=== PATIENT | female | born 1970 | race Caucasian/White ===

== ENCOUNTER 2020-05-22 12:21 | Emergency (ER) | payer BC, SELFPAY ==
--- NOTE | ~2020-05-22 | CT_ITS ---
EXAMINATION: CT ABDOMEN AND PELVIS WITH CONTRAST CLINICAL INFORMATION: Left lower quadrant pain. History of diverticulitis. COMPARISON: 05/27/2018 TECHNIQUE: Multidetector volumetric images were obtained from the superior aspect of the liver through the pubic symphysis following administration 85 mL of Omnipaque 350 intravenous contrast. Sagittal and coronal reformatted images were obtained on the technologist's workstation. Oral contrast: No This CT examination was performed using dose optimization techniques as appropriate, variously including the following: *Automated exposure control *Adjustment of mA and/or kV according to patient size (this includes techniques or standardized protocols for targeted exams where dose is matched to indication/reason for exam; i.e. extremities or head) *Use of iterative reconstruction technique DLP: 736 mGy-cm FINDINGS: LUNG BASES: The visualized lung bases are unremarkable. LIVER, GALLBLADDER, AND BILIARY TREE: The liver is normal in size, shape, and attenuation. Interval increase in size of a simple 2.1 cm subcapsular cyst within the lateral segment. Stable sub-5 mm cyst within lateral segment. No suspicious hepatic lesion or biliary ductal dilatation is present. Cholecystectomy. PANCREAS: Unremarkable. SPLEEN: Unremarkable. ADRENAL GLANDS: Unremarkable. KIDNEYS AND URETERS: The kidneys are normal in size, shape, and attenuation. No hydronephrosis, hydroureter, or calculi seen. No perinephric stranding. BLADDER: Unremarkable. GASTROINTESTINAL TRACT: Pancolonic diverticulosis, most extensive within the sigmoid colon. No associated focal colonic wall thickening or pericolic fat stranding to suggest diverticulitis. Stomach and small bowel unremarkable. ABDOMINAL WALL: No significant hernia is appreciated. LYMPH NODES: Normal. VASCULAR: Unremarkable. PELVIC VISCERA: Interval increase in size of a fibroid within the anterior uterus now measuring 5.7 cm, previously 4.2 cm. Ovaries unremarkable. OSSEOUS STRUCTURES: No acute or suspicious osseous abnormalities. CT/CT abdomen pelvis w con IMPRESSION: * No acute findings within the abdomen or pelvis to explain the patient's symptomatology. * Pancolonic diverticulosis, most extensive within the sigmoid colon. No evidence of acute diverticulitis. * Increase in size of an anterior uterine fibroid now measuring 5.7 cm, previously 4.2 cm.
[2020-05-22 12:26] VITALS: BP 138/83; PULSE 104; RESP 18; TEMP 36.7; O2SAT 99; BMI 35.5
[2020-05-22 13:14] VITALS: BP 138/68; PULSE 90; RESP 20; TEMP 36.9; O2SAT 98
--- NOTE | 2020-05-22 13:21 | ED.ABDPAIN ---
HPI - Abdominal Pain General Chief Complaint: Abdominal Pain Stated Complaint: abd pain lt side Time Seen by Provider: 05/22/20 12:34 Source: patient Mode of arrival: ambulatory Limitations: no limitations History of Present Illness HPI narrative: 49yoF c PMHx of diverticulitis and hypertension past surgical history of a cholecystectomy presenting to the ED with complaints of left lower quadrant abdominal pain for the past 3 days worse today. Patient reports she has some chills and was sweating yesterday although did not take her temperature. Denies any other symptoms related to this including dizziness, headaches, fevers, jaw pain, nausea/vomiting, palpitations, shortness of breath, chest pain, extremity edema, hemoptysis, dysuria, hematuria, diarrhea, constipation, melena or dark stools. Denies recent travel or sick contacts. MD elicited complaint: abdominal pain Pertinent past history: diverticulitis Onset (ago): day(s) (3 days worse today) Pain Consistency: constant Location: LLQ Severity: severe Quality: aching Radiation: none Migration to: no migration Relieving factors: nothing Associated symptoms: chills Related Data Previous Rx's Medication Instructions Recorded acetaminophen [Tylenol Extra 1,000 mg PO QID PRN #14 tab 05/22/20 Strength] levofloxacin 750 mg PO DAILY 7 Days #7 tab 05/22/20 metronidazole [Flagyl] 500 mg PO BID 7 Days #14 tab 05/22/20 naproxen 500 mg PO BID PRN #10 tab 05/22/20 oxycodone 5 mg PO BID PRN #10 tab 05/22/20 Allergies Allergy/AdvReac Type Severity Reaction Status Date / Time arias Allergy Unknown ITCHY Verified 05/22/20 16:05 THROAT peach [PEACH] Allergy Unknown ITCHY Verified 05/22/20 16:05 THROAT Penicillins [PENICILLINS] Allergy Unknown SWELLING Verified 05/22/20 16:05 Review of Systems Review of Systems Constitutional : + Chills/sweats, No Weight loss, No Fever, No Night Sweats, No Fatigue, No Malaise ENT/Mouth: No ear pain, No sore throat, No Difficulty swallowing Cardiovascular : No Chest Pain, No SOB, No Dyspnea on Exertion, No Orthopnea, NoEdema, No Palpitations Respiratory : No Cough, No Sputum, No Wheezing, No Dyspnea Gastrointestinal : + Abdominal pain, No Nausea, No Vomiting, No Diarrhea, No Hematochezia, No Melena Genitourinary : No irregular bleeding, No Dysuria, No Urinary Frequency, No Hematuria,No Urinary Incontinence, No Urgency, No Flank Pain Musculoskeletal : No joint pain, No Myalgias, No Joint Swelling Skin : No Skin Lesions, No rash Neuro : No Weakness, No Numbness, No Paresthesias, No Loss of Consciousness, NoDizziness, No Headache Psych : No Social Issues, Heme/Lymph: No Bruising, No Bleeding,No Lymphadenopathy Endocrine : No Polyuria, No Polydipsia, No Temperature Intolerance Yes all other systems are reviewed and are negative Physical Exam Vital Signs: Vital Signs: Last Vital Signs Temp 98.7 F 05/22/20 15:55 Pulse 98 05/22/20 15:55 Resp 18 05/22/20 15:55 BP 130/95 H 05/22/20 15:55 Pulse Ox 98 05/22/20 15:55 Body Mass Index 35.5 vital signs have been reviewed as normal and appeared to be correct. Blood pressure normal. Heart rate normal. Respiration rate normal. Temperature normal. Oxygen saturation normal. Appearance: Alert. Oriented X3. No acute distress. Head: Normal external exam. Normocephalic. Eyes: PERRLA. EOMI. Conjunctiva and sclera normal. Eyelids normal. ENT: Pharynx normal. Uvula midline. Moist mucous membranes. No trismus noted. No drooling noted. No muffled voice noted. Neck: Normal inspection. Neck supple. FROM. No adenopathy. No meningeal signs. CVS: Normal heart rate and rhythm. Heart sound normal. No murmurs noted. Pulses normal throughout. Respiratory: No respiratory distress. Painless inspiration. Breath sounds normal. No wheezes/rales/rhonchi noted. Chest nontender. No accessory muscle usage noted or decreased air movement noted. Abdomen: Soft and moderate tenderness to palpation to left lower quadrant. Nondistended. No guarding. No rigidity. Bowel sounds normal in all 4 quadrants. No distention noted. No organomegaly noted. No visible injury noted. No rebound tenderness. Negative Rovsing sign. Negative obturator's sign. Negative psoas sign. Negative Mohamud sign. Back: No CVA tenderness. Full range of motion noted. Skin: Skin warm and dry. Normal skin color. Normal skin turgor. No rashes/lesions/lacerations noted. Extremities: Extremities exhibit normal range of motion. Extremities nontender. Neuro: Oriented X 3. No motor deficit. No sensory deficit. Reflexes normal. Course Course Course Narrative: 13:20pm - 49yoF c PMHx of diverticulitis and hypertension past surgical history of a cholecystectomy presenting to the ED with complaints of left lower quadrant abdominal pain for the past 3 days worse today. Associated chills and sweating. - Concern for diverticulitis vs appendicitis vs viral syndrome vs COVID-19 - Plan: Labs, UA and CT scan of abdomen and pelvis with IV contrast. Provide a L of IV fluids and start the patient on Levaquin for possible diverticulitis or intra-abdominal infection, provided 4 mg of Zofran and 4 mg of morphine and re-evaluate. Reevaluation(s) Reevaluation #1: - all labs within normal limits. ETOH level negative. COVID/RSV/flu negative. - awaiting UA, UHCG and CT scan of abdomen and pelvis with IV contrast will re-evaluate. Time: 14:45 Reevaluation #2: - UA within normal limits no evidence of UTI. UHCG negative for . - CT scan of abdomen and pelvis revealed pancolonic diverticulosis not consistent with diverticulitis and a uterine fibroid otherwise no other acute processes due to patient having significant left lower quadrant abdominal pain and pancolonic diverticulosis will treat with antibiotics and instructions to return if any new or worsening symptoms to follow up with primary care provider. Patient is in agrees the plan. Time: 16:16 [facility] [place] - Abdominal Pain Medical Records Attestation: I reviewed the patient's medical records. Lab Data Attestation: I reviewed the patient's lab results. Result diagrams: 05/22/20 13:11 05/22/20 13:11 Labs: Lab Results 05/22/20 05/22/20 05/22/20 Range/Units 13:11 13:11 13:11 WBC 6.6 (4.8-10.8) X10*3/uL RBC 4.73 (4.20-5.50) X10*6/uL Hgb 13.8 (12.0-16.0) g/dl Hct 42.1 (37-47) % MCV 89.0 (80-98) fL MCH 29.2 (27.0-33.0) pg MCHC 32.8 (31.0-35.0) g/dl RDW 12.5 (11.0-16.0) % Plt Count 315 (160-400) X10*3/uL MPV 8.8 L (9.4-12.3) fL Immature Gran % (Auto) 0.2 (0.0-0.4) % Neut % (Auto) 62.2 (45-73) % Lymph % (Auto) 30.9 (20-40) % [place] % (Auto) 5.4 (2-11) % Eos % (Auto) 0.8 (0-4) % Baso % (Auto) 0.5 (0-2) % Lymph # (Auto) 2.1 (1.2-4.9) X10*3/uL [place] # (Auto) 0.4 (0.1-1.2) X10*3/uL Eos # (Auto) 0.1 (0.0-0.4) X10*3/uL Baso # (Auto) 0.0 (0.0-0.2) X10*3/uL Abs Immat Gran (auto) 0.01 (0.00-0.03) X10*3/uL Absolute Neuts (auto) 4.1 (2.0-8.3) X10*3/uL Absolute Nucleated RBC 0.000 (0.0-0.012) X10*3/uL Nucleated RBC % (auto) 0.0 (0.0-0.2) /100WBC Hold Purple Top SEE NOTE PT 12.8 (10.8-13.0) SEC INR 1.1 (0.9-1.1) Sodium (135-145) mmol/L Potassium (3.3-5.1) mmol/L Chloride (96-108) mmol/L Carbon Dioxide (22-29) mmol/L Anion Gap (12-20) BUN (9-16) mg/dL Creatinine (0.5-1.4) mg/dL Estim Creat Clear Calc Estimated GFR Random Glucose (60-115) mg/dL Calcium (8.4-10.2) mg/dL Magnesium (1.6-2.6) mg/dL Ferritin (10-250) ng/mL Total Bilirubin (0.0-1.0) mg/dL Direct Bilirubin (0.0-0.5) mg/dL AST (5-31) U/L ALT (0-31) U/L Alkaline Phosphatase (39-117) U/L Lactate Dehydrogenase (122-220) U/L C-Reactive Protein (< or = 0.50) mg/dL Total Protein (6.5-8.0) g/dL Albumin (3.5-5.0) g/dL Lipase (8-78) U/L Procalcitonin ng/mL Beta HCG, Quant mIU/mL Urine Color Urine Appearance Urine pH (5.0-8.0) Ur Specific [place] (1.005-1.025) Urine Protein (NEG-TRACE) MG/DL Urine Glucose (UA) (NEG) MG/DL Urine Ketones (NEG) MG/DL Urine Blood (NEG) Urine Nitrite (NEG) Ur Leukocyte Esterase (NEG) Urine RBC (0) /HPF Urine WBC (0-4) /HPF Ur Squamous Epith Cells /LPF Urine Bacteria /LPF Urine Test (NEGATIVE) Ethyl Alcohol mg/dL Coronavirus (PCR) (Negative) Influenza Type A (PCR) (Negative) Influenza Type B (PCR) (Negative) RSV RNA Qual (PCR) (Negative) 05/22/20 05/22/20 05/22/20 Range/Units 13:11 13:11 13:11 WBC (4.8-10.8) X10*3/uL RBC (4.20-5.50) X10*6/uL Hgb (12.0-16.0) g/dl Hct (37-47) % MCV (80-98) fL MCH (27.0-33.0) pg MCHC (31.0-35.0) g/dl RDW (11.0-16.0) % Plt Count (160-400) X10*3/uL MPV (9.4-12.3) fL Immature Gran % (Auto) (0.0-0.4) % Neut % (Auto) (45-73) % Lymph % (Auto) (20-40) % [place] % (Auto) (2-11) % Eos % (Auto) (0-4) % Baso % (Auto) (0-2) % Lymph # (Auto) (1.2-4.9) X10*3/uL [place] # (Auto) (0.1-1.2) X10*3/uL Eos # (Auto) (0.0-0.4) X10*3/uL Baso # (Auto) (0.0-0.2) X10*3/uL Abs Immat Gran (auto) (0.00-0.03) X10*3/uL Absolute Neuts (auto) (2.0-8.3) X10*3/uL Absolute Nucleated RBC (0.0-0.012) X10*3/uL Nucleated RBC % (auto) (0.0-0.2) /100WBC Hold Purple Top PT (10.8-13.0) SEC INR (0.9-1.1) Sodium 138 (135-145) mmol/L Potassium 4.2 (3.3-5.1) mmol/L Chloride 105 (96-108) mmol/L Carbon Dioxide 25 (22-29) mmol/L Anion Gap 12 (12-20) BUN 10 (9-16) mg/dL Creatinine 0.87 (0.5-1.4) mg/dL Estim Creat Clear Calc 88.7 Estimated GFR > 60 Random Glucose 143 H (60-115) mg/dL Calcium 8.6 (8.4-10.2) mg/dL Magnesium 2.0 (1.6-2.6) mg/dL Ferritin 57 (10-250) ng/mL Total Bilirubin 0.4 (0.0-1.0) mg/dL Direct Bilirubin 0.2 (0.0-0.5) mg/dL AST 15 (5-31) U/L ALT 23 (0-31) U/L Alkaline Phosphatase 80 (39-117) U/L Lactate Dehydrogenase 161 (122-220) U/L C-Reactive Protein 0.26 (< or = 0.50) mg/dL Total Protein 7.1 (6.5-8.0) g/dL Albumin 4.1 (3.5-5.0) g/dL Lipase 21 (8-78) U/L Procalcitonin < 0.02 ng/mL Beta HCG, Quant < 2 mIU/mL Urine Color Urine Appearance Urine pH (5.0-8.0) Ur Specific [place] (1.005-1.025) Urine Protein (NEG-TRACE) MG/DL Urine Glucose (UA) (NEG) MG/DL Urine Ketones (NEG) MG/DL Urine Blood (NEG) Urine Nitrite (NEG) Ur Leukocyte Esterase (NEG) Urine RBC (0) /HPF Urine WBC (0-4) /HPF Ur Squamous Epith Cells /LPF Urine Bacteria /LPF Urine Test (NEGATIVE) Ethyl Alcohol mg/dL Coronavirus (PCR) NEGATIVE (Negative) Influenza Type A (PCR) NEGATIVE (Negative) Influenza Type B (PCR) NEGATIVE (Negative) RSV RNA Qual (PCR) NEGATIVE (Negative) 05/22/20 05/22/20 Range/Units 13:11 15:32 WBC (4.8-10.8) X10*3/uL RBC (4.20-5.50) X10*6/uL Hgb (12.0-16.0) g/dl Hct (37-47) % MCV (80-98) fL MCH (27.0-33.0) pg MCHC (31.0-35.0) g/dl RDW (11.0-16.0) % Plt Count (160-400) X10*3/uL MPV (9.4-12.3) fL Immature Gran % (Auto) (0.0-0.4) % Neut % (Auto) (45-73) % Lymph % (Auto) (20-40) % [place] % (Auto) (2-11) % Eos % (Auto) (0-4) % Baso % (Auto) (0-2) % Lymph # (Auto) (1.2-4.9) X10*3/uL [place] # (Auto) (0.1-1.2) X10*3/uL Eos # (Auto) (0.0-0.4) X10*3/uL Baso # (Auto) (0.0-0.2) X10*3/uL Abs Immat Gran (auto) (0.00-0.03) X10*3/uL Absolute Neuts (auto) (2.0-8.3) X10*3/uL Absolute Nucleated RBC (0.0-0.012) X10*3/uL Nucleated RBC % (auto) (0.0-0.2) /100WBC Hold Purple Top PT (10.8-13.0) SEC INR (0.9-1.1) Sodium (135-145) mmol/L Potassium (3.3-5.1) mmol/L Chloride (96-108) mmol/L Carbon Dioxide (22-29) mmol/L Anion Gap (12-20) BUN (9-16) mg/dL Creatinine (0.5-1.4) mg/dL Estim Creat Clear Calc Estimated GFR Random Glucose (60-115) mg/dL Calcium (8.4-10.2) mg/dL Magnesium (1.6-2.6) mg/dL Ferritin (10-250) ng/mL Total Bilirubin (0.0-1.0) mg/dL Direct Bilirubin (0.0-0.5) mg/dL AST (5-31) U/L ALT (0-31) U/L Alkaline Phosphatase (39-117) U/L Lactate Dehydrogenase (122-220) U/L C-Reactive Protein (< or = 0.50) mg/dL Total Protein (6.5-8.0) g/dL Albumin (3.5-5.0) g/dL Lipase (8-78) U/L Procalcitonin ng/mL Beta HCG, Quant mIU/mL Urine Color YELLOW Urine Appearance CLEAR Urine pH 6.0 (5.0-8.0) Ur Specific [place] <= 1.005 (1.005-1.025) Urine Protein NEG (NEG-TRACE) MG/DL Urine Glucose (UA) NEG (NEG) MG/DL Urine Ketones NEG (NEG) MG/DL Urine Blood 1+ H (NEG) Urine Nitrite NEG (NEG) Ur Leukocyte Esterase NEG (NEG) Urine RBC 5-9 H (0) /HPF Urine WBC 0-2 (0-4) /HPF Ur Squamous Epith Cells 1+ /LPF Urine Bacteria NONE /LPF Urine Test NEGATIVE (NEGATIVE) Ethyl Alcohol < 10 mg/dL Coronavirus (PCR) (Negative) Influenza Type A (PCR) (Negative) Influenza Type B (PCR) (Negative) RSV RNA Qual (PCR) (Negative) Imaging Data CT scan of abdomen and pelvis with IV contrast: Attestation: I personally reviewed and interpreted this imaging study as follows: Radiologist's impression: FINDINGS: LUNG BASES: The visualized lung bases are unremarkable. LIVER, GALLBLADDER, AND BILIARY TREE: The liver is normal in size, shape, and attenuation. Interval increase in size of a simple 2.1 cm subcapsular cyst within the lateral segment. Stable sub-5 mm cyst within lateral segment. No suspicious hepatic lesion or biliary ductal dilatation is present. Cholecystectomy. PANCREAS: Unremarkable. SPLEEN: Unremarkable. ADRENAL GLANDS: Unremarkable. KIDNEYS AND URETERS: The kidneys are normal in size, shape, and attenuation. No hydronephrosis, hydroureter, or calculi seen. No perinephric stranding. BLADDER: Unremarkable. GASTROINTESTINAL TRACT: Pancolonic diverticulosis, most extensive within the sigmoid colon. No associated focal colonic wall thickening or pericolic fat stranding to suggest diverticulitis. Stomach and small bowel unremarkable. ABDOMINAL WALL: No significant hernia is appreciated. LYMPH NODES: Normal. VASCULAR: Unremarkable. PELVIC VISCERA: Interval increase in size of a fibroid within the anterior uterus now measuring 5.7 cm, previously 4.2 cm. Ovaries unremarkable. OSSEOUS STRUCTURES: No acute or suspicious osseous abnormalities. CT/CT abdomen pelvis w con IMPRESSION: * No acute findings within the abdomen or pelvis to explain the patient's symptomatology. * Pancolonic diverticulosis, most extensive within the sigmoid colon. No evidence of acute diverticulitis. * Increase in size of an anterior uterine fibroid now measuring 5.7 cm, previously 4.2 cm. Discharge Plan Discharge Clinical Impression: Diverticulosis, Fibroid, uterine Patient Disposition: Home, Self-Care Instructions: Diverticulosis (ED) Prescriptions: New levofloxacin 750 mg tablet 750 mg PO DAILY 7 Days Qty: 7 RF: 0 metronidazole [Flagyl] 500 mg tablet 500 mg PO BID 7 Days Qty: 14 RF: 0 acetaminophen [Tylenol Extra Strength] 500 mg tablet 1,000 mg PO QID PRN (Reason: fever or pain) Qty: 14 RF: 0 naproxen 500 mg tablet 500 mg PO BID PRN (Reason: pain) Qty: 10 RF: 0 oxycodone 5 mg tablet 5 mg PO BID PRN (Reason: pain) Qty: 10 RF: 0 Referrals: Lee José MD [Primary Care Provider] - 2 days Stand Alone Forms: Work/School Release Print Language: [place]ian [facility] Past Medical History Attestation statement: The following information was validated with the patient. Medical History HTN (hypertension) Surgical History Hx of cholecystectomy Social History Social History Alcohol intake: never Smoking Status: Never smoker Advance Directives: No Advance Directives Information Provided: No
[2020-05-22 13:25] LABS: Basophils Percent Auto 0.5 % (0-2); Eosinophils Absolute Auto 0.1 X10*3/uL (0.0-0.4); Eosinophils Percent Auto 0.8 % (0-4); Hematocrit 42.1 % (37-47); Hemoglobin 13.8 g/dl (12.0-16.0); Imm Gran Abs Auto 0.01 X10*3/uL (0.00-0.03); Imm Gran Pct Auto 0.2 % (0.0-0.4); Lymphocytes Absolute Auto 2.1 X10*3/uL (1.2-4.9); Lymphocytes Percent Auto 30.9 % (20-40); MANUAL DIFF FLAG NO; Mean Corpuscular HGB Conc 32.8 g/dl (31.0-35.0); Mean Corpuscular Hemoglobin 29.2 pg (27.0-33.0); Mean Platelet Volume 8.8 fL (9.4-12.3); Monocytes Absolute Auto 0.4 X10*3/uL (0.1-1.2); Monocytes Percent Auto 5.4 % (2-11); Neutrophils Absolute Auto 4.1 X10*3/uL (2.0-8.3); Neutrophils Percent Auto 62.2 % (45-73); Platelet Count 315 X10*3/uL (160-400); Red Blood Count 4.73 X10*6/uL (4.20-5.50); Red Cell Distribution Width 12.5 % (11.0-16.0); White Blood Count 6.6 X10*3/uL (4.8-10.8)
[2020-05-22 13:40] LABS: INTERNATIONAL NORM RATIO 1.1 (0.9-1.1); Prothrombin Time 12.8 SEC (10.8-13.0)
[2020-05-22 13:44] LABS: Ethanol < 10 mg/dL
[2020-05-22 13:48] LABS: Alanine Aminotransferase 23 U/L (0-31); Albumin Level 4.1 g/dL (3.5-5.0); Alkaline Phosphatase 80 U/L (39-117); Anion Gap 12 (12-20); Aspartate Amino Transferase 15 U/L (5-31); Bilirubin Direct 0.2 mg/dL (0.0-0.5); Bilirubin Total 0.4 mg/dL (0.0-1.0); Blood Urea Nitrogen 10 mg/dL (9-16); C Reactive Protein 0.26 mg/dL (< or = 0.50); Calcium 8.6 mg/dL (8.4-10.2); Carbon Dioxide 25 mmol/L (22-29); Chloride 105 mmol/L (96-108); Creatinine Clr Calc Pharmacy 88.7; Estimated Glomerular Filt Rate > 60; Glucose Random 143 mg/dL (60-115); Lactate Dehydrogenase 161 U/L (122-220); Lipase 21 U/L (8-78); Potassium 4.2 mmol/L (3.3-5.1); Sodium 138 mmol/L (135-145); Total Protein 7.1 g/dL (6.5-8.0)
[2020-05-22 14:08] LABS: Procalcitonin < 0.02 ng/mL
[2020-05-22 14:10] LABS: Ferritin 57 ng/mL (10-250)
[2020-05-22] MEDS: 0.9 % Sodium Chloride 1,000 ML 999 ML IVCONT (14:18)
[2020-05-22] MEDS: Morphine Sulfate 4 MG/ML CARTRIDGE IVPUSH (14:18)
[2020-05-22] MEDS: ondansetron HCL 4 MG/2 ML VIAL IVPUSH (14:18)
[2020-05-22 14:25] LABS: Influenza A PCR NEGATIVE (Negative); Influenza B PCR NEGATIVE (Negative); Resp Syncy Virus RNA Qual PCR NEGATIVE (Negative); SARS COV2 PCR INHOUSE NEGATIVE (Negative)
[2020-05-22] MEDS: levoFLOXacin/D5W 750 MG/150 ML PIGGYBACK 100 MG IV (14:25)
[2020-05-22 14:34] VITALS: BP 139/98; PULSE 84; RESP 20; TEMP 36.7; O2SAT 99
[2020-05-22 15:06] LABS: HCG Quantitative < 2 mIU/mL
[2020-05-22 15:55] VITALS: BP 130/95; PULSE 98; RESP 18; TEMP 37.1; O2SAT 98
[2020-05-22 16:02] LABS: Glucose Urine UA NEG (NEG); Leukocyte Esterase Urine NEG (NEG); Nitrite Urine NEG (NEG); Specific Gravity - Urine <= 1.005 (1.005-1.025); Urine Blood 1+ (NEG); Urine Ketones NEG (NEG); Urine Protein NEG (NEG-TRACE)
[2020-05-22 16:07] LABS: Appearance Urine CLEAR; Color Urine YELLOW
[2020-05-22 16:15] LABS: Squamous Epithelial Cell Urine 1+ /LPF; UPreg QC Valid YES; Urine Pregnancy NEGATIVE (NEGATIVE); WBC Urine 0-2 /HPF (0-4)
== END 2020-05-22 16:46 | disposition home or self-care (01) ==
PROVIDERS: Physician Assistant Medical; Emergency Provider Emergency Medicine; PCP Internal Medicine
DX: K57.30 Diverticulosis of large intestine without perforation or abscess without bleeding (principal); D25.9 Leiomyoma of uterus, unspecified; I10 Essential (primary) hypertension; Z20.822 Contact with and (suspected) exposure to COVID-19
CPT/HCPCS: 0241U; 36415; 74177; 80048; 80076; 80320; 81001; 81003; 81025; 82728; 83615; 83690; 83735; 84145; 84702; 85025; 85610; 86140; 96365; 96366; 96375; 99284; J1956; J2270; J2405

== ENCOUNTER 2021-12-26 08:41 | Outpatient (REF) | payer BC, SELFPAY ==
[2021-12-26 09:19] LABS: IDNOW Serial# 16C4AD1C
[2021-12-26 09:20] LABS: COVID-19 Test Negative (Negative)
== END 2021-12-26 08:42 | disposition home or self-care (01) ==
LOC: HO.LAB 08:41
PROVIDERS: Visit Provider Internal Medicine
DX: Z20.822 Contact with and (suspected) exposure to COVID-19 (principal)
CPT/HCPCS: 87635; C9803

== ENCOUNTER 2022-01-02 14:09 | Outpatient (REF) | payer BC, SELFPAY ==
[2022-01-02 15:15] LABS: COVID-19 Test Negative (Negative)
== END 2022-01-02 14:10 | disposition home or self-care (01) ==
LOC: HO.LAB 14:09
PROVIDERS: Visit Provider Internal Medicine
DX: Z20.822 Contact with and (suspected) exposure to COVID-19 (principal)
CPT/HCPCS: 87635; C9803

== ENCOUNTER 2023-02-19 09:54 | Outpatient (REF) | payer BC, SELFPAY ==
[2023-02-19 11:59] LABS: Anion Gap 10 (12-20); Blood Urea Nitrogen 10 mg/dL (9-16); Calcium 9.1 mg/dL (8.4-10.2); Carbon Dioxide 26 mmol/L (22-29); Chloride 108 mmol/L (96-108); Estimated Glomerular Filt Rate > 60; Glucose Random 82 mg/dL (60-115); Potassium 3.8 mmol/L (3.3-5.1); Sodium 140 mmol/L (135-145)
[2023-02-19 12:28] LABS: Thyroid Stimulating Hormone 1.23 uIU/mL (0.32-4.0)
[2023-02-19 12:39] LABS: Folate 13.1 ng/mL (> or = 4.0); Vitamin B12 651 pg/mL (200-900)
[2023-02-19 13:31] LABS: T4 Thyroxine 7.9 ug/dL (4.5-12.0)
[2023-02-21 17:13] LABS: Homocysteine 7.3 umol/L (<10.4)
[2023-02-23 08:04] LABS: Methylmalonic Acid 67 nmol/L (87-318)
== END 2023-02-19 09:55 | disposition home or self-care (01) ==
LOC: HO.LAB 09:54
PROVIDERS: Visit Provider Psychiatry & Neurology Neurology
DX: G25.0 Essential tremor (principal); G31.84 Mild cognitive impairment of uncertain or unknown etiology
CPT/HCPCS: 36415; 80048; 82607; 82746; 83090; 83921; 84436; 84443

== ENCOUNTER 2024-12-07 08:34 | Outpatient (AMB) | payer BC, SELFPAY ==
--- NOTE | 2024-12-07 08:35 | MHC.OFFVIS ---
Intake Visit Reasons: 6m follow up Allergies arias Allergy (Unknown, Verified 12/07/24 08:41) ITCHY THROAT peach (PEACH) Allergy (Unknown, Verified 12/07/24 08:41) ITCHY THROAT Penicillins (PENICILLINS) Allergy (Unknown, Verified 12/07/24 08:41) SWELLING Medication List - Last Reconciled 12/07/24 by Eulalia Cordero CNP acetaminophen (Tylenol Extra Strength) 1,000 mg (2 x 500 mg) PO QID PRN cabergoline 0.25 mg PO 2XW dicyclomine 10 mg PO TID gabapentin 300 mg PO DAILY levofloxacin 750 mg PO DAILY 7 days metronidazole (Flagyl) 500 mg PO BID 7 days naproxen 500 mg PO BID PRN oxycodone 5 mg PO BID PRN propranolol ER 60 mg PO DAILY semaglutide (Ozempic) 2 mg subcut QWEEK HPI Comments Details: She tried Vyvanse, but it did not help and disrupted sleep, stopped medication. 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 She had some trouble focusing on homework by herself, needing to take frequent breaks and felt her processing of information was slow. She was able to get homework done within 45 minutes when doing it with someone else. Getting about 4-6 hours of sleep/night. says that she snores and his sleep is very disrupted by this. She was referred to ENT, but does not have appointment until next year. Tremors are okay, L > R, some days better than others. No functional impairment. No difficulty eating, drinking, or swallowing. Had neuropsych testing at [facility], was told no memory issue but has untreated ADD. Tried Ritalin and Concerta in the past which did not help. Forgetful and has trouble focusing, easily distracted. Sets reminders on phone. Work is okay. Noticed memory problems and difficulty retrieving words around 2021. Tremors have been stable, somedays worse than others. Tremors worse if she lifts something heavy for a while. No impairment on functional ability. No difficulty eating or drinking. She believes she may have had tremors in left arm since age 27 after review previous orthopedic records.? Gets periods of twitching in the right upper lid. She is left-handed and when the arm is tired, it shakes more which affects her writing. She has tremors in the left hand that come and go, especially if she is holding something heavy since 2019. No tremors on right side. Sleep is okay. In the past, episodes of tremor were about 4x/week, at times worse than others. She also complains of cramping in the left foot at times, has to stand up and stretch it. Her mother has history of alcohol use disorder, used to have tremors. She had dementia in late 50s and now does not recognize family in 70s. Maternal uncle and 2 paternal uncles have Parkinson's disease. [facility] Medical History (Updated 12/07/24 @ 08:49 by Eulalia Cordero CNP) ADD (attention deficit disorder) MCI (mild cognitive impairment) Benign essential tremor HTN (hypertension) Surgical History Hx of cholecystectomy Family History (Updated 12/07/24 @ 08:40 by Eulalia Cordero CNP) Mother Dementia Alcohol use disorder Maternal Uncle Parkinsons disease Paternal Uncle Parkinsons disease Paternal Uncle Parkinsons disease Social History Alcohol intake: never Review of Systems Const Denies chills, Denies daytime sleepiness, Denies difficulty sleeping, Denies fatigue, Denies fever(s), Denies frequent falls, Denies headache(s), Denies increased appetite, Denies poor appetite, Reports snoring, Denies weakness, Denies weight gain and Denies weight loss Eyes Denies loss of vision ENT Denies vertigo, Denies dizziness, Denies headache(s) and Denies neck pain Card Denies chest pain at rest, Denies chest pain with activity, Denies syncope, Denies leg edema, Denies palpitations, Denies dyspnea and Denies dyspnea on exertion Resp Denies cough, Denies dyspnea, Denies dyspnea on exertion and Reports snoring GI Denies abdominal pain, Denies constipation, Denies heartburn, Denies diarrhea and Denies nausea Denies urinary frequency, Denies urinary incontinence and Denies urinary urgency Musc Denies abnormal gait, Denies back pain, Denies myalgias, Denies arthralgias, Denies neck pain, Denies numbness and Denies tingling Neuro Denies abnormal gait, Denies vertigo, Denies dizziness, Denies syncope, Denies frequent falls, Denies headache(s), Denies lack of coordination, Denies loss of vision, Denies memory loss, Denies numbness, Denies Other visual disturbances, Denies restless legs, Denies seizure-like activity, Denies tingling, Denies paresthesias, Reports tremor(s) and Denies weakness Psych Denies anxiety, Reports depression, Denies auditory hallucinations, Denies memory loss and Denies visual hallucinations Endo Denies fatigue and Denies palpitations Physical Exam Const Other: General Appearance:? normal, in no acute distress. Heart:? S1, S2 normal, no murmurs. Lungs:? clear anteriorly and posteriorly. Musculoskeletal:? normal. Extremities:? no edema. Psych:? alert, oriented, cognitive function intact, cooperative with exam. Neuro Other: Abnormal Neurological Findings:?No hand tremor when held in outstretched position or at rest that does not affect her ability to function in any way Mental Status: alert and oriented X 3. Normal attention, orientation, memory, and affect. Cranial Nerves: Pupils are equal, round, and reactive to light. External ocular muscles are intact. Visual treadwell are full, no ptosis. Face is symmetrical, no facial weakness or droop. Facial sensations are normal. Tongue protrudes in midline. Palate elevates symmetrically. Shoulder shrugging is normal Motor Examination: Normal muscle tone, bulk and strength. No atrophy or fasciculations. No drift of the extended upper extremities. DTR 2+. Plantars are flexor. Sensory Exam: Normal light touch, temperature, pinprick, vibration, and joint-position sensations. Rhomberg sign is absent. Coordination: No ataxia. No titubation. Lvcrtr-mt-ntmu, taxm-mfje-rgmu test, and rapid alternating movements were normal. Gait Exam: Within normal limits. Cerebellar Signs: Igsnsr-qq-uoww and lqjw-ml-ivpt is normal. No dysdiadochokinesia. Extrapyramidal System: Fine intermittent left hand tremor in an outstretched position as above. No rigidity with normal facial expressions. No bradykinesia. No bradyphrenia. Normal arm swing and posture. No propulsion or retropulsion. Speech: Normal. No dysphasia or dysarthria. Results Reviewed Results Reviewed: 03/01/23 EEG- WNL 03/07 MRI brain normal. 03/07 Labs normal. Assessment & Plan Assessment & Plan (1) Benign essential tremor: Code(s): G25.0 - Essential tremor Category: Medical Plan: Continue propranolol. (2) ADD (attention deficit disorder): Code(s): F98.8 - Other specified behavioral and emotional disorders with onset usually occurring in childhood and adolescence Category: Medical Qualifiers: Attention deficit type: unspecified type Qualified Code(s): F98.8 - Other specified behavioral and emotional disorders with onset usually occurring in childhood and adolescence (3) KIMBERLEY (obstructive sleep apnea): Code(s): G47.33 - Obstructive sleep apnea (adult) (pediatric) Category: Medical Plan: She had home sleep study at [address] [place] [address] in [place], [place] in the past, results not available at this time. She will fax report to office. She was interested in in-lab sleep study, order placed. She was advised insurance may not cover this testing, and may require home sleep study depending how long ago previous testing was and the results. Plan Meds tried: Ritalin, Concerta, Vyvanse Orders: Orders RT PS[facility] in-lab sleep study Today G47.33 - Obstructive sleep apnea (adult) (pediatric) Coding Level of Care Code Est Pt Level 4 (83960) Diagnoses Benign essential tremor G25.0 Attention deficit disorder, unspecified type F98.8 Attention deficit type: unspecified type KIMBERLEY (obstructive sleep apnea) G47.33
--- OUTSIDE RECORDS SUMMARY | 2024-12-07 09:00 | XMS_ITS | Patient Health Record ---
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 Prediabetes: 5.7 - 6.4 Diabetes: >6.4 Glycemic control for adults with diabetes: <7.0 Testosterone-[id number] Reviewed date:03/08/2024 09:30:05 PM Interpretation: Performing Lab:[facility], [employer] [email or web address] [place], Phone - [phone], Director - MDJodry Notes/Report: Testosterone 20 4-50 ng/dL Luteinizing Hormone(LH)-[id number] 83 Reviewed date:03/08/2024 09:30:05 PM Interpretation: Performing Lab:[facility], [employer] [facility], [place], Phone - [phone], Director - MDJodry Notes/Report: LH 35.2 Adult Female Range Follicular phase 2.4 - 12.6 Ovulation phase 14.0 - 95.6 Luteal phase 1.0 - 11.4 Postmenopausal 7.7 - 58.5 FSH-[id number] Reviewed date:03/08/2024 09:30:06 PM Interpretation: Performing Lab:[facility] [place], [address] [place] [address], Phone - [phone], Director - Cooper Notes/Report: FSH 63.4 Adult Female Range Follicular phase 3.5 - 12.5 Ovulation phase 4.7 - 21.5 Luteal phase 1.7 - 7.7 Postmenopausal 25.8 - 134.8 Prolactin-[id number] Reviewed date:03/08/2024 09:30:06 PM Interpretation: Performing Lab:[facility] [place], [address] [place] [address], Phone - [phone], Director - Cooper Notes/Report: Prolactin 12.9 3.6-25.2 ng/mL Estrogens, Total-[id number] Reviewed date:03/08/2024 09:30:06 PM Interpretation: Performing Lab:[facility] [place], [address] [place] [address], Phone - [phone], Director - Cooper Notes/Report: Estrogens, Total 60 Prepubertal < 40 Female Cycle: 1-10 Days 16 - 328 11-20 Days 34 - 501 21-30 Days 48 - 350 Post-Menopausal 40 - 244 CBC With Differential/Platel et-[id number] Reviewed date:03/08/2024 09:30:06 PM Interpretation: Performing Lab:[facility] [place], [address] [place] [address], Phone - [phone], Director - Cooper Notes/Report: WBC 4.7 3.4-10.8 x10E3/uL RBC 4.36 3.77-5.28 x10E6/uL Hemoglobin 12.8 11.1-15.9 g/dL Hematocrit 39.0 34.0-46.6 % MCV 89 79-97 fL MCH 29.4 26.6-33.0 pg MCHC 32.8 31.5-35.7 g/dL RDW 12.6 11.7-15.4 % Platelets 294 150-450 x10E3/uL Neutrophils 49 Not Estab. % Lymphs 43 Not Estab. % Monocytes 7 Not Estab. % Eos 1 Not Estab. % Basos 0 Not Estab. % Neutrophils (Absolute) 2.3 1.4-7.0 x10E3/uL Lymphs (Absolute) 2.0 0.7-3.1 x10E3/uL Monocytes(Absolute) 0.3 0.1-0.9 x10E3/uL Eos (Absolute) 0.0 0.0-0.4 x10E3/uL Baso (Absolute) 0.0 0.0-0.2 x10E3/uL Immature Granulocytes 0 Not Estab. % Immature Grans (Abs) 0.0 0.0-0.1 x10E3/uL Vitamin D, 86-Owgmodx-[id number] Reviewed date:03/08/2024 09:30:06 PM Interpretation: Performing [facility], [address] [place] [address], Phone - [phone], Director - Cooper Notes/Report: Vitamin D, 25-Hydroxy 29.6 30.0-100.0 ng/mL Vitamin D deficiency has been defined by the [place] [employer] and an Endocrine Society practice guideline as a level of serum 25-OH vitamin D less than 20 ng/mL (1,2). The Endocrine Society went on to further define vitamin D insufficiency as a level between 21 and 29 ng/mL (2). 1. IOM ([place] [employer]). 2010. Dietary reference intakes for calcium and D. [place]: The National Academies Press. 2. Odilon MF, Adolfo NC, Black-Merrill HOPKINS, et al. Evaluation, treatment, and prevention of vitamin D deficiency: an Endocrine Society clinical practice guideline. JCEM. 2010; 96(7):1911-30. Albumin/Creatinine Ratio,Uri ne-158614 Reviewed date:03/08/2024 09:30:07 PM Interpretation: Performing Lab:[facility] [place], [address] [place] [address], Phone - [phone], Director - Cooper Notes/Report: Creatinine, Urine 152.3 Not Estab. mg/dL Albumin, Urine 3.9 Not Estab. ug/mL Alb/Creat Ratio 3 0-29 mg/g creat Normal: 0 - 29 Moderately increased: 30 - 300 Severely increased: >300 HCV Antibody RFX to Quant PC R-[id number] Reviewed date:03/08/2024 09:30:07 PM Interpretation: Performing Lab:[facility], [address] [place] [address], Phone - [phone], Director - Cooper Notes/Report: HCV Ab Non Reactive Non Reactive Interpretation: Not infected with HCV unless early or acute infection is suspected (which may be delayed in an immunocompromised individual), or other evidence exists to indicate HCV infection. Comp. Metabolic Panel (14)-3 [id number] Reviewed date:03/08/2024 09:30:07 PM Interpretation: Performing Lab:[facility] [place], [address] [place] [address], Phone - [phone], Director - Cooper Notes/Report: Glucose 114 70-99 mg/dL BUN 12 6-24 mg/dL Creatinine 0.87 0.57-1.00 mg/dL eGFR 81 >59 mL/min/1.73 BUN/Creatinine Ratio 14 9-23 Sodium 138 134-144 mmol/L Potassium 4.3 3.5-5.2 mmol/L Chloride 103 96-106 mmol/L Carbon Dioxide, Total 22 20-29 mmol/L Calcium 9.0 8.7-10.2 mg/dL Protein, Total 6.8 6.0-8.5 g/dL Albumin 4.3 3.8-4.9 g/dL Globulin, Total 2.5 1.5-4.5 g/dL Bilirubin, Total <0.2 0.0-1.2 mg/dL Alkaline Phosphatase 87 44-121 IU/L AST (SGOT) 11 0-40 IU/L ALT (SGPT) 13 0-32 IU/L LP+Non-HDL Cholesterol-[id number] 5 Reviewed date:03/08/2024 09:30:07 PM Interpretation: Performing Lab:[facility] [place], [address] [place] [address], Phone - [phone], Director - Cooper Notes/Report: Cholesterol, Total 150 100-199 mg/dL Triglycerides 90 0-149 mg/dL HDL Cholesterol 48 >39 mg/dL VLDL Cholesterol Shayan 17 5-40 mg/dL LDL Chol Calc (NIH) 85 0-99 mg/dL Non-HDL Cholesterol 102 0-129 mg/dL UA/M w/rflx Culture, Routine -[id number] Reviewed date:03/08/2024 09:30:08 PM Interpretation: Performing Lab:[facility] [place], [address] [facility], Phone - [phone], Director - Cooper Notes/Report: Specific Umpire 1.022 1.005-1.030 pH 5.5 5.0-7.5 Urine-Color Yellow Yellow Appearance Clear Clear WBC Esterase Negative Negative Protein Negative Negative/Trace Glucose Negative Negative Ketones Negative Negative Occult Blood Negative Negative Bilirubin Negative Negative Urobilinogen,Semi-Qn 0.2 0.2-1.0 mg/dL Nitrite, Urine Negative Negative Microscopic Examination Micr oscopic follows if indicated. Microscopic Examination See below: Micr oscopic was indicated and was performed. Urinalysis Reflex This speci men will not reflex to a Urine Culture. WBC None seen 0 - 5 /hpf RBC 0-2 0 - 2 /hpf Epithelial Cells (non renal) 0-10 0 - 10 /hpf Casts None seen None seen /lpf Bacteria Few None seen/Few Respiratory Panel w/ SARS-Co [id number] Reviewed date:04/30/2024 05:30:22 PM Interpretation: Performing Lab:[facility], [address] [place] [address], [place], Phone - [phone], Director - MDJodry Notes/Report: Adenovirus Not Detected Not Detected Coronavirus HKU1 Not Detected Not Detected Coronavirus NL63 Not Detected Not Detected Coronavirus 229E Not Detected Not Detected Coronavirus OC43 Not Detected Not Detected SARS-CoV-2 Not Detected Not Detected Human Metapneumovirus Not Detected Not Detected Human Rhinovirus/Enterovirus Not Detected Not Detected Influenza A Not Detected Not Detected Influenza A/H1 TNP Test not perf ormed Influenza A/H1-2009 TNP Test not performed Influenza A/H3 TNP Test not perf ormed Influenza B Not Detected Not Detected Parainfluenza 1 Not Detected Not Detected Parainfluenza 2 Not Detected Not Detected Parainfluenza 3 Not Detected Not Detected Parainfluenza 4 Not Detected Not Detected Respiratory Syncytial Virus Not Detected Not Detected Bordetella parapertussis Not Detected Not Detected Bordetella pertussis Not Detected Not Detected Chlamydophila pneumoniae Not Detected Not Detected Mycoplasma pneumoniae Not Detected Not Detected Hemoglobin [id number] Reviewed date:05/28/2024 05:12:48 PM Interpretation: Performing Lab:[facility], [address] [facility], [place], Phone - [phone], Director - MDJodry Notes/Report: Hemoglobin A1c 6.5 4.8-5.6 % . Prediabetes: 5.7 - 6.4 Diabetes: >6.4 Glycemic control for adults with diabetes: <7.0 CBC With Differential/Platel et-[id number] Reviewed date:05/28/2024 05:12:48 PM Interpretation: Performing Lab:[facility] [place], [address] [place] [address], Phone - [phone], Director - MDKimberlydry Notes/Report: WBC 9.4 3.4-10.8 x10E3/uL RBC 4.37 3.77-5.28 x10E6/uL Hemoglobin 12.8 11.1-15.9 g/dL Hematocrit 39.9 34.0-46.6 % MCV 91 79-97 fL MCH 29.3 26.6-33.0 pg MCHC 32.1 31.5-35.7 g/dL RDW 12.4 11.7-15.4 % Platelets 349 150-450 x10E3/uL Neutrophils 67 Not Estab. % Lymphs 25 Not Estab. % Monocytes 8 Not Estab. % Eos 0 Not Estab. % Basos 0 Not Estab. % Neutrophils (Absolute) 6.3 1.4-7.0 x10E3/uL Lymphs (Absolute) 2.3 0.7-3.1 x10E3/uL Monocytes(Absolute) 0.8 0.1-0.9 x10E3/uL Eos (Absolute) 0.0 0.0-0.4 x10E3/uL Baso (Absolute) 0.0 0.0-0.2 x10E3/uL Immature Granulocytes 0 Not Estab. % Immature Grans (Abs) 0.0 0.0-0.1 x10E3/uL B-Type Natriuretic Peptide-1 12917 Reviewed date:05/28/2024 05:12:48 PM Interpretation: Performing Lab:[facility] [address] [place] [address], Phone - [phone], Director - MDKimberlydry Notes/Report: B-Type Natriuretic Peptide 5.8 0.0-100.0 pg/m L Siemens ADVIA Centaur XP methodology Comp. Metabolic Panel (14)-3 [id number] Reviewed date:05/28/2024 05:12:48 PM Interpretation: Performing Lab:[facility] [address] [place] [address], Phone - [phone], Director - MDKimberlydry Notes/Report: Glucose 113 70-99 mg/dL BUN 12 6-24 mg/dL Creatinine 0.82 0.57-1.00 mg/dL eGFR 87 >59 mL/min/1.73 BUN/Creatinine Ratio 15 9-23 Sodium 139 134-144 mmol/L Potassium 4.4 3.5-5.2 mmol/L Chloride 102 96-106 mmol/L Carbon Dioxide, Total 22 20-29 mmol/L Calcium 9.1 8.7-10.2 mg/dL Protein, Total 6.9 6.0-8.5 g/dL Albumin 4.1 3.8-4.9 g/dL Globulin, Total 2.8 1.5-4.5 g/dL Bilirubin, Total 0.3 0.0-1.2 mg/dL Alkaline Phosphatase 108 44-121 IU/L AST (SGOT) 16 0-40 IU/L ALT (SGPT) 24 0-32 IU/L Pneumococcal Ab (23 Serotype )-[id number] Reviewed date:05/28/2024 05:12:49 PM Interpretation: Performing Lab:[facility], [address] [place] [address] Avenue, [place], Phone - [phone], Director - Cooper Notes/Report: Pneumo Ab Type 1* 2.2 >1.3 ug/mL Pneumo Ab Type 3* 0.1 >1.3 ug/mL Pneumo Ab Type 4* 0.3 >1.3 ug/mL Pneumo Ab Type 8* 8.6 >1.3 ug/mL Pneumo Ab Type 9 (9N)* 4.5 >1.3 ug/mL Pneumo Ab Type 12 (12F)* 0.1 >1.3 ug/mL Pneumo Ab Type 14* >30.6 >1.3 ug/mL Pneumo Ab Type 17 (17F)* 2.5 >1.3 ug/mL Pneumo Ab Type 19 (19F)* 0.5 >1.3 ug/mL Pneumo Ab Type 2* 3.6 >1.3 ug/mL Pneumo Ab Type 20* 17.8 >1.3 ug/mL Pneumo Ab Type 22 (22F)* 0.3 >1.3 ug/mL Pneumo Ab Type 23 (23F)* 2.7 >1.3 ug/mL Pneumo Ab Type 26 (6B)* <0.1 >1.3 ug/mL Pneumo Ab Type 34 (10A)* 5.8 >1.3 ug/mL Pneumo Ab Type 43 (11A)* 4.1 >1.3 ug/mL Pneumo Ab Type 5* 2.2 >1.3 ug/mL Pneumo Ab Type 51 (7F)* 2.9 >1.3 ug/mL Pneumo Ab Type 54 (15B)* 11.9 >1.3 ug/mL Pneumo Ab Type 56 (18C)* 1.4 >1.3 ug/mL Pneumo Ab Type 57 (19A)* 9.5 >1.3 ug/mL Pneumo Ab Type 68 (9V)* 2.0 >1.3 ug/mL Pneumo Ab Type 70 (33F)* 5.2 >1.3 ug/mL *This test was developed and its performance characteristics determined by [facility]. It has not been cleared or approved by the U.S. Food and Drug Administration. FLAG Interpretation: A = Abnormal, H = High, L = Low CT Abdomen Pelvis WO Cont Reviewed date:05/25/2024 11:19:56 AM Interpretation: Performing Lab: Notes/Report: TSH-[id number] Reviewed date:06/28/2024 04:51:14 PM Interpretation: Performing Lab:[facility], [address] [facility], Phone - [phone], Director - Cooper Notes/Report: TSH 1.690 0.450-4.500 uIU/mL Vitamin D, 15-Frtdsmp-[id number] Reviewed date:06/28/2024 04:51:14 PM Interpretation: Performing Lab:[facility], [address] [facility], [place], Phone - [phone], Director - Grisely Notes/Report: Vitamin D, 25-Hydroxy 22.7 30.0-100.0 ng/mL Vitamin D deficiency has been defined by the [place] [employer] and an Endocrine Society practice guideline as a level of serum 25-OH vitamin D less than 20 ng/mL (1,2). The Endocrine Society went on to further define vitamin D insufficiency as a level between 21 and 29 ng/mL (2). 1. IOM ([place] of [employer]). 2010. Dietary reference intakes for calcium and D. [place]: The National Academies Press. 2. Odilon MF, Adolfo SCHULZ, Pardeep HOPKINS, et al. Evaluation, treatment, and prevention of vitamin D deficiency: an Endocrine Society clinical practice guideline. JCEM. 2010; 96(7):1911-30. Albumin/Creatinine Ratio,Uri ne-537161 Reviewed date:06/28/2024 04:51:14 PM Interpretation: Performing Lab:[facility] [place], [address] [place] [address], Phone - [phone], Director - Cooper Notes/Report: Creatinine, Urine 152.7 Not Estab. mg/dL Albumin, Urine 3.5 Not Estab. ug/mL Alb/Creat Ratio 2 0-29 mg/g creat Normal: 0 - 29 Moderately increased: 30 - 300 Severely increased: >300 Hemoglobin A1C Reviewed date:12/01/2024 02:51:12 PM Interpretation: Performing Lab: Notes/Report: HbA1c 6.2 Hemoglobin A1C Reviewed date:12/01/2024 02:51:41 PM Interpretation: Performing Lab: Notes/Report: HbA1c 6.1 Urinalysis, Complete-[id number] Reviewed date:11/18/2024 06:41:51 PM Interpretation: Performing Lab:[employer], [address] [place] [address], Phone - [phone], Director - PhDBCNeil Notes/Report: Specific Umpire >=1.030 1.005-1.030 pH 5.5 5.0-7.5 Urine-Color Yellow Yellow Appearance Cloudy Clear WBC Esterase Negative Negative Protein Trace Negative/Trace Glucose Trace Negative Ketones Trace Negative Occult Blood Negative Negative Bilirubin Negative Negative Urobilinogen,Semi-Qn 1.0 0.2-1.0 mg/dL Nitrite, Urine Negative Negative Microscopic Examination Micr oscopic follows if indicated. Microscopic Examination See below: Micr oscopic was indicated and was performed. WBC None seen 0 - 5 /hpf RBC None seen 0 - 2 /hpf Epithelial Cells (non renal) >10 0 - 10 /hpf Casts None seen None seen /lpf Crystals Present N/A Crystal Type Calcium Oxalate N/A Bacteria Many None seen/Few Prolactin-[id number] Reviewed date:11/18/2024 06:41:51 PM Interpretation: Performing Lab:[facility] [facility], [address] [address], [place], Phone - [phone], Director - PhDBCNeil Notes/Report: Prolactin 32.6 3.6-25.2 ng/mL Vitamin D, 24-Fcdvbpy-034013 Reviewed date:11/18/2024 06:41:51 PM Interpretation: Performing Lab:[employer], [address] [place] [address], Phone - [phone], Director - Banneril Notes/Report: Vitamin D, 25-Hydroxy 28.9 30.0-100.0 ng/mL Vitamin D deficiency has been defined by the [place] [employer] and an Endocrine Society practice guideline as a level of serum 25-OH vitamin D less than 20 ng/mL (1,2). The Endocrine Society went on to further define vitamin D insufficiency as a level between 21 and 29 ng/mL (2). 1. IOM ([place] [employer]). 2010. Dietary reference intakes for calcium and D. [place]: The National Academies Press. 2. Odilon MF, Adolfo [place], Pardeep HOPKINS, et al. Evaluation, treatment, and prevention of vitamin D deficiency: an Endocrine Society clinical practice guideline. JCEM. 2010; 96(7):1911-30. Albumin/Creatinine Ratio,Uri ne-203022 Reviewed date:11/18/2024 06:41:51 PM Interpretation: Performing Lab:[employer], [address] [place] [address], Phone - [phone], Director - [facility] Notes/Report: Creatinine, Urine 247.5 Not Estab. mg/dL Albumin, Urine 7.7 Not Estab. ug/mL Alb/Creat Ratio 3 0-29 mg/g creat Normal: 0 - 29 Moderately increased: 30 - 300 Severely increased: >300 Comp. Metabolic Panel (14)-3 Reviewed date:11/18/2024 06:41:51 PM Interpretation: Performing Lab:[employer], [address] [place] [address], [place], Phone - [phone], Director - [facility] Notes/Report: Glucose 97 70-99 mg/dL BUN 10 6-24 mg/dL Creatinine 0.79 0.57-1.00 mg/dL eGFR 90 >59 mL/min/1.73 BUN/Creatinine Ratio 13 9-23 Sodium 139 134-144 mmol/L Potassium 4.1 3.5-5.2 mmol/L Chloride 104 96-106 mmol/L Carbon Dioxide, Total 18 20-29 mmol/L Calcium 9.0 8.7-10.2 mg/dL Protein, Total 6.5 6.0-8.5 g/dL Albumin 3.9 3.8-4.9 g/dL Globulin, Total 2.6 1.5-4.5 g/dL Bilirubin, Total 0.2 0.0-1.2 mg/dL Alkaline Phosphatase 111 44-121 IU/L AST (SGOT) 17 0-40 IU/L ALT (SGPT) 17 0-32 IU/L Pneumococcal Ab (23 Serotype )-[id number] Reviewed date:11/18/2024 06:41:51 PM Interpretation: Performing Lab:[employer] [facility], [address] [place] [address], Phone - [phone], Director - PhDJessicatn Notes/Report: Pneumo Ab Type 1* 2.5 >1.3 ug/mL Pneumo Ab Type 3* 0.6 >1.3 ug/mL Pneumo Ab Type 4* 0.9 >1.3 ug/mL Pneumo Ab Type 8* 12.9 >1.3 ug/mL Pneumo Ab Type 9 (9N)* 5.3 >1.3 ug/mL Pneumo Ab Type 12 (12F)* 0.1 >1.3 ug/mL Pneumo Ab Type 14* 17.6 >1.3 ug/mL Pneumo Ab Type 17 (17F)* 2.8 >1.3 ug/mL Pneumo Ab Type 19 (19F)* 0.7 >1.3 ug/mL Pneumo Ab Type 2* 4.7 >1.3 ug/mL Pneumo Ab Type 20* 13.8 >1.3 ug/mL Pneumo Ab Type 22 (22F)* 1.0 >1.3 ug/mL Pneumo Ab Type 23 (23F)* 21.1 >1.3 ug/mL Pneumo Ab Type 26 (6B)* 3.8 >1.3 ug/mL Pneumo Ab Type 34 (10A)* 11.1 >1.3 ug/mL Pneumo Ab Type 43 (11A)* 4.3 >1.3 ug/mL Pneumo Ab Type 5* 15.4 >1.3 ug/mL Pneumo Ab Type 51 (7F)* 4.7 >1.3 ug/mL Pneumo Ab Type 54 (15B)* 19.6 >1.3 ug/mL Pneumo Ab Type 56 (18C)* 7.0 >1.3 ug/mL Pneumo Ab Type 57 (19A)* 5.6 >1.3 ug/mL Pneumo Ab Type 68 (9V)* 2.6 >1.3 ug/mL Pneumo Ab Type 70 (33F)* 5.2 >1.3 ug/mL *This test was developed and its performance characteristics determined by [facility]. It has not been cleared or approved by the U.S. Food and Drug Administration. FLAG Interpretation: A = Abnormal, H = High, L = Low Mammogram Reviewed date:05/28/2024 05:12:49 PM Interpretation: Performing Lab: Notes/Report: TISSUE EXAM Reviewed date:08/18/2024 06:47:56 PM Interpretation: Performing Lab: Notes/Report: Final Diagnosis A. Large Intestine, Left/Descending Colon, polyp: - Sessile serrated lesion (polyp). B. Large Intestine, Sigmoid Colon, polyp: - Hyperplastic polyp. Gross Description A. Large Intestine, Left/Descending Colon, polyp: Labeled descending colon polyp . Received in formalin is a 0.5 cm irregular vogel mucosal tissue fragment which is wrapped in paper and submitted in toto in one cassette, one piece, multiple levels on one slide. B. Large Intestine, Sigmoid Colon, polyp: Labeled Sig colon polyp . Received in formalin is a 0.6 cm irregular vogel mucosal tissue fragment which is wrapped in paper and submitted in toto in one cassette, one piece, multiple levels on one slide. MIAH Disclaimer Unless otherwise specified, all tissue is 10% NB formalin fixed and paraffin embedded. Echocardiogram Reviewed date:04/30/2024 04:32:20 PM Interpretation: Performing Lab: Notes/Report: MR Conor Gomez WO Reviewed date:05/28/2024 05:12:49 PM Interpretation: Performing Lab: Notes/Report: GIOVANNY Reviewed date:05/28/2024 05:12:48 PM Interpretation: Performing Lab: Notes/Report: See Note [facility], a member of [facility] INDICATION: Diverticulosis TECHNIQUE: CT scan of the abdomen and pelvis obtained without intravenous contrast. Oral contrast administered. Scanner: SnipSnappeDealCircle 64 slice VCT Dose reduction technique: ASIR (Adaptive statistical iterative reconstruction) and/or AEC (automated exposure control) Dose: total exam DLP 1036 mGY per cm COMPARISON: No prior studies are available for comparison. FINDINGS: Lung bases are clear. Bony structures are unremarkable for the patient's age. Liver within normal limits with 3 cm left lobe cysts. Spleen and pancreas unremarkable. Status post cholecystectomy. Adrenal glands are within normal limits. Right kidney unremarkable. Left kidney demonstrates mild pelvocaliectasis likely related to UPJ obstruction configuration. No ureteral dilatation. Stomach and small bowel are within normal limits. Terminal ileum and appendix normal in the right lower quadrant. Colon partially opacified along the ascending portion. Petrous portion unremarkable. Diverticulosis is along the splenic flexure continues along the descending portion into the proximal sigmoid colon. Colonic wall thickening with inflammatory changes noted along the distal descending portion most consistent with acute diverticulitis. No free air, free fluid or abscess formation. Urinary bladder normal. Status post hysterectomy. No adnexal masses. Abdominal aorta normal in course and caliber. No lymphadenopathy. IMPRESSION: Distal descending acute diverticulitis. A Expedited message has been communicated to the office of KATLYN CASTANEDA via the nfon System on 05/21/2024 4:10 PM, Message ID [id number]. -------- FINAL REPORT -------- Dictated By: Nicole Mccollum Dictated Date: 05/21/2024 16:06 ET Assigned Physician: Nicole Mccollum Reviewed and Electronically Signed By: Nicole Mccollum Signed Date: 05/21/2024 16:10 ET Workstation ID: [id number] Transcribed By: Self Edit Transcribed Date: 05/21/2024 16:06 ET Hemoglobin A1C Reviewed date:06/23/2024 05:00:40 PM Interpretation: Performing Lab: Notes/Report: BETHANY Cutlertage ([facility] [place]), Katlyn Castaneda MD Lot: [id number] Urinalysis, Complete-[id number] Reviewed date:06/28/2024 04:51:14 PM Interpretation: Performing Lab:[facility], Phone - [phone], Director - [facility] Notes/Report: Specific Umpire 1.023 1.005-1.030 pH 5.5 5.0-7.5 Urine-Color Yellow Yellow Appearance Clear Clear WBC Esterase Negative Negative Protein Negative Negative/Trace Glucose Negative Negative Ketones Negative Negative Occult Blood Negative Negative Bilirubin Negative Negative Urobilinogen,Semi-Qn 0.2 0.2-1.0 mg/dL Nitrite, Urine Negative Negative Microscopic Examination Micr oscopic follows if indicated. Microscopic Examination See below: Micr oscopic was indicated and was performed. WBC None seen 0 - 5 /hpf RBC 0-2 0 - 2 /hpf Epithelial Cells (non renal) 0-10 0 - 10 /hpf Casts None seen None seen /lpf Bacteria Few None seen/Few Prolactin-[id number] Reviewed date:06/28/2024 04:51:14 PM Interpretation: Performing Lab:[facility] [place], [address] [place] [address], Phone - [phone], Director - y Notes/Report: Prolactin 13.0 3.6-25.2 ng/mL Comp. Metabolic Panel (14)-3 [id number] Reviewed date:06/28/2024 04:51:14 PM Interpretation: Performing Lab:[facility] [place], [address] [place] [address], Phone - [phone], Director - MSLee Notes/Report: Glucose 82 70-99 mg/dL BUN 13 6-24 mg/dL Creatinine 0.75 0.57-1.00 mg/dL eGFR 96 >59 mL/min/1.73 BUN/Creatinine Ratio 17 9-23 Sodium 137 134-144 mmol/L Potassium 4.2 3.5-5.2 mmol/L Chloride 102 96-106 mmol/L Carbon Dioxide, Total 22 20-29 mmol/L Calcium 9.3 8.7-10.2 mg/dL Protein, Total 6.8 6.0-8.5 g/dL Albumin 4.1 3.8-4.9 g/dL Globulin, Total 2.7 1.5-4.5 g/dL Bilirubin, Total <0.2 0.0-1.2 mg/dL Alkaline Phosphatase 89 44-121 IU/L AST (SGOT) 20 0-40 IU/L ALT (SGPT) 26 0-32 IU/L Reason For Referral Reason Referral to [facility] Breast Specialist - Dr. Novak faxed Diagnosis 1 Nipple discharge (N6 4.52) Referral Organization [facility] DANIEL Referring Provider First Name Marie Referring Provider Last Name Jackie Referring Provider Speciality Nurse Benjie agee Referred Provider Rosy Novak Referred Provider Specialty Oncology General Notes [facility] 08/2023 03:10:53 PM >faxed Referral Priority Routine Reason hx of diverticulitis and due for repeat colonoscopy faxed Diagnosis 1 Encounter for screen ing for malignant neoplasm of colon (Z12.11) Referral Organization [facility] DANIEL Referring Provider First Name Marie Referring Provider Last Name Jackie Referring Provider Speciality Nurse Benjie agee Referred Provider Quita Chowdary Referred Provider Specialty Gastroentero logy General Notes Waiting for note to be completed and need [employer] ins referral, [facility] 05/13/2024 04:05:06 PM >faxed, [facility] 05/13/2024 04:08:43 PM >Ins Referral Reference#: [id number] Referral Priority Routine Referral Appointment Date 05/22/2024 Reason Left UJP obstruction noted on a recent CT scan - any provider will do faxed Diagnosis 1 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) Referral Organization Katlyn DANIEL Referring Provider First Name Marie Referring Provider Last Name Jackie Referring Provider Speciality Nurse Benjie agee Referred Provider Jose Sharma Referred Provider Specialty Urology General Notes [facility] 05/16 08:27:57 AM >faxed, Ins Referral will be needed, [facility] 06/24/2024 03:54:40 PM >Appt 07/03/24 at 11am, [facility] 06/29/2024 04:45:29 PM >Ins referral completed, Reference#: [id number] Referral Priority Routine Referral Appointment Date 08/10/2024 Reason faxed Diagnosis 1 Snoring (R06.83) Referral Organization Katlyn DANIEL Referring Provider First Name Katlyn Referring Provider Last Name Filemon Referring Provider Speciality Internal M edicine Referred Provider You Mckeon Referred Provider Specialty Ear, nose an d throat surgeon General Notes [facility]atalina 09/13 10:12:24 AM >Faxed to multiple providers, [facility] 12/01/2024 08:31:31 AM >Patient to go to sleep medicine for increased snoring. New referral in. Referral Priority Routine Reason faxed Diagnosis 1 Snoring (R06.83) Referral Organization Katlyn DANIEL Referring Provider First Name Katlyn Referring Provider Last Name Filemon Referring Provider Speciality Internal M edicine Referred Provider Samuel Maravilla Referred Provider Specialty Sleep Medici ne General Notes KPKatalina 10/15 05:07:26 PM >faxed, Katalina [facility] 11/16/2024 10:49:34 AM >Booked in February, need date for ins referral Referral Priority Routine Referral Appointment Date 03/08/2025 Medications Medication SIG (Take, Route, Frequency, Duration) Notes Start Date End Date Status Baclofen 5 MG 1 tablet as needed O rally Once a day; Duration: 90 days Active Hair Skin & Nails Ac tive Budesonide-Formoterol Fumarate 80-4.5 MCG/ACT 2 Puffs Inhalation Twice a Day As needed 06/23/2024 Active Senna 8.6 MG 2 tablets at bedtime as needed Orally Once a day; Duration: 30 day(s) Active Trospium Chloride 20 MG 1 tablet at bedt costa on an empty stomach Orally Once a day; Duration: 30 day(s) Active Icy Hot Lidocaine Plus Menthol 4-1 % 1 application as needed Externally Three times a day Active Albuterol Active Cabergoline 0.5 MG TAKE 0.5 TABLETS (0. 25 MG TOTAL) BY MOUTH 2 TIMES A WEEK. Oral; Duration: 28 Days Active Polyeth Glyc-Propylene Glyc Active Vitamin D3 50 MCG (2000 UT) 2 capsules Orally Once a day; Duration: 90 days 03/08/2024 03/03/2025 Active Ibuprofen 600 MG 1 tablet with food o r milk as needed Orally Three times a day Active Estradiol 0.1 MG/24HR 1 patch to skin Transdermal Two times a Week; Duration: 30 day(s) Active Mounjaro 5 MG/0.5ML 5 mg Subcutaneous On ce a Week; Duration: 28 days 11/05/2024 04/21/2025 Active Riboflavin 400 MG 1 capsule Orally Onc e a day; Duration: 30 day(s) Active Magnesium 400 MG as directed Orally Active Propranolol HCl ER 60 MG Oral; Duration: 90 Days Active Biotin 5000 MCG 1 capsule Orally Onc e a day; Duration: 30 day(s) Active Fluticasone Propionate 50 MCG/ACT 1 spray in each nostril Nasally Once a day; Duration: 30 day(s) Active Tretinoin 0.01 % 1 application in the evening to face Externally Once a day Active Gabapentin 300 MG 1 capsule Orally Onc e a day; Duration: 30 day(s) Active Bengay Active Immunizations Vaccine Route Administration Date Status Comme nts *Influenza-Fluzone Unknown 01/08/2024 Administered *PREVNAR 20 IM Intramuscular 06/23/2024 Administered *Shingrix Unknown 11/18/2022 Administered *Shingrix Unknown 03/03/2023 Administered *Tdap Unknown 08/27/2014 Administered COVID Spikevax Moderna Unknown 02/01/2023 Administered COVID Spikevax Moderna Unknown 01/08/2024 Administered COVID-19 Moderna BiValent Booster Unknown 01/17/2022 Administered [id number]-59-Zqomkcq Vaccine Unknown 05/27/2020 Administere d QUOGK-68-Ysespqa Vaccine Unknown 06/24/2020 Administere d MZJIJ-63-Ymcoxnv Vaccine Unknown 02/28/2021 Administere d Hep A, adult Unknown 02/25/2018 Administered Wpakoduaf-0431-38 Afluria-Single Unknown 02/05/2020 Administered Cedvdewio-9947-16 Afluria-Single Unknown 02/28/2021 Administered Cgwuicshp-9872-03 Afluria-Single Unknown 01/17/2022 Administered Fsrqkajuc-0918-26 Afluria-Single Unknown 12/28/2022 Administered Meningococcal MCV4O (CVX 114) Unknown 02/25/2018 Administered MMR Unknown 04/22/2019 Administered MMR Unknown 05/27/2019 Administered Pneumococcal polysaccharide PCV 13 Unknown 04/20/2011 Administered Pneumococcal polysaccharide PCV 13 Unknown 02/25/2018 Administered Social History Tobacco Use: Social History Observation Description Date Details (start date - stop date) Never Smoker NA - NA AUDIT-C (Standard) Question Answer Notes Did you have a drink containing alcohol in the p ast year? No Points 0 Interpretation Negative Tobacco Control (Standard) Question Answer Notes Tobacco use: Nonsmoker Problems Problem Type SNOMED Code ICD Code Onset Dates Problem Status W/U Status Risk Notes Problem Diabetic renal disease (082925762) Type 2 diabetes mellitus with diabetic chronic kidney disease (E11.22) Active confirmed Problem Hyperprolactinemia (297726172) Hyperprolactinemia (E22.1) Active confirmed Problem Disorder of pituitary gland (803317376) Other disorders of pituitary gland (E23.6) Active confirmed Problem Vitamin D deficiency (24358292) Vitamin D deficiency, unspecified (E55.9) Active confirmed Problem Obesity due to excess calories (831571438) Other obesity due to excess calories (E66.09) Active confirmed Problem Essential tremor (737310975) Essential tremor (G25.0) Active confirmed Problem Chronic intractable migraine without aura (060896467845467) Chronic migraine without aura, intractable, without status migrainosus (G43.719) Active confirmed Problem Essential hypertension (68798195) Essential (primary) hypertension (I10) Active confirmed Problem Chronic kidney disease due to hypertension (009370407877255) Hypertensive chronic kidney disease with stage 1 through stage 4 chronic kidney disease, or unspecified chronic kidney disease (I12.9) Active confirmed Problem Mild intermittent asthma (326073379) Mild intermittent asthma, uncomplicated (J45.20) Active confirmed Problem Diverticular disease of colon (211117229) Diverticulosis of large intestine without perforation or abscess without bleeding (K57.30) Active confirmed Problem Sciatica (63399889) Lumbago with sciatica, right side (M54.41) Active confirmed Problem Stricture of ureter (62310252) 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) Active confirmed Problem Chronic kidney disease stage 2 (032377632) Chronic kidney disease, stage 2 (mild) (N18.2) Active confirmed Problem Solitary pulmonary nodule (817174970) Solitary pulmonary nodule (R91.1) Active confirmed Problem Body mass index 30.00 to 34.99 (150767619992906) Body mass index [BMI] 32.0-32.9, adult (Z68.32) Active confirmed Problem Body mass index 30.00 to 34.99 (066001696863127) Body mass index [BMI] 33.0-33.9, adult (Z68.33) Active confirmed Problem Supraventricular tachycardia (disorder) (9249411) Other supraventricular tachycardia (I47.19) Active confirmed Problem Attention deficit hyperactivity disorder, predominantly inattentive type (disorder) (13144316) Attention and concentration deficit (R41.840) Inactive confirmed Vital Signs Heart Rate 117 /min 11/05/2024 Temperature 97.7 degrees Fahrenheit 11/05/2024 Oximetry 98 % 11/05/2024 Blood pressure diastolic 70 mm Hg 11/05/2024 Height 63 in 11/05/2024 Blood pressure systolic 116 mm Hg 11/05/2024 Weight 190 lbs 11/05/2024 BMI 33.65 kg/m2 11/05/2024 Procedures Procedure Date Ordered Date Performed Result Body Sit e HOLTER MONITOR, 7 DAYS, INTERPRETATION 06/23/2024 N/A HOLTER MONITOR, 7 DAYS, APPLICATION 03/19/2024 N/A COLONOSCOPY 05/27/2024 03/22/2021 N/A Encounters Encounter Location Date Provider Diagnosis Katlyn Castaneda MD [address] [id number] 02/05/2024 Marie Mejia Encounter for screen ing for lipoid disorders Z13.220 ; Vitamin D deficiency, unspecified E55.9 ; Encounter for screening for cardiovascular disorders Z13.6 ; Lumbago with sciatica, right side M54.41 ; Solitary pulmonary nodule R91.1 ; Attention and concentration deficit R41.840 ; Prediabetes R73.03 ; Essential (primary) hypertension I10 ; Essential tremor G25.0 ; Encounter for screening for other viral diseases Z11.59 ; Nipple discharge N64.52 ; Mild intermittent asthma, uncomplicated J45.20 and Chronic migraine without aura, intractable, without status migrainosus G43.719 Katlyn Castaneda MD [address] [id number] 03/19/2024 Marie Mejia Attention and concentration deficit R41.840 ; Prediabetes R73.03 ; Essential (primary) hypertension I10 ; Essential tremor G25.0 ; Nipple discharge N64.52 ; Chronic migraine without aura, intractable, without status migrainosus G43.719 ; Palpitations R00.2 and Other disorders of pituitary gland E23.6 Katlyn Castaneda MD [address] [id number] 04/29/2024 Katlyn Castaneda Acute upper respirat ory infection, unspecified J06.9 Katlyn Castaneda MD [address] [id number] 05/12/2024 Marie Mejia Encounter for genera l adult medical examination without abnormal findings Z00.00 ; Attention and concentration deficit R41.840 ; Acute recurrent streptococcal tonsillitis J03.01 ; Prediabetes R73.03 ; Nipple discharge N64.52 ; Essential (primary) hypertension I10 ; Diverticulosis of large intestine without perforation or abscess without bleeding K57.30 ; Chronic migraine without aura, intractable, without status migrainosus G43.719 ; Other disorders of pituitary gland E23.6 ; Localized swelling, mass and lump, lower limb, bilateral R22.43 ; Body mass index [BMI] 32.0-32.9, adult Z68.32 ; Mild intermittent asthma, uncomplicated J45.20 ; Solitary pulmonary nodule R91.1 ; Vitamin D deficiency, unspecified E55.9 ; Encounter for screening for malignant neoplasm of colon Z12.11 ; Encounter for screening mammogram for malignant neoplasm of breast Z12.31 ; Encounter for screening for cardiovascular disorders Z13.6 ; Encounter for immunization Z23 ; Encounter for antibody response examination Z01.84 ; Encounter for screening for other viral diseases Z11.59 ; Encounter for screening examination for other mental health and behavioral disorders Z13.39 and Encounter for screening for malignant 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 Katlyn Castaneda MD [address] [id number] 06/23/2024 Katlyn Castaneda Hypertensive chronic kidney disease with stage 1 through stage 4 chronic kidney disease, or unspecified chronic kidney disease I12.9 ; Type 2 diabetes mellitus with diabetic chronic kidney disease E11.22 ; Chronic kidney disease, stage 2 (mild) N18.2 ; Mild intermittent asthma, uncomplicated J45.20 ; Essential tremor G25.0 ; Hyperprolactinemia E22.1 ; Other supraventricular tachycardia I47.19 ; Attention and concentration deficit R41.840 ; Vitamin D deficiency, unspecified E55.9 and Encounter for immunization Z23 Katlyn Castaneda MD [address] [id number] 08/11/2024 Katlyn Castaneda Hypertensive chronic kidney disease with stage 1 through stage 4 chronic kidney disease, or unspecified chronic kidney disease I12.9 ; Type 2 diabetes mellitus with diabetic chronic kidney disease E11.22 ; Chronic kidney disease, stage 2 (mild) N18.2 ; Mild intermittent asthma, uncomplicated J45.20 ; Essential tremor G25.0 ; Hyperprolactinemia E22.1 ; Other supraventricular tachycardia I47.19 ; Attention and concentration deficit R41.840 ; Other obesity due to excess calories E66.09 ; Body mass index [BMI] 33.0-33.9, adult Z68.33 and Vitamin D deficiency, unspecified E55.9 Katlyn Castaneda MD [address] [id number] 11/05/2024 Katlyn Castaneda Type 2 diabetes chinyere itus with diabetic chronic kidney disease E11.22 ; Hypertensive chronic kidney disease with stage 1 through stage 4 chronic kidney disease, or unspecified chronic kidney disease I12.9 ; Chronic kidney disease, stage 2 (mild) N18.2 ; Mild intermittent asthma, uncomplicated J45.20 ; Essential tremor G25.0 ; Hyperprolactinemia E22.1 ; Other supraventricular tachycardia I47.19 ; Attention and concentration deficit R41.840 ; Other obesity due to excess calories E66.09 ; Body mass index [BMI] 33.0-33.9, adult Z68.33 ; Vitamin D deficiency, unspecified E55.9 ; Encounter for antibody response examination Z01.84 and Sprain of right rotator cuff capsule, initial encounter S43.421A Katlyn Castaneda MD [address] [id number] 02/17/2024 Marie Castaneda MD [address] [id number] 02/28/2024 Mariemarguerite Mejia Attention and concentration deficit R41.840 Katlyn DANIEL [address] [place] [address] [id number] 03/08/2024 Marie Mejia Vitamin D deficiency , unspecified E55.9 Katlyn Castaneda MD [address] [id number] 04/23/2024 Marie Mejia Attention and concentration deficit R41.840 Katlyn Castaneda MD [address] [id number] 04/28/2024 Marie Castaneda MD PC [address] [place], [place] [id number] 05/07/2024 Marie Castaneda MD PC [address] [place] [address] [id number] 05/12/2024 Marie Castaneda MD PC [address] [place], [place] [id number] 05/22/2024 Marie Castaneda MD PC [address] [place] [address] [id number] 05/28/2024 Katlyn Castaneda MD PC [address] [place] [address] [id number] 06/08/2024 Marie Castaneda MD PC [address] [place] [address] [id number] 07/23/2024 Katlyn Castaneda MD PC [address] [place] [address] [id number] 08/12/2024 Marie Castaneda MD PC [address] [place] [address] [id number] 09/29/2024 Katlyn Castaneda MD PC [address] [place] [address] [id number] 11/05/2024 Katlyn Castaneda MD PC [address] [place] [address] [id number] 11/11/2024 Katlyn Castaneda Snoring R06.83 Katlyn Castaneda MD PC [address] [place] [address] [id number] 11/18/2024 Katlyn Castaneda MD PC [address] [place] [address] [id number] 12/01/2024 Katlyn Castaneda MD PC [address] [place] [address] [id number] 04/30/2024 Marie Castaneda MD PC [address] [place] [address] [id number] 04/30/2024 Marie Castaneda MD PC [address] [place] [address] [id number] 04/30/2024 Marie Castaneda MD PC [address] [place] [address] [id number] 04/30/2024 Marie Castaneda MD PC [address] [place] [address] [id number] 05/11/2024 Marie Castaneda MD [address] [place] [address] [id number] 05/22/2024 Marie Mejia 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 Katlyn Castaneda MD [address] [place] [address] [id number] 05/25/2024 Marie Castaneda MD [address] [id number] 05/27/2024 Mariemarguerite Mejia Attention and concentration deficit R41.840 Katlyn Castaneda MD [address] [place] [address] [id number] 06/24/2024 Marie Castaneda MD [address] [id number] 08/12/2024 Marie Castaneda MD [address] [id number] 08/31/2024 Marie Castaneda MD [address] [id number] 09/04/2024 Katlyn Castaneda MD [address] [id number] 09/08/2024 Katlyn Castaneda MD [address] [id number] 09/21/2024 Katlyn Castaneda Type 2 diabetes chinyere itus with diabetic chronic kidney disease E11.22 Katlyn Castaneda MD [address] [id number] 09/22/2024 Katlyn Castaneda MD [address] [id number] 09/24/2024 Katlyn Castaneda MD [address] [id number] 09/24/2024 Katlyn Castaneda Snoring R06.83 Katlyn Castaneda MD [address] [id number] 09/25/2024 Katlyn Castaneda MD [address] [id number] 10/27/2024 aKtlyn Castaneda Assessments Encounter Date Diagnosis (ICD Code) Assessment Notes Treatment Notes Treatment Clinical Notes Section Notes 02/05/2024 Vitamin D deficiency , unspecified (ICD-10 - E55.9) Will obtain labs to assess for vitamin D deficiency 02/05/2024 Encounter for screening for lipoid disorders (ICD-10 - Z13.220) Will obtain labs to assess for hyperlipidemia 02/28/2024 Attention and concentration deficit (ICD-10 - R41.840) 03/08/2024 Vitamin D deficiency , unspecified (ICD-10 - E55.9) 03/19/2024 Attention and concentration deficit (ICD-10 - R41.840) Encouraged patient to continue taking Vyvanse 30 mg daily to see if this dose can better manage her focus and concentration issues. Patient has not experienced any increased palpitations since starting this ADHD treatment patient would follow-up should she have any negative side effects on the higher Vyvanse dose 03/19/2024 Prediabetes (ICD-10 - R73.03) Patient continues to take metformin for diagnosis of elevated A1c in the prediabetic range. Patient also continue working on weight loss and lowering her BMI to further assist in managing her A1c levels 04/23/2024 Attention and concentration deficit (ICD-10 - R41.840) 04/29/2024 Acute upper respiratory infection, unspecified (ICD-10 - J06.9) she developed a sore throat in the middle of the night that woke her up. It was significant enough for her to take ibuprofen. At the present time this may be a viral illness but given the nocturnal symptoms that may be also noninfectious such as reflux associated. Currently there are no lymph nodes identified. Therefore suspicion for infectious etiology is relatively low. At this point can continue supportive care with salt water gargles pending viral culture 05/12/2024 Attention and concentration deficit (ICD-10 - R41.840) Stable at present time and patient to remain on Vyvanse 30 mg daily to manage her focus and concentration issues. Patient has not experienced any increased palpitations since starting this ADHD treatment patient would follow-up should she have any negative side effects on the higher Vyvanse dose 05/12/2024 Encounter for genera l adult medical examination without abnormal findings (ICD-10 - Z00.00) General healthcare up-to-date. Patient had completed previous routine labs in January 2024.Plan we for annual in 1 year 05/22/2024 Crossing vessel and stricture of ureter without hydronephrosis (ICD-10 - N13.5) 05/27/2024 Attention and concentration deficit (ICD-10 - R41.840) 06/23/2024 Type 2 diabetes mellitus with diabetic chronic kidney disease (ICD-10 - E11.22) Continues on current medical therapy. She just darted Ozempic last week. Recommend that she continue 0.25 mg for additional 3 weeks and then increase to 0.5 mg. 06/23/2024 Hypertensive chronic kidney disease with stage 1 through stage 4 chronic kidney disease, or unspecified chronic kidney disease (ICD-10 - I12.9) Her blood pressure is slightly elevated. She has a history of hypertension in association with weight gain and at the present time recommend continuing and increasing GLP therapy not only for diabetes management but also for weight loss. Hopefully with this her blood pressure will normalize and if it does not then she would benefit from medical therapy 08/11/2024 Type 2 diabetes mellitus with diabetic chronic kidney disease (ICD-10 - E11.22) Improved with current GLP therapy. Recommend continue and increase GLP therapy as tolerated not only for diabetes management but also for BMI management 08/11/2024 Hypertensive chronic kidney disease with stage 1 through stage 4 chronic kidney disease, or unspecified chronic kidney disease (ICD-10 - I12.9) Her blood pressure is better. At the present time continue current medical therapy. Increase GLP therapy for adjunct therapy for weight loss. 09/21/2024 Type 2 diabetes mellitus with diabetic chronic kidney disease (ICD-10 - E11.22) 09/24/2024 Snoring (ICD-10 - R06.83) 11/05/2024 Type 2 diabetes mellitus with diabetic chronic kidney disease (ICD-10 - E11.22) Stable at present with current GLP therapy however changed to GIP therapy not only for diabetes management but also for BMI management 11/11/2024 Snoring (ICD-10 - R06.83) 11/05/2024 Hypertensive chronic kidney disease with stage 1 through stage 4 chronic kidney disease, or unspecified chronic kidney disease (ICD-10 - I12.9) Stable at present. Continue current medical therapy she is not losing any additional weight and can adjust medical therapy for additional weight loss. 11/05/2024 Chronic kidney disease, stage 2 (mild) (ICD-10 - N18.2) Her GFR is improved with her GLP therapy and control of her diabetes. Can continue same and try to augment medical therapy 08/11/2024 Chronic kidney disease, stage 2 (mild) (ICD-10 - N18.2) Stable estimated GFR in the 80s. Continue control of comorbidities of hypertension and diabetes 06/23/2024 Chronic kidney disease, stage 2 (mild) (ICD-10 - N18.2) Stable estimated GFR in the 80s. Continue control of comorbidities of hypertension and diabetes 05/12/2024 Acute recurrent streptococcal tonsillitis (ICD-10 - J03.01) Patient shares concerns that she has had multiple positive group A strep infections as an adult. Given this history would like to obtain pneumococcal antibodies for further evaluation. 02/05/2024 Encounter for screening for cardiovascular disorders (ICD-10 - Z13.6) Blood pressure stable during today's visit. Will obtain lab results for additional cardiac risk such as hyperlipidemia and hyperglycemia 03/19/2024 Essential (primary) hypertension (ICD-10 - I10) Will continue to monitor patient's blood pressure during previous elevated blood pressure readings at past PCP offices. No concerns of hypertension thus far and patient to follow-up in April as scheduled and we will reassess blood pressure at that time 03/19/2024 Essential tremor (ICD-10 - G25.0) Patient with a history of essential tremor, not seen on exam today. Patient to remain on propranolol and follow-up with any new or worsening symptoms of concern and we can adjust propranolol dose to see if this can better manage tremor symptoms 02/05/2024 Lumbago with sciatica, right side (ICD-10 - M54.41) Patient completed spinal Xrays on 12/20/23 and there were findings of L4-L5 foraminal encraochment. Pt is pending an apt with ASHLEY on March 19 to discuss these findings and her persistent back pain. Pt to continue using 600 mg motrin every 8 hours only as needed for uncontrolled back pain. Will also prescribe baclofen to be used for pain that is not well-controlled with Motrin 08/11/2024 Mild intermittent asthma, uncomplicated (ICD-10 - J45.20) Stable with current inhaler therapy. She is using it on a daily basis without any need for any breakthrough treatment. 06/23/2024 Mild intermittent asthma, uncomplicated (ICD-10 - J45.20) Stable at present. Recommend consolidating medical therapy to Symbicort based on the Jackie 2023 recommendations rather than continuing as needed albuterol. She can use the Symbicort as a rescue inhaler at the present time and then if she has continuing issues or worsening issues then can consider changing it to a maintenance therapy 05/12/2024 Prediabetes (ICD-10 - R73.03) Patient continues to take metformin for diagnosis of elevated A1c in the prediabetic range. Patient to also continue working on weight loss and lowering her BMI to further assist in managing her A1c levels 11/05/2024 Mild intermittent asthma, uncomplicated (ICD-10 - J45.20) Stable with current inhaler therapy 11/05/2024 Essential tremor (ICD-10 - G25.0) Stable with current medical therapy 06/23/2024 Essential tremor (ICD-10 - G25.0) Has been on propranolol for some time. She had persistent tachycardia and her propranolol was changed to a long-acting preparation 08/11/2024 Essential tremor (ICD-10 - G25.0) Stable at present. She continues an propranolol to help treat this. 02/05/2024 Solitary pulmonary nodule (ICD-10 - R91.1) Patient with a history of a single pulmonary nodule. On December 10, 2023, pt completed a chest XRay due to asthma exacerbation and there were findings of a small calcified granuloma in the left lower lobe (0.2cm) and area was unchanged per radiology report reviewed during today's visit. Will continue to monitor this, and we can re-image area in 1 year 03/19/2024 Nipple discharge (ICD-10 - N64.52) Patient with a history of non-bloody nipple discharge, worse from the left side. Patient has been followed by multiple breast specialist without any findings to explain this symptom. Most recent lab work was without significant findings or elevated prolactin levels. Would like patient evaluated by Dr. Novak at [facility] breast specialty clinic for further evaluation 05/12/2024 Nipple discharge (ICD-10 - N64.52) Patient with a history of non-bloody nipple discharge, worse from the left nipple. Patient is currently followed by [facility] breast specialists and is scheduled for a breast MRI for further evaluation as well as an endocrinology appointment given previous elevated prolactin levels (prior to establishing care in our office) 05/12/2024 Essential (primary) hypertension (ICD-10 - I10) Blood pressure stable during today's visit. Will continue to monitor patient's blood pressures during visits as patient has had elevated blood pressure readings in previous PCP offices. 02/05/2024 Attention and concentration deficit (ICD-10 - R41.840) Reviewed patient's ADHD history as well as her increased palpitations with Adderall. Patient is interested in treatment for underlying ADHD and discussed beginning Vyvanse which should not increase patient's heart rate. Patient agreeable to begin Vyvanse and discussed with patient that we will begin 20 mg at this time. Patient aware that she will need to request refills each month and continue to have close follow-up to ensure proper management of ADHD symptoms without any negative side effects 03/19/2024 Chronic migraine without aura, intractable, without status migrainosus (ICD-10 - G43.719) Stable at present time and patient to continue tracking her headache severity and frequency 11/05/2024 Hyperprolactinemia (ICD-10 - E22.1) Stable on recent labs as reviewed. Can recheck status 08/11/2024 Hyperprolactinemia (ICD-10 - E22.1) Her prolactin has normalized with medical therapy but she continues to have some discharge. This may not fully resolve with control of prolactin 06/23/2024 Hyperprolactinemia (ICD-10 - E22.1) She had breast discharge and was noted to have hyperprolactinemia . She is on medical therapy. Can recheck labs. 06/23/2024 Other supraventricular tachycardia (ICD-10 - I47.19) Her Holter monitor was reviewed and she had nocturnal episode of atrial tachycardia. She says she has palpitations that awaken her and this is probably atrial tachycardia. If this does not improve with the increased dose of propranolol then can consider changing to metoprolol for better cardiac control even though this might not offer better control of her essential tremor 08/11/2024 Other supraventricular tachycardia (ICD-10 - I47.19) Stable with current medical therapy with propranolol 03/19/2024 Palpitations (ICD-10 - R00.2) Patient continues to have intermittent episodes of palpitations, although not present today and has not increased since patient established care with our office. Patient agreeable to wear a 7-day Holter monitor for further evaluation as well as complete an echocardiogram given her mother's history of a cardiac mass. Patient agreeable to follow-up sooner should she have any new or worsening symptoms of concerns 02/05/2024 Prediabetes (ICD-10 - R73.03) Patient states she was previously diagnosed with prediabetes. Will obtain lab work including a hemoglobin A1c level to further evaluate 05/12/2024 Diverticulosis of large intestine without perforation or abscess without bleeding (ICD-10 - K57.30) Discussed with patient her persistent left lower abdominal pain for the past few weeks and she discussed today that she does have a history of diverticulitis as well as diverticulosis noted on previous colonoscopy. Patient has been following a liquid to bland diet and symptoms have subsided but have not resolved. Patient to avoid overuse of stool softeners given her episodes of loose stool. There was tenderness noted in left lower quadrant of abdomen and due to patient's underlying history and findings on exam we will proceed with a CT scan of the abdomen for further evaluation. Patient to follow-up with any new or concerning symptoms while we wait for imaging 11/05/2024 Other supraventricular tachycardia (ICD-10 - I47.19) Stable with current medical therapy with propranolol 11/05/2024 Attention and concentration deficit (ICD-10 - R41.840) She did not feel that the Vyvanse did her any good. She discontinued it. Therefore she may not have true attention deficit disorder. 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 There was mention of an empty sella noted on brain MRI. Due to this we will obtain an updated image to further assess pituitary gland given intermittent episodes of nipple discharge 02/05/2024 Essential (primary) hypertension (ICD-10 - I10) Patient was told that she has underlying high blood pressure. Blood pressure during today's visit is within normal range. Will continue to monitor blood pressure during each visit and will obtain baseline labs including microalbumin for further evaluation 08/11/2024 Attention and concentration deficit (ICD-10 - R41.840) She feels that she is not any better with the change in Vyvanse dose. She may not have true ADHD or her attention concentration defect. Can consider weaning medical therapy to off in the near future 06/23/2024 Attention and concentration deficit (ICD-10 - R41.840) Fair control at present. She thinks she is doing okay but not as well as she should be. Can try to increase dose and reevaluate situation 08/11/2024 Other obesity due to excess calories (ICD-10 - E66.09) Encourage diet and exercise 06/23/2024 Vitamin D deficiency , unspecified (ICD-10 - E55.9) Check level to verify that there is no deficiency. Goal would be level of 30+ and if possible 50+ 02/05/2024 Essential tremor (ICD-10 - G25.0) Patient with a history of essential tremor, not seen on exam today. 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 MRI of the pituitary gland was recently completed and there was no findings of an empty sella and no pituitary adenoma found. Patient to discuss this further with endocrinology given intermittent concerns of nipple discharge and normal pituitary function and prolactin levels 11/05/2024 Other obesity due to excess calories (ICD-10 - E66.09) Continue encourage diet and exercise and medical therapy for weight loss. Can change GLP to GIP therapy for additional weight loss 11/05/2024 Body mass index [BMI ] 33.0-33.9, adult (ICD-10 - Z68.33) BMI remains elevated. Can continue medical therapy and goal is BMI less than 30 05/12/2024 Localized swelling, mass and lump, lower limb, bilateral (ICD-10 - R22.43) Patient shared concerns that when she travels and is in hot weather she will have lower extremity swelling. There is no significant swelling noted on exam today. Patient did complete an echocardiogram with normal EF. Will obtain a proBNP level for further evaluation but do not suspect this is related to heart failure. Suspect that her swelling during travel may be related to flying, and heat/humidity as she states this occurs when she travels to warmer weather 02/05/2024 Encounter for screening for other viral diseases (ICD-10 - Z11.59) Per screening guidelines we will obtain hepatitis C status 06/23/2024 Encounter for immunization (ICD-10 - Z23) 08/11/2024 Body mass index [BMI ] 33.0-33.9, adult (ICD-10 - Z68.33) Encourage diet and exercise 11/05/2024 Vitamin D deficiency , unspecified (ICD-10 - E55.9) Fair control on prior labs as reviewed. She states she is taking vitamin D supplementation. Can continue same and recheck status for goal of 30+ and if possible 50+ 08/11/2024 Vitamin D deficiency , unspecified (ICD-10 - E55.9) Stable on prior labs as reviewed. Would continue vitamin D supplementation for goal level of 30+ 05/12/2024 Body mass index [BMI ] 32.0-32.9, adult (ICD-10 - Z68.32) Patient was previously taking Wegovy but discontinued use as she states she was having too many medical concerns and did not want to commit to follow-up visits and frequent visits to ensure she received this medication regularly. Discussed with patient that while she is having bowel changes and abd discomfort it would be best to remain off this medication until further evaluation is completed and she agrees with this plan. Patient to continue working on lifestyle dietary modifications to assist with lowering her BMI 02/05/2024 Nipple discharge (ICD-10 - N64.52) Patient with a history of non-bloody nipple discharge, worse from the left side. Patient has been followed by multiple breast specialist without any findings to explain this symptom. Will obtain lab work including hormone levels and prolactin level for further evaluation. If labs are without significant findings patient may benefit from a second opinion through [facility] medical specialists. Patient also provide past medical records from breast specialist and imaging for further review 02/05/2024 Mild intermittent asthma, uncomplicated (ICD-10 - J45.20) Stable at present time and patient to remain on intermittent asthma medications as prescribed 05/12/2024 Mild intermittent asthma, uncomplicated (ICD-10 - J45.20) Stable at present time and patient to remain on intermittent asthma medications as prescribed 11/05/2024 Encounter for antibody response examination (ICD-10 - Z01.84) Can recheck pneumococcal titers after her pneumococcal vaccine 11/05/2024 Sprain of right rotator cuff capsule, initial encounter (ICD-10 - S43.421A) She has right shoulder pain after her fall. This appears to be a supraspinatus tendinitis without signs of complete tear. Recommend physical therapy but she would rather do this on her own due to concerns of copayments. Therefore she can download videos online in regards to her shoulder therapy 05/12/2024 Solitary pulmonary nodule (ICD-10 - R91.1) Patient with a history of a single pulmonary nodule. On December 10, 2023, pt completed a chest XRay due to asthma exacerbation and there were findings of a small calcified granuloma in the left lower lobe (0.2cm) and area was unchanged per radiology report reviewed during pt's first visit. Will continue to monitor this, and we can re-image area in 1 year (although pt is scheduled for a breast MRI which may capture this finding as well) 02/05/2024 Chronic migraine without aura, intractable, without status migrainosus (ICD-10 - G43.719) Stable at present time and patient to continue tracking her headache severity and frequency 05/12/2024 Vitamin D deficiency , unspecified (ICD-10 - E55.9) Will check level to verify that there is no deficiency 05/12/2024 Encounter for screening for malignant neoplasm of colon (ICD-10 - Z12.11) Patient completed a colonoscopy in 2020. Would like patient to be evaluated by gastroenterology given her history of diverticulitis and change in bowel habits. Patient agreeable to have a referral placed to Dr. Chowdary 05/12/2024 Encounter for screening mammogram for malignant neoplasm of breast (ICD-10 - Z12.31) Up-to-date on breast cancer screening 05/12/2024 Encounter for screening for cardiovascular disorders (ICD-10 - Z13.6) Blood pressure stable. Will check for comorbidity of hyperlipidemia and hyperglycemia to further assess risk 05/12/2024 Encounter for immunization (ICD-10 - Z23) Vaccines up-to-date 05/12/2024 Encounter for antibody response examination (ICD-10 - Z01.84) Titers have been checked in the past and there is immunity to rubeola 05/12/2024 Encounter for screening for other viral diseases (ICD-10 - Z11.59) Will screen for hepatitis C as per general recommendation 05/12/2024 Encounter for screening examination for other mental health and behavioral disorders (ICD-10 - Z13.39) PHQ score reviewed no further interventions warranted at this time 05/12/2024 Encounter for screening for malignant neoplasm of cervix (ICD-10 - Z12.4) Patient completed her Pap smear in 2021 and then proceeded to have a total hysterectomy in 2021. Patient does not require additional cervical screenings due to this total hysterectomy 04/29/2024 Other This note was created with voice dictation recognition software and may contain errors of grammar and syntax. 05/12/2024 Other 06/23/2024 Other This note was created with voice dictation recognition software and may contain errors of grammar and syntax. Also labs were reviewed with patient. 08/11/2024 Other This note was created with voice dictation recognition software and may contain errors of grammar and syntax. Also labs were reviewed with patient. 11/05/2024 Other This note was created with voice dictation recognition software and may contain errors of grammar and syntax. Also labs were reviewed with patient. Plan Of Treatment Pending Test Test Name Order Date EKG 03/19/2024 HOLTER MONITOR, 7 DAYS, APPLICATION 08/2023 HOLTER MONITOR, 7 DAYS, INTERPRETATION 0 06/23/2024 Next Appt Details Provider Name:Nathnaielminna Filemon , 12/16/2024 08:30:00 AM, [address] [place] [address], [address], [phone], Provider Name:Nathanielminna Filemon , 05/24/2025 08:45:00 AM, [address] [place] [address], [address], [id number], Insurance Providers Payer Name Payer Address Payer Phone Subscriber Number Group Number Insured Name Patient Relationship to Insured Coverage Start Date Coverage End Date [facility] [address] [place] [address] [id number] HerringSharonda fabian Self - patient is the insured Medical (General) History Medical History History ICD Code scoliosis diabetes in remission high blood pressure asthma left hand tremors adhd migraines diverticulitis Surgical History Surgery Date(Month/Year) gallbladder 2015 breast lift 2015 tummy tuck 2013 lasix 2021 lasix adjustment 2022 shoulder surgery bilateral blepharoplasty 2014 hysterectomy 2021 Hospitalization History Reason Date(Month/Year) Urgent care, due to Cold / Virus 2024-04
--- OUTSIDE RECORDS SUMMARY | 2024-12-07 09:00 | XMS_ITS | Encounter Summary ---
Author Organization [facility] Address [address] [place] [address] Care Team Providers Care Gas Scrubber Operator Name Role Phone Katlyn Colbert Primary Care Provider [phone] Encounter Details Date Type Department Care Team (Late st Contact Info) Description 05/01/2024 Orders Only [address], [address]th [place] [address] Dyan Urban MD [address] [place] [id number] Social History Tobacco Use Types Packs/Day Years Used Date Smoking Tobacco: Never Smokeless Tobacco: Never Comments No Sex and Gender Information Value Date Recorded Sex Assigned at Female 03/20/2024 3:21 PM EST Legal Sex Female 2:46 PM EST Gender Identity Female 10/13/2024 8:45 AM EDT Sexual Orientation Straight 10/13/2024 8: 45 AM EDT documented as of this encounter Plan of Treatment Upcoming Encounters Date Type Department Care Team (Late st Contact Info) Description 02/17/2025 8:00 AM EST Follow-Up [facility] [address] [place] [id number] Relocation Coordinator: Ryan Cho MD [address] [place] [phone] 02/23/2025 1:00 PM EST Office Visit [facility] [address] [place] [address] Relocation Coordinator: Lakshmi Cid V, [employer] [address] [place] [id number] documented as of this encounter Visit Diagnoses Not on filedocumented in this encounter Care Teams Gas Scrubber Operator Relationship Specialty Start Date End Date Katlyn Colbert [address] [facility] [address] [facility] [place] [address] PCP - General Internal Medicine 03/20/24 documented as of this encounter
--- OUTSIDE RECORDS SUMMARY | 2024-12-07 09:01 | XMS_ITS | Encounter Summary ---
Author Organization [facility] Address [address] [place] [address] Phone Care Team Providers Care Research And Development Engineer Name Role Phone Lee José MD Primary Care Provider Lee José MD Unavailable [phone] Arsen Del Rio MD Unavailable [phone] Joyce Alejandra MD Unavailable [phone] Tanja Nava PA-C Unavailable [phone] Encounter Details Date Type Department Care Team (Late st Contact Info) Description 10/10/2023 Procedure Pass [facility] [address] [place] [id number] Social History Tobacco Use Types Packs/Day Years Used Date Smoking Tobacco: Never Smokeless Tobacco: Never Education Answer Date Recorded Are you interested in more education? Not on dionna e 05/06/2023 Are you concerned about learning? Not on file 05/06/2023 No 05/06/2023 No 05/06/2023 Digital Access Answer Date Recorded No 05/06/2023 No 05/06/2023 Reliable internet access at home? Not on file 05/06/2023 Device with a working camera? Not on file Comments Unknown Sex and Gender Information Value Date Recorded Sex Assigned at Female 05/23/2023 7:03 PM EST Legal Sex Female 4:59 PM EDT Gender Identity Female 05/23/2023 7:03 PM EST Sexual Orientation Not on file documented as of this encounter Plan of Treatment Upcoming Encounters Date Type Department Care Team (Late st Contact Info) Description 05/24/2023 Procedure Pass [facility] [address] [id number] 12/21/2024 10:15 AM EDT Appointment [facility] [address] [address] Tanja Nava PA-C [address] [facility], [place] [address] [place] [address] [email or web address] 12/21/2024 11:30 AM EDT Office Visit [facility] [place] [facility] [address] [facility] [id number] [place] [address] Tanja Nava PA-C [address] Breast Ctr, [place] [address] [place] [address] [email or web address] documented as of this encounter Visit Diagnoses Not on filedocumented in this encounter Care Teams Research And Development Engineer Relationship Specialty Start Date End Date Lee José MD [address] [place] [address] PCP - General Internal Medicine 10/20/13 Lee José MD [address] [place] [address] Historical LMR Provider 01/29/17 Arsen Del Rio MD [address] [place] [address], [address] [address] [email or web address] Historical LMR Provider 01/29/17 [place] [address] [email or web address] Historical LMR Provider 01/29/17 Tanja Nava PA-C [address] Breast Ctr, [place] [address] [place] [address] [email or web address] Physician [employer] 11/05/23 documented as of this encounter Additional Source Comments The information contained in this document represents components of the legal health record. It is not the complete legal health record.[facility]
--- OUTSIDE RECORDS SUMMARY | 2024-12-07 09:01 | XMS_ITS ---
Author Name [facility] Organization Unknown History of Medication Use Medication Directions Dispensed Refills Start Date End Date Stat FREESTYLE LITE strip Use to test 1-2 times daily. 06/17/2024 active cabergoline (DOSTINEX) 0.5 MG tablet Take 0.5 tablets (0.25 mg total) by mouth 2 (two) times a week. 06/15/2024 active Ozempic, 0.25 or 0.5 MG/DOSE, 2 MG/3ML prefilled pen injection Inject 0.25 mg under the skin once a week. 06/15/2024 active gabapentin (NEURONTIN) 300 MG capsule Take 1 capsule (300 mg total) by mouth nightly as needed. 02/02/2024 active propranolol (INDERAL) 20 MG tablet TAKE 1 TABLET 3 TIMES A DAY X7 DAYS, THEN 2 TABS 3 TIMES A DAY X7 DAYS, THEN 3 TABS 3 TIMES A DAY 12/23/2023 active albuterol (PROVENTIL) (0.083%) 2.5 mg/3 mL nebulizer solution Inhale 6 mL (5 mg total). 12/10/2023 active benzonatate (TESSALON) 200 MG capsule TAKE 1 CAPSULE BY MOUTH THREE TIMES A DAY FOR 7 DAYS NEEDED FOR COUGH 12/10/2023 active budesonide (PULMICORT) 0.25 mg/2 mL nebulizer solution Inhale 1 Units. 12/10/2023 active [facility] Tussin Cough 15 MG Cap TAKE 1 CAPSULE BY MOUTH EVERY 4 HOURS NEEDED FOR COUGH 12/10/2023 active Zepbound 5 MG/0.5ML pen-injector Inject 1 Pen (5 mg total) under the skin once a week. 11/18/2023 06/22/2024 aborted Zepbound 5 MG/0.5ML pen-injector Inject 1 Pen (5 mg total) under the skin once a week. 11/18/2023 active trospium (SANCTURA) 20 MG tablet Take 1 tablet (20 mg total) by mouth nightly. 08/04/2023 active albuterol (PROVENTIL HFA; VENTOLIN HFA) 108 (90 Base) MCG/ACT inhaler Inhale 2 puffs Once before discharge. active amphetamine-dextroamph etamine (ADDERALL) 5 MG tablet Take 1 tablet (5 mg total) by mouth 2 times a day. active baclofen (LIORESAL) 5 MG tablet Take 1 tablet (5 mg total) by mouth daily. active lisdexamfetamine (VYVANSE) 30 MG capsule Take 1 capsule (30 mg total) by mouth every morning. active Riboflavin 100 MG Cap Take 100 mg by mouth daily. 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, predominantly inattentive type [facility] 06/22/2024 Ambulatory Headache, unspecified Headache, unspecified [facility] 12/23/2023 Ambulatory [facility] 11/08/2023 Ambulatory Unspecified symptoms and signs involving cognitive functions and awareness Unspecified symptoms and signs involving cognitive functions and awareness [facility] 11/06/2023 Ambulatory Other symptoms and signs involving cognitive functions and awareness Other symptoms and signs involving cognitive functions and awareness [facility] 09/24/2023 Care Team Organization Name Specialty Phone Email Start Date End Da te [facility] IRINA CASTANEDA Primary Care 06/22/2024 [facility] Lee José Primary [facility] 09/24/2023 07/29/19 [facility] Lee José Primary Care 09/24/2023 [facility] KENDRA MAYNARD Primary Care
--- OUTSIDE RECORDS SUMMARY | 2024-12-07 09:01 | XMS_ITS | Clinical Summary ---
Author Organization [facility] [employer] [facility] Address [address] [place] [address] Phone Care Team Providers Care Hose Seamer Name Role Phone Katlyn Colbert MD Primary Care Provider [phone] Allergies Active Allergy Reactions Criticality Noted Date Comments [place] Other 08/18/2021 Penicillin G Swelling 12/30/2017 Other reaction(s): SWELLING EYES,LIPS Medications albuterol 2.5 mg /3 mL (0.083 %) nebulizer solution Take 3 mL (2.5 mg total) by nebulization if needed for wheezing or shortness of breath. 05/27/19 18 Active ascorbic acid, vitamin C, 500 mg capsule 1 tab Orally daily Active biotin 10 mg tablet 1 tablet Orally Once a day for 30 day(s) Active ibuprofen (ADVIL,MOTRIN) 600 mg tablet TAKE 1 TABLET BY MOUTH 3 TIMES A DAY for 60 Active omega-3 fatty acids 1,000 mg capsule 1 capsule. Active riboflavin (VITAMIN B2) 400 mg tablet Take 1 tablet (400 mg total) by mouth 1 (one) time each day. 09/23/19 24 Active SUMAtriptan (IMITREX) 100 mg tablet 1 tablet as needed Orally TAKE AT ONSET OF MIGRAINE PRN 11/30/19 16 Active propranoloL (INDERAL) 60 mg tablet Take 1 tablet (60 mg total) by mouth 3 (three) times a day. 90 each 5 04/16/19 25 Active magnesium oxide 400 mg magnesium capsule TAKE 1 CAPSULE BY MOUTH EVERY DAY 90 capsule 1 06/23/19 25 Active Ozempic 0.25 mg or 0.5 mg (2 mg/3 mL) injection pen INJECT 0.5 MG UNDER THE SKIN EVERY 7 DAYS. 0.25 MG WEEKLY FOR 4 WEEKS THEN INCREASE TO 0.5 MG 06/16/19 25 Active bisacodyL (DULCOLAX) 5 mg EC tablet Take 2 tablets by mouth right before beginning bowel prep. See instructions provided by the office 2 tablet 07/28/19 25 Active dicyclomine (BENTYL) 10 mg capsuleIndicati ons:Irritable bowel syndrome, unspecified type Take 1 capsule (10 mg total) by mouth 3 (three) times a day. 270 each 3 11/04/19 25 026 Active estradioL (ESTRACE) 0.01 % (0.1 mg/gram) vaginal cream Insert 2 g into the vagina 1 (one) time each day. 10/30/19 25 Active hyoscyamine (ANASPAZ,LEVSIN ) 0.125 mg tabletIndicatio ns:Diarrhea, unspecified type Take 1 tablet (0.125 mg total) by mouth every 6 (six) hours if needed for cramping or diarrhea (take before meals). 120 tablet 12/03/19 25 025 Active metFORMIN XR (GLUCOPHAGE-XR) 500 mg 24 hr tablet Do not crush, chew, or split. Take 1 tablet (500 mg total) by mouth every morning with breakfast. - Oral 025 Discontin ued(Thera py completed ) cephalexin (KEFLEX) 500 mg capsule 05/05/19 25 025 Discontin ued(Thera py completed ) lisdexamfetamin e (VYVANSE) 30 mg capsule Take 1 capsule (30 mg total) by mouth 1 (one) time each day in the morning. 025 Discontin ued(Thera py completed ) polyethylene glycol (Golytely) 236-22.74-6.74 -5.86 gram solution Take 4L by mouth once for one dose. May substitue any PEG. Starting at 6PM the night before your procedure drink 1 8oz glasses at your own pace until you complete half of the gallon. Finish 2nd half of the gallon 5 hours before your procedure. 4000 mL 07/28/19 25 025 Discontin ued(Thera py completed ) Encounters Date Type Department Care Team Description 12/01/2024 Telephone Gastroenterology - [address] [place] [address] Quita Chowdary MD ABD PAIN/CRAMPING/?OBSTRUCT ION 11/12/2024 4:00 PM EDT Office Visit [facility] [address] [place] [address] Nathalie Alva MD Migraine without aura and without status migrainosus, not intractable (Primary Dx); Tremors of nervous system; Cognitive changes 11/02/2024 Telephone Gastroenterology - [address] [place] [address] Quita Chowdary MD 10/27/2024 9:15 AM EDT Office Visit General Surgery - [place] [address] [place] [address] Matt Hernández MD Diverticulitis large intestine w/o perforation or abscess w/o bleeding (Primary Dx) from Last 3 Months Immunizations Name Administration Dates Next Due Moderna SARS-CoV-2 COVID-19, mRNA, LNP-S, preservative free 02/01/2023 Surgical History Surgery Date Site/Laterality Comments ENDOMETRIAL FULGURATION PROCEDURE:LAPAROSCOPIC ENDOMETRIOSIS FULGURATION INCONTINENCE SURGERY PROCEDURE:INCONTINENCE SURGERY BELPHAROPTOSIS REPAIR PROCEDURE:BELPHAROPTOSIS REPAIR OTHER SURGICAL HISTORY PROCEDURE:bells palsy botox OTHER SURGICAL HISTORY PROCEDURE:tummy tuck OTHER SURGICAL HISTORY PROCEDURE:breast lift SHOULDER SURGERY PROCEDURE:SHOULDER SURGERY OTHER SURGICAL HISTORY PROCEDURE: [place] ANESTHESIA EYELID RECONSTRUCTIVE PROCEDURE; COMMENT: 12/30/12 BELT ABDOMINOPLASTY PROCEDURE: HISTORICAL TUMMY TUCK; COMMENT: 05/28/13 COLONOSCOPY Medical History Medical History Date Comments Seizures (CMS/HCC V24, CMS/HCC V28) DX:Seizures (HCC) Asthma DX:Asthma Adhd DX:ADHD Lazy eye, left DX:Lazy eye, lef t Hollis palsy DX:Hollis palsy Anemia DX:Anemia Diabetes (CMS/HCC V24, CMS/HCC V28) DX:Diabetes (HCC) Occasional tremors DX:Occasional tremors Migraine DX:Migraine Tachycardia DX:Tachycardia Hypertension DX:Hypertension Scoliosis DX:Scoliosis Asthma DX:Asthma Diabetes mellitus type 2, co ntrolled, with complications (CMS/HCC V24, CMS/HCC V28) DX:Diabetes mellitus type 2, controlled, with complications (HCC) Essential hypertension DX:Essent ial hypertension Breast cyst DX:Breast cyst Colon polyp Diverticulosis Family History Medical History Relation Name Comments Hypertension Brother Other: kidney disease Brother Hypertension Father Other: Cardiomegaly Father with Lef t ventricular hypertrophy Hypertension Mother Stroke Mother Relation Name Status Comments Brother Alive Father Alive Mother Alive Social History Tobacco Use Types Packs/Day Years Used Date Smoking Tobacco: Never Smokeless Tobacco: Never Tobacco Cessation:Counseling Given: Not Answered Alcohol Use Standard Drinks/Week Comments No 0 (1 standard drink = 0.6 oz pur e alcohol) Interpersonal Safety Answer Date Record ed Physical Abuse 08/10/2024 Verbal Abuse 08/10/2024 Comments No Sex and Gender Information Value Date Recorded Sex Assigned at Not on file Legal Sex Female 7:55 AM EST Gender Identity Not on file Sexual Orientation Not on file Obstetrics History Last Filed Vital Signs Vital Sign Reading Time Taken Comments Blood Pressure 99/60 11/12/2024 4:19 PM EDT Pulse 68 11/12/2024 4:19 PM EDT Temperature 36.7 C (98 F) 10/27/2024 9:14 AM EDT Respiratory Rate 16 08/10/2024 8:15 AM EDT Oxygen Saturation 98% 11/12/2024 4:19 PM EDT Inhaled Oxygen Concentration - - Weight 86.6 kg (191 lb) 11/12/2024 4:19 PM EDT Height 160 cm (5' 3 ) 10/27/2024 9:14 AM EDT Body Mass Index 33.83 10/27/2024 9:14 AM EDT Plan of Treatment Upcoming Encounters Date Type Department Care Team (Late st Contact Info) Description 05/13/2025 4:00 PM EST Office Visit [facility] [address] [place] [id number] Toshia Lopez PA [address] [place] [address] Health Maintenance Due Date Last Done Comments Diabetes: Annual Foot Exam 1982 Diabetes: Annual Retina Eye Exam 1982 Cervical Cancer Screening: Pap Smear 1993 Hepatitis A Vaccines (2 of 2 - Risk 2-dose series) 08/25/2018 02/25/2018 Cholesterol Screening (Lipid Panel) 03/18/2022 HIV Screening 03/18/2022 Hepatitis C Screening 03/18/2022 Social Influencers of Health Screening 03/18/2022 Diabetes: Annual Urine Albumin-Creatinine Ratio (uACR) 04/01/2024 Diabetes: Blood Sugar Control Test (HGBA1C) 04/01/2024 Depression Screening 04/15/2024 COVID-19 Vaccine (7 - Moderna risk season) 2024 01/08/2024, 02/01/2023, 01/17/2022, Additional history exists DTaP,Tdap,and Td Vaccines (2 - Td or Tdap) 08/27/2024 08/27/2014 Influenza Vaccine (#1) 2024 , 12/28/2022, 01/17/2022, Additional history exists Diabetes: Annual GFR (Glomerular Filtration Rate) 04/10/2025 04/10/2024 Hypertension/CHF/CAD Annual BMP Blood Test 04/10/2025 04/10/2024 Breast Cancer Screening 10/09/2025 10/10/2023 Colorectal Cancer Screening: Colonoscopy 08/10/2034 08/10/2024, 03/22/2021 Meningococcal ACWY Vaccine Aged Out 02/25/2018 N o longer eligible based on patient's age to complete this topic MMR Vaccines Aged Out 05/27/2019, 04/22/2019 No lo nger eligible based on patient's age to complete this topic Varicella Vaccines Aged Out 06/24/2019, 05/27/2019 No longer eligible based on patient's age to complete this topic Hepatitis B Vaccines Completed 10/28/2019, 05/27/2019, 05/27/2019, Additional history exists Zoster Vaccines Completed 03/03/2023, 08/0 09/2022, 06/24/2019, Additional history exists Pneumococcal Vaccine: 50+ Years Completed 06/23/2024, 02/25/2018, 04/20/2011 HIB Vaccines Aged Out No longer eligi ble based on patient's age to complete this topic HPV Vaccines Aged Out No longer eligi ble based on patient's age to complete this topic IPV Vaccines Aged Out No longer eligi ble based on patient's age to complete this topic Meningococcal B Vaccine Aged Out No l onger eligible based on patient's age to complete this topic RSV Immunization Patients Under 20 months Aged Out No longer eligible based on patient's age to complete this topic Procedures Procedure Name Priority Date/Time Associated Diagnosis Comments COLONOSCOPY Routine 08/10/2024 7:56 AM EDT Diverticulitis from Last 3 Months or Most Recently Relevant to Health Maintenance Results * COLONOSCOPY Anesthesia - MAC; [facility] ENDOSCOPY (08/10/2024 7:56 AM EDT) Anatomical Region Laterality Modality Other 08/10/2024 7:35 AM EDT Impressions 08/10/2024 7:58 AM EDT - The examined portion of the ileum was normal. - Diverticulosis in the sigmoid colon, in the descending colon and in the ascending colon. - One 4 mm polyp in the descending colon, removed with a cold snare. Resected and retrieved. - One 5 mm polyp in the sigmoid colon, removed with a cold snare. Resected and retrieved. - The examination was otherwise normal on direct and retroflexion views. Recommendation: - Await pathology results. - Repeat colonoscopy for surveillance based on pathology results. Narrative 08/10/2024 7:58 AM EDT [facility] GI Patient Name: Girma Navarro Procedure Date: 08/10/2024 7:35 AM Date of : 1970 Age: 53 Gender: Female Note Status: Finalized Attending MD: Quita Chowdary MD, Procedure Date No Time: 08/10/2024 Procedure: Colonoscopy Indications: Follow-up of diverticulitis Providers: Quita Chowdary MD Referring MD: Katlyn Colbert MD Medicines: Propofol per Anesthesia Complications: No immediate complications. Estimated Blood Loss: Estimated blood loss: none. Procedure: Pre-Anesthesia Assessment: - ASA Grade Assessment: II - A patient with mild systemic disease. After I obtained informed consent, the scope was passed under direct vision. Throughout the procedure, the patient's blood pressure, pulse, and oxygen saturations were monitored continuously.The Olympus Pediatric Colonosocpe was introduced through the anus and advanced to the terminal ileum. The colonoscopy was performed without difficulty. The patient tolerated the procedure well. The quality of the bowel preparation was good. Findings: The perianal and digital rectal examinations were normal. The terminal ileum appeared normal. Multiple small-mouthed diverticula were found in the sigmoid colon, descending colon and ascending colon. A 4 mm polyp was found in the descending colon. The polyp was sessile. The polyp was removed with a cold snare. Resection and retrieval were complete. A 5 mm polyp was found in the sigmoid colon. The polyp was sessile. The polyp was removed with a cold snare. Resection and retrieval were complete. The exam was otherwise without abnormality on direct and retroflexion views. Procedure Code(s): --- Professional --- 73065, Colonoscopy, flexible; with removal of tumor(s), polyp(s), or other lesion(s) by snare technique Diagnosis Code(s): --- Professional --- D12.4, Benign neoplasm of descending colon D12.5, Benign neoplasm of sigmoid colon K57.32, Diverticulitis of large intestine without perforation or abscess without bleeding CPT copyright 2021 [employer]. All rights reserved. The codes documented in this report are preliminary and upon curator natural history museum review may be revised to meet current compliance requirements. Quita Chowdary MD 08/10/2024 7:58:11 AM This report has been signed electronically.Quita Chowdary MD Number of Addenda: 0 Note Initiated On: 08/10/2024 7:35 AM Scope In: Scope Out: Endoscopy Department at [facility] - [address] [place] [id number] Procedure Note Quita Chowdary MD - 08/10/2024 [facility] GI Patient Name: Girma Navarro Procedure Date: 08/10/2024 7:35 AM Date of : 1970 Age: 53 Gender: Female Note Status: Finalized Attending MD: Quita Chowdary MD, Procedure Date No Time: 08/10/2024 Procedure: Colonoscopy Indications: Follow-up of diverticulitis Providers: Quita Chowdary MD Referring MD: Katlyn Colbert MD Medicines: Propofol per Anesthesia Complications: No immediate complications. Estimated Blood Loss: Estimated blood loss: none. Procedure: Pre-Anesthesia Assessment: - ASA Grade Assessment: II - A patient with mild systemic disease. After I obtained informed consent, the scope was passed under direct vision. Throughout theprocedure, the patient's blood pressure, pulse, and oxygen saturations were monitored continuously.The Olympus Pediatric Colonosocpe was introduced through theanus and advanced to the terminal ileum. The colonoscopy was performed without difficulty. The patient tolerated the procedure well. The quality of thebowel preparation was good. Findings: The perianal and digital rectal examinations were normal. The terminal ileum appeared normal. Multiple small-mouthed diverticula were found inthe sigmoid colon, descending colon and ascendingcolon. A 4 mm polyp was found in the descending colon. The polyp was sessile. The polyp was removed with acold snare. Resection and retrieval were complete. A 5 mm polyp was found in the sigmoid colon. Thepolyp was sessile. The polyp was removed with a coldsnare. Resection and retrieval were complete. The exam was otherwise without abnormality ondirect and retroflexion views. Procedure Code(s): --- Professional --- 83845, Colonoscopy, flexible; with removal of tumor(s), polyp(s), or other lesion(s) by snare technique Diagnosis Code(s): --- Professional --- D12.4, Benign neoplasm of descending colon D12.5, Benign neoplasm of sigmoid colon K57.32, Diverticulitis of large intestine without perforation or abscess without bleeding CPT copyright 2020 [employer]. All rights reserved. The codes documented in this report are preliminary and upon curator natural history museum reviewmay be revised to meet current compliance requirements. Quita Chowdary MD 08/10/2024 7:58:11 AM This report has been signed electronically.Quita Chowdary MD Number of Addenda: 0 Note Initiated On: 08/10/2024 7:35 AM Scope In: Scope Out: Endoscopy Department at [facility] - [address] [place] [id number] IMPRESSION: - The examined portion of the ileum was normal. - Diverticulosis in the sigmoid colon, in the descending colon and in the ascending colon. - One 4 mm polyp in the descending colon, removedwith a cold snare. Resected and retrieved. - One 5 mm polyp in the sigmoid colon, removed witha cold snare. Resected and retrieved. - The examination was otherwise normal on directand retroflexion views. Recommendation: - Await pathology results. - Repeat colonoscopy for surveillance based on pathology results. Quita Chowdary MD GI~PROCEDURE ORDERABLES Final Result from Last 3 Months or Most Recently Relevant to Health Maintenance Insurance [facility] Care Teams Hose Seamer Relationship Specialty Start Date End Date Katlyn Colbert MD [address] [place] [id number] PCP - General Internal Medicine 08/10/24
--- OUTSIDE RECORDS SUMMARY | 2024-12-07 09:01 | XMS_ITS | Patient Health Record ---
Author Organization [facility] Address [address] [place] [address] Care Team Providers Care Pie Filling Mixer Name Role Phone SADIE RUIZ Unavailable [phone] BENJIMACRINA BETANCUR Unavailable [phone] Allergies Allergen (clinical drug ingredient) Drug/Non Drug Allergy documented on EMR Reaction Allergy Type Onset Date Status Penicillin Unknown Drug Allergy Active Reason For Referral Diagnosis 1 Overweight (BMI 25.0 -29.9) (E66.3) Referring Provider First Name Lee Referring Provider Last Name Arnav Referred Organization [facility] Referred Provider RORO SHERWOOD Referred Address [address] [place], [place],[address], Referred Provider Specialty Internal Med icine General Notes MERYL SUÁREZ 01/27 01:53:08 PM > pt gave me insurance referral information in person Referral Priority Routine Medications Medication SIG (Take, Route, Frequency, Duration) Notes Start Date End Date Status Wegovy 2.4 MG/0.75ML 2.4 mg Subcutaneous once weekly; Duration: 30 days Not-Ta abdoul Ondansetron 4 MG TAKE 1 TABLET BY BIBI ONCE NEEDED FOR NAUSEA AND VOMITING Oral; Duration: 20 Days Active Zepbound 7.5 MG/0.5ML 7.5mg Subcutaneous weekly; Duration: 30 days Not-Taking Zepbound 5 MG/0.5ML 5mg Subcutaneous Wee kly; Duration: 30 days Not-Taking Wegovy 1 MG/0.5ML 1mg Subcutaneous wee kly; Duration: 30 days 03/02/2024 Active Magnesium 200 MG 2 tablets with a samanta l Orally Once a day Active Riboflavin 25 MG as directed Orally Active Wegovy 0.5 MG/0.5ML Inject 0.5 mL Subcut aneous once weekly; Duration: 28 days 01/28/2024 Active OneTouch Ultra - In Vitro; Duration: 50 Days Not-Taking Social History Tobacco Use: Social History Observation Description Date Details (start date - stop date) Never Smoker NA - NA Tobacco Use/Smoking Question Answer Notes Are you a nonsmoker Problems Problem Type SNOMED Code ICD Code Onset Dates Problem Status W/U Status Risk Notes Problem Infectious disease (17703339) Unspecified infectious disease (B99.9) Active confirmed Problem Anemia (604021539) Anemia, unspecified (D64.9) 017 Active confirmed Problem Obesity due to excess calories (910521636) Other obesity due to excess calories (E66.09) Active confirmed Problem Attention deficit hyperactivity disorder (908347320) Attention-deficit hyperactivity disorder, unspecified type (F90.9) 017 Active confirmed Problem Supraventricular tachycardia (7996077) Supraventricular tachycardia (I47.1) 020 Active confirmed Problem Allergic rhinitis (41821164) Allergic rhinitis, unspecified (J30.9) 017 Active confirmed Problem Exacerbation of asthma (031200047) Unspecified asthma with (acute) exacerbation (J45.901) Active confirmed Problem Asthma (153863683) Other asthma (J45.998) 017 Active confirmed Problem Screening for malignant neoplasm of breast (509953134) Encounter for screening mammogram for malignant neoplasm of breast (Z12.31) 017 Active confirmed Problem Essential hypertension (05795788) Essential hypertension (I10) 017 Active confirmed Problem Diverticulitis (90185047) Diverticulitis (K57.92) 021 Active confirmed Problem Lump in left breast (29040589684978741) Left breast lump (N63.20) 018 Active confirmed Problem Cirrhosis - non-alcoholic (561702410) Cirrhosis of liver without ascites, unspecified hepatic cirrhosis type (K74.60) 017 Active confirmed Problem Bronchitis (23871731) Bronchitis (J40) 016 Active confirmed Problem At high risk for breast cancer (228075226150789) At high risk for breast cancer (Z91.89) Active confirmed Problem Pulmonary nodule (090388906) Pulmonary nodule (R91.1) Active confirmed Problem Arthralgia of the pelvic region and thigh (632455921) Right hip pain (M25.551) Active confirmed Problem Type II diabetes mellitus without complication (686457510) Type 2 diabetes mellitus without complication, without long-term current use of insulin (E11.9) Active confirmed Problem Obesity (241451970) Obesity (BMI 30-39.9) (E66.9) Active confirmed Problem Dysmenorrhea (634955217) Dysmenorrhea (N94.6) Active confirmed Problem Essential tremor (599379715) Benign essential tremor (G25.0) Active confirmed Problem Tachycardia (1596374) Tachycardia (R00.0) Active confirmed Problem Overweight (622571862) Overweight (BMI 25.0-29.9) (E66.3) Active confirmed Problem Body mass index 30+ - obesity (987174943) Body mass index [BMI] 30.0-30.9, adult (Z68.30) Active confirmed Problem General examination of patient (556900441) Routine medical exam (Z00.00) Active confirmed Problem Post-discharge follow-up (903083440) Hospital discharge follow-up (Z09) Active confirmed Problem Bronchial asthma (601800057) Bronchial asthma (J45.909) Active confirmed Problem Menorrhagia (968423910) Menorrhagia (N92.0) Active confirmed Problem History of gastrointestinal disease (752316122) Hx of diverticulitis of colon (Z87.19) Active confirmed Problem Idiopathic kyphoscoliosis (disorder) (310040334) Scoliosis (and kyphoscoliosis), idiopathic (M41.20) Active confirmed Problem Migraine variant with headache (disorder) (470414263) Migraine headache (G43.909) Active confirmed Problem Counseling (929959699) Encounter for medication review and counseling (Z71.89) Active confirmed Problem Diverticular disease of colon (935264319) Colon, diverticulosis (K57.30) Active confirmed Problem Tremor (46992080) Coarse tremors (G25.2) 021 Active confirmed Problem Sleep apnea (disorder) (56731698) Suspected sleep apnea (G47.30) Active confirmed Problem Cough (12842837) 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 Active confirmed Problem History of excision of intestinal structure (771292342) History of laparoscopic cholecystectomy (Z90.49) 017 Active confirmed Problem Increased prolactin level (280993431) Elevated prolactin level (E22.9) 018 Active confirmed Problem Candidiasis of the esophagus (53164187) Esophageal moniliasis (B37.81) Active confirmed Problem Backache (504708203) Mechanical back pain (M54.9) 023 Active confirmed Problem Weight loss advised (959681015) Weight loss advised (Z78.9) Active confirmed Vital Signs Heart Rate 81 /min 03/02/2024 Oximetry 98 % 03/02/2024 Blood pressure diastolic 82 mm Hg 03/02/2024 Height 63 in 03/02/2024 Blood pressure systolic 120 mm Hg 03/02/2024 Weight 176 lbs 03/02/2024 BMI 31.17 kg/m2 03/02/2024 Encounters Encounter Location Date Provider Diagnosis [facility] [address] [address] 01/28/2024 MACRINA BENJIPIPE Other obesity due to excess calories E66.09 ; Body mass index [BMI] 30.0-30.9, adult Z68.30 ; Dietary counseling and surveillance Z71.3 and Prediabetes R73.03 [facility] [address] [address] 03/02/2024 SADIE RUIZ Other obesity due to excess calories E66.09 ; Body mass index [BMI] 30.0-30.9, adult Z68.30 ; Dietary counseling and surveillance Z71.3 and Prediabetes R73.[address] [facility] [address] [facility] [facility] [address] [place] [address] 01/03/2024 SADIE VEGAHOT [facility] [address] [facility] [address] [place] [address] 01/13/2024 MACRINA CHAVES [facility] [address] [facility] [facility] [address] [place] [address] 01/10/2024 SADIE RUIZ Other obesity due to excess calories E66.09 [facility] [address] [facility] [facility] [address] [place] [address] 01/15/2024 SADIE SILVIAHOT [facility] [address] [facility] [facility] [address] [place] [address] 02/28/2024 SADIE VEGAHOT [facility] [address] [facility] [facility] [address] [place] [address] 05/22/2024 SADIE KULDEEPT [facility] [address] [facility] [address] [place] [address] 05/22/2024 SADIE RUIZ Assessments Encounter Date Diagnosis (ICD Code) Assessment Notes Treatment Notes Treatment Clinical Notes Section Notes 01/10/2024 Other obesity due to excess calories (ICD-10 - E66.09) 01/28/2024 Other obesity due to excess calories (ICD-10 - E66.09) #Weight Management 01/28/2024: Weight 177 pounds, BMI 31.35. Patient has been on 10 mg for the last few weeks after increasing dose from 7.5 mg of Zepbound. She states that she is not experiencing adequate appetite suppression. Was previously on Wegovy 2.4 mg at maintenance dosing however every other week dosing exacerbated her migraines. Nonetheless patient states that she felt the best when she was on Wegovy. Since transitioning as noted that she has gained approximately 20 pounds. Her goal weight is 150 pounds. Dilip scan completed interval with the patient. No significant changes in fat loss or muscle composition. Her visceral adipose tissue index decreased from 1.9-1.7 which she was congratulated for. Will send Wegovy 0.5 mg to the pharmacy to be taken once weekly subcutaneously. Educated on proper use of medication and side effect profile. She will follow-up in office in 2 to 4 weeks for management. Patient has been found to be obese [...] track activity level. Consider using apps like [employer]ayers, [employer], lose it, stick as needed for self-monitoring and weight management. Consider group exercises. Consider hiring a personal financial counselor. Regular exercise is thomas to sustainable health [...] counseling and psychiatry and Dr Lopez at [facility]. We would like to cover regular topics [...] software and direct typing Please excuse inadvertent real estate management specialist or typing errors, or uncorrected word substitutions Although every attempt has been made by the provider to proofread this document, occasional misspellings and typographical errors may still be present Due to the previous pandemic, and the use of personal protective equipment (PPE) This may decrease voice recognition accuracy Inadvertent real estate management specialist errors may occur 03/02/2024 Other obesity due to excess calories (ICD-10 - E66.09) #Weight Management 03/03/2024 Updated labs reviewed Increase Wegovy to 1 mg Patient has been found to be obese [...] mentioned above and not solely appetite suppression. Of note, some information is being carried forward from prior records for informational purposes only and is being cited so that efficiency, safety and quality of the patient's care is not compromised This note was prepared using voice recognition software and direct typing Please excuse inadvertent real estate management specialist or typing errors, or uncorrected word substitutions Although every attempt has been made by the provider to proofread this document, occasional misspellings and typographical errors may still be present Due to the previous pandemic, and the use of personal protective equipment (PPE) This may decrease voice recognition accuracy Inadvertent real estate management specialist errors may occur 03/02/2024 Body mass index [BMI] 30.0-30.9, adult (ICD-10 - Z68.30) #Weight Management 03/03/2024 Updated labs reviewed Increase Wegovy to 1 mg Patient has been found to be obese [...] mentioned above and not solely appetite suppression. Of note, some information is being carried forward from prior records for informational purposes only and is being cited so that efficiency, safety and quality of the patient's care is not compromised This note was prepared using voice recognition software and direct typing Please excuse inadvertent real estate management specialist or typing errors, or uncorrected word substitutions Although every attempt has been made by the provider to proofread this document, occasional misspellings and typographical errors may still be present Due to the previous pandemic, and the use of personal protective equipment (PPE) This may decrease voice recognition accuracy Inadvertent real estate management specialist errors may occur 01/28/2024 Body mass index [BMI] 30.0-30.9, adult (ICD-10 - Z68.30) #Weight Management 01/28/2024: Weight 177 pounds, BMI 31.35. Patient has been on 10 mg for the last few weeks after increasing dose from 7.5 mg of Zepbound. She states that she is not experiencing adequate appetite suppression. Was previously on Wegovy 2.4 mg at maintenance dosing however every other week dosing exacerbated her migraines. Nonetheless patient states that she felt the best when she was on Wegovy. Since transitioning as noted that she has gained approximately 20 pounds. Her goal weight is 150 pounds. Dilip scan completed interval with the patient. No significant changes in fat loss or muscle composition. Her visceral adipose tissue index decreased from 1.9-1.7 which she was congratulated for. Will send Wegovy 0.5 mg to the pharmacy to be taken once weekly subcutaneously. Educated on proper use of medication and side effect profile. She will follow-up in office in 2 to 4 weeks for management. Patient has been found to be obese [...] track activity level. Consider using apps like FireLayers, myfitnesspal, lose it, stick as needed for self-monitoring and weight management. Consider group exercises. Consider hiring a personal financial counselor. Regular exercise is thomas to sustainable health [...] counseling and psychiatry and Dr Lopez at [facility]. We would like to cover regular topics [...] software and direct typing Please excuse inadvertent real estate management specialist or typing errors, or uncorrected word substitutions Although every attempt has been made by the provider to proofread this document, occasional misspellings and typographical errors may still be present Due to the previous pandemic, and the use of personal protective equipment (PPE) This may decrease voice recognition accuracy Inadvertent real estate management specialist errors may occur 01/28/2024 Dietary counseling and surveillance (ICD-10 - Z71.3) #Weight Management 01/28/2024: Weight 177 pounds, BMI 31.35. Patient has been on 10 mg for the last few weeks after increasing dose from 7.5 mg of Zepbound. She states that she is not experiencing adequate appetite suppression. Was previously on Wegovy 2.4 mg at maintenance dosing however every other week dosing exacerbated her migraines. Nonetheless patient states that she felt the best when she was on Wegovy. Since transitioning as noted that she has gained approximately 20 pounds. Her goal weight is 150 pounds. Dilip scan completed interval with the patient. No significant changes in fat loss or muscle composition. Her visceral adipose tissue index decreased from 1.9-1.7 which she was congratulated for. Will send Wegovy 0.5 mg to the pharmacy to be taken once weekly subcutaneously. Educated on proper use of medication and side effect profile. She will follow-up in office in 2 to 4 weeks for management. Patient has been found to be obese [...] track activity level. Consider using apps like [employer]ayers, [employer], lose it, stick as needed for self-monitoring and weight management. Consider group exercises. Consider hiring a personal financial counselor. Regular exercise is thomas to sustainable health [...] counseling and psychiatry and Dr Lopez at [facility]. We would like to cover regular topics [...] software and direct typing Please excuse inadvertent real estate management specialist or typing errors, or uncorrected word substitutions Although every attempt has been made by the provider to proofread this document, occasional misspellings and typographical errors may still be present Due to the previous pandemic, and the use of personal protective equipment (PPE) This may decrease voice recognition accuracy Inadvertent real estate management specialist errors may occur 03/02/2024 Dietary counseling and surveillance (ICD-10 - Z71.3) #Weight Management 03/03/2024 Updated labs reviewed Increase Wegovy to 1 mg Patient has been found to be obese [...] mentioned above and not solely appetite suppression. Of note, some information is being carried forward from prior records for informational purposes only and is being cited so that efficiency, safety and quality of the patient's care is not compromised This note was prepared using voice recognition software and direct typing Please excuse inadvertent real estate management specialist or typing errors, or uncorrected word substitutions Although every attempt has been made by the provider to proofread this document, occasional misspellings and typographical errors may still be present Due to the previous pandemic, and the use of personal protective equipment (PPE) This may decrease voice recognition accuracy Inadvertent real estate management specialist errors may occur 03/02/2024 Prediabetes (ICD-10 - R73.03) #Weight Management 03/03/2024 Updated labs reviewed Increase Wegovy to 1 mg Patient has been found to be obese [...] mentioned above and not solely appetite suppression. Of note, some information is being carried forward from prior records for informational purposes only and is being cited so that efficiency, safety and quality of the patient's care is not compromised This note was prepared using voice recognition software and direct typing Please excuse inadvertent real estate management specialist or typing errors, or uncorrected word substitutions Although every attempt has been made by the provider to proofread this document, occasional misspellings and typographical errors may still be present Due to the previous pandemic, and the use of personal protective equipment (PPE) This may decrease voice recognition accuracy Inadvertent real estate management specialist errors may occur 01/28/2024 Prediabetes (ICD-10 - R73.03) #Weight Management 01/28/2024: Weight 177 pounds, BMI 31.35. Patient has been on 10 mg for the last few weeks after increasing dose from 7.5 mg of Zepbound. She states that she is not experiencing adequate appetite suppression. Was previously on Wegovy 2.4 mg at maintenance dosing however every other week dosing exacerbated her migraines. Nonetheless patient states that she felt the best when she was on Wegovy. Since transitioning as noted that she has gained approximately 20 pounds. Her goal weight is 150 pounds. Dilip scan completed interval with the patient. No significant changes in fat loss or muscle composition. Her visceral adipose tissue index decreased from 1.9-1.7 which she was congratulated for. Will send Wegovy 0.5 mg to the pharmacy to be taken once weekly subcutaneously. Educated on proper use of medication and side effect profile. She will follow-up in office in 2 to 4 weeks for management. Patient has been found to be obese [...] track activity level. Consider using apps like [employer]ise, myfitnesspal, lose it, stick as needed for self-monitoring and weight management. Consider group exercises. Consider hiring a personal financial counselor. Regular exercise is thomas to sustainable health [...] counseling and psychiatry and Dr Lopez at [facility]. We would like to cover regular topics [...] software and direct typing Please excuse inadvertent real estate management specialist or typing errors, or uncorrected word substitutions Although every attempt has been made by the provider to proofread this document, occasional misspellings and typographical errors may still be present Due to the previous pandemic, and the use of personal protective equipment (PPE) This may decrease voice recognition accuracy Inadvertent real estate management specialist errors may occur 01/13/2024 #Weight Management 01/13/2024 Updated labs reviewed Increased [...] track activity level. Consider using apps like FireLayers, [employer], lose it, stick as needed for self-monitoring and weight management. Consider group exercises. Consider hiring a personal financial counselor. Regular exercise is thomas to sustainable health [...] counseling and psychiatry and Dr Lopez at [facility]. We would like to cover regular topics [...] software and direct typing Please excuse inadvertent real estate management specialist or typing errors, or uncorrected word substitutions Although every attempt has been made by the provider to proofread this document, occasional misspellings and typographical errors may still be present Due to the previous pandemic, and the use of personal protective equipment (PPE) This may decrease voice recognition accuracy Inadvertent real estate management specialist errors may occur Plan Of Treatment Pending Test Test Name Order Date Urine Culture and Sensitivity 04/29/2023 COMPLETE URINALYSIS 04/29/2023 Insurance Providers Payer Name Payer Address Payer Phone Subscriber Number Group Number Insured Name Patient Relationship to Insured Coverage Start Date Coverage End Date [facility] [address] [place] [address] [id number] GIRMA NAVARRO Self - patient is the insured Medical (General) History Medical History History ICD Code diabetes mellitus hypertension endometriosis fibroids diverticulosis choledocholithiasis cholelithiasis Surgical History Surgery Date(Month/Year) cholecystectomy breast augmentation/lift bladder surgery laser therapy hysterectomy
--- OUTSIDE RECORDS SUMMARY | 2024-12-07 09:01 | XMS_ITS | Encounter Summary ---
Author Organization [facility] Address [address] [place] [address] Care Team Providers Care Health Outreach Worker Name Role Phone Lee José MD Primary Care Provider [phone] Katlyn Colbert MD Primary Care Provider [phone] Reason for Visit * Reason Comments Other Encounter Details Date Type Department Care Team (Late Contact Info) Description 09/24/2023 Telephone [facility] [address] [phone] Zuleyka Rodney MD [address] [phone] Other Social History Tobacco Use Types Packs/Day Years Used Date Smoking Tobacco: Never Smokeless Tobacco: Never Alcohol Use Standard Drinks/Week Comments Not Currently 0 (1 standard drink = 0.6 oz pur e alcohol) Comments Unknown Sex and Gender Information Value Date Recorded Sex Assigned at Not on file Legal Sex Female 8:42 AM EST Gender Identity Not on file Sexual Orientation Not on file documented as of this encounter Miscellaneous Notes * Telephone Encounter - Deena Lakhani MA - 09/24/2023 1:57 PM EDT Outgoing call made to Sharonda, requesting she obtain medical records from [facility]. Specifically lab reports, radiology reports, and radiology films. Patient will request medical records via email. documented in this encounter Plan of Treatment Upcoming Encounters Date Type Department Care Team (Late Contact Info) Description 03/10/2025 9:00 AM EST Office Visit [facility] [address] [facility] [address] [place] [address] Zuleyka Rodney MD [address] [facility] [address] [place], [place] [id number] documented as of this encounter Visit Diagnoses Not on filedocumented in this encounter Care Teams Health Outreach Worker Relationship Specialty Start Date End Date Lee José MD [address] [place] [phone] PCP - General 09/24/23 06/21/24 Katlyn Colbert MD [address] [place] [id number] PCP - General 06/22/24 documented as of this encounter
--- OUTSIDE RECORDS SUMMARY | 2024-12-07 09:01 | XMS_ITS | Clinical Summary ---
Author Organization [facility] Address [address] [place] [address] Care Team Providers Care Airplane Tube Builder Name Role Phone Lee José MD Primary Care Provider [phone] Allergies Active Allergy Reactions Criticality Noted Date Comments Pecan Nut (Diagnostic) 08/18/2021 Other reaction(s): OTHER Penicillin G Swelling 12/30/2017 Other reaction(s): SWELLING EYES,LIPS Medications Medication Sig Dispensed Refills Start Date End Date Status albuterol (PROVENTIL) (2.5 MG/3ML) 0.083% nebulizer solution 3 ml as needed Inhalation every 6 hrs for 15 days 0 05/27/2017 Active Ascorbic Acid (Vitamin C) 500 MG CAPS 1 tab Orally daily 0 Active Biotin 10 MG TABS 1 tablet Orally Once a day for 30 day(s) 0 Active ibuprofen 600 MG tablet TAKE 1 TABLET BY MOUTH 3 TIMES A DAY for 60 0 Active [place]-3 Fatty Acids (Fish Oil) 1000 MG CAPS 1 capsule. 0 Active SUMAtriptan (IMITREX) 100 MG tablet 1 tablet as needed Orally TAKE AT ONSET OF MIGRAINE PRN 0 11/30/2015 Active Riboflavin 400 MG TABS TAKE 1 TABLET BY MOUTH EVERY DAY 30 tablet 3 09/23/2023 Active Magnesium Extra Strength 400 MG CAPS TAKE 1 CAPSULE BY MOUTH EVERY DAY 90 capsule 1 12/29/2023 Active propranolol (INDERAL) 20 MG tablet TAKE 1 TABLET 3 TIMES A DAY X7 DAYS, THEN 2 TABS 3 TIMES A DAY X7 DAYS, THEN 3 TABS 3 TIMES A DAY 333 tablet 0 01/05/2024 Active amphetamine-dextroa mphetamine (ADDERALL) 5 MG tablet Take 1 tablet (5 mg total) by mouth 2 (two) times a day. 0 11/18/2023 Active metFORMIN (GLUCOPHAGE-XR) ER 24 hr tablet 500 mg Take 1 tablet (500 mg total) by mouth every morning with breakfast. 0 05/19/2023 Active tirzepatide-Weight Management (Zepbound) 5 MG/0.5ML injection Inject 0.5 mL (5 mg total) under the skin every 7 days. 0 11/18/2023 Active Social History Tobacco Use Types Packs/Day Years Used Date Smoking Tobacco: Never Smokeless Tobacco: Never Tobacco Cessation:Counseling Given: Not Answered Alcohol Use Standard Drinks/Week Comments Never 0 (1 standard drink = 0.6 oz pur e alcohol) Sex and Gender Information Value Date Recorded Sex Assigned at Female 03/28/2023 10:29 AM EST Gender Identity Not on file Sexual Orientation Not on file Job Start Date Occupation Industry Not on file Not on file Not on file Last Filed Vital Signs Vital Sign Reading Time Taken Comments Blood Pressure 119/86 01/07/2024 11:48 AM EDT Pulse 93 01/07/2024 11:48 AM EDT Temperature 36.1 C (97 F) 01/07/2024 11:48 AM EDT Respiratory Rate - - Oxygen Saturation 96% 09/30/2023 8:39 AM EDT Inhaled Oxygen Concentration - - Weight 81 kg (178 lb 9.6 oz) 01/07/2024 11:48 AM EDT Height 160 cm (5' 3 ) 01/07/2024 11:48 AM EDT Body Mass Index 31.64 01/07/2024 11:48 AM EDT Plan of Treatment Health Maintenance Due Date Last Done Comments Hepatitis C Screening 1972 Depression Screening 1984 BMI Counseling 1990 Preventative Health Evaluation 1990 DTap / Tdap / Td (1 - Tdap) 11/02/1991 Cervical Cancer Screening (Pap Smear) 1993 Colon Cancer Screening (Colonoscopy) 2017 Breast Cancer Screening (Mammogram) 2022 COVID-19 Vaccine (2 - season) 2023 02/01/2023 Influenza Vaccine (#1) 2024 , 01/17/2022, 02/28/2021, Additional history exists Pneumococcal Vaccine Aged Out 02/25/2018, 04/20/19 12 No longer eligible based on patient's age to complete this topic Hepatitis B Vaccines Completed 10/28/2019, 05/27/2019, 05/27/2019, Additional history exists Shingrix-Zoster Vaccine Completed 03/03/2023, 11/18 RSV Ped < 20 months Aged Out No longe r eligible based on patient's age to complete this topic Care Teams Airplane Tube Builder Relationship Specialty Start Date End Date Lee José MD PCP - General Internal Medicine 03/28/23
== END 2024-12-07 08:56 | disposition home or self-care (01) ==
LOC: HO.HSM 08:34
PROVIDERS: PCP Nurse Practitioner Family; Referring Provider Nurse Practitioner Family; Visit Provider Registered Nurse
DX: G25.0 Essential tremor (principal); F98.8 Other specified behavioral and emotional disorders with onset usually occurring in childhood and adolescence; G47.33 Obstructive sleep apnea (adult) (pediatric)
CPT/HCPCS: 99214

== ENCOUNTER → 2024-12-30 20:30 | Outpatient (REF) | payer BC, SELFPAY ==
--- OUTSIDE RECORDS SUMMARY | 2024-01-13 04:00 | XMS_ITS ---
Author Organization [facility] Address [address] [place] [address] Care Team Providers Care Assistant Winemaker Name Role Phone SADIE RUIZ Unavailable [phone] Medications Medication SIG (Take, Route, Fr equency, Duration) Notes Start Date End Date Status Zepbound 7.5 MG/0.5ML 7.5mg Subcutaneous weekly; Duration: 30 days Active Encounters Encounter Location Date Provider Diagnosis [facility] [address] [facility] [address] [place] [address] 01/13/2024 SADIE JOSEPH Other obesity due to excess calories E66.09 [...] track activity level. Consider using apps like [employer], [employer] Farmspal, lose it, stick as needed for self-monitoring and weight management. Consider group exercises. Consider hiring a personal finance instructor. Regular exercise is thomas to sustainable health [...] counseling and psychiatry and Dr Lopez at [facility]. We would like to cover regular topics [...] software and direct typing Please excuse inadvertent claims analyst or typing errors, or uncorrected word substitutions Although every attempt has been made by the provider to proofread this document, occasional misspellings and typographical errors may still be present Due to the previous pandemic, and the use of personal protective equipment (PPE) This may decrease voice recognition accuracy Inadvertent claims analyst errors may occur 01/13/2024 Body mass index [...] track activity level. Consider using apps like [employer], [employer], lose it, stick as needed for self-monitoring and weight management. Consider group exercises. Consider hiring a personal finance instructor. Regular exercise is thomas to sustainable health [...] counseling and psychiatry and Dr Lopez at [facility]. We would like to cover regular topics [...] software and direct typing Please excuse inadvertent claims analyst or typing errors, or uncorrected word substitutions Although every attempt has been made by the provider to proofread this document, occasional misspellings and typographical errors may still be present Due to the previous pandemic, and the use of personal protective equipment (PPE) This may decrease voice recognition accuracy Inadvertent claims analyst errors may occur 01/13/2024 Dietary counseling and [...] track activity level. Consider using apps like [employer], [employer], lose it, stick as needed for self-monitoring and weight management. Consider group exercises. Consider hiring a personal finance instructor. Regular exercise is thomas to sustainable health [...] counseling and psychiatry and Dr Lopez at [facility]. We would like to cover regular topics [...] software and direct typing Please excuse inadvertent claims analyst or typing errors, or uncorrected word substitutions Although every attempt has been made by the provider to proofread this document, occasional misspellings and typographical errors may still be present Due to the previous pandemic, and the use of personal protective equipment (PPE) This may decrease voice recognition accuracy Inadvertent claims analyst errors may occur 01/13/2024 Prediabetes (ICD-10 - [...] track activity level. Consider using apps like [employer], [employer], lose it, stick as needed for self-monitoring and weight management. Consider group exercises. Consider hiring a personal finance instructor. Regular exercise is thomas to sustainable health [...] counseling and psychiatry and Dr Lopez at [facility]. We would like to cover regular topics [...] software and direct typing Please excuse inadvertent claims analyst or typing errors, or uncorrected word substitutions Although every attempt has been made by the provider to proofread this document, occasional misspellings and typographical errors may still be present Due to the previous pandemic, and the use of personal protective equipment (PPE) This may decrease voice recognition accuracy Inadvertent claims analyst errors may occur Plan Of Treatment Medication Medication Name Sig Start Date Stop Date Notes Zepbound 7.5 MG/0.5ML 7.5mg Subcutaneous weekly; Duration: 30 days Progress Notes * GIRMA NAVARRO MDOB:1970 (54 yo F)Acc No.[id number]:01/13/2024 Patient: GIRMA ASH Provider: Celio RUIZ NP :1970 A ge:53 Y S ex:Female Date:01/13/2024 Address:[address] [place], [place] [id number] Subjective: * Chief Complaints: * * HPI: C onstitutional: Patient is here [...] Feels much at ease recent layoffs at [facility] over 150 people however her job was spared This was causing a lot of stress Pt is currently on 5mg Zepound. Injection day Tuesdays, last dose 10/19/23. Not experiencing appetite suppression, increase hunger in the evenings. Having sugar cravings. No s/e. No migraines with switch. Feels like she had more effect on the Wegovy. Recently lab work done 11/18/23 with [facility]. A1c up to 6.0. Patient had [...] pt Rosemarie, who works with her at [facility]. Was originally on Saxenda but she had GI upset. In office hgb aic 02/2023 @ 5.5, A1C April, = 5.[address] Freeman for wt management. Dr. José was primary care but is moving. 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 [facility] 01/13/2024, Weight , BMI 11/21/2023, Weight [...] foods, drinks teas, 1 coffee/day. Exercise: Currently 5000-54001 steps daily. Non-smoker. ETOH use: none. of. * ROS: A ll Other Systems: Review of Systems (ROS) A ll others negative except those mentioned in HPI. * Medical History: Objective: * Vitals: * Examination: G eneral Examination: GENERAL APPEARANCE: i n no acute distress, well developed, well nourished. H EAD: n ormocephalic, atraumatic. E YES: p upils equal, round, reactive to light and accommodation. E ARS: n ormal. O RAL CAVITY: m ucosa moist. T HROAT: c lear. N GRACIE/THYROID: n gracie supple, full range of motion, no cervical lymphadenopathy. S KIN: n o suspicious lesions, warm and dry. H EART: n o murmurs, regular rate and rhythm, S1, S2 normal. L UNGS: c lear to auscultation bilaterally. A BDOMEN: n ormal, bowel sounds present, soft, nontender, nondistended. E XTREMITIES: n o clubbing, cyanosis, or edema. N EUROLOGIC: n onfocal, motor strength normal upper and [...] track activity level. Consider using apps like [employer], myfitnesspal, lose it, stick as needed for self-monitoring and weight management. Consider group exercises. Consider hiring a personal finance instructor. Regular exercise is thomas to sustainable health [...] counseling and psychiatry and Dr Lopez at [facility]. We would like to cover regular topics [...] software and direct typing Please excuse inadvertent claims analyst or typing errors, or uncorrected word substitutions Although every attempt has been made by the provider to proofread this document, occasional misspellings and typographical errors may still be present Due to the previous pandemic, and the use of personal protective equipment (PPE) This may decrease voice recognition accuracy Inadvertent claims analyst errors may occur. Plan: * Treatment: * Images: Nuraing Information: * Visit Code: * Procedure Codes: * Electronic signature of LUIS M RUIZ on 12/30/2024 at 10:26 PM EDT Sign off status: Pending * Provider: Celio RUIZ NP Date: 0 01/13/2024 Generated for Andrey whiting/Joshua/Myraitting on: 0 12/30/2024 10:26 PM EDT History and Physical Notes * HPI (History [...] Feels much at ease recent layoffs at [facility] over 150 people however her job was spared This was causing a lot of stress Pt is currently on 5mg Zepound. Injection day Tuesdays, last dose 10/19/23. Not experiencing appetite suppression, increase hunger in the evenings. Having sugar cravings. No s/e. No migraines with switch. Feels like she had more effect on the Wegovy. Recently lab work done 11/18/23 with [facility]. A1c up to 6.0. Patient had [...] pt Rosemarie, who works with her at [facility]. Was originally on Saxenda but she had GI upset. In office hgb aic 02/2023 @ 5.5, A1C April, = 5.[address] Freeman for wt management. Dr. José was primary care but is moving. 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 Patient had recent labs x1 month ago through [facility]: 01/13/2024, Weight , BMI 11/21/2023, Weight [...] foods, drinks teas, 1 coffee/day. Exercise: Currently 5000-18763 steps daily. Non-smoker. ETOH use: none. of Examination Category Sub-Category Detail Notes Category Not es General Examination GENERAL APPEARANCE: in no ac alexis distress, well developed, well nourished HEAD: normocephalic, [...]
--- OUTSIDE RECORDS SUMMARY | 2024-04-28 06:45 | XMS_ITS ---
Author Organization [facility] [address] Address [address] [place] [address] Care Team Providers Care Liability Analyst Name Role Phone SADIE RUIZ Unavailable [phone] Encounters Encounter Location Date Provider Diagnosis [facility] [address] [address] 04/28/2024 SADIE RUIZ Plan Of Treatment No Information Progress Notes * NAVARRO GIRMA MDOB:1970 (54 yo F)Acc No.[id number]:04/28/2024 Patient: GIRMA ASH Provider: Celio RUIZ NP :1970 A ge:53 Y S ex:Female Date:04/28/2024 Address:[address] [id number] Subjective: * Chief Complaints: * * Medical History: Objective: * Vitals: Assessment: Plan: * Treatment: * Images: Billing Information: * Visit Code: * Procedure Codes: * Electronic signature of LUIS M RUIZ on 12/30/2024 at 10:27 PM EDT Sign off status: Pending * Provider: Celio RUIZ NP Date: 04/28/2024 Generated for Andrey whiting/Joshua/eTransmitting on: 0 12/30/2024 10:27 PM EDT
--- OUTSIDE RECORDS SUMMARY | 2024-11-11 04:00 | XMS_ITS ---
Author Organization [facility] Address [address] [place] [phone] Care Team Providers Care Weight Shifter Name Role Phone Katlyn Castaneda Primary Care Provider KATLYN CASTANEDA MD Unavailable Unavailable REASON FOR VISIT 2m f/u DM Encounters Encounter Location Date Provider Diagnosis Katlyn Castaneda MD [address] [place] [address] [place] [phone] 11/11/2024 Katlyn Castaneda Plan Of Treatment Next Appt Details Provider Name:Katlyn Castaneda , 02/17/2025 08:15:00 AM, [address] [place] [address], [phone], Provider Name:Katlyn Castandea , 05/24/2025 08:45:00 AM, [address] [place] [address], [phone], Progress Notes * Sharonda NAVARRO MDOB:1970 (54 yo F)Acc No.[id number]:11/11/2024 Progress Notes Patient: Sharonda ASH Provider: Claire Castaneda MD :1970 A ge:54 Y S ex:Female Date:11/11/2024 Address:[address], [place] Subjective: * Chief Complaints: * 1 . [...] Electronic signature of Consuelo Castaneda MD on 12/30/2024 at 10:28 PM EDT Sign off status: Pending * Provider: Claire Castaneda MD Date: 11/11/2024 Generated for Andrey whtiing/Joshua/Heidi on: 12/30/2024 10:28 PM EDT
--- OUTSIDE RECORDS SUMMARY | 2024-12-30 22:26 | XMS_ITS | Encounter Summary ---
Author Organization [facility] Address [address] [place] [phone] Phone Care Team Providers Care Principal Technical Specialist Name Role Phone Lee José MD Primary Care Provider [phone] Lee José MD Unavailable [phone] Arsne Del Rio MD Unavailable [phone] Joyce Alejandra MD Unavailable [phone] Tanja Nava PA-C Unavailable [phone] Katlyn Colbert MD Primary Care Provider [phone] Encounter Details Date Type Department Care Team (Late st Contact Info) Description 10/10/2023 Procedure Pass [facility] [address] [place] [id number] Social History Tobacco Use Types Packs/Day Years [...] st Contact Info) Description 05/24/2023 Procedure Pass [facility] [address] [address] 02/01/2025 10:00 AM EDT Appointment [facility] [address] [address] Tanja Nava PA-C [address] [facility]tr, [address] [place] [address] [email or web address] 02/01/2025 11:00 AM EDT Office Visit [facility] Surgery 75 [facility] [id number] [place] [address] Tanja Nava PA-C [address] [facility] [address] [place] [address] [email or web address] as of this encounter Visit Diagnoses Not on filedocumented in this encounter Care Teams Principal Technical Specialist Relationship Specialty Start Date End Date Lee José MD [address] [place] [address] PCP - General Internal Medicine 10/20/13 12/16/24 Katlyn Colbert MD [address] [address] [email or web address] PCP - General Internal Medicine 12/17/24 Lee José MD [address] [place] [address] Historical LMR Provider 01/29/17 Arsen Del Rio MD [address] [place] [address], [address] [place] [address] [email or web address] Historical LMR Provider 01/29/17 [place] [address] [email or web address] Historical LMR Provider 01/29/17 Tanja Nava PA-C [address] [place] [address], [facility] Ctr, [address] [place] [address] [email or web address] Physician Livestock Showman 11/05/23 documented as of this encounter Additional Source Comments The information contained in this document represents components of the legal health record. It is not the complete legal health record.[facility]
--- OUTSIDE RECORDS SUMMARY | 2024-12-30 22:26 | XMS_ITS | Patient Health Record ---
Author Organization [facility] Address [address] [place] [phone] Care Team Providers Care Desk Maker Name Role Phone Katlyn Castaneda Primary Care Provider [phone] KATLYN CASTANEDA MD Unavailable Unavailable Marie Mejia Unavailable [phone] Allergies Allergen (clinical drug ingredient) Drug/Non Drug Allergy documented on EMR Reaction Allergy Type Onset Date Status Penicillin G Benzathine Unknown Drug Allergy Active Results Component Value Reference Range Notes Hemoglobin [id number] Reviewed date:05/28/2024 05:12:48 PM Interpretation: Performing Lab:[facility], [facility], Phone - [phone], Director - Cooper Notes/Report: Hemoglobin A1c 6.5 4.8-5.6 % . Prediabetes: 5.7 - 6.4 Diabetes: >6.4 Glycemic control for adults with diabetes: <7.0 CBC With Differential/Platel et-[id number] Reviewed date:05/28/2024 05:12:48 PM Interpretation: Performing Lab:[facility], [address] [facility], Phone - [phone], Director - MDLeey Notes/Report: WBC 9.4 3.4-10.8 x10E3/uL RBC 4.37 [...] (Abs) 0.0 0.0-0.1 x10E3/uL B-Type Natriuretic Peptide-1 60192 Reviewed date:05/28/2024 05:12:48 PM Interpretation: Performing Lab:[facility], [address] [facility], Phone - [phone], Director - MDJodry Notes/Report: B-Type Natriuretic Peptide 5.8 0.0-100.0 pg/m L Siemens ADVIA Centaur XP methodology Comp. Metabolic Panel (14)-3 61012 Reviewed date:05/28/2024 05:12:48 PM Interpretation: Performing Lab:[facility], [address] [facility], Phone - [phone], Director - MDJodry Notes/Report: Glucose 113 70-99 mg/dL BUN 12 [...] 0-40 IU/L ALT (SGPT) 24 0-32 IU/L Mammogram Reviewed date:05/28/2024 05:12:49 PM Interpretation: Performing Lab: Notes/Report: CT Abdomen Pelvis WO Cont Reviewed date:05/25/2024 11:19:56 AM Interpretation: Performing Lab: Notes/Report: Pneumococcal Ab (23 Serotype )-[id number] Reviewed date:05/28/2024 05:12:49 PM Interpretation: Performing Lab:[facility] [place], [address] [place] [address], [place], Phone - [phone], Director - Cooper Notes/Report: Pneumo Ab Type [...] developed and its performance characteristics determined by [employer]. It has not been cleared or approved by the U.S. Food and Drug Administration. FLAG Interpretation: A = Abnormal, H = High, L = Low Respiratory Panel w/ SARS-Co [id number] Reviewed date:04/30/2024 05:30:22 PM Interpretation: Performing Lab:[facility] [place], [address] [place] [address], [place], Phone - [phone], Director - Cooper Notes/Report: Adenovirus Not Detected Not Detected Coronavirus [...] Mycoplasma pneumoniae Not Detected Not Detected Hemoglobin A1C Reviewed date:12/01/2024 02:51:12 PM Interpretation: Performing Lab: Notes/Report: HbA1c 6.2 Hemoglobin A1C Reviewed date:12/01/2024 02:51:41 PM Interpretation: Performing Lab: Notes/Report: HbA1c 6.1 Urinalysis, Complete-[id number] Reviewed date:11/18/2024 06:41:51 PM Interpretation: Performing Lab:[facility], [address], [address], Phone - [phone], Director - Kinjal Notes/Report: Specific Brawley >=1.030 1.005-1.030 pH 5.5 5.0-7.5 Urine-Color Yellow [...] Calcium Oxalate N/A Bacteria Many None seen/Few Prolactin-175224 Reviewed date:11/18/2024 06:41:51 PM Interpretation: Performing Lab:[facility], [address], [place] [address], [place], Phone - [phone], Director - PhDBCNeil Notes/Report: Prolactin 32.6 3.6-25.2 ng/mL Vitamin D, 32-Iwckfyg-180682 Reviewed date:11/18/2024 06:41:51 PM Interpretation: Performing Lab:[facility], [address] [place] [address], [place], Phone - [phone], Director - PhDBCNeil Notes/Report: Vitamin D, 25-Hydroxy 28.9 30.0-100.0 ng/mL Vitamin D deficiency has been defined by the [place] of Medicine and an Endocrine Society practice guideline as a level of serum 25-OH vitamin D less than 20 ng/mL (1,2). The Endocrine Society went on to further define vitamin D insufficiency as a level between 21 and 29 ng/mL (2). 1. IOM ([place] of Medicine). 2010. Dietary reference intakes for calcium and D. [place]: The National Academies Press. 2. Odilon MF, Adolfo NC, Pardeep HOPKINS, et al. Evaluation, treatment, and prevention of vitamin D deficiency: an Endocrine Society clinical practice guideline. JCEM. 2010; 96(7):1911-30. Albumin/Creatinine Ratio,Uri ne-701987 Reviewed date:11/18/2024 06:41:51 PM Interpretation: Performing Lab:[facility], [address] [place] [address], [place], Phone - [phone], Director - PhDBCNeil Notes/Report: Creatinine, Urine 247.5 Not Estab. mg/dL Albumin, Urine 7.7 Not Estab. ug/mL Alb/Creat Ratio 3 0-29 mg/g creat Normal: 0 - 29 Moderately increased: 30 - 300 Severely increased: >300 Comp. Metabolic Panel (14)-3 02177 Reviewed date:11/18/2024 06:41:51 PM Interpretation: Performing Lab:[facility], [address] [place] [address], [place], Phone - [phone], Director - PhDBCNeil Notes/Report: Glucose 97 70-99 mg/dL BUN 10 [...] 17 0-32 IU/L Pneumococcal Ab (23 Serotype )-[id number] Reviewed date:11/18/2024 06:41:51 PM Interpretation: Performing Lab:[facility], [address], [place] [address], [place], Phone - [phone], Director - PhDBCNeil Notes/Report: Pneumo Ab Type 1* 2.5 >1.3 [...] developed and its performance characteristics determined by [employer]. It has not been cleared or approved by the U.S. Food and Drug Administration. FLAG Interpretation: A = Abnormal, H = High, L = Low TISSUE EXAM Reviewed date:08/18/2024 06:47:56 PM Interpretation: [...] 10% NB formalin fixed and paraffin embedded. IMGEAP Reviewed date:05/28/2024 05:12:48 PM Interpretation: Performing Lab: Notes/Report: See Note [facility], a member of [facility] INDICATION: Diverticulosis TECHNIQUE: CT scan of the abdomen and pelvis obtained without intravenous contrast. Oral contrast administered. Scanner: [employer] 64 slice VCT Dose reduction technique: ASIR [...] the office of KATLYN CASTANEDA via the [employer] on 05/21/2024 4:10 PM, Message ID [id number]. -------- FINAL REPORT -------- Dictated By: Nicole Mccollum Dictated Date: 05/21/2024 16:06 ET Assigned Physician: Nicole Mccollum Reviewed and Electronically Signed By: Nicole Mccollum Signed Date: 05/21/2024 16:10 ET Workstation ID: [id number] Transcribed By: Self Edit Transcribed Date: 05/21/2024 16:06 ET Comp. Metabolic Panel (14)-3 22778 Reviewed date:06/28/2024 04:51:14 PM Interpretation: Performing Lab:[facility], [address] [place] [address], Phone - [phone], Director - MDJodry Notes/Report: Glucose 82 70-99 mg/dL BUN 13 [...] 0-40 IU/L ALT (SGPT) 26 0-32 IU/L Albumin/Creatinine Ratio,Uri ne-891529 Reviewed date:06/28/2024 04:51:14 PM Interpretation: Performing Lab:[facility] Flores, [address] [facility], Phone - [phone], Director - MDJodry Notes/Report: Creatinine, Urine 152.7 Not Estab. mg/dL Albumin, Urine 3.5 Not Estab. ug/mL Alb/Creat Ratio 2 0-29 mg/g creat Normal: 0 - 29 Moderately increased: 30 - 300 Severely increased: >300 Vitamin D, 41-Nqvejrx-778954 Reviewed date:06/28/2024 04:51:14 PM Interpretation: Performing Lab:[facility] Flores, [address] [place] [address], Phone - [phone], Director - MDJodry Notes/Report: Vitamin D, 25-Hydroxy 22.7 30.0-100.0 ng/mL Vitamin D deficiency has been defined by the [place] of Medicine and an Endocrine Society practice guideline as a level of serum 25-OH vitamin D less than 20 ng/mL (1,2). The Endocrine Society went on to further define vitamin D insufficiency as a level between 21 and 29 ng/mL (2). 1. IOM ([place] of Medicine). 2010. Dietary reference intakes for calcium and D. [place]: The National Academies Press. 2. Odilon MF, Adolfo SCHULZ, Pardeep HOPKINS, et al. Evaluation, treatment, and prevention of vitamin D deficiency: an Endocrine Society clinical practice guideline. JCEM. 2010; 96(7):1911-30. Prolactin-373542 Reviewed date:06/28/2024 04:51:14 PM Interpretation: Performing Lab:[facility] [place], [address] [place] [address], Phone - [phone], Director - Cooper Notes/Report: Prolactin 13.0 3.6-25.2 ng/mL TSH-[id number] Reviewed date:06/28/2024 04:51:14 PM Interpretation: Performing Lab:[facility] [place], [address] [place] [address], Phone - [phone], Director - Sanadry Notes/Report: TSH 1.690 0.450-4.500 uIU/mL Urinalysis, Complete-127918 Reviewed date:06/28/2024 04:51:14 PM Interpretation: Performing Lab:[facility] [place], [address] [place] [address], Phone - [phone], Director - MDJodry Notes/Report: Specific Brawley 1.023 1.005-1.030 pH 5.5 5.0-7.5 Urine-Color Yellow [...] None seen /lpf Bacteria Few None seen/Few Hemoglobin A1C Reviewed date:06/23/2024 05:00:40 PM Interpretation: Performing Lab: Notes/Report: DCA Webster (DCA Webster), Katlyn [facility]eda MD Lot: [id number] Hemoglobin L8x-[id number] Reviewed date:03/08/2024 09:30:04 PM Interpretation: Performing Lab:[facility], [address] [place] [address], [place], Phone - [phone], Director - Cooper Notes/Report: Hemoglobin A1c 6.2 4.8-5.6 % . Prediabetes: 5.7 - 6.4 Diabetes: >6.4 Glycemic control for adults with diabetes: <7.0 Testosterone-351009 Reviewed date:03/08/2024 09:30:05 PM Interpretation: Performing Lab:[facility], [address] [place] [address], [place], Phone - [phone], Director - Cooper Notes/Report: Testosterone 20 4-50 ng/dL Luteinizing Hormone(LH)-0042 83 Reviewed date:03/08/2024 09:30:05 PM Interpretation: Performing Lab:[facility], [address] [place] [address], [place], Phone - [phone], - Cooper Notes/Report: LH 35.2 Adult Female Range Follicular phase 2.4 - 12.6 Ovulation phase 14.0 - 95.6 Luteal phase 1.0 - 11.4 Postmenopausal 7.7 - 58.5 FSH-[id number] Reviewed date:03/08/2024 09:30:06 PM Interpretation: Performing Lab:[facility], [address] [place] [address], [place], Phone - [phone], Director - Cooper Notes/Report: FSH 63.4 Adult Female Range Follicular phase 3.5 - 12.5 Ovulation phase 4.7 - 21.5 Luteal phase 1.7 - 7.7 Postmenopausal 25.8 - 134.8 Prolactin-851928 Reviewed date:03/08/2024 09:30:06 PM Interpretation: Performing Lab:[facility], [address] [place] [address], [place], Phone - [phone], Director Ilana Gamboa Notes/Report: Prolactin 12.9 3.6-25.2 ng/mL Estrogens, Total-005435 Reviewed date:03/08/2024 09:30:06 PM Interpretation: Performing Lab:[facility], [address] [place] [address], Phone - [phone], Director - Cooper Notes/Report: Estrogens, Total 60 Prepubertal < 40 Female Cycle: 1-10 Days 16 - 328 11-20 Days 34 - 501 21-30 Days 48 - 350 Post-Menopausal 40 - 244 CBC With Differential/Platel et-437344 Reviewed date:03/08/2024 09:30:06 PM Interpretation: Performing Lab:[facility] [place], [address] [place] [address], Phone - [phone], Director - Cooper Notes/Report: WBC 4.7 3.4-10.8 [...] Grans (Abs) 0.0 0.0-0.1 x10E3/uL Vitamin D, 30-Ppxpqdi-298820 Reviewed date:03/08/2024 09:30:06 PM Interpretation: Performing Lab:[facility] [place], [address] [facility], [place], Phone - [phone], Director - Cooper Notes/Report: Vitamin D, 25-Hydroxy 29.6 30.0-100.0 ng/mL Vitamin D deficiency has been defined by the [place] of Medicine and an Endocrine Society practice guideline as a level of serum 25-OH vitamin D less than 20 ng/mL (1,2). The Endocrine Society went on to further define vitamin D insufficiency as a level between 21 and 29 ng/mL (2). 1. IOM ([place] of Medicine). 2010. Dietary reference intakes for calcium and D. [place]: The National Academies Press. 2. Odilon MF, Adolfo SCHULZ, Pardeep HOPKINS, et al. Evaluation, treatment, and prevention of vitamin D deficiency: an Endocrine Society clinical practice guideline. JCEM. 2010; 96(7):1911-30. Albumin/Creatinine Ratio,Uri ne-311261 Reviewed date:03/08/2024 09:30:07 PM Interpretation: Performing Lab:[facility], [address] [place] [address], Phone - [phone], Director - Cooper Notes/Report: Creatinine, Urine 152.3 Not Estab. mg/dL Albumin, Urine 3.9 Not Estab. ug/mL Alb/Creat Ratio 3 0-29 mg/g creat Normal: 0 - 29 Moderately increased: 30 - 300 Severely increased: >300 HCV Antibody RFX to Quant PC R-[id number] Reviewed date:03/08/2024 09:30:07 PM Interpretation: Performing Lab:[facility], [address] [place] [address], Phone - [phone], Director - Cooper Notes/Report: HCV Ab Non Reactive Non Reactive Interpretation: Not infected with HCV unless early or acute infection is suspected (which may be delayed in an immunocompromised individual), or other evidence exists to indicate HCV infection. Comp. Metabolic Panel (14)-3 Reviewed date:03/08/2024 09:30:07 PM Interpretation: Performing Lab:[facility], [address] [place] [address], Phone - [phone], Director - Cooper Notes/Report: Glucose 114 70-99 [...] IU/L ALT (SGPT) 13 0-32 IU/L LP+Non-HDL Cholesterol-38849 5 Reviewed date:03/08/2024 09:30:07 PM Interpretation: Performing Lab:[facility]elin Flores, [address] [facility], [place], Phone - [phone], Director - [facility] Notes/Report: Cholesterol, Total 150 100-199 mg/dL Triglycerides 90 0-149 mg/dL HDL Cholesterol 48 >39 mg/dL VLDL Cholesterol Shayan 17 5-40 mg/dL LDL Chol Calc (NIH) 85 0-99 mg/dL Non-HDL Cholesterol 102 0-129 mg/dL UA/M w/rflx Culture, Routine -[id number] Reviewed date:03/08/2024 09:30:08 PM Interpretation: Performing Lab:[facility] Flores, [address] [facility], [place], Phone - [phone], Director - MDy Notes/Report: Specific Brawley 1.022 1.005-1.030 pH 5.5 5.0-7.5 Urine-Color Yellow [...] None seen /lpf Bacteria Few None seen/Few Echocardiogram Reviewed date:04/30/2024 04:32:20 PM Interpretation: Performing Lab: Notes/Report: MR Conor W WO Reviewed date:05/28/2024 05:12:49 PM Interpretation: Performing Lab: Notes/Report: Hemoglobin A1C Reviewed date:12/16/2024 09:03:33 AM Interpretation:6.2 Performing Lab: Notes/Report: 6.2 Eye Exam (Not yet reviewed b y provider) Interpretation: Performing Lab: Notes/Report: Eye Exam (Not yet reviewed b y provider) Interpretation: Performing Lab: Notes/Report: Reason For Referral Reason Referral to [facility] Breast Specialist - Dr. Novak faxed Diagnosis 1 Nipple discharge (N6 4.52) Referral Organization [facility] Referring Provider First Name Marie Referring Provider Last Name Jackie Referring Provider Speciality Nurse Prac gilioner Referred Provider Rosy Novak Referred Provider Specialty Oncology General Notes Katalina GOODRICH 08/2023 03:10:53 PM >faxed Referral Priority Routine Reason hx of diverticulitis and due for repeat colonoscopy faxed Diagnosis 1 Encounter for screen ing for malignant neoplasm of colon (Z12.11) Referral Organization [facility] Referring Provider First Name Marie Referring Provider Last Name Jackie Referring Provider Speciality Nurse Prac cyndie Referred Provider Quita Chowdary Referred Provider Specialty Gastroentero logy General Notes Waiting for note to be completed and need BCBS ins referral, 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 06/24/2024 03:54:40 PM >Appt 07/03/24 at 11am, [facility] 06/29/2024 04:45:29 PM >Ins referral completed, Reference#: [id number] Referral Priority Routine Referral Appointment Date 08/10/2024 Reason faxed Diagnosis 1 Snoring (R06.83) Referral Organization [facility]EL Referring Provider First Name Katlyn Referring Provider Last Name Filemon Referring Provider Speciality Internal M edicine Referred Provider You Mckeon Referred Provider Specialty Ear, nose an d throat surgeon General Notes Katalina GOODRICH 09/13 10:12:24 AM >[facility] multiple providers, [facility] 12/01/2024 08:31:31 AM >Patient to go to sleep medicine for increased snoring. New referral in. Referral Priority Routine Reason faxed Diagnosis 1 Snoring (R06.83) Referral Organization [facility] DANIEL Referring Provider First Name Katlyn Referring Provider Last Name Filemon Referring Provider Speciality Internal M edicine Referred Provider Samuel Maravilla Referred Provider Specialty Sleep Medici ne General Notes Katalina GOODRICH 10/15 05:07:26 PM >faxed, Katalina GOODRICH 11/16/2024 10:49:34 AM >Booked in March 08, 2025 Referral Priority Routine Referral Appointment Date 03/08/2025 Medications Medication SIG (Take, Route, Frequency, Duration) Notes Start Date End Date Status Ibuprofen 600 MG 1 tablet with food o r milk as needed Orally Three times a day Active Biotin 5000 MCG 1 capsule Orally Onc e a day; Duration: 30 day(s) Active Estradiol 0.1 MG/24HR 1 patch to skin Transdermal Two times a Week; Duration: 30 day(s) Active Gabapentin 300 MG 1 capsule Orally Onc e a day; Duration: 30 day(s) Active Riboflavin 400 MG 1 capsule Orally Onc e a day; Duration: 30 day(s) Active Hyoscyamine Sulfate 0.125 MG TAKE 1 TABLET BY MOUTH EVERY 6 HOURS IF NEEDED FOR CRAMPING OR DIARRHEA TAKE BEFORE MEALS Oral; Duration: 30 Days Active Hair Skin & Nails Ac tive Fluticasone Propionate 50 MCG/ACT 1 spray in each nostril Nasally Once a day; Duration: 30 day(s) Active Baclofen 5 MG 1 tablet as needed O rally Once a day; Duration: 90 days Active Bengay Active Albuterol Active Polyeth Glyc-Propylene Glyc Active Icy Hot Lidocaine Plus Menthol 4-1 % 1 application as needed Externally Three times a day Active Tretinoin 0.01 % 1 application in the evening to face Externally Once a day Active Trospium Chloride 20 MG 1 tablet at bedt costa on an empty stomach Orally Once a day; Duration: 30 day(s) Active Cabergoline 0.5 MG TAKE 0.5 TABLETS (0. 25 MG TOTAL) BY MOUTH 2 TIMES A WEEK. Oral; Duration: 28 Days Active Vitamin D3 50 MCG (2000 UT) 2 capsules Orally Once a day; Duration: 90 days 03/08/2024 03/03/2025 Active Senna 8.6 MG 2 tablets at bedtime as needed Orally Once a day; Duration: 30 day(s) Active Magnesium 400 MG as directed Orally Active Budesonide-Formoterol Fumarate 80-4.5 MCG/ACT 2 Puffs Inhalation twice a day; Duration: 28 days 06/23/2024 06/01/2025 Active Mounjaro 7.5 MG/0.5ML 7.5 mg Subcutaneou s Once a Week; Duration: 28 days 11/05/2024 06/01/2025 Active Propranolol HCl ER 60 MG Oral; Duration: 90 Days Active Immunizations Vaccine Route Administration Date Status Comme nts Pneumococcal polysaccharide PCV 13 Unknown 04/20/2011 Administered Pneumococcal polysaccharide PCV 13 Unknown 02/25/2018 Administered MMR Unknown 04/22/2019 Administered MMR Unknown 05/27/2019 Administered Meningococcal MCV4O (CVX 114) Unknown 02/25/2018 Administered Vlloknxnz-6005-64 Afluria-Single Unknown 02/05/2020 Administered Nfqniomwf-0287-88 Afluria-Single Unknown 02/28/2021 Administered Bqtyuwzou-0453-27 Afluria-Single Unknown 01/17/2022 Administered Ajgwlmoki-6712-62 Afluria-Single Unknown 12/28/2022 Administered Hep A, adult Unknown 02/25/2018 Administered HDYXU-49-Joldcsy Vaccine Unknown 05/27/2020 Administere d WLZBS-21-Homsaht Vaccine Unknown 06/24/2020 Administere d OBLZA-45-Kwkjgov Vaccine Unknown 02/28/2021 Administere d COVID-19 Moderna BiValent Booster Unknown 01/17/2022 Administered COVID Spikevax Moderna Unknown 02/01/2023 Administered COVID Spikevax Moderna Unknown 01/08/2024 Administered *Tdap Unknown 08/27/2014 Administered *Shingrix Unknown 11/18/2022 Administered *Shingrix Unknown 03/03/2023 Administered *PREVNAR 20 IM Intramuscular 06/23/2024 Administered *Influenza-Fluzone Unknown 01/08/2024 Administered Social History Tobacco Use: Social History Observation Description Date Details (start date - stop date) Never Smoker NA - NA AUDIT-C (Standard) Question Answer Notes Did you have a drink containing alcohol in the p ast year? No Points 0 Interpretation Negative Tobacco Control (Standard) Question Answer Notes Tobacco use: Nonsmoker Section Notes: Tobacco use: Does Not Smoke Problems Problem Type SNOMED Code ICD Code Onset Dates Problem Status W/U Status Risk Notes Problem Diabetic renal disease (654414541) Type 2 diabetes mellitus with diabetic chronic kidney disease (E11.22) Active confirmed Problem Hyperprolactinemia (903717286) Hyperprolactinemia (E22.1) Active confirmed Problem Disorder of pituitary gland (315480442) Other disorders of pituitary gland (E23.6) Active confirmed Problem Vitamin D deficiency (56992309) Vitamin D deficiency, unspecified (E55.9) Active confirmed Problem Obesity due to excess calories (281495768) Other obesity due to excess calories (E66.09) Active confirmed Problem Essential tremor (633295311) Essential tremor (G25.0) Active confirmed Problem Chronic intractable migraine without aura (848901960573796) Chronic migraine without aura, intractable, without status migrainosus (G43.719) Active confirmed Problem Essential hypertension (08593451) Essential (primary) hypertension (I10) Active confirmed Problem Chronic kidney disease due to hypertension (605038511703307) Hypertensive chronic kidney disease with stage 1 through stage 4 chronic kidney disease, or unspecified chronic kidney disease (I12.9) Active confirmed Problem Mild intermittent asthma (941092843) Mild intermittent asthma, uncomplicated (J45.20) Active confirmed Problem Diverticular disease of colon (567934119) Diverticulosis of large intestine without perforation or abscess without bleeding (K57.30) Active confirmed Problem Sciatica (09142459) Lumbago with sciatica, right side (M54.41) Active confirmed Problem Stricture of ureter (79714949) 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) Active confirmed Problem Chronic kidney disease stage 1 (878450262) Chronic kidney disease, stage 1 (N18.1) Active confirmed Problem Chronic kidney disease stage 2 (742386585) Chronic kidney disease, stage 2 (mild) (N18.2) Active confirmed Problem Solitary pulmonary nodule (757774770) Solitary pulmonary nodule (R91.1) Active confirmed Problem Body mass index 30.00 to 34.99 (548485475841380) Body mass index [BMI] 32.0-32.9, adult (Z68.32) Active confirmed Problem Body mass index 30.00 to 34.99 (742767500689907) Body mass index [BMI] 33.0-33.9, adult (Z68.33) Active confirmed Problem Supraventricular tachycardia (disorder) (7105618) Other supraventricular tachycardia (I47.19) Active confirmed Problem Attention deficit hyperactivity disorder, 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) Attention and concentration deficit (R41.840) Inactive confirmed Vital Signs Heart Rate 102 /min 12/16/2024 Temperature 95.6 degrees Fahrenheit 12/16/2024 Blood pressure diastolic 70 mm Hg 12/16/2024 Oximetry 96 % 12/16/2024 Height 63 in 12/16/2024 Blood pressure systolic 114 mm Hg 12/16/2024 Weight 185 lbs 12/16/2024 BMI 32.77 kg/m2 12/16/2024 Procedures Procedure Date Ordered Date Performed Result Body Sit e COLONOSCOPY 05/27/2024 03/22/2021 N/A HOLTER MONITOR, 7 DAYS, APPLICATION 03/19/2024 N/A HOLTER MONITOR, 7 DAYS, INTERPRETATION 06/23/2024 N/A Encounters Encounter Location Date Provider Diagnosis Katlyn Castaneda MD [address] [id number] 02/05/2024 Marie Mejia Encounter for screen ing [...] without status migrainosus G43.719 Katlyn Castaneda MD [address] [id number] 03/19/2024 Marie Mejia Attention and concentration deficit R41.840 ; Prediabetes R73.03 ; Essential (primary) hypertension I10 ; Essential tremor G25.0 ; Nipple discharge N64.52 ; Chronic migraine without aura, intractable, without status migrainosus G43.719 ; Palpitations R00.2 and Other disorders of pituitary gland E23.6 Katlyn Castaneda MD [address] [id number] 04/29/2024 Katlyn Castaneda Acute upper respirat ory infection, unspecified J06.9 Katlyn Castaneda MD [address] [id number] 05/12/2024 Marie Mejia Encounter for genera l [...] 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 Katlyn Castaneda MD [address] [id number] 06/23/2024 Katlyn Castaneda Hypertensive chronic kidney disease [...] Encounter for immunization Z23 Katlyn Castaneda MD [address] [id number] 08/11/2024 Katlyn Castaneda Hypertensive chronic kidney disease [...] D deficiency, unspecified E55.9 Katlyn Castaneda MD [address] [id number] 11/05/2024 Katlyn Castaneda Type 2 diabetes chinyere [...] capsule, initial encounter S43.421A Katlyn Castaneda MD [address] [id number] 12/16/2024 Katlyn Castaneda Type 2 diabetes chinyere itus with diabetic chronic kidney disease E11.22 ; Hypertensive chronic kidney disease with stage 1 through stage 4 chronic kidney disease, or unspecified chronic kidney disease I12.9 ; Chronic kidney disease, stage 1 N18.1 ; Mild intermittent asthma, uncomplicated J45.20 ; Other supraventricular tachycardia I47.19 ; Other obesity due to excess calories E66.09 ; Body mass index [BMI] 33.0-33.9, adult Z68.33 ; Hyperprolactinemia E22.1 ; Essential tremor G25.0 ; Vitamin D deficiency, unspecified E55.9 and Encounter for immunization Z23 Katlyn Castaneda MD [address] [id number] 02/17/2024 Marie Castaneda MD [address] [id number] 02/28/2024 Marie Jackie Attention and concentration deficit R41.840 Katlyn Castaneda MD [address] [id number] 03/08/2024 Mariemarguerite Mejia Vitamin D deficiency , unspecified E55.9 Katlyn Castaneda MD [address] [id number] 04/23/2024 Marie Jackie Attention and concentration deficit R41.840 Katlyn Castaneda MD [address] [id number] 04/28/2024 Marie Castaneda MD [address] [id number] 05/07/2024 Marie Castaneda MD [address] [id number] 05/12/2024 Marie Castaneda MD [address] [id number] 05/22/2024 Marie Castaneda MD [address] [id number] 05/28/2024 Katlyn Castaneda MD [address] [id number] 06/08/2024 Marie Castaneda MD [address] [id number] 07/23/2024 Katlyn Castaneda MD [address] [place], [place] [id number] 08/12/2024 Marie Castaneda MD PC [address] [place] [address] [id number] 09/29/2024 Katlyn Castaneda MD PC [address] [place] [address] [id number] 11/05/2024 Katlyn Castaneda MD PC [address] [place] [address] [id number] 11/11/2024 Katlyn Castaneda Snoring R06.83 Katlyn Castaneda MD PC [address] [place] [address] [id number] 11/18/2024 Katlyn Castaneda MD PC [address] [place] [address] [id number] 12/01/2024 Katlyn Castaneda MD PC [address] [facility] [address] [place] [address] [id number] 04/30/2024 Marie Castaneda MD PC [address] [facility] [address] [place] [address] [id number] 04/30/2024 Mariemarguerite Castaneda MD PC [address] [facility] [address] [place] [address] [id number] 04/30/2024 Marie Jackie Castaneda MD PC [address] [facility] [address] [place] [address] [id number] 04/30/2024 Marie Castaneda MD PC [address] [facility] [address] [place] [address] [id number] 05/11/2024 Marie Castaneda MD PC [address] [facility] [address] [place] [address] [id number] 05/22/2024 Marie Mejia 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 Katlyn Castaneda MD PC [address] [facility] [address] [place] [address] [id number] 05/25/2024 Marie Mejia Katlyn Castaneda MD PC [address] [facility] [address] [place] [address] [id number] 05/27/2024 Marie Mejia Attention and concentration deficit R41.840 Katlyn Castaneda MD PC [address] [facility] [address] [place] [address] [id number] 06/24/2024 Marie Castaneda MD PC [address] [facility] [address] [place] [address] [id number] 08/12/2024 Marie Castaneda MD PC [address] [facility] [address] [place] [address] [id number] 08/31/2024 Marie Castaneda MD [address] [id number] 09/04/2024 Katlyn Castaneda MD [address] [id number] 09/08/2024 Katlyn Castaneda MD [address] [id number] 09/21/2024 Katlyn Castaneda Type 2 diabetes chinyere itus with diabetic chronic kidney disease E11.22 Katlyn Castaneda MD [address] [id number] 09/22/2024 Katlyn Castaneda MD [address] [id number] 09/24/2024 Katlyn Castaneda MD [address] [id number] 09/24/2024 Katlyn Castaenda Snoring R06.83 Katlyn Castaneda MD [address] [id number] 09/25/2024 Katlyn Castaneda MD [address] [id number] 10/27/2024 Katlyn Castaneda MD [address] [id number] 12/11/2024 Katlyn Castaneda Assessments Encounter Date Diagnosis (ICD Code) [...] the higher Vyvanse dose 05/12/2024 Encounter for [facility] adult medical examination without abnormal findings (ICD-10 [...] BMI management 11/11/2024 Snoring (ICD-10 - R06.83) 12/16/2024 Type 2 diabetes mellitus with diabetic chronic kidney disease (ICD-10 - E11.22) A1C improved to 6.1 with current regimen. Patient previously on metformin, now on Manjaro injections. Weight loss and improved blood pressure have contributed to better diabetes control. - Increase Mounjaro from 5 mg to 7.5 mg after finishing current supply. 12/16/2024 Hypertensive chronic kidney disease with stage 1 through stage 4 chronic kidney disease, or unspecified chronic kidney disease (ICD-10 - I12.9) Stable at present. Continue current medical therapy. Hopefully with additional weight loss she will have increasing benefit of blood pressure control 11/05/2024 Hypertensive chronic kidney disease with stage [...] same and try to augment medical therapy 12/16/2024 Chronic kidney disease, stage 1 (ICD-10 - N18.1) Kidney function improved from stage 2 to stage 1. Creatinine and GFR reviewed and stable. Better diabetes and blood pressure control contributed to improvement. 08/11/2024 Chronic kidney disease, stage 2 (mild) [...] encraochment. Pt is pending an apt with [facility] on March 19 to discuss these findings [...] therapy to Symbicort based on the Jackie 2022 recommendations rather than continuing as needed albuterol. [...] - J45.20) Stable with current inhaler therapy 12/16/2024 Mild intermittent asthma, uncomplicated (ICD-10 - J45.20) Asthma symptoms triggered by dust, pets, and environmental factors. Patient uses Symbicort inhaler once daily. Asthma not fully controlled due to persistent triggers. - Continue Symbicort inhaler, 2 puffs twice a day, regardless of symptoms. 11/05/2024 Essential tremor (ICD-10 - G25.0) Stable with current medical therapy 12/16/2024 Other supraventricular tachycardia (ICD-10 - I47.19) Stable with current medical therapy with propranolol 06/23/2024 Essential tremor (ICD-10 - G25.0) Has [...] like patient evaluated by Dr. Novak at [facility] breast specialty clinic for further evaluation 05/12/2024 Nipple discharge (ICD-10 - N64.52) Patient with a history of non-bloody nipple discharge, worse from the left nipple. Patient is currently followed by [facility] breast specialists and is scheduled for a [...] is on medical therapy. Can recheck labs. 12/16/2024 Other obesity due to excess calories (ICD-10 - E66.09) BMI decreased from 33 to 32 with Manjaro. Goal is to achieve BMI under 30. Weight loss is expected to improve comorbid conditions. - Increase Mounjaro to further support weight loss. 11/05/2024 Other supraventricular tachycardia (ICD-10 - I47.19) Stable with current medical therapy with propranolol 12/16/2024 Body mass index [BMI ] 33.0-33.9, adult (ICD-10 - Z68.33) Her BMI is elevated and recommend exercise for adjunct therapy for weight loss for goal of BMI less than 30 06/23/2024 Other supraventricular tachycardia (ICD-10 - I47.19) [...] concerning symptoms while we wait for imaging 05/12/2024 Chronic migraine without aura, intractable, without [...] try to increase dose and reevaluate situation 12/16/2024 Hyperprolactinemia (ICD-10 - E22.1) Ongoing breast discomfort reported. Prolactin level increased slightly. Patient currently taking half a tablet for prolactin. - Consider dose adjustment for prolactin medication per endo if symptoms persist. 11/05/2024 Attention and concentration deficit (ICD-10 - R41.840) She did not feel that the Vyvanse did her any good. She discontinued it. Therefore she may not have true attention deficit disorder. 11/05/2024 Other obesity due to excess calories (ICD-10 - E66.09) Continue encourage diet and exercise and medical therapy for weight loss. Can change GLP to GIP therapy for additional weight loss 12/16/2024 Essential tremor (ICD-10 - G25.0) Stable with current medical therapy 08/11/2024 Other obesity due to excess calories [...] and normal pituitary function and prolactin levels 05/12/2024 Localized swelling, mass and lump, lower [...] (ICD-10 - Z68.33) Encourage diet and exercise 12/16/2024 Vitamin D deficiency , unspecified (ICD-10 - E55.9) Vitamin D level measured at 28, below target of 30. Patient advised to take at least 1000 units more daily. - Increase vitamin D supplementation by 1000 units daily. 11/05/2024 Body mass index [BMI ] 33.0-33.9, adult (ICD-10 - Z68.33) BMI remains elevated. Can continue medical therapy and goal is BMI less than 30 12/16/2024 Encounter for immunization (ICD-10 - Z23) Patient not immune to some pneumococcal strains. Received Prevnar 20 in June. Will receive Prevnar 21 when available. - Administer Prevnar 21 pneumococcal vaccine when available. 11/05/2024 Vitamin D deficiency , unspecified (ICD-10 [...] may benefit from a second opinion through [facility] medical specialists. Patient also provide past medical [...] syntax. Also labs were reviewed with patient. 12/16/2024 Other This note was created with a combination of voice dictation recognition software in combination with voice recognition software with AI as allowed by patient consent. It may contain errors of grammar and syntax. Also labs were reviewed with patient. Plan Of Treatment Pending Test Test Name Order Date Eye Exam 12/21/2024 Eye Exam 12/22/2024 EKG 03/19/2024 HOLTER MONITOR, 7 DAYS, APPLICATION 08/2023 HOLTER MONITOR, 7 DAYS, INTERPRETATION 0 06/23/2024 Urinalysis, Complete-[id number] 12/16/2024 Prolactin-[id number] 12/16/2024 Vitamin D, 85-[id number] 12/16/2024 Albumin/Creatinine Ratio,Urine-[id number] Comp. Metabolic Panel [id number] 2024 Next Appt Details Provider Name:Katlyn Castaneda , 02/17/2025 08:15:00 AM, [address] [place] [address], [phone], Provider Name:Katlyn Castaneda , 05/24/2025 08:45:00 AM, [address] [place] [address], [phone], Insurance Providers Payer Name Payer Address Payer Phone Subscriber Number Group Number Insured Name Patient Relationship to Insured Coverage Start Date Coverage End Date [facility] [address] [place] [address] [id number] Herring Sharonda Self - patient is the insured Medical (General) History Medical History History ICD Code scoliosis diabetes in remission high blood pressure asthma left hand tremors adhd migraines diverticulitis Surgical History Surgery Date(Month/Year) gallbladder 2015 breast lift 2014 tummy tuck 2013 lasix 2021 lasix adjustment 2022 shoulder surgery bilateral blepharoplasty 2013 hysterectomy 2021 Hospitalization History Reason Date(Month/Year) Urgent care, due to Cold / Virus 2024-04
--- OUTSIDE RECORDS SUMMARY | 2024-12-30 22:26 | XMS_ITS | Encounter Summary ---
Author Organization [facility] Address [address] [place] [address] Care Team Providers Care Pcas Name Role Phone Katlyn Colbert Primary Care Provider [phone] Encounter Details Date Type Department Care Team (Late st Contact Info) Description 05/01/2024 Orders Only [address], [address] [place] [address] Dyan Urban MD [address] [place] [phone] Social History Tobacco Use Types Packs/Day Years [...] Info) Description 02/17/2025 8:00 AM EST Follow-Up [facility] [address] [place] [phone] Construction Management Assistant: Ryan Cho MD [address] [place] [phone] 02/23/2025 1:00 PM EST Office Visit [facility] [address] [place] [phone] Construction Management Assistant: Lakshmi Cid V, CRUSHER LOADER OPERATOR [address] [place] [phone] documented as of this encounter Visit Diagnoses Not on filedocumented in this encounter Care Teams Pcas Relationship Specialty Start Date End Date Katlyn Colbert [address] [facility] [address] [facility] [place] [address] PCP - General Internal Medicine 03/20/24 documented as of this encounter
--- OUTSIDE RECORDS SUMMARY | 2024-12-30 22:26 | XMS_ITS | Patient Health Record ---
Author Organization [facility] Address [address] [place] [address] Care Team Providers Care Lathe Set Up Person Name Role Phone SADIE RUIZ Unavailable [phone] BENJIMACRINA BETANCUR Unavailable [phone] Allergies Allergen (clinical drug ingredient) Drug/Non Drug Allergy documented on EMR Reaction Allergy Type Onset Date Status Penicillin Unknown Drug Allergy Active Reason For Referral Diagnosis 1 Overweight (BMI 25.0 -29.9) (E66.3) Referring Provider First Name Lee Referring Provider Last Name Arnav Referred Organization [facility] Referred Provider RORO SHERWOOD Referred Address [address] [place], [place],[address], Referred Provider Specialty Internal Med icine General [...] W/U Status Risk Notes Problem Infectious disease (10808580) Unspecified infectious disease (B99.9) Active confirmed Problem Anemia (635525155) Anemia, unspecified (D64.9) 017 Active confirmed Problem Obesity due to excess calories (562231731) Other obesity due to excess calories (E66.09) Active confirmed Problem Attention deficit hyperactivity disorder (708299996) Attention-deficit hyperactivity disorder, unspecified type (F90.9) 017 Active confirmed Problem Supraventricular tachycardia (4618962) Supraventricular tachycardia (I47.1) 020 Active confirmed Problem Allergic rhinitis (70660398) Allergic rhinitis, unspecified (J30.9) 017 Active confirmed Problem Exacerbation of asthma (655271785) Unspecified asthma with (acute) exacerbation (J45.901) Active confirmed Problem Asthma (690686845) Other asthma (J45.998) 017 Active confirmed Problem Screening for malignant neoplasm of breast (377869784) Encounter for screening mammogram for malignant neoplasm of breast (Z12.31) 017 Active confirmed Problem Essential hypertension (04893733) Essential hypertension (I10) 017 Active confirmed Problem Diverticulitis (52622476) Diverticulitis (K57.92) 021 Active confirmed Problem Lump in left breast (58652649935650984) Left breast lump (N63.20) 018 Active confirmed Problem Cirrhosis - non-alcoholic (252600003) Cirrhosis of liver without ascites, unspecified hepatic cirrhosis type (K74.60) 017 Active confirmed Problem Bronchitis (95327143) Bronchitis (J40) 016 Active confirmed Problem At high risk for breast cancer (221547843501642) At high risk for breast cancer (Z91.89) Active confirmed Problem Pulmonary nodule (483465350) Pulmonary nodule (R91.1) Active confirmed Problem Arthralgia of the pelvic region and thigh (351321013) Right hip pain (M25.551) Active confirmed Problem Type II diabetes mellitus without complication (882141473) Type 2 diabetes mellitus without complication, without long-term current use of insulin (E11.9) Active confirmed Problem Obesity (433806979) Obesity (BMI 30-39.9) (E66.9) Active confirmed Problem Dysmenorrhea (532953460) Dysmenorrhea (N94.6) Active confirmed Problem Essential tremor (948021712) Benign essential tremor (G25.0) Active confirmed Problem Tachycardia (9533951) Tachycardia (R00.0) Active confirmed Problem Overweight (971917380) Overweight (BMI 25.0-29.9) (E66.3) Active confirmed Problem Body mass index 30+ - obesity (565613370) Body mass index [BMI] 30.0-30.9, adult (Z68.30) Active confirmed Problem General examination of patient (574816048) Routine medical exam (Z00.00) Active confirmed Problem Post-discharge follow-up (735897851) Hospital discharge follow-up (Z09) Active confirmed Problem Bronchial asthma (864480786) Bronchial asthma (J45.909) Active confirmed Problem Menorrhagia (058164845) Menorrhagia (N92.0) Active confirmed Problem History of gastrointestinal disease (849665167) Hx of diverticulitis of colon (Z87.19) Active confirmed Problem Idiopathic kyphoscoliosis (disorder) (532965732) Scoliosis (and kyphoscoliosis), idiopathic (M41.20) Active confirmed Problem Migraine variant with headache (disorder) (837821856) Migraine headache (G43.909) Active confirmed Problem Counseling (888336406) Encounter for medication review and counseling (Z71.89) Active confirmed Problem Diverticular disease of colon (842438188) Colon, diverticulosis (K57.30) Active confirmed Problem Tremor (23561774) Coarse tremors (G25.2) 021 Active confirmed Problem Sleep apnea (disorder) (10767767) Suspected sleep apnea (G47.30) Active confirmed Problem Cough (85264696) 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 Active confirmed Problem History of excision of intestinal structure (503275752) History of laparoscopic cholecystectomy (Z90.49) 017 Active confirmed Problem Increased prolactin level (409366095) Elevated prolactin level (E22.9) 018 Active confirmed Problem Candidiasis of the esophagus (08429316) Esophageal moniliasis (B37.81) Active confirmed Problem Backache (753138713) Mechanical back pain (M54.9) 023 Active confirmed Problem Weight loss advised (514293151) Weight loss advised (Z78.9) Active confirmed Vital Signs Heart Rate 81 /min 03/02/2024 Oximetry 98 % 03/02/2024 Blood pressure diastolic 82 mm Hg 03/02/2024 Height 63 in 03/02/2024 Blood pressure systolic 120 mm Hg 03/02/2024 Weight 176 lbs 03/02/2024 BMI 31.17 kg/m2 03/02/2024 Encounters Encounter Location Date Provider Diagnosis [facility] [address] [address] 01/28/2024 MACRINA BENJIPIPE Other obesity due to excess calories E66.09 ; Body mass index [BMI] 30.0-30.9, adult Z68.30 ; Dietary counseling and surveillance Z71.3 and Prediabetes R73.03 [facility] [address] [address] 03/02/2024 SADIE RUIZ Other obesity due to excess calories E66.09 ; Body mass index [BMI] 30.0-30.9, adult Z68.30 ; Dietary counseling and surveillance Z71.3 and Prediabetes R73.[address] [facility] [address] [facility] [address] [place] [address] 01/03/2024 SADIE VEGAHOT [facility] [address] [facility] [address] [place] [address] 01/13/2024 MACRINA CHAVES [facility] [address] [facility] [address] [place] [address] 01/10/2024 SADIE RUIZ Other obesity due to excess calories E66.09 [facility] [address] [facility] [address] [place] [address] 01/15/2024 SADIE SILVIAHOT [facility] [address] [facility] [address] [place] [address] 02/28/2024 SADIE VEGAHOT [facility] [address] [facility] [address] [place] [address] 05/22/2024 SADIE KULDEEPT [facility] [address] [facility] [address] [place] [address] 05/22/2024 SADIE RUIZ Assessments Encounter Date Diagnosis [...] track activity level. Consider using apps like [employer], Droplet[employer], lose it, stick as needed for self-monitoring and weight management. Consider group exercises. Consider hiring a personal investment adviser. Regular exercise is thomas to sustainable health [...] counseling and psychiatry and Dr Lopez at [facility]. We would like to cover regular topics [...] software and direct typing Please excuse inadvertent spark plug assembler or typing errors, or uncorrected word substitutions Although every attempt has been made by the provider to proofread this document, occasional misspellings and typographical errors may still be present Due to the previous pandemic, and the use of personal protective equipment (PPE) This may decrease voice recognition accuracy Inadvertent spark plug assembler errors may occur 03/02/2024 Other obesity due [...] software and direct typing Please excuse inadvertent spark plug assembler or typing errors, or uncorrected word substitutions Although every attempt has been made by the provider to proofread this document, occasional misspellings and typographical errors may still be present Due to the previous pandemic, and the use of personal protective equipment (PPE) This may decrease voice recognition accuracy Inadvertent spark plug assembler errors may occur 03/02/2024 Body mass index [...] software and direct typing Please excuse inadvertent spark plug assembler or typing errors, or uncorrected word substitutions Although every attempt has been made by the provider to proofread this document, occasional misspellings and typographical errors may still be present Due to the previous pandemic, and the use of personal protective equipment (PPE) This may decrease voice recognition accuracy Inadvertent spark plug assembler errors may occur 01/28/2024 Body mass index [...] track activity level. Consider using apps like [employer], [employer]itnesspal, lose it, stick as needed for self-monitoring and weight management. Consider group exercises. Consider hiring a personal investment adviser. Regular exercise is thomas to sustainable health [...] counseling and psychiatry and Dr Lopez at [facility]. We would like to cover regular topics [...] software and direct typing Please excuse inadvertent spark plug assembler or typing errors, or uncorrected word substitutions Although every attempt has been made by the provider to proofread this document, occasional misspellings and typographical errors may still be present Due to the previous pandemic, and the use of personal protective equipment (PPE) This may decrease voice recognition accuracy Inadvertent spark plug assembler errors may occur 01/28/2024 Dietary counseling and [...] track activity level. Consider using apps like [employer], [employer], lose it, stick as needed for self-monitoring and weight management. Consider group exercises. Consider hiring a personal investment adviser. Regular exercise is thomas to sustainable health [...] counseling and psychiatry and Dr Lopez at [facility]. We would like to cover regular topics [...] software and direct typing Please excuse inadvertent spark plug assembler or typing errors, or uncorrected word substitutions Although every attempt has been made by the provider to proofread this document, occasional misspellings and typographical errors may still be present Due to the previous pandemic, and the use of personal protective equipment (PPE) This may decrease voice recognition accuracy Inadvertent spark plug assembler errors may occur 03/02/2024 Dietary counseling and [...] software and direct typing Please excuse inadvertent spark plug assembler or typing errors, or uncorrected word substitutions Although every attempt has been made by the provider to proofread this document, occasional misspellings and typographical errors may still be present Due to the previous pandemic, and the use of personal protective equipment (PPE) This may decrease voice recognition accuracy Inadvertent spark plug assembler errors may occur 03/02/2024 Prediabetes (ICD-10 - [...] software and direct typing Please excuse inadvertent spark plug assembler or typing errors, or uncorrected word substitutions Although every attempt has been made by the provider to proofread this document, occasional misspellings and typographical errors may still be present Due to the previous pandemic, and the use of personal protective equipment (PPE) This may decrease voice recognition accuracy Inadvertent spark plug assembler errors may occur 01/28/2024 Prediabetes (ICD-10 - [...] track activity level. Consider using apps like [employer], [employer]fitnesspal, lose it, stick as needed for self-monitoring and weight management. Consider group exercises. Consider hiring a personal investment adviser. Regular exercise is thomas to sustainable health [...] counseling and psychiatry and Dr Lopez at [facility]. We would like to cover regular topics [...] software and direct typing Please excuse inadvertent spark plug assembler or typing errors, or uncorrected word substitutions Although every attempt has been made by the provider to proofread this document, occasional misspellings and typographical errors may still be present Due to the previous pandemic, and the use of personal protective equipment (PPE) This may decrease voice recognition accuracy Inadvertent spark plug assembler errors may occur 01/13/2024 #Weight Management 01/13/2024 [...] track activity level. Consider using apps like [employer], [employer], lose it, stick as needed for self-monitoring and weight management. Consider group exercises. Consider hiring a personal investment adviser. Regular exercise is thomas to sustainable health [...] counseling and psychiatry and Dr Lopez at [facility]. We would like to cover regular topics [...] software and direct typing Please excuse inadvertent spark plug assembler or typing errors, or uncorrected word substitutions Although every attempt has been made by the provider to proofread this document, occasional misspellings and typographical errors may still be present Due to the previous pandemic, and the use of personal protective equipment (PPE) This may decrease voice recognition accuracy Inadvertent spark plug assembler errors may occur Plan Of Treatment Pending Test Test Name Order Date Urine Culture and Sensitivity 04/29/2023 COMPLETE URINALYSIS 04/29/2023 Insurance Providers Payer Name Payer Address Payer Phone Subscriber Number Group Number Insured Name Patient Relationship to Insured Coverage Start Date Coverage End Date [facility] [address] [place] [address] [id number] GIRMA NAVARRO Self - patient is the insured Medical (General) History Medical History History ICD Code diabetes mellitus hypertension endometriosis fibroids diverticulosis choledocholithiasis cholelithiasis Surgical History Surgery Date(Month/Year) cholecystectomy breast augmentation/lift bladder surgery laser therapy hysterectomy
--- OUTSIDE RECORDS SUMMARY | 2024-12-30 22:27 | XMS_ITS | Encounter Summary ---
Author Organization [facility] Address [address] [place] [address] Care Team Providers Care Doughmaker Name Role Phone Lee José MD Primary Care Provider [phone] Katlyn Colbert MD Primary Care Provider [phone] Encounter Details Date Type Department Care Team (Late Contact Info) Description 10/31/2023 Scanned Document [facility] [address] [place] [address] Provider, Generic External Data Social History Tobacco Use Types Packs/Day Years [...] Description 03/10/2025 9:00 AM EST Office Visit [facility] [address] [address] Zuleyka Rodney MD [address] [address] documented as of this encounter Visit Diagnoses Not on filedocumented in this encounter Care Teams Doughmaker Relationship Specialty Start Date End Date Lee José MD [address] [place] [address] [address] [place] [address] PCP - General 09/24/23 06/21/24 Katlyn Colbert MD [address] [place] [address] PCP - General 06/22/24 documented as of this encounter
--- OUTSIDE RECORDS SUMMARY | 2024-12-30 22:27 | XMS_ITS | Encounter Summary ---
Author Organization [facility] Address [address] [place] [address] Care Team Providers Care Quality Improvement Consultant Name Role Phone Lee José MD Primary Care Provider [phone] Katlyn Colbert MD Primary Care Provider [phone] Reason for Visit * Reason Comments Other Encounter Details Date Type Department Care Team (Late Contact Info) Description 09/24/2023 Telephone [facility] [address] [phone] Zuleyka Rodney MD [address] [address] Other Social History Tobacco Use Types Packs/Day [...] Sharonda, requesting she obtain medical records from [facility]. Specifically lab reports, radiology reports, and radiology films. Patient will request medical records via email. documented in this encounter Plan of Treatment Upcoming Encounters Date Type Department Care Team (Late Contact Info) Description 03/10/2025 9:00 AM EST Office Visit [facility] 1260 [facility] [address] [place] [address] Zuleyka Rodney MD 1260 [facility] [address] [place], [place] [id number] documented as of this encounter Visit Diagnoses Not on filedocumented in this encounter Care Teams Quality Improvement Consultant Relationship Specialty Start Date End Date Lee José MD [address] [place] [address] PCP - General 09/24/23 06/21/24 Katlyn Colbert MD [address] [place] [address] PCP - General 06/22/24 documented as of this encounter
--- OUTSIDE RECORDS SUMMARY | 2024-12-30 22:27 | XMS_ITS | Encounter Summary ---
Author Organization [facility] Address [address] [place] [address] Care Team Providers Care Scuba Diving Instructor Name Role Phone Lee José MD Primary Care Provider [phone] Katlyn Colbert MD Primary Care Provider [phone] Encounter Details Date Type Department Care Team (Late Contact Info) Description 10/31/2023 Scanned Document [facility] [address] [place] [address] Provider, Generic External Data Social History [...] Description 03/10/2025 9:00 AM EST Office Visit [facility] [address] [address] Zuleyka Rodney MD [address] [address] documented as of this encounter Visit Diagnoses Not on filedocumented in this encounter Care Teams Scuba Diving Instructor Relationship Specialty Start Date End Date Lee José MD [address] [place] [address] [address] [place] [address] PCP - General 09/24/23 06/21/24 Katlyn Colbert MD [address] [place] [address] PCP - General 06/22/24 documented as of this encounter
--- OUTSIDE RECORDS SUMMARY | 2024-12-30 22:27 | XMS_ITS | Clinical Summary ---
Author Organization [facility] Address [address] [place] [address] Care Team Providers Care Ram Car Operator Name Role Phone Katlyn Colbert Primary Care Provider [phone] Allergies Active Allergy Reactions Criticality Noted Date Comments Cat Dander Choking High 04/10/2024 Hazelnut Itching 05/24/2023 Naproxen Nausea And Vomiting,Other (see comments),Vomiting Low 05/24/2023 unknown not allergic Penicillin G Swelling High 12/30/2017 Other reaction(s): SWELLING EYES,LIPS Medications albuterol (PROAIR HFA,VENTOLIN HFA) 90 mcg inhaler Inhale 2 puffs by mouth. 4 Active albuterol 2.5 mg/3 mL (0.083%) nebulizer solution Inhale 5 mg by mouth. 4 Active ascorbic acid, vitamin C, 500 mg capsule Take 1 tablet by mouth once a day. 4 Active baclofen (LIORESAL) 5 mg tablet SMARTSI Tablet(s) By Mouth Daily PRN 4 Active benzonatate (TESSALON) 200 mg capsule TAKE 1 CAPSULE BY MOUTH THREE TIMES A DAY FOR 7 DAYS NEEDED FOR COUGH 4 Active biotin 10 mg tablet Take 1 tablet by mouth once a day. 4 Active budesonide (PULMICORT) 0.25 mg/2 mL nebulizer suspension Inhale 1 Units by mouth. 4 Active cholecalciferol (VITAMIN D3) 2,000 unit capsule SMARTSI Capsule(s) By Mouth Daily 4 Active codeine-guaiFEN esin (CHERATUSSIN AC) 20-200 mg/10 mL liquid Acti ve gabapentin (NEURONTIN) 300 mg capsule 4 Active lisdexamfetamin e (VYVANSE) 30 mg capsule SMARTSI Capsule(s) By Mouth Every Morning 4 Active magnesium oxide 400 mg magnesium capsule SMARTSI Capsule(s) By Mouth Daily Active metFORMIN ER (GLUCOPHAGE XR) 500 mg tablet Take 500 mg by mouth. 4 Active methylPREDNISol one (MEDROL DOSEPACK) 4 mg tablet PLEASE SEE ATTACHED FOR DETAILED DIRECTIONS 4 Active omega-3 fatty acids 1,000 mg capsule 1 capsule. Active riboflavin, vitamin B2, 400 mg tablet Take 400 mg by mouth daily. 4 Active trospium (SANCTURA) 20 mg tablet SMARTSI Tablet(s) By Mouth Daily 4 Active blood glucose diagnostic (freestyle) lancet 28 gauge Check Blood sugar before meals and at bedtime 4 times daily 100 each 5 5 Active FreeStyle Lite Meter meterIndication s:Type 2 diabetes mellitus without complication, with long-term current use of insulin ([facility]) Check blood sugar 1 each 5 Active Freestyle Lite test stripsIndicatio ns:Type 2 diabetes mellitus without complication, with long-term current use of insulin ([facility]) Use to test 1-2 times daily. 100 strip 5 5 Active propranolol LA (INDERAL LA) 60 mg capsule TAKE 1 CAPSULE (60 MG TOTAL) BY MOUTH EVERY DAY 90 capsule 1 5 Active Ozempic 0.25 mg or 0.5 mg (2 mg/3 mL)Indications: Type 2 diabetes mellitus without complication, with long-term current use of insulin ([facility]) INJECT 0.5 MG UNDER THE SKIN EVERY 7 DAYS. 0.25 MG WEEKLY FOR 4 WEEKS THEN INCREASE TO 0.5 MG 3 mL 1 5 Active cabergoline (DOSTINEX) 0.5 mg tablet TAKE 0.5 TABLETS (0.25 MG TOTAL) BY MOUTH 2 TIMES A WEEK. 4 tablet 1 5 10/13/19 26 Active Active Problems Problem Noted Date Diagnosed Date Breast cancer screening, high risk patient 10/13 Hyperprolactinemia 10/13/2024 Family history of breast cancer 10/13/2024 Obesity 10/13/2024 Encounters Date Type Department Care Team Description 10/13/2024 1:00 PM EDT Office Visit [facility] 5th Floor [address] [place] [address] Jessica Booker MD BRCA negative (Primary Dx); Breast cancer screening, high risk patient; Hyperprolactinemia (HCC); Family history of breast cancer; Class 1 obesity without serious comorbidity in adult, unspecified BMI, unspecified obesity type 10/08/2024 Refill [facility] [address] [place] [address] Network Technician: Ryan Cho MD from Last 3 Months Social History Tobacco Use Types Packs/Day Years Used Date Smoking Tobacco: Never Smokeless Tobacco: Never Tobacco Cessation:Counseling Given: Not Answered Comments No Sex and Gender Information Value Date Recorded Sex Assigned at Female 03/20/2024 3:21 PM EST Legal Sex Female 2:46 PM EST Gender Identity Female 10/13/2024 8:45 AM EDT Sexual Orientation Straight 10/13/2024 8: 45 AM EDT Last Filed Vital Signs Vital Sign Reading Time Taken Comments Blood Pressure 127/87 10/13/2024 1:00 PM EDT Pulse 95 10/13/2024 1:00 PM EDT Temperature 36.7 C (98.1 F) 10/13/2024 1:00 PM EDT Respiratory Rate - - Oxygen Saturation 97% 10/13/2024 1:00 PM EDT Inhaled Oxygen Concentration - - Weight 87.6 kg (193 lb 3.2 oz) 10/13/2024 1:00 P M EDT Height 161 cm (5' 3.39 ) 10/13/2024 1:00 PM EDT Body Mass Index 33.81 10/13/2024 1:00 PM EDT Plan of Treatment Upcoming Encounters Date Type Department Care Team (Late st Contact Info) Description 02/17/2025 8:00 AM EST Follow-Up [facility] [address] [place] [address] Network Technician: Ryan Cho MD [address] [place] [address] 02/23/2025 1:00 PM EST Office Visit [facility] [address] [place] [address] Network Technician: Lakshmi Cid V, RAGHU [address] [place] [address] Health Maintenance Due Date Last Done Comments Cologuard 1972 FOBT / Fit Test 1972 HIV Screening 1972 Hemoglobin A1C 1972 Hepatitis C Screening 1972 Sigmoidoscopy 1972 Ophthalmology Exam 1982 Urine Microalbumin 1982 Hepatitis B Vaccines (3 of 3 - 19+ 3-dose series) 12/23/2019 10/28/2019, 05/27/2019, 05/27/2019, Additional history exists Alcohol/Substance Use Screening 04/15/2024 Depression Screening and Follow-Up 04/15/2024 Social Drivers of Health Jenna ual Screening 04/15/2024 DTaP,Tdap,and Td Vaccines (2 - Td or Tdap) 08/27/2024 08/27/2014 Influenza Vaccine (#1) 2024 , 12/28/2022, 01/17/2022, Additional history exists Basic Metabolic Panel 04/10/2025 04/10/2024 Mammogram 02/04/2026 02/05/2024, 06/2 10/2023, 10/10/2023, Additional history exists Colon Cancer Screening 08/10/2034 Colonoscopy 08/10/2034 08/10/2024 RSV Vaccine (60+ years old a nd patients) (1 - 1-dose 75+ series) 11/02/2047 Zoster Vaccines Completed 03/03/2023, 08/0 09/2022, 06/24/2019, Additional history exists COVID-19 Vaccine Completed 01/08/2024, , 02/01/2023, Additional history exists Pneumococcal Vaccine: 50+ Years Completed 06/23/2024, 02/25/2018, 04/20/2011 Procedures * Due to [place] [employer] law, this organization might not be sharing negative HIV tests. Procedure Name Priority Date/Time Associated Diagnosis Comments COMPREHENSIVE METABOLIC PANEL STAT 04/10/2024 2:54 PM EST Family history of breast cancer Nipple discharge HM MAMMOGRAPHY, BILATERAL 02/05/2024 from Last 3 Months or Most Recently Relevant to Health Maintenance Results * Due to [place] [employer] law, this organization might not be sharing negative HIV tests. * (ABNORMAL) Comprehensive metabolic panel (04/10/2024 2:54 PM EST) NA 139 135 - 145 mmol/L 04/10/2024 3:47 PM EST [facility] K 3.9 3.5 - 5.3 mmol/L 04/10/2024 3:47 PM EST [facility] Cl 103 98 - 107 mmol/L 04/10/2024 3:47 PM EST [facility] CO2 25 22 - 32 mmol/L 04/10/2024 3:47 PM EST [facility] Anion Gap 11 5 - 15 04/10/2024 3:47 PM EST [facility] Glucose 102(H) 65 - 99 mg/dL 04/10/2024 3:47 PM EST [facility] Creatinine 1.01 0.50 - 1.20 mg/dL 04/10/2024 3:47 PM EST [facility] Calcium 9.9 8.6 - 10.5 mg/dL 04/10/2024 3:47 PM EST [facility] Total Protein 7.6 6.0 - 8.0 g/dL 04/10/2024 3:47 PM EST [facility] Albumin 4.3 3.5 - 5.2 g/dL 04/10/2024 3:47 PM EST [facility] Bilirubin, Total 0.2 0.2 - 1.2 mg/dL 04/10/2024 3:47 PM EST [facility] Alkaline Phosphatase 104 35 - 129 U/L 04/10/2024 3:47 PM EST [facility] AST 19 10 - 40 U/L 04/10/2024 3:47 PM EST [facility] ALT 14 10 - 40 U/L 04/10/2024 3:47 PM EST [facility] BUN 10 7 - 23 mg/dL 04/10/2024 3:47 PM EST [facility] eGFR 68 >=60 mL/min/1. 73m2 04/10/2024 3:47 PM EST [facility] Comment:The estimated glomer ular filtration rate (eGFR) is calculated using a new formula developed by the NKF-ASN task force to eliminate race-based correction factors. The new formula uses serum/plasma creatinine, age, and gender to determine eGFR. A value below 60mls/min might indicate kidney disease and will be flagged. For additional information, see Marie et al, Am J Kidney Dis. 2021;79(2):268- 288, A Unifying Approach for GFR estimation: Recommendations of the NKF-ASN Task Force on Reassessing the Inclusion of Race in Diagnosing Kidney Disease . Globulin, Total 3.3 2.1 - 4.2 g/dL 04/10/2024 3:47 PM EST [facility] A/G Ratio 1.3(L) 1.5 - 3.0 04/10/2024 3:47 PM EST [facility] Blood Structure of peripheral vein / Unknown Venipuncture / Unknown 04/10/2024 2:54 PM EST 04/10/2024 3:11 PM EST Sade Meraz NP LAB BLOOD ORDERABLES Final Result [facility] [address] [place] [address], [place] * HM Mammography, Bilateral (02/05/2024) Anatomical Region Laterality Modality Other 02/05/2024 us Onbase Scan [facility] Final Resu lt from Last 3 Months or Most Recently Relevant to Health Maintenance Insurance [facility] HMO/POS Care Teams Ram Car Operator Relationship Specialty Start Date End Date Katlyn Colbert [address] [facility] [address] [facility]Y [place] [address] PCP - General Internal Medicine 03/20/24
--- OUTSIDE RECORDS SUMMARY | 2024-12-30 22:27 | XMS_ITS | Encounter Summary ---
Author Organization [facility] Address [address] [place] [address] Care Team Providers Care Male Infertility Specialist Name Role Phone Katlyn Colbert MD Primary Care Provider [phone] Encounter Details Date Type Department Care Team ([facility] Contact Info) Description 11/27/[address] [facility] [address] [place] [phone] Zuleyka Rodney MD [address] [address] Social History Tobacco Use Types Packs/Day Years [...] Description 03/10/2025 9:00 AM EST Office Visit [facility] [address] [place] [phone] Zuleyka Rodney MD [address] [address] documented as of this encounter Visit Diagnoses Not on filedocumented in this encounter Care Teams Male Infertility Specialist Relationship Specialty Start Date End Date Katlyn Colbert MD [address] [address] PCP - General 06/22/24 documented as of this encounter
--- OUTSIDE RECORDS SUMMARY | 2024-12-30 22:27 | XMS_ITS | Clinical Summary ---
Author Organization [facility] Address [address] [address] Phone Care Team Providers Care Geographic Area Intelligence Officer Name Role Phone Katlyn Colbert MD Primary Care Provider [phone] Allergies Active Allergy Reactions Criticality Noted Date [...] 07/28/19 25 Active dicyclomine (BENTYL) 10 mg capsuleIndicat ions:Irritable bowel syndrome, unspecified type Take 1 capsule (10 mg total) by mouth 3 (three) times a day. 270 each 3 11/04/19 25 026 Active estradioL (ESTRACE) 0.01 % (0.1 mg/gram) vaginal cream Insert 2 g into the vagina 1 (one) time each day. 10/30/19 25 Active hyoscyamine (ANASPAZ,LEVSI N) 0.125 mg tabletIndicati ons:Diarrhea, unspecified type TAKE 1 TABLET BY MOUTH EVERY 6 HOURS IF NEEDED FOR CRAMPING OR DIARRHEA TAKE BEFORE MEALS 360 tablet 1 12/29/19 25 Active hyoscyamine (ANASPAZ,LEVSI N) 0.125 mg tabletIndicati ons:Diarrhea, unspecified type Take 1 tablet (0.125 mg total) by mouth every 6 (six) hours if needed for cramping or diarrhea (take before meals). 120 tablet 12/03/19 25 025 Discontinued Encounters Date Type Department Care Team Description 12/01/2024 Telephone Gastroenterology - [address] [place] [address] Quita Chowdary MD 11/12/2024 4:00 PM EDT Office Visit [facility] [address] [facility] [address] [place] [phone] Nathalie Alva MD Migraine without aura and without status migrainosus, not intractable (Primary Dx); Tremors of nervous system; Cognitive changes 11/02/2024 Telephone Gastroenterology - [address] [place] [phone] Quita Chowdary MD 10/27/2024 9:15 AM EDT Office Visit General Surgery - [address] [place] [address] Matt Hernández MD Diverticulitis large [...] SURGERY PROCEDURE:SHOULDER SURGERY OTHER SURGICAL HISTORY PROCEDURE: NM ANESTHESIA EYELID RECONSTRUCTIVE PROCEDURE; COMMENT: 12/30/12 BELT [...] Description 05/13/2025 4:00 PM EST Office Visit [facility] [address] [facility] [address] [place] [phone] Toshia Lopez PA [address] [facility] [address] [place] [address] [place] [address] Health Maintenance Due Date Last Done Comments [...] Control Test (HGBA1C) 04/01/2024 Depression Screening 04/15/2024 DTaP,Tdap,and Td Vaccines (2 - Td or Tdap) 08/27/2024 08/27/2014 COVID-19 Vaccine (7 - Moderna risk season) 2024 01/08/2024, 02/01/2023, 01/17/2022, Additional history exists Influenza Vaccine (#1) 2024 , 12/28/2022, 01/17/2022, [...] Maintenance Results * COLONOSCOPY Anesthesia - MAC; [facility] ENDOSCOPY (08/10/2024 7:56 AM EDT) Anatomical Region [...] pathology results. Narrative 08/10/2024 7:58 AM EDT [facility] GI Patient Name: Girma Navarro Procedure Date: [...] retroflexion views. Procedure Code(s): --- Professional --- 79118, Colonoscopy, flexible; with removal of tumor(s), polyp(s), or other lesion(s) by snare technique Diagnosis Code(s): --- Professional --- D12.4, Benign neoplasm of descending colon D12.5, Benign neoplasm of sigmoid colon K57.32, Diverticulitis of large intestine without perforation or abscess without bleeding CPT copyright 2020 [employer]. All rights reserved. The codes documented in this report are preliminary and upon etl analyst developer review may be revised to meet current compliance requirements. Quita Chowdary MD 08/10/2024 7:58:11 AM This report has been signed electronically.Quita Chowdary MD Number of Addenda: 0 Note Initiated On: 08/10/2024 7:35 AM Scope In: Scope Out: Endoscopy Department at [facility] - [address] [place] [phone] Procedure Note Quita Chowdary MD - 08/10/2024 [facility] GI Patient Name: Girma Navarro Procedure Date: [...] retroflexion views. Procedure Code(s): --- Professional --- 12335, Colonoscopy, flexible; with removal of tumor(s), polyp(s), or other lesion(s) by snare technique Diagnosis Code(s): --- Professional --- D12.4, Benign neoplasm of descending colon D12.5, Benign neoplasm of sigmoid colon K57.32, Diverticulitis of large intestine without perforation or abscess without bleeding CPT copyright 2020 [employer]. All rights reserved. The codes documented in this report are preliminary and upon etl analyst developer reviewmay be revised to meet current compliance requirements. Quita Chowdary MD 08/10/2024 7:58:11 AM This report has been signed electronically.Quita Chowdary MD Number of Addenda: 0 Note Initiated On: 08/10/2024 7:35 AM Scope In: Scope Out: Endoscopy Department at [facility] - [address] [place] [phone] IMPRESSION: - The examined portion of the [...] Most Recently Relevant to Health Maintenance Insurance [facility] Care Teams Geographic Area Intelligence Officer Relationship Specialty Start Date End Date Katlyn Colbert MD [address] [place] [id number] PCP - General Internal Medicine 08/10/24
--- OUTSIDE RECORDS SUMMARY | 2024-12-30 22:27 | XMS_ITS | Clinical Summary ---
Author Organization [facility] Address [address] [place] [address] Care Team Providers Care Planetarium Sky Show Technician Name Role Phone Lee José MD Primary Care Provider [phone] Allergies Active Allergy Reactions Criticality Noted Date [...] TIMES A DAY for 60 0 Active Round Top-3 Fatty Acids (Fish Oil) 1000 MG CAPS [...] (Mammogram) 2022 COVID-19 Vaccine (2 - season) 2024 02/01/2023 Influenza Vaccine (#1) 2024 3, 01/17/2022, 02/28/2021, Additional history exists Pneumococcal Vaccine Aged Out 02/25/2018, 04/20/19 12 No longer eligible based on patient's age to complete this topic Hepatitis B Vaccines Completed 10/28/2019, 05/27/2019, 05/27/2019, Additional history exists Shingrix-Zoster Vaccine Completed 03/03/2023, 11/18 RSV Ped < 20 months Aged Out No longe r eligible based on patient's age to complete this topic Care Teams Planetarium Sky Show Technician Relationship Specialty Start Date End Date Lee José MD PCP - General Internal Medicine 03/28/23
--- OUTSIDE RECORDS SUMMARY | 2024-12-30 22:28 | XMS_ITS | Encounter Summary ---
Author Organization [facility] Address [address] [place] [phone] Phone Care Team Providers Care Honeycomb Decapper Name Role Phone Lee José MD Primary Care Provider [phone] Lee José MD Unavailable [phone] Arsen Del Rio MD Unavailable [phone] Joyce Alejandra MD Unavailable [phone] Tanja Nava PA-C Unavailable [phone] Katlyn Colbert MD Primary Care Provider [phone] Encounter Details Date Type Department Care Team (Late st Contact Info) Description 10/23/2024 Transcribe Orders [facility] Radiology [address] [place] [address] Lee oJsé MD [address] [place], [place] [phone] Social History Tobacco Use Types Packs/Day Years Used Date Smoking Tobacco: Never Smokeless Tobacco: Never Alcohol Use Standard Drinks/Week Comments Never 0 (1 standard drink = 0.6 oz pure alcohol) never been a drinker not even socially Child or Family Care Answer Date Record ed Do you have problems with on e of the following making it difficult for you to work, study, or receive health care? No 11/10/2023 Education Answer Date Recorded Are you interested in help w ith more adult education (for example, completing high school, GED, job training, learning the [place]ian language, technical skills, or developing parenting skills)? No 11/10/2023 Are you concerned about learning? Not on file 11/10/2023 No 11/10/2023 Yes 11/10/2023 Food Answer Date Recorded Within the past 6 months we worried whether our food would run out before we got money to buy more. Never True 11/10/2023 Within the past 6 months the food we bought just didn't last and we didn't have enough money to get more. Never True Residential Stability Answer Date Recor ded What is your housing situation today? I have taina sing 11/10/2023 How many times have you move d in the past 12 months? Zero (I did not move) 11/10/2023 Paying for Meds Answer Date Recorded Do you have trouble paying for medicines? No 11/10/2023 Paying Utility Bills Answer Date Record ed Do you have trouble paying your heating or elect ricity bill? No 11/10/2023 Transportation Answer Date Recorded Has the lack of transportati on kept you from medical appointments or from getting medications? No 11/10/2023 Digital Access Answer Date Recorded No 05/06/2023 No 05/06/2023 Reliable internet access at home? Not on file 05/06/2023 Device with a working camera? Not on file Intimate Partner Violence Answer Date R ecorded Are you denied basic needs s uch as food, clothing, or medical care? No 12/12/2023 In the past 12 months have y ou been in a relationship with a person who hurts, threatens, or tries to control you? No 12/12/2023 Are you denied basic needs s [facility] as food, clothing, or medical care? No 12/12/2023 In the past 12 months have y ou been in a relationship with a person who hurts, threatens, or tries to control you? No 12/12/2023 Comments Unknown Sex and Gender Information Value Date Recorded Sex Assigned at Female 05/23/2023 7:03 PM EST Legal Sex Female 4:59 PM EDT Gender Identity Female 05/23/2023 7:03 PM EST Sexual Orientation Not on file documented as of this encounter Plan of Treatment Upcoming Encounters Date Type Department Care Team (Late st Contact Info) Description 05/24/2023 Procedure Pass [facility] [address] [facility] 2nd [place] [address] 02/01/2025 10:00 AM EDT Appointment [facility] [address] [facility] 2nd [place] [address] Tanja Nava PA-C [address] [facility]tr, [place] [address] [place] [address] [email or web address] 02/01/2025 11:00 AM EDT Office Visit [facility] Breast Center Surgery [address] [facility] [address] [place] [address] Tanja Nava PA-C [address] [facility], [place] [address] [place] [address] [email or web address] documented as of this encounter Visit Diagnoses Not on filedocumented in this encounter Care Teams Honeycomb Decapper Relationship Specialty Start Date End Date Lee José MD [address] [place] [address] PCP - General Internal Medicine 10/20/13 12/16/24 Katlyn Colbert MD [address] [place] [address] [email or web address] PCP - General Internal Medicine 12/17/24 Lee José MD [address] [place] [address] Historical LMR Provider 01/29/17 Arsen Del Rio MD [address] [place] [address], [address] [place] [address] [email or web address] Historical LMR Provider 01/29/17 [place] [phone] [email or web address] Historical LMR Provider 01/29/17 Tanja Nava PA-C [address] [place] [address], [facility], [place] [address] [place] [address] [email or web address] Physician Concrete Floor Installer 11/05/23 documented as of this encounter Additional Source Comments The information contained in this document represents components of the legal health record. It is not the complete legal health record.[facility]
--- OUTSIDE RECORDS SUMMARY | 2024-12-30 22:28 | XMS_ITS | Patient Health Record ---
Author Organization [facility] Address [address] [place] [phone] Support Name Relationship Address Phone GIRMA NAVARRO Guarantor Unknown [phone] Reason For Referral No Information Plan Of Treatment No Information
--- OUTSIDE RECORDS SUMMARY | 2024-12-30 22:28 | XMS_ITS | Clinical Summary ---
Author Organization [facility] Address [address] [place] [address] Care Team Providers Care Picture Copyist Name Role Phone Katlyn Colbert MD Primary Care Provider [phone] Allergies Active Allergy Reactions Criticality Noted Date Comments Naproxen Other (See Comments),Nausea And Vomiting,GI Intolerance/Nausea/Vomit ing Low 05/24/2023 unknown Penicillin G Swelling Medium 12/30/2017 Other reaction(s): SWELLING EYES,LIPS Medications Riboflavin 100 MG Cap Take 100 mg by mouth daily. Active albuterol (PROVENTIL HFA; VENTOLIN HFA) 108 (90 Base) MCG/ACT inhaler Inhale 2 puffs Once before discharge. Active albuterol (PROVENTIL) (0.083%) 2.5 mg/3 mL nebulizer solution Inhale 6 mL (5 mg total). 12/10/2023 Active Magnesium 400 MG Cap Take 1 capsule by mouth daily. 11/18/2023 Active [facility] Tussin Cough 15 MG Cap TAKE 1 CAPSULE BY MOUTH EVERY 4 HOURS NEEDED FOR COUGH 12/10/2023 Active budesonide (PULMICORT) 0.25 mg/2 mL nebulizer solution Inhale 1 Units. 12/10/2023 Active benzonatate (TESSALON) 200 MG capsule TAKE 1 CAPSULE BY MOUTH THREE TIMES A DAY FOR 7 DAYS NEEDED FOR COUGH 12/10/2023 Active Ascorbic Acid (Vitamin C) 500 MG Cap Take 1 tablet by mouth daily. Active amphetamine-dex troamphetamine (ADDERALL) 5 MG tablet Take 1 tablet (5 mg total) by mouth 2 times a day. Active propranolol (INDERAL) 20 MG tablet TAKE 1 TABLET 3 TIMES A DAY X7 DAYS, THEN 2 TABS 3 TIMES A DAY X7 DAYS, THEN 3 TABS 3 TIMES A DAY 12/23/2023 Active omega-3 fatty acids (FISH OIL) 1000 MG Cap capsule Take 1 capsule (1,000 mg total) by mouth daily. Active metFORMIN (GLUCOPHAGE-XR) 500 MG 24 hr tablet Take 1 tablet (500 mg total) by mouth every morning with breakfast. 05/19/2023 Active Biotin 10 MG Tab Take 1 tablet by mouth daily. Active ibuprofen (MOTRIN) 600 MG tablet TAKE 1 TABLET BY MOUTH 3 TIMES A DAY for 60 Active Cholecalciferol (D3 PO) Take 1 tablet by mouth daily. Active Cyanocobalamin (B-12 PO) Take 1 tablet by mouth daily. Active baclofen (LIORESAL) 5 MG tablet Take 1 tablet (5 mg total) by mouth daily. Active Blood Glucose Monitoring Suppl (FreeStyle Lite) w/Device Kit CHECK BLOOD SUGAR 06/17/2024 Active cabergoline (DOSTINEX) 0.5 MG tablet Take 0.5 tablets (0.25 mg total) by mouth 2 (two) times a week. 06/15/2024 Active gabapentin (NEURONTIN) 300 MG capsule Take 1 capsule (300 mg total) by mouth nightly as needed. 02/02/2024 Active FREESTYLE LITE strip Use to test 1-2 times daily. 06/17/2024 Active lisdexamfetamin e (VYVANSE) 30 MG capsule Take 1 capsule (30 mg total) by mouth every morning. Active Ozempic, 0.25 or 0.5 MG/DOSE, 2 MG/3ML prefilled pen injection Inject 0.25 mg under the skin once a week. 06/15/2024 Active trospium (SANCTURA) 20 MG tablet Take 1 tablet (20 mg total) by mouth nightly. 08/04/2023 Active Encounters Date Type Department Care Team Description 11/27/2024 Scanned Document [facility] [address] [place] [address] Zuleyka Rodney MD 10/02/2024 Transcribe Orders [facility] PRIMARY CARE SCAN Katlyn Colbert MD Snoring (Primary Dx) from Last 3 Months Family History Medical History Relation Name Comments Heart failure Brother 1 FAISAL Dementia Brother 2 NAMRATA Diabetes Brother 2 NAMRATA Pancreatic cancer Brother 2 NAMRATA Autism Daughter 1 CHAZ Hypothyroidism Daughter 2 JEANNIE Dementia Father Diabetes Father Erectile dysfunction Father Hyperlipidemia Father Hypertension Father Alzheimer's disease Mother Cerebral Vascular Disease Mother Relation Name Status Comments Brother 1 FAISAL Brother 2 NAMRATA Daughter 1 CHAZ Daughter 2 JEANNIE Alive Father Mother Social History Tobacco Use Types Packs/Day Years Used Date Smoking Tobacco: Never Smokeless Tobacco: Never Tobacco Cessation:Counseling Given: Not Answered Alcohol Use Standard Drinks/Week Comments Not Currently 0 (1 standard drink = 0.6 oz pur e alcohol) Comments Unknown Sex and Gender Information Value Date Recorded Sex Assigned at Not on file Legal Sex Female 8:42 AM EST Gender Identity Not on file Sexual Orientation Not on file Last Filed Vital Signs Vital Sign Reading Time Taken Comments Blood Pressure 125/88 06/22/2024 9:21 AM EDT Pulse 98 06/22/2024 9:21 AM EDT Temperature 37.1 C (98.7 F) 06/22/2024 9:21 AM EDT Respiratory Rate - - Oxygen Saturation - - Inhaled Oxygen Concentration - - Weight 85.6 kg (188 lb 12.8 oz) 06/22/2024 9:21 AM EDT Height - - Body Mass Index - - Plan of Treatment Upcoming Encounters Date Type Department Care Team (Late st Contact Info) Description 03/10/2025 9:00 AM EST Office Visit [facility] [place] [address] [phone] Zuleyka Rodney MD [address] [phone] Health Maintenance Due Date Last Done Comments Hepatitis C Virus Screening 1972 HIV Screening 1985 DTaP/Tdap/Td Vaccines (1 - Tdap) 11/02/1991 Hepatitis B Vaccines (1 of 3 - 19+ 3-dose series) 11/02/1991 Pap Smear (Ages 21-65) 1993 Mammogram 2012 Colonoscopy 2017 Pneumococcal Vaccines 50+ (1 of 1 - PCV) 2022 Zoster (Shingles) Vaccine (1 of 2) 2022 Influenza Vaccine 11/13/2024 01/08/2024, , 01/17/2022, Additional history exists COVID-19 Vaccine Completed 01/08/2024, , 02/28/2021, Additional history exists Insurance [facility] Care Teams Picture Copyist Relationship Specialty Start Date End Date Katlyn Colbert MD [address] [address] PCP - General 06/22/24
--- OUTSIDE RECORDS SUMMARY | 2024-12-30 22:29 | XMS_ITS | Clinical Summary ---
Author Organization [facility] Address [address] [place] [id number] Phone Care Team Providers Care Assistant Loan Processor Name Role Phone Lee José MD Unavailable [phone] Arsen Del Rio MD Unavailable [phone] Jyoce Alejandra MD Unavailable [phone] Tanja Nava PA-C Unavailable [phone] Aria Colbert MD Primary Care Provider [phone] Allergies Active Allergy Reactions Criticality Noted Date Comments Hazelnut Itching 05/24/2023 Naproxen Nausea and/or Vomiting 05/24/2023 Penicillin G Swelling 12/30/2017 Other reaction(s): SWELLING EYES,LIPS Pitted Fruit Itching 05/24/2023 Medications magnesium oxide 400 mg magnesium Cap Take 1 capsule by mouth every morning. 4 Active metFORMIN (GLUCOPHAGE-XR) 500 MG 24 hr tablet 4 Active riboflavin, vitamin B2, 400 mg Tab 4 Active tirzepatide, weight loss, (ZEPBOUND) 5 mg/0.5 mL subcutaneous injection Inject 5 mg under the skin every 7 days. Active albuterol (PROAIR HFA) 90 mcg/actuation inhaler Inhale 2 puffs into the lungs as needed for wheezing. Active Encounters Date Type Department Care Team Description 12/18/2024 Telephone [facility] Surgery [address] [place], [place] [address] [place] [address] Lakshmi Larry 12/17/2024 Telephone [facility] [address] [facility] [place] [address] Tanja Nava PA-C 10/23/2024 Transcribe Orders [facility] [address] [place] [address] Lee José MD 10/22/2024 Telephone [facility] [address] [facility] [place] [address] Lakshmi Lrary from Last 3 Months Family History Medical History Relation Comments Breast cancer Paternal Aunt Breast cancer Paternal Grandmother Relation Status Comments Paternal Aunt Alive Paternal Grandmother Social History Tobacco Use Types Packs/Day Years [...] high school, GED, job training, learning the [place] language, technical skills, or developing parenting skills)? [...] 12/12/2023 Are you denied basic needs s uch [...] PM EST Sexual Orientation Not on file Last Filed Vital Signs Vital Sign Reading Time Taken Comments Blood Pressure 129/90 12/12/2023 12:10 PM EDT Pulse 90 12/12/2023 12:10 PM EDT Temperature - - Respiratory Rate - - Oxygen Saturation - - Inhaled Oxygen Concentration - - Weight 80 kg (176 lb 4.8 oz) 12/12/2023 12:10 PM EDT Height 162.6 cm (5' 4 ) 12/12/2023 12:10 PM EDT Body Mass Index 30.26 12/12/2023 12:10 PM EDT Plan of Treatment Upcoming Encounters Date Type Department Care Team (Late st Contact Info) Description 05/24/2023 Procedure Pass [facility] [address] [facility] [address] [place] [address] 02/01/2025 10:00 AM EDT Appointment [facility] [address] [facility] 2nd [place] [address] Tanja Nava PA-C [address] [facility] [place] [address] [email or web address] 02/01/2025 11:00 AM EDT Office Visit [facility] Breast [facility] Surgery [address] [facility] [address] [place] [address] Tanja Nava PA-C [address] [place] [address] [email or web address] Health Maintenance Due Date Last Done Comments CREATININE LEVEL 1972 LIPID PANEL 1972 DEPRESSION SCREENING 1984 HEPATITIS C SCREENING 1990 HIV ONE-TIME SCREENING (18-65 YEARS) 1990 PAP SMEAR 1993 SCREENING FOR DIABETES 11/02/2007 COLOGUARD 2017 COLONOSCOPY 2017 COLORECTAL CANCER SCREENING 2017 FIT TEST 2017 FOBT 2017 SIGMOIDOSCOPY 2017 VIRTUAL COLONOSCOPY 2017 PNEUMOCOCCAL VACCINES (50+ years) (2 of 2 - PPSV23) 2022 02/25/2018, 04/20/2011 Adult Td,Tdap Booster 08/27/2024 08/27/2014 INFLUENZA VACCINE (#1) 2024 , 01/17/2022, 02/28/2021, Additional history exists COVID-19 VACCINE ( season) 2024 02/01/2023, 01/17/2022, 02/28/2021, Additional history exists MAMMOGRAM 10/09/2025 10/10/2023, 02/0 11/2023, 10/11/2022, Additional history exists HEPATITIS A VACCINES Aged Out 02/25/2018 No long er eligible based on patient's age to complete this topic MENINGOCOCCAL VACCINES (ACWY) Aged Out 02/25/2018 No longer eligible based on patient's age to complete this topic ZOSTER VACCINES Completed 03/03/2023, 11/18/2022 SMOKING STATUS SCREENING (Once After 26 Yrs) Completed 10/10/2023 HIB VACCINES Aged Out No longer eligi ble based on patient's age to complete this topic MENINGOCOCCAL VACCINES (B) Aged Out N o longer eligible based on patient's age to complete this topic Medical Devices Not on file Procedures Procedure Name Priority Date/Time Associated Diagnosis Comments BI MAMMOGRAM SCREENING WITH TOMOSYNTHESIS WITH CAD (BILATERAL) Routine 10/10/2023 9:45 AM EDT Breast cancer screening by mammogram from Last 3 Months or Most Recently Relevant to Health Maintenance Results * BI MAMMOGRAM SCREENING WITH TOMOSYNTHESIS WITH CAD (BILATERAL) (10/10/2023 9:45 AM EDT) Anatomical Region Laterality Modality Breast Left, Breast Right, Breast Bilateral Bila teral Mammography 10/10/2023 9:45 PM EDT Impressions 10/10/2023 9:47 PM EDT No mammographic evidence of malignancy in either breast. Annual screening mammography is recommended. BI-RADS 1 NEGATIVE The patient will be notified of the results and recommendations. Narrative 10/10/2023 9:47 PM EDT BI MAMMOGRAM SCREENING WITH TOMOSYNTHESIS WITH CAD (BILATERAL) Additional patient information: Screening. COMPARISON: Comparison is made with relevant prior imaging. Breast composition: The breast tissue is heterogeneously dense which may obscure small masses. FINDINGS: No abnormal masses, suspicious calcifications, or other significant findings are identified mammographically in either breast. Procedure Note Julian Landis MD - 10/10/2023 BI MAMMOGRAM SCREENING WITH TOMOSYNTHESIS WITH CAD (BILATERAL) Additional patient information: Screening. COMPARISON: Comparison is made with relevant prior imaging. Breast composition: The breast tissue is heterogeneously dense which mayobscure small masses. FINDINGS: No abnormal masses, suspicious calcifications, or other significantfindings are identified mammographically in either breast. IMPRESSION: No mammographic evidence of malignancy in either breast. Annual screening mammography is recommended. BI-RADS 1 NEGATIVE The patient will be notified of the results and recommendations. Tanja Nava PA-C IMG MG EXAMS Final Result from Last 3 Months or Most Recently Relevant to Health Maintenance Insurance [facility] Care Teams Assistant Loan Processor Relationship Specialty Start Date End Date Aria Colbert MD [address] [address] [email or web address] PCP - General Internal Medicine 12/17/24 Lee José MD [address] [place] [address] Historical LMR Provider 01/29/17 Arsen Del Rio MD [address] [address] [email or web address] Historical LMR Provider 01/29/17 [place] [address] [email or web address] Historical LMR Provider 01/29/17 Tanja Nava PA-C [address] [place] [address] [email or web address] Physician Civil Engineering Professor 11/05/23 Additional Source Comments The information contained in this document represents components of the legal health record. It is not the complete legal health record.[facility]
== END ==
LOC: HO.SL 20:30
PROVIDERS: PCP Nurse Practitioner Family; Visit Provider Registered Nurse
DX: G47.33 Obstructive sleep apnea (adult) (pediatric) (principal); R06.83 Snoring
CPT/HCPCS: 95810

== ENCOUNTER → 2024-12-30 21:54 | Outpatient (BNV) | payer BC, SELFPAY | PROVIDERS: PCP Nurse Practitioner Family; Visit Provider Internal Medicine | DX: R06.83 Snoring (principal) | CPT/HCPCS: 95810 ==

== ENCOUNTER 2025-03-08 08:31 | Outpatient (AMB) | payer BC, SELFPAY ==
--- OUTSIDE RECORDS SUMMARY | 2024-01-13 03:00 | XMS_ITS ---
Author Organization [facility] [address] Address [address] [place] [address] Care Team Providers Care Curriculum Assistant Name Role Phone SADIE RUIZ Unavailable [phone] Medications Medication SIG (Take, Route, Frequency, Duration) Notes Start Date End Date Status Zepbound 7.5 MG/0.5ML Solution Auto-injector 7.5mg Subcutaneous weekly; Duration: 30 days Active Encounters Encounter Location Date Provider Diagnosis [facility] [address] [address] 01/13/2024 SADIE RUIZ Other obesity due to excess calories E66.09 ; Body mass index [BMI] 30.0-30.9, adult Z68.30 ; Dietary counseling and surveillance Z71.3 and Prediabetes R73.03 Assessments Encounter Date Diagnosis (ICD Code) Assessment Notes Treatment Notes Treatment Clinical Notes Section Notes 01/13/2024 Other obesity due to excess calories (ICD-10 - E66.09) #Weight Management 01/13/2024 Updated labs reviewed Increased to 7.5 mg Explained that this is a superior molecule and better drug for weight loss and A1c reduction as well as helping lower triglycerides Patient has been found to be obese with a BMI of (30). Total time spent today was 30 minutes of which greater than 50% was spent on coordinating and counseling We are a board certified obesity and weight management practice Patient has trialed behavioral modification, dietary restrictions and exercise for a minimum of 6 months Patient counseled regarding effects of GLP/GIP-1 agonists, and other FDA approved wgt loss meds with regards to a multifactorial approach of weight loss as mentioned above and not solely appetite suppression. We have discussed the mechanism of GLP-1's/GIP I think this would be fantastic option for her given her metabolic workup and body composition We have discussed the risks and benefits and side effects including/and not limited to Sarcopenia, intestinal obstruction, constipation, nausea, lethargy, headache Discussed importance of protein consumption for muscle maintenance as well as strength and resistance training ,probiotics, B12 complex biotin , iron and other nutrients, To help avoid telogen effluvium There is no history of medullary thyroid cancer or multiple endocrine neoplasia There is also no history of cardiovascular disease, hypertension, palpitations, or arrhythmias In the setting of potential stimulant/amphetam ine use such as phentermine We have also discussed risks and benefits, and the use of compounded medications to help offset the national shortages as well as financial implications vs trade name drugs GLP must be discontinued upon initiation We have discussed the lifelong requirement of nutritional supplementation And adherence to an exercise regimen as well as importance of follow-up The patient understands and agrees Patient was reassured and welcomed to the practice. We discussed that we stress a hollistic medical approach with emphasis on lifestyle modification. Patient was informed that a healthy lifestyle with exercise and good eating habits can help reduce his risk of medical complications. He is explained that obesity increases his risk of diabetes, cardiovascular disease, or organ damage. We spent a lot of time discussing the relationship between food, exercise, sleep, mental health and obesity. Patient was counseled on the importance EATING local, organic food when possible. Patient was educated on clean 15 and dirty dozen. I provided information about reading books called The Food Rules by Imtiaz Harper and Eat Fat Get Lean by Dr Zuhair Funez. Self education is important in the journey for weight management. Patient was offered diagnostic testing. We want to measure visceral adiposity, advanced body composition, adverse lipids, fatty acid balance, risk for heart disease and atherosclerosis, markers of inflammation and genetic susceptibility. Patient was counseled on weight management and was advised to lose weight using A. Meal Replacement Products We discussed the lifelong requirement of nutritional supplementation and adherence to an exercise regimen as well as importance of dietary f/u Patient was educated on the replacement products called optifast. This is a good way of taking fixed amount of calories. It has been shown in studies to be ineffective weight management tool. We also recommend maintaining adequate protein intake and muscle composition, 1.5mg/kg This however has to be coupled with lifestyle intervention as well as laboratory data and EKG monitoring. It is impossible to know how a person will tolerate complete meal replacement. The side effects of meal replacement and weight loss could include syncopal attacks, dizziness, gallstones, potential cholecystectomy, possible heart attack and even . The benefits of meal replacement would be potential weight loss but no guarantees can be made. Meal replacement products are not covered by insurance. Once the patient has bought these products we cannot return them B. Lifestyle management which includes several strategies as below 1. Eat a low carbohydrate good fat good protein diet. Eliminate refined carbohydrates from the diet. Continue blood sugar and sugared beverages. Eat local organic when possible. Cook your own meals. Read food labels. None about healthy snacks. Portion control and food with low glycemic index 2. Exercise regularly. Try to get at least 6000 steps a day. Use a predominant to track activity level. Consider using apps like [employer], [employer], lose it, stick as needed for self-monitoring and weight management. Consider group exercises. Consider hiring a personal banking advisor. Regular exercise is thomas to sustainable health and prevents as a buffer against weight regain 3. Sleep is most important for healing. Tried to sleep at least 8 hours a night. A good quality sleep needs a sleep ritual with ideal room temperature of around 68. It might help to take a shower and have no electronics in the room and sleep in a very dark room without artificial light. Start her sleep routine and get up early in the morning and go to bed on time 4. Make a social connection. Surround yourself with positive people with positive energy. Connect with friends and family. 5. Get into the habit of meditating and mindfulness while doing everything. 6. Go outside and connect with nature. C. Prescription medications Patient was educated on the use of prescription medications for medical weight loss. This is a growing list and includes phentermine, Topamax,Qsymia, contrave, belviq and saxenda, wegovy All prescription medications could have side effects including but not limited to kidney stones, seizure disorder cardiac arrhythmias heart attack pancreatitis etc. etc.. Patient was encouraged to read the prescription insert and have coaching with their pharmacist and make an informed decision about taking medication and know that these medications are being prescribed with good intentions and we do not know how a patient would react to her medication. Sudden medications are FDA approved for weight loss and there is also off label use depending on patient's inability to afford medications in an attempt to lose weight D. Behavioral counseling was done to establish a relationship between food and an mood. Patient was provided information about local counseling and psychiatry and Dr Lopez at [facility]. We would like to cover regular topics and build on low glycemic eating exercise mindful eating, using yoga and meditation along with deep breathing and connecting with friends and family. E. MASS PAT reviewed, Patient's current medications were reviewed and opinion was given on medication that can cause weight gain and can be substituted F. Patient was assessed for risk with obesity including and not limiting to atherosclerosis heart disease stroke kidney disease, restrictive lung disease, irritable bowel syndrome and overall mortality. Risk of developing prediabetes diabetes and metabolic syndrome was discussed G. Therapeutic plan: We have decided to make therapeutic plan which would include choosing wisely on calories restricting portion getting active, tracking weight, getting good quality sleep and working on time management H. Patient will follow up in (4) weeks for weight management Of note, some information is being carried forward from prior records for informational purposes only and is being cited so that efficiency, safety and quality of the patient's care is not compromised This note was prepared using voice recognition software and direct typing Please excuse inadvertent oxyacetylene cutter or typing errors, or uncorrected word substitutions Although every attempt has been made by the provider to proofread this document, occasional misspellings and typographical errors may still be present Due to the previous pandemic, and the use of personal protective equipment (PPE) This may decrease voice recognition accuracy Inadvertent oxyacetylene cutter errors may occur 01/13/2024 Body mass index [BMI] 30.0-30.9, adult (ICD-10 - Z68.30) #Weight Management 01/13/2024 Updated labs reviewed Increased to 7.5 mg Explained that this is a superior molecule and better drug for weight loss and A1c reduction as well as helping lower triglycerides Patient has been found to be obese with a BMI of (30). Total time spent today was 30 minutes of which greater than 50% was spent on coordinating and counseling We are a board certified obesity and weight management practice Patient has trialed behavioral modification, dietary restrictions and exercise for a minimum of 6 months Patient counseled regarding effects of GLP/GIP-1 agonists, and other FDA approved wgt loss meds with regards to a multifactorial approach of weight loss as mentioned above and not solely appetite suppression. We have discussed the mechanism of GLP-1's/GIP I think this would be fantastic option for her given her metabolic workup and body composition We have discussed the risks and benefits and side effects including/and not limited to Sarcopenia, intestinal obstruction, constipation, nausea, lethargy, headache Discussed importance of protein consumption for muscle maintenance as well as strength and resistance training ,probiotics, B12 complex biotin , iron and other nutrients, To help avoid telogen effluvium There is no history of medullary thyroid cancer or multiple endocrine neoplasia There is also no history of cardiovascular disease, hypertension, palpitations, or arrhythmias In the setting of potential stimulant/amphetam ine use such as phentermine We have also discussed risks and benefits, and the use of compounded medications to help offset the national shortages as well as financial implications vs trade name drugs GLP must be discontinued upon initiation We have discussed the lifelong requirement of nutritional supplementation And adherence to an exercise regimen as well as importance of follow-up The patient understands and agrees Patient was reassured and welcomed to the practice. We discussed that we stress a hollistic medical approach with emphasis on lifestyle modification. Patient was informed that a healthy lifestyle with exercise and good eating habits can help reduce his risk of medical complications. He is explained that obesity increases his risk of diabetes, cardiovascular disease, or organ damage. We spent a lot of time discussing the relationship between food, exercise, sleep, mental health and obesity. Patient was counseled on the importance EATING local, organic food when possible. Patient was educated on clean 15 and dirty dozen. I provided information about reading books called The Food Rules by Imtiaz Harper and Eat Fat Get Lean by Dr Zuhair Funez. Self education is important in the journey for weight management. Patient was offered diagnostic testing. We want to measure visceral adiposity, advanced body composition, adverse lipids, fatty acid balance, risk for heart disease and atherosclerosis, markers of inflammation and genetic susceptibility. Patient was counseled on weight management and was advised to lose weight using A. Meal Replacement Products We discussed the lifelong requirement of nutritional supplementation and adherence to an exercise regimen as well as importance of dietary f/u Patient was educated on the replacement products called optifast. This is a good way of taking fixed amount of calories. It has been shown in studies to be ineffective weight management tool. We also recommend maintaining adequate protein intake and muscle composition, 1.5mg/kg This however has to be coupled with lifestyle intervention as well as laboratory data and EKG monitoring. It is impossible to know how a person will tolerate complete meal replacement. The side effects of meal replacement and weight loss could include syncopal attacks, dizziness, gallstones, potential cholecystectomy, possible heart attack and even . The benefits of meal replacement would be potential weight loss but no guarantees can be made. Meal replacement products are not covered by insurance. Once the patient has bought these products we cannot return them B. Lifestyle management which includes several strategies as below 1. Eat a low carbohydrate good fat good protein diet. Eliminate refined carbohydrates from the diet. Continue blood sugar and sugared beverages. Eat local organic when possible. Cook your own meals. Read food labels. None about healthy snacks. Portion control and food with low glycemic index 2. Exercise regularly. Try to get at least 6000 steps a day. Use a predominant to track activity level. Consider using apps like [employer], [employer], lose it, stick as needed for self-monitoring and weight management. Consider group exercises. Consider hiring a personal banking advisor. Regular exercise is thomas to sustainable health and prevents as a buffer against weight regain 3. Sleep is most important for healing. Tried to sleep at least 8 hours a night. A good quality sleep needs a sleep ritual with ideal room temperature of around 68. It might help to take a shower and have no electronics in the room and sleep in a very dark room without artificial light. Start her sleep routine and get up early in the morning and go to bed on time 4. Make a social connection. Surround yourself with positive people with positive energy. Connect with friends and family. 5. Get into the habit of meditating and mindfulness while doing everything. 6. Go outside and connect with nature. C. Prescription medications Patient was educated on the use of prescription medications for medical weight loss. This is a growing list and includes phentermine, Topamax,Qsymia, contrave, belviq and saxenda, wegovy All prescription medications could have side effects including but not limited to kidney stones, seizure disorder cardiac arrhythmias heart attack pancreatitis etc. etc.. Patient was encouraged to read the prescription insert and have coaching with their pharmacist and make an informed decision about taking medication and know that these medications are being prescribed with good intentions and we do not know how a patient would react to her medication. Sudden medications are FDA approved for weight loss and there is also off label use depending on patient's inability to afford medications in an attempt to lose weight D. Behavioral counseling was done to establish a relationship between food and an mood. Patient was provided information about local counseling and psychiatry and Dr Lopez at [facility]. We would like to cover regular topics and build on low glycemic eating exercise mindful eating, using yoga and meditation along with deep breathing and connecting with friends and family. E. MASS PAT reviewed, Patient's current medications were reviewed and opinion was given on medication that can cause weight gain and can be substituted F. Patient was assessed for risk with obesity including and not limiting to atherosclerosis heart disease stroke kidney disease, restrictive lung disease, irritable bowel syndrome and overall mortality. Risk of developing prediabetes diabetes and metabolic syndrome was discussed G. Therapeutic plan: We have decided to make therapeutic plan which would include choosing wisely on calories restricting portion getting active, tracking weight, getting good quality sleep and working on time management H. Patient will follow up in (4) weeks for weight management Of note, some information is being carried forward from prior records for informational purposes only and is being cited so that efficiency, safety and quality of the patient's care is not compromised This note was prepared using voice recognition software and direct typing Please excuse inadvertent oxyacetylene cutter or typing errors, or uncorrected word substitutions Although every attempt has been made by the provider to proofread this document, occasional misspellings and typographical errors may still be present Due to the previous pandemic, and the use of personal protective equipment (PPE) This may decrease voice recognition accuracy Inadvertent oxyacetylene cutter errors may occur 01/13/2024 Dietary counseling and surveillance (ICD-10 - Z71.3) #Weight Management 01/13/2024 Updated labs reviewed Increased to 7.5 mg Explained that this is a superior molecule and better drug for weight loss and A1c reduction as well as helping lower triglycerides Patient has been found to be obese with a BMI of (30). Total time spent today was 30 minutes of which greater than 50% was spent on coordinating and counseling We are a board certified obesity and weight management practice Patient has trialed behavioral modification, dietary restrictions and exercise for a minimum of 6 months Patient counseled regarding effects of GLP/GIP-1 agonists, and other FDA approved wgt loss meds with regards to a multifactorial approach of weight loss as mentioned above and not solely appetite suppression. We have discussed the mechanism of GLP-1's/GIP I think this would be fantastic option for her given her metabolic workup and body composition We have discussed the risks and benefits and side effects including/and not limited to Sarcopenia, intestinal obstruction, constipation, nausea, lethargy, headache Discussed importance of protein consumption for muscle maintenance as well as strength and resistance training ,probiotics, B12 complex biotin , iron and other nutrients, To help avoid telogen effluvium There is no history of medullary thyroid cancer or multiple endocrine neoplasia There is also no history of cardiovascular disease, hypertension, palpitations, or arrhythmias In the setting of potential stimulant/amphetam ine use such as phentermine We have also discussed risks and benefits, and the use of compounded medications to help offset the national shortages as well as financial implications vs trade name drugs GLP must be discontinued upon initiation We have discussed the lifelong requirement of nutritional supplementation And adherence to an exercise regimen as well as importance of follow-up The patient understands and agrees Patient was reassured and welcomed to the practice. We discussed that we stress a hollistic medical approach with emphasis on lifestyle modification. Patient was informed that a healthy lifestyle with exercise and good eating habits can help reduce his risk of medical complications. He is explained that obesity increases his risk of diabetes, cardiovascular disease, or organ damage. We spent a lot of time discussing the relationship between food, exercise, sleep, mental health and obesity. Patient was counseled on the importance EATING local, organic food when possible. Patient was educated on clean 15 and dirty dozen. I provided information about reading books called The Food Rules by Imtiaz Harper and Eat Fat Get Lean by Dr Zuhair Funez. Self education is important in the journey for weight management. Patient was offered diagnostic testing. We want to measure visceral adiposity, advanced body composition, adverse lipids, fatty acid balance, risk for heart disease and atherosclerosis, markers of inflammation and genetic susceptibility. Patient was counseled on weight management and was advised to lose weight using A. Meal Replacement Products We discussed the lifelong requirement of nutritional supplementation and adherence to an exercise regimen as well as importance of dietary f/u Patient was educated on the replacement products called optifast. This is a good way of taking fixed amount of calories. It has been shown in studies to be ineffective weight management tool. We also recommend maintaining adequate protein intake and muscle composition, 1.5mg/kg This however has to be coupled with lifestyle intervention as well as laboratory data and EKG monitoring. It is impossible to know how a person will tolerate complete meal replacement. The side effects of meal replacement and weight loss could include syncopal attacks, dizziness, gallstones, potential cholecystectomy, possible heart attack and even . The benefits of meal replacement would be potential weight loss but no guarantees can be made. Meal replacement products are not covered by insurance. Once the patient has bought these products we cannot return them B. Lifestyle management which includes several strategies as below 1. Eat a low carbohydrate good fat good protein diet. Eliminate refined carbohydrates from the diet. Continue blood sugar and sugared beverages. Eat local organic when possible. Cook your own meals. Read food labels. None about healthy snacks. Portion control and food with low glycemic index 2. Exercise regularly. Try to get at least 6000 steps a day. Use a predominant to track activity level. Consider using apps like [employer], [employer], lose it, stick as needed for self-monitoring and weight management. Consider group exercises. Consider hiring a personal banking advisor. Regular exercise is thomas to sustainable health and prevents as a buffer against weight regain 3. Sleep is most important for healing. Tried to sleep at least 8 hours a night. A good quality sleep needs a sleep ritual with ideal room temperature of around 68. It might help to take a shower and have no electronics in the room and sleep in a very dark room without artificial light. Start her sleep routine and get up early in the morning and go to bed on time 4. Make a social connection. Surround yourself with positive people with positive energy. Connect with friends and family. 5. Get into the habit of meditating and mindfulness while doing everything. 6. Go outside and connect with nature. C. Prescription medications Patient was educated on the use of prescription medications for medical weight loss. This is a growing list and includes phentermine, Topamax,Qsymia, contrave, belviq and saxenda, wegovy All prescription medications could have side effects including but not limited to kidney stones, seizure disorder cardiac arrhythmias heart attack pancreatitis etc. etc.. Patient was encouraged to read the prescription insert and have coaching with their pharmacist and make an informed decision about taking medication and know that these medications are being prescribed with good intentions and we do not know how a patient would react to her medication. Sudden medications are FDA approved for weight loss and there is also off label use depending on patient's inability to afford medications in an attempt to lose weight D. Behavioral counseling was done to establish a relationship between food and an mood. Patient was provided information about local counseling and psychiatry and Dr Lopez at [facility]. We would like to cover regular topics and build on low glycemic eating exercise mindful eating, using yoga and meditation along with deep breathing and connecting with friends and family. E. MASS PAT reviewed, Patient's current medications were reviewed and opinion was given on medication that can cause weight gain and can be substituted F. Patient was assessed for risk with obesity including and not limiting to atherosclerosis heart disease stroke kidney disease, restrictive lung disease, irritable bowel syndrome and overall mortality. Risk of developing prediabetes diabetes and metabolic syndrome was discussed G. Therapeutic plan: We have decided to make therapeutic plan which would include choosing wisely on calories restricting portion getting active, tracking weight, getting good quality sleep and working on time management H. Patient will follow up in (4) weeks for weight management Of note, some information is being carried forward from prior records for informational purposes only and is being cited so that efficiency, safety and quality of the patient's care is not compromised This note was prepared using voice recognition software and direct typing Please excuse inadvertent oxyacetylene cutter or typing errors, or uncorrected word substitutions Although every attempt has been made by the provider to proofread this document, occasional misspellings and typographical errors may still be present Due to the previous pandemic, and the use of personal protective equipment (PPE) This may decrease voice recognition accuracy Inadvertent oxyacetylene cutter errors may occur 01/13/2024 Prediabetes (ICD-10 - R73.03) #Weight Management 01/13/2024 Updated labs reviewed Increased to 7.5 mg Explained that this is a superior molecule and better drug for weight loss and A1c reduction as well as helping lower triglycerides Patient has been found to be obese with a BMI of (30). Total time spent today was 30 minutes of which greater than 50% was spent on coordinating and counseling We are a board certified obesity and weight management practice Patient has trialed behavioral modification, dietary restrictions and exercise for a minimum of 6 months Patient counseled regarding effects of GLP/GIP-1 agonists, and other FDA approved wgt loss meds with regards to a multifactorial approach of weight loss as mentioned above and not solely appetite suppression. We have discussed the mechanism of GLP-1's/GIP I think this would be fantastic option for her given her metabolic workup and body composition We have discussed the risks and benefits and side effects including/and not limited to Sarcopenia, intestinal obstruction, constipation, nausea, lethargy, headache Discussed importance of protein consumption for muscle maintenance as well as strength and resistance training ,probiotics, B12 complex biotin , iron and other nutrients, To help avoid telogen effluvium There is no history of medullary thyroid cancer or multiple endocrine neoplasia There is also no history of cardiovascular disease, hypertension, palpitations, or arrhythmias In the setting of potential stimulant/amphetam ine use such as phentermine We have also discussed risks and benefits, and the use of compounded medications to help offset the national shortages as well as financial implications vs trade name drugs GLP must be discontinued upon initiation We have discussed the lifelong requirement of nutritional supplementation And adherence to an exercise regimen as well as importance of follow-up The patient understands and agrees Patient was reassured and welcomed to the practice. We discussed that we stress a hollistic medical approach with emphasis on lifestyle modification. Patient was informed that a healthy lifestyle with exercise and good eating habits can help reduce his risk of medical complications. He is explained that obesity increases his risk of diabetes, cardiovascular disease, or organ damage. We spent a lot of time discussing the relationship between food, exercise, sleep, mental health and obesity. Patient was counseled on the importance EATING local, organic food when possible. Patient was educated on clean 15 and dirty dozen. I provided information about reading books called The Food Rules by Imtiaz Harper and Eat Fat Get Lean by Dr Zuhair Funez. Self education is important in the journey for weight management. Patient was offered diagnostic testing. We want to measure visceral adiposity, advanced body composition, adverse lipids, fatty acid balance, risk for heart disease and atherosclerosis, markers of inflammation and genetic susceptibility. Patient was counseled on weight management and was advised to lose weight using A. Meal Replacement Products We discussed the lifelong requirement of nutritional supplementation and adherence to an exercise regimen as well as importance of dietary f/u Patient was educated on the replacement products called optifast. This is a good way of taking fixed amount of calories. It has been shown in studies to be ineffective weight management tool. We also recommend maintaining adequate protein intake and muscle composition, 1.5mg/kg This however has to be coupled with lifestyle intervention as well as laboratory data and EKG monitoring. It is impossible to know how a person will tolerate complete meal replacement. The side effects of meal replacement and weight loss could include syncopal attacks, dizziness, gallstones, potential cholecystectomy, possible heart attack and even . The benefits of meal replacement would be potential weight loss but no guarantees can be made. Meal replacement products are not covered by insurance. Once the patient has bought these products we cannot return them B. Lifestyle management which includes several strategies as below 1. Eat a low carbohydrate good fat good protein diet. Eliminate refined carbohydrates from the diet. Continue blood sugar and sugared beverages. Eat local organic when possible. Cook your own meals. Read food labels. None about healthy snacks. Portion control and food with low glycemic index 2. Exercise regularly. Try to get at least 6000 steps a day. Use a predominant to track activity level. Consider using apps like [employer], [employer], lose it, stick as needed for self-monitoring and weight management. Consider group exercises. Consider hiring a personal banking advisor. Regular exercise is thomas to sustainable health and prevents as a buffer against weight regain 3. Sleep is most important for healing. Tried to sleep at least 8 hours a night. A good quality sleep needs a sleep ritual with ideal room temperature of around 68. It might help to take a shower and have no electronics in the room and sleep in a very dark room without artificial light. Start her sleep routine and get up early in the morning and go to bed on time 4. Make a social connection. Surround yourself with positive people with positive energy. Connect with friends and family. 5. Get into the habit of meditating and mindfulness while doing everything. 6. Go outside and connect with nature. C. Prescription medications Patient was educated on the use of prescription medications for medical weight loss. This is a growing list and includes phentermine, Topamax,Qsymia, contrave, belviq and saxenda, wegovy All prescription medications could have side effects including but not limited to kidney stones, seizure disorder cardiac arrhythmias heart attack pancreatitis etc. etc.. Patient was encouraged to read the prescription insert and have coaching with their pharmacist and make an informed decision about taking medication and know that these medications are being prescribed with good intentions and we do not know how a patient would react to her medication. Sudden medications are FDA approved for weight loss and there is also off label use depending on patient's inability to afford medications in an attempt to lose weight D. Behavioral counseling was done to establish a relationship between food and an mood. Patient was provided information about local counseling and psychiatry and Dr Lopez at [facility]. We would like to cover regular topics and build on low glycemic eating exercise mindful eating, using yoga and meditation along with deep breathing and connecting with friends and family. E. MASS PAT reviewed, Patient's current medications were reviewed and opinion was given on medication that can cause weight gain and can be substituted F. Patient was assessed for risk with obesity including and not limiting to atherosclerosis heart disease stroke kidney disease, restrictive lung disease, irritable bowel syndrome and overall mortality. Risk of developing prediabetes diabetes and metabolic syndrome was discussed G. Therapeutic plan: We have decided to make therapeutic plan which would include choosing wisely on calories restricting portion getting active, tracking weight, getting good quality sleep and working on time management H. Patient will follow up in (4) weeks for weight management Of note, some information is being carried forward from prior records for informational purposes only and is being cited so that efficiency, safety and quality of the patient's care is not compromised This note was prepared using voice recognition software and direct typing Please excuse inadvertent oxyacetylene cutter or typing errors, or uncorrected word substitutions Although every attempt has been made by the provider to proofread this document, occasional misspellings and typographical errors may still be present Due to the previous pandemic, and the use of personal protective equipment (PPE) This may decrease voice recognition accuracy Inadvertent oxyacetylene cutter errors may occur Plan Of Treatment Medication Medication Name Sig Start Date Stop Date Notes Zepbound 7.5 MG/0.5ML Solution Auto-injector 7.5mg Subcutaneous weekly; Duration: 30 days History and Physical Notes * HPI (History of Present Illness) Category Sub-Category Detail Notes Category Not es Constitutional Patient is here today for a weight management f/u visit Patient seen and examined. Full past medical history, social history, family history, allergies and current medications were reviewed and updated. Body composition analysis reviewed today, as expected increased BMI, visceral adiposity, fat mass index, waist cirumference Good skeletal mass composition, Good water composition Caloric energy expenditure discussed. we discussed the importance of protein calorie nutrition, maintaning muscle mass, vit b12, biotin, iron while on GLP-1 medications #Weight Management 01/13/2024 Updated labs reviewed PCP Arnav AGUILAR Feels much at ease recent layoffs at [employer] [facility] [employer] over 150 people however her job was spared This was causing a lot of stress Pt is currently on 5mg Zepound. Injection day Tuesdays, last dose 10/19/23. Not experiencing appetite suppression, increase hunger in the evenings. Having sugar cravings. No s/e. No migraines with switch. Feels like she had more effect on the Wegovy. Recently lab work done 11/18/23 with [facility]. A1c up to 6.0. Patient had been on maximum dosing of Wegovy 2.4 once a week She stopped this as of last Saturday, Exacerbated her migraine headaches Our plan was to transition her to Zepbound Had trialed every other week dosing model She states she switched to once a week due to noticing weight gain Denies any side effects with the medication and is doing well She has trialed Contrave in the past which gave her headaches phentermine not ideal given her SVT and tachycardia history Patient has not been adding protein in her diet. Does not exercise currently Takes Magnesium, Riboflavin, Biotin, and Collagen Patient referred to us from another pt Rosemarie, who works with her at [employer] [facility]. Was originally on Saxenda but she had GI upset. In office hgb aic 02/2023 @ 5.5, A1C April, = 5.[address] Freeman for wt management. Dr. José was primary care but is moving. 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 Patient had recent labs x1 month ago through [facility] Neurology: 01/13/2024, Weight , BMI 11/21/2023, Weight 177lbs, BMI 30.4 (+7lbs) 09/17/2023, Weight 170 , BMI 30 07/29/2023, Weight 166lbs , BMI 29.6 (+1lbs) 04/29/2023, Weight 165lbs , BMI 29, (+11lbs) 02/18/2023: Weight 154 lbs, BMI: 27 Highest weight: 212 lbs Lowest weight: 127 lbs Goal weight: 150's lbs KIMBERLEY screening: Has been screened with sleep study. Negative for KIMBERLEY. Metabolic workup: Comprehensive labs November 2023 CBC is stable Electrolytes renal function LFTs are stable Hemoglobin A1C is 6.0 Total cholesterol 153, triglycerides 192, HDL 47, LDL 74 Vitamin D 23 Has not had an echocardiogram recently - for arrhythmia. was on metoprolol metoprolol d/c after wt loss and BP balanced out. checks BP at home and runs low (sometimes as low as 90/60). Diet: tries to stay away from complex carbs, dry foods, drinks teas, 1 coffee/day. Exercise: Currently 5000-30562 steps daily. Non-smoker. ETOH use: none. of Examination Category Sub-Category Detail Notes Category Not es General Examination GENERAL APPEARANCE: in no ac [place] distress, well developed, well nourished HEAD: normocephalic, atrau matic EYES: pupils equal, round, reactive to light and accommodation EARS: normal THROAT: clear NECK/THYROID: neck supple, full ra nge of motion, no cervical lymphadenopathy HEART: no murmurs, regular rate and rhythm, S1, S2 normal LUNGS: clear to auscultatio n bilaterally ABDOMEN: normal, bowel sounds present, soft, nontender, nondistended NEUROLOGIC: nonfocal, motor stre ngth normal upper and lower extremities, sensory exam intact SKIN: no suspicious lesion s, warm and dry EXTREMITIES: no clubbing, cyanosi s, or edema ORAL CAVITY: mucosa moist Progress Notes * GIRMA NAVARRO MDOB:1970 (54 yo F)Acc No.[id number]:01/13/2024 Patient: GIRMA ASH Provider: Celio RUIZ NP :[id number] A ge:53 Y S ex:Female Date:01/13/2024 Address:[address] [place] [address] Subjective: * Chief Complaints: * HPI: C onstitutional: Patient is here today for a weight management f/u visit Patient seen and examined. Full past medical history, social history, family history, allergies and current medications were reviewed and updated. Body composition analysis reviewed today, as expected increased BMI, visceral adiposity, fat mass index, waist cirumference Good skeletal mass composition, Good water composition Caloric energy expenditure discussed. we discussed the importance of protein calorie nutrition, maintaning muscle mass, vit b12, biotin, iron while on GLP-1 medications #Weight Management 01/13/2024 Updated labs reviewed PCP Arnav AGUILAR Feels much at ease recent layoffs at [employer] [facility] over 150 people however her job was spared This was causing a lot of stress Pt is currently on 5mg Zepound. Injection day Tuesdays, last dose 10/19/23. Not experiencing appetite suppression, increase hunger in the evenings. Having sugar cravings. No s/e. No migraines with switch. Feels like she had more effect on the Wegovy. Recently lab work done 11/18/23 with [facility]. A1c up to 6.0. Patient had been on maximum dosing of Wegovy 2.4 once a week She stopped this as of last Saturday, Exacerbated her migraine headaches Our plan was to transition her to Zepbound Had trialed every other week dosing model She states she switched to once a week due to noticing weight gain Denies any side effects with the medication and is doing well She has trialed Contrave in the past which gave her headaches phentermine not ideal given her SVT and tachycardia history Patient has not been adding protein in her diet. Does not exercise currently Takes Magnesium, Riboflavin, Biotin, and Collagen Patient referred to us from another pt Rosemarie, who works with her at [facility] [facility]. Was originally on Saxenda but she had GI upset. In office hgb aic 02/2023 @ 5.5, A1C April, = 5.[address] Freeman for wt management. Dr. José was primary care but is moving. 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 Patient had recent labs x1 month ago through [facility] Neurology: 01/13/2024, Weight , BMI 11/21/2023, Weight 177lbs, BMI 30.4 (+7lbs) 09/17/2023, Weight 170 , BMI 30 07/29/2023, Weight 166lbs , BMI 29.6 (+1lbs) 04/29/2023, Weight 165lbs , BMI 29, (+11lbs) 02/18/2023: Weight 154 lbs, BMI: 27 Highest weight: 212 lbs Lowest weight: 127 lbs Goal weight: 150's lbs KIMBERLEY screening: Has been screened with sleep study. Negative for KIMBERLEY. Metabolic workup: Comprehensive labs November 2023 CBC is stable Electrolytes renal function LFTs are stable Hemoglobin A1C is 6.0 Total cholesterol 153, triglycerides 192, HDL 47, LDL 74 Vitamin D 23 Has not had an echocardiogram recently - for arrhythmia. was on metoprolol metoprolol d/c after wt loss and BP balanced out. checks BP at home and runs low (sometimes as low as 90/60). Diet: tries to stay away from complex carbs, dry foods, drinks teas, 1 coffee/day. Exercise: Currently 5000-66631 steps daily. Non-smoker. ETOH use: none. of. * ROS: A ll Other Systems: Review of Systems (ROS) A ll others negative except those mentioned in HPI. Objective: * Examination: G eneral Examination: GENERAL APPEARANCE: i n no acute distress, well developed, well nourished. HEAD: n ormocephalic, atraumatic. EYES: p upils equal, round, reactive to light and accommodation. EARS: n ormal. ORAL CAVITY: m [place] moist. THROAT: c lear. NECK/THYROID: n eloy supple, full range of motion, no cervical lymphadenopathy. SKIN: n o suspicious lesions, warm and dry. HEART: n o murmurs, regular rate and rhythm, S1, S2 normal.? LUNGS: c lear to auscultation bilaterally. ABDOMEN: n ormal, bowel sounds present, soft, nontender, nondistended. EXTREMITIES: n o clubbing, cyanosis, or edema. NEUROLOGIC: n onfocal, motor strength normal upper and lower extremities, sensory exam intact. Assessment: * Assessment: 1. O ther obesity due to excess calories - E66.09 (Primary) 2 . B essence mass index [BMI] 30.0-30.9, adult - Z68.30 3 . D ietary counseling and surveillance - Z71.3 4 . P rediabetes - R73.03 #Weight Management 01/13/2024 Updated labs reviewed Increased to 7.5 mg Explained that this is a superior molecule and better drug for weight loss and A1c reduction as well as helping lower triglycerides Patient has been found to be obese with a BMI of (30). Total time spent today was 30 minutes of which greater than 50% was spent on coordinating and counseling We are a board certified obesity and weight management practice Patient has trialed behavioral modification, dietary restrictions and exercise for a minimum of 6 months Patient counseled regarding effects of GLP/GIP-1 agonists, and other FDA approved wgt loss meds with regards to a multifactorial approach of weight loss as mentioned above and not solely appetite suppression. We have discussed the mechanism of GLP-1's/GIP I think this would be fantastic option for her given her metabolic workup and body composition We have discussed the risks and benefits and side effects including/and not limited to Sarcopenia, intestinal obstruction, constipation, nausea, lethargy, headache Discussed importance of protein consumption for muscle maintenance as well as strength and resistance training ,probiotics, B12 complex biotin , iron and other nutrients, To help avoid telogen effluvium There is no history of medullary thyroid cancer or multiple endocrine neoplasia There is also no history of cardiovascular disease, hypertension, palpitations, or arrhythmias In the setting of potential stimulant/amphetamine use such as phentermine We have also discussed risks and benefits, and the use of compounded medications to help offset the national shortages as well as financial implications vs trade name drugs GLP must be discontinued upon initiation We have discussed the lifelong requirement of nutritional supplementation And adherence to an exercise regimen as well as importance of follow-up The patient understands and agrees Patient was reassured and welcomed to the practice. We discussed that we stress a hollistic medical approach with emphasis on lifestyle modification. Patient was informed that a healthy lifestyle with exercise and good eating habits can help reduce his risk of medical complications. He is explained that obesity increases his risk of diabetes, cardiovascular disease, or organ damage. We spent a lot of time discussing the relationship between food, exercise, sleep, mental health and obesity. Patient was counseled on the importance EATING local, organic food when possible. Patient was educated on clean 15 and dirty dozen. I provided information about reading books called The Food Rules by Imtiaz Harper and Eat Fat Get Lean by Dr Zuhair Funez. Self education is important in the journey for weight management. Patient was offered diagnostic testing. We want to measure visceral adiposity, advanced body composition, adverse lipids, fatty acid balance, risk for heart disease and atherosclerosis, markers of inflammation and genetic susceptibility. Patient was counseled on weight management and was advised to lose weight using A. Meal Replacement Products We discussed the lifelong requirement of nutritional supplementation and adherence to an exercise regimen as well as importance of dietary f/u Patient was educated on the replacement products called optifast. This is a good way of taking fixed amount of calories. It has been shown in studies to be ineffective weight management tool. We also recommend maintaining adequate protein intake and muscle composition, 1.5mg/kg This however has to be coupled with lifestyle intervention as well as laboratory data and EKG monitoring. It is impossible to know how a person will tolerate complete meal replacement. The side effects of meal replacement and weight loss could include syncopal attacks, dizziness, gallstones, potential cholecystectomy, possible heart attack and even . The benefits of meal replacement would be potential weight loss but no guarantees can be made. Meal replacement products are not covered by insurance. Once the patient has bought these products we cannot return them B. Lifestyle management which includes several strategies as below 1. Eat a low carbohydrate good fat good protein diet. Eliminate refined carbohydrates from the diet. Continue blood sugar and sugared beverages. Eat local organic when possible. Cook your own meals. Read food labels. None about healthy snacks. Portion control and food with low glycemic index 2. Exercise regularly. Try to get at least 6000 steps a day. Use a predominant to track activity level. Consider using apps like [employer], [employer], lose it, stick as needed for self-monitoring and weight management. Consider group exercises. Consider hiring a personal banking advisor. Regular exercise is thomas to sustainable health and prevents as a buffer against weight regain 3. Sleep is most important for healing. Tried to sleep at least 8 hours a night. A good quality sleep needs a sleep ritual with ideal room temperature of around 68. It might help to take a shower and have no electronics in the room and sleep in a very dark room without artificial light. Start her sleep routine and get up early in the morning and go to bed on time 4. Make a social connection. Surround yourself with positive people with positive energy. Connect with friends and family. 5. Get into the habit of meditating and mindfulness while doing everything. 6. Go outside and connect with nature. C. Prescription medications Patient was educated on the use of prescription medications for medical weight loss. This is a growing list and includes phentermine, Topamax,Qsymia, contrave, belviq and saxenda, wegovy All prescription medications could have side effects including but not limited to kidney stones, seizure disorder cardiac arrhythmias heart attack pancreatitis etc. etc.. Patient was encouraged to read the prescription insert and have coaching with their pharmacist and make an informed decision about taking medication and know that these medications are being prescribed with good intentions and we do not know how a patient would react to her medication. Sudden medications are FDA approved for weight loss and there is also off label use depending on patient's inability to afford medications in an attempt to lose weight D. Behavioral counseling was done to establish a relationship between food and an mood. Patient was provided information about local counseling and psychiatry and Dr Lopez at [facility]. We would like to cover regular topics and build on low glycemic eating exercise mindful eating, using yoga and meditation along with deep breathing and connecting with friends and family. E. MASS PAT reviewed, Patient's current medications were reviewed and opinion was given on medication that can cause weight gain and can be substituted F. Patient was assessed for risk with obesity including and not limiting to atherosclerosis heart disease stroke kidney disease, restrictive lung disease, irritable bowel syndrome and overall mortality. Risk of developing prediabetes diabetes and metabolic syndrome was discussed G. Therapeutic plan: We have decided to make therapeutic plan which would include choosing wisely on calories restricting portion getting active, tracking weight, getting good quality sleep and working on time management H. Patient will follow up in (4) weeks for weight management Of note, some information is being carried forward from prior records for informational purposes only and is being cited so that efficiency, safety and quality of the patient's care is not compromised This note was prepared using voice recognition software and direct typing Please excuse inadvertent oxyacetylene cutter or typing errors, or uncorrected word substitutions Although every attempt has been made by the provider to proofread this document, occasional misspellings and typographical errors may still be present Due to the previous pandemic, and the use of personal protective equipment (PPE) This may decrease voice recognition accuracy Inadvertent oxyacetylene cutter errors may occur. Plan: * Treatment: * Electronic signature of LUIS M RUIZ on 03/08/2025 at 08:44 AM EST Sign off status: Pending * Provider: Celio RUIZ NP Date: 0 01/13/2024 Generated for Andrey whiting/Joshua/Heidi on: 05/08/2024 08:44 AM EST
--- OUTSIDE RECORDS SUMMARY | 2024-11-11 03:00 | XMS_ITS ---
Author Organization [facility] Address [address] [facility] [address] [place] [phone] Care Team Providers Care Director Of Ne[facility] Service [facility] Name Role Phone Kat[facility] Primary Care Provider KATLYN CASTANEDA MD Unavailable Unavailable REASON FOR VISIT 2m f/u DM Encounters Encounter Location Date Provider Diagnosis [facility] [address] [facility] [address] [address] [place] [phone] 11/11/2024 Kat[facility] Plan Of Treatment Next Appt Details Provider Name:Katlyn Castaneda , 05/24/2025 08:45:00 AM, [address] [facility] [facility], SUITE [facility], [place], [place], [phone], Progress Notes * Sharonda NAVARRO MDOB:1970 (54 yo F)Acc No.[id number]:11/11/2024 Progress Notes Patient: Sharonda ASH Provider: Claire Castaneda MD :1970 A ge:54 Y S ex:Female Date:11/11/2024 Address:[address] [id number] Subjective: * Chief Complaints: * 1 . 2m f/u DM. * Medical History: Objective: * Vitals: Past Vitals:* 11/05/2024 Temp:97.7F, HR:117/min, BP:S itting Right Arm:116/70mm Hg, Wt:190lbs, BMI:33.65Index, Ht:63in, Oxygen sat %:98% * 08/11/2024 Temp:97.4F, HR:105/min, BP:S itting Right Arm: 120/74mm Hg, Wt:190lbs, BMI:33.65Index, Ht:63in, Oxygen sat %:97% * 06/23/2024 BP:Sitting Right Arm: 126/80 mm Hg, Wt:186lbs, BMI:32.94Index, Ht:63in Assessment: Plan: * Treatment: * Images: Billing Information: * Visit Code: * Procedure Codes: * Electronic signature of Consuelo Castaneda MD on 03/08/2025 at 08:45 AM EST Sign off status: Pending * Provider: Claire Castaneda MD Date: 0 11/11/2024 Generated for Andrey whiting/Joshua/Heidi on: 05/08/2024 08:45 AM EST
--- OUTSIDE RECORDS SUMMARY | 2025-02-17 03:15 | XMS_ITS ---
Author Organization [facility] Address [address] [facility] [address] [place] [phone] Care Team Providers Care Semiconductor Packages Sealer Name Role Phone Katlyn Castaneda Primary Care Provider [phone] KATLYN CASTANEDA MD Unavailable Unavailable REASON FOR VISIT 2m f/u Diabetes Encounters Encounter Location Date Provider Diagnosis Katlyn Castaneda MD [address] [facility] [place] [address] [place] [phone] 02/17/2025 [facility] Plan Of Treatment Next Appt Details Provider Name:Katlyn Castaneda , 05/24/2025 08:45:00 AM, [address] [facility], SUITE [facility], [place], [place], [phone], Progress Notes * Sharonda NAVARRO MDOB:1970 (54 yo F)Acc No.[id number]:02/17/2025 Progress Notes Patient: Sharonda ASH Provider: Claire Castaneda MD :1970 A ge:54 Y S ex:Female Date:02/17/2025 Address:[address] [id number] Subjective: * Chief Complaints: * 1 . 2m f/u Diabetes. * Medical History: Objective: * Vitals: Past Vitals:* 02/16/2025 Temp:96.7F, HR:121/min, BP:1 14/70mm Hg, Wt:185.2lbs, BMI:32.8Index, Ht:63in, Oxygen sat %:95% * 12/16/2024 Temp:95.6F, HR:102/min, BP:1 14/70mm Hg, Wt:185lbs, BMI:32.77Index, Ht:63in, Oxygen sat %:96% * 11/05/2024 Temp:97.7F, HR:117/min, BP:S itting Right Arm:116/70mm Hg, Wt:190lbs, BMI:33.65Index, Ht:63in, Oxygen sat %:98% Assessment: Plan: * Treatment: * Images: Billing Information: * Visit Code: * Procedure Codes: * Electronic signature of Consuelo Castaneda MD on 03/08/2025 at 08:44 AM EST Sign off status: Pending * Provider: Claire Castaneda MD Date: 04/19/2024 Generated for Andrey whiting/Joshua/Heidi on: 05/08/2024 08:44 AM EST
--- NOTE | 2025-03-08 08:32 | MHC.OFFVIS ---
Intake Visit Reasons: 3m KIMBERLEY, Tremors, ADD Allergies arias Allergy (Unknown, Verified 03/08/25 08:39) ITCHY THROAT peach (PEACH) Allergy (Unknown, Verified 03/08/25 08:39) ITCHY THROAT Penicillins (PENICILLINS) Allergy (Unknown, Verified 03/08/25 08:39) SWELLING Medication List - Last Reconciled 03/08/25 by Eulalia Cordero, TYLER acetaminophen (Tylenol Extra Strength) 1,000 mg (2 x 500 mg) PO QID PRN cabergoline 0.25 mg PO 2XW dicyclomine 10 mg PO TID gabapentin 300 mg PO DAILY levofloxacin 750 mg PO DAILY 7 days metformin ER 1,000 mg PO QAM metronidazole (Flagyl) 500 mg PO BID 7 days naproxen 500 mg PO BID PRN oxycodone 5 mg PO BID PRN propranolol ER 80 mg PO DAILY tirzepatide (Mounjaro) 10 mg subcut QWEEK HPI Comments Details: She was doing okay. 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 She had in-lab sleep study in 12/2024. She took NyQuil before in-lab sleep study as she was worried about not sleeping during test. She saw sleep specialist in [place] and informed them of this, and home sleep study ordered which was scheduled for next month. She also saw ENT and was told she had deviated nasal septum, post nasal drip, and recommended to use steward/stewardess night. Ozempic switched to Mounjaro and may have lost some weight. Tremors have been stable, L > R. Tremors are most noticeable when trying to do nails or put on makeup. No difficulty eating, drinking, or swallowing. Has some trouble focusing on homework by herself, needing to take frequent breaks and felt her processing of information was slow. She was able to get homework done within 45 minutes when doing it with someone else. She tried Vyvanse, but it did not help and disrupted sleep, stopped medication. says that she snores and his sleep is very disrupted by this. Had neuropsych testing at [facility], was told no memory issue but has untreated ADD. Tried Ritalin and Concerta in the past which did not help. Forgetful and has trouble focusing, easily distracted. Sets reminders on phone. Work is okay. Noticed memory problems and difficulty retrieving words around 2021. Tremors have been stable, somedays worse than others. Tremors worse if she lifts something heavy for a while. No impairment on functional ability. No difficulty eating or drinking. She believes she may have had tremors in left arm since age 27 after review previous orthopedic records.? Gets periods of twitching in the right upper lid. She is left-handed and when the arm is tired, it shakes more which affects her writing. She has tremors in the left hand that come and go, especially if she is holding something heavy since 2019. No tremors on right side. Sleep is okay. In the past, episodes of tremor were about 4x/week, at times worse than others. She also complains of cramping in the left foot at times, has to stand up and stretch it. Her mother has history of alcohol use disorder, used to have tremors. She had dementia in late 50s and now does not recognize family in 70s. Maternal uncle and 2 paternal uncles have Parkinson's disease. [facility] Medical History (Updated 03/08/25 @ 08:38 by Eulalia Coredro CNP) ADD (attention deficit disorder) MCI (mild cognitive impairment) Benign essential tremor HTN (hypertension) Surgical History Hx of cholecystectomy Family History (Updated 12/07/24 @ 08:40 by Eulalia Cordero CNP) Mother Dementia Alcohol use disorder Maternal Uncle Parkinsons disease Paternal Uncle Parkinsons disease Paternal Uncle Parkinsons disease Social History Alcohol intake: never Review of Systems Const Denies chills, Denies daytime sleepiness, Denies difficulty sleeping, Denies fatigue, Denies fever(s), Denies frequent falls, Denies headache(s), Denies increased appetite, Denies poor appetite, Reports snoring, Denies weakness, Denies weight gain and Denies weight loss Eyes Denies loss of vision ENT Denies vertigo, Denies dizziness, Denies headache(s) and Denies neck pain Card Denies chest pain at rest, Denies chest pain with activity, Denies syncope, Denies leg edema, Denies palpitations, Denies dyspnea and Denies dyspnea on exertion Resp Denies cough, Denies dyspnea, Denies dyspnea on exertion and Reports snoring GI Denies abdominal pain, Denies constipation, Denies heartburn, Denies diarrhea and Denies nausea Denies urinary frequency, Denies urinary incontinence and Denies urinary urgency Musc Denies abnormal gait, Denies back pain, Denies myalgias, Denies arthralgias, Denies neck pain, Denies numbness and Denies tingling Neuro Denies abnormal gait, Denies vertigo, Denies dizziness, Denies syncope, Denies frequent falls, Denies headache(s), Denies lack of coordination, Denies loss of vision, Denies memory loss, Denies numbness, Denies Other visual disturbances, Denies restless legs, Denies seizure-like activity, Denies tingling, Denies paresthesias, Reports tremor(s) and Denies weakness Psych Denies anxiety, Reports depression, Denies auditory hallucinations, Denies memory loss and Denies visual hallucinations Endo Denies fatigue and Denies palpitations Physical Exam Const Other: General Appearance:? normal, in no acute distress. Heart:? S1, S2 normal, no murmurs. Lungs:? clear anteriorly and posteriorly. Musculoskeletal:? normal. Extremities:? no edema. Psych:? alert, oriented, cognitive function intact, cooperative with exam. Neuro Other: Abnormal Neurological Findings:?No hand tremor when held in outstretched position or at rest that does not affect her ability to function in any way Mental Status: alert and oriented X 3. Normal attention, orientation, memory, and affect. Cranial Nerves: Pupils are equal, round, and reactive to light. External ocular muscles are intact. Visual treadwell are full, no ptosis. Face is symmetrical, no facial weakness or droop. Facial sensations are normal. Tongue protrudes in midline. Palate elevates symmetrically. Shoulder shrugging is normal Motor Examination: Normal muscle tone, bulk and strength. No atrophy or fasciculations. No drift of the extended upper extremities. DTR 2+. Plantars are flexor. Sensory Exam: Normal light touch, temperature, pinprick, vibration, and joint-position sensations. Rhomberg sign is absent. Coordination: No ataxia. No titubation. Gait Exam: Within normal limits. Cerebellar Signs: [id number] is okay. Extrapyramidal System: Fine intermittent left hand tremor in an outstretched position as above. No rigidity with normal facial expressions. No bradykinesia. No bradyphrenia. Normal arm swing and posture. No propulsion or retropulsion. Speech: Normal. Results Reviewed Results Reviewed: EEG 03/01/23- WNL MRI brain 03/07: normal. Labs 03/07: normal. In lab sleep study 12/2024: Sleep efficienct 90% and sleep architecture relatively normal. No evidence of sleep apnea as total sleep time AHI was only 1.4. This is excessive amount of snoring for 50% of sleep time. O2 sat average 94%, minimun 88%, and there was no O2 sat below 88% Assessment & Plan Assessment & Plan (1) Benign essential tremor: Code(s): G25.0 - Essential tremor Category: Medical Plan: Continue propranolol ER 80mg 1 capsule daily. (2) ADD (attention deficit disorder): Code(s): F98.8 - Other specified behavioral and emotional disorders with onset usually occurring in childhood and adolescence Category: Medical Qualifiers: Attention deficit type: unspecified type Qualified Code(s): F98.8 - Other specified behavioral and emotional disorders with onset usually occurring in childhood and adolescence (3) Snoring: Code(s): R06.83 - Snoring Category: Medical Plan: Sleep study results reviewed, no evidence of sleep apnea. Strategies to minimize snoring reviewed. She reported taking NyQuil before in-lab sleep study as she was worried about not sleeping, which may have impacted accuracy of results. She was following with sleep specialist in [place] who ordered home sleep study which was scheduled for next month. She was asked to send copy of results to office. Plan Meds tried: Ritalin, Concerta, Vyvanse Coding Level of Care Code Est Pt Level 3 (95345) Diagnoses Benign essential tremor G25.0 Attention deficit disorder, unspecified type F98.8 Attention deficit type: unspecified type Snoring R06.83
--- OUTSIDE RECORDS SUMMARY | 2025-03-08 08:44 | XMS_ITS | Encounter Summary ---
Author Organization [facility] Address [address] [place] [address] Phone Care Team Providers Care Program Production Specialist Name Role Phone Lee José MD Primary Care Provider [phone] Lee José MD Unavailable [phone] Arsen Del Rio MD Unavailable [phone] Joyce Alejandra MD Unavailable [phone] Tanja Nava PA-C Unavailable [phone] Katlyn Colbert MD Primary Care Provider [phone] Encounter Details Date Type Department Care Team (Late st Contact Info) Description 10/10/2023 Procedure Pass [facility] [address] [place] [id number] Social History Tobacco Use Types Packs/Day Years [...] Care Team (Late st Contact Info) Description 02/01/2025 Procedure Pass [facility] Radiology [address] [address] 02/01/2025 Procedure Pass [facility] for Breast Imaging [address] [address] 02/12/2025 Procedure Pass [facility] for Breast Imaging [address] [address] 02/12/2025 Procedure Pass [facility] for [facility] Imaging [address] [place] [address] 07/26/2025 9:15 AM EDT Appointment [facility] for Breast Imaging [address] [place] [address] Tanja Nava PA-C [address], Breast Ctr, [place] 2 [place] [address] [email or web address] 07/26/2025 9:30 AM EDT Appointment [facility] for Breast Imaging [address] [place] [address] Tanja Nava PA-C [address] Breast Ctr, [place] 2 [place] [address] [email or web address] 08/03/2025 11:15 AM EDT Appointment [facility] Radiology [address] [place] [address] Tanja Nava PA-C [address], Breast Ctr, [place] 2 [place] [address] [email or web address] 02/02/2026 11:15 AM EDT Appointment [facility] for [facility] Imaging [address] [place] 2nd [place] [address] Tanja Nava PA-C [address] [facility], Breast Ctr, [place] 2 [place] [address] [email or web address] documented as of this encounter Visit Diagnoses Not on filedocumented in this encounter Care Teams Program Production Specialist Relationship Specialty Start Date End Date Lee José MD [address] [place] [address] PCP - General Internal Medicine 10/20/13 12/16/24 Katlyn Colbert MD [address] [place] [address] [email or web address] PCP - General Internal Medicine 12/17/24 Lee José MD [address] [place] [address] Historical LMR Provider 01/29/17 Arsen Del Rio MD [address] [place] [address], [address] [place] [address] [email or web address] Historical LMR Provider 01/29/17 [place] [address] [email or web address] Historical LMR Provider 01/29/17 Tanja Nava PA-C [address], Breast Ctr, [place] 2 [place] [address] [email or web address] Physician Validation Specialist 11/05/23 documented as of this encounter Additional Source Comments The information contained in this document represents components of the legal health record. It is not the complete legal health record.[facility]
--- OUTSIDE RECORDS SUMMARY | 2025-03-08 08:44 | XMS_ITS | Encounter Summary ---
Author Organization [facility] Address [address] [place] [address] Care Team Providers Care Counter Hand Name Role Phone Katlyn Colbert Primary Care Provider [phone] Encounter Details Date Type Department Care Team (Late st Contact Info) Description 05/01/2024 Orders Only [address], 5th [place] [address] Dyan Urban MD [address] [place] [phone] Social History Tobacco Use Types Packs/Day Years [...] Care Team (Late st Contact Info) Description 05/26/2025 8:00 AM EST Follow-Up [facility] [address] [place] [address] Facility Coordinator: Pastora Smith NP [address] [place] [address] 11/24/2025 8:20 AM EDT Follow-Up [facility] [address] [place] [address] Facility Coordinator: Ryan Cho MD [address] [place] [address] documented as of this encounter Visit Diagnoses Not on filedocumented in this encounter Care Teams Counter Hand Relationship Specialty Start Date End Date Katlyn Colbert [address] [facility] [address] [facility]Y [place] [address] PCP - General Internal Medicine 03/20/24 documented as of this encounter
--- OUTSIDE RECORDS SUMMARY | 2025-03-08 08:44 | XMS_ITS | Patient Health Record ---
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 Name Role Phone Kat[facility] Castaneda Primary Care Provider [phone] KATLYN CASTANEDA MD Unavailable Unavailable Marie Mejia Unavailable [phone] Allergies Allergen (clinical drug ingredient) Drug/Non Drug Allergy documented on EMR Reaction Allergy Type Onset Date Status Penicillin G Benzathine Unknown Drug Allergy Active Results Component Value Reference Range Notes Respiratory Panel w/ SARS-Co [id number] Reviewed date:04/30/2024 05:30:22 PM Interpretation: Performing Lab:[facility] [place], [address] [place] [address], [place], Phone - [phone], Director - Cooper Notes/Report: Adenovirus Not Detected [...] Detected Mycoplasma pneumoniae Not Detected Not Detected Phosphorylated Tau 217 (pTau -217) (Not yet reviewed by provider) Interpretation: Performing Lab:[facility], [address] [facility], [facility], Phone - [phone], Director - Nany Notes/Report: Test(s) [id number] was developed and its performance characteristics determined by [employer]. It has not been cleared or approved by the Food and Drug Administration. p-yjc215 0.08 0.00-0.18 pg/mL Clinical cutoff value was established using samples from a patient cohort characterized with amyloid PET data. A p-jva992 value of >0.18 is a reported surrogate marker for beta amyloid pathology, and can be used to facilitate biological identification of Alzheimer's disease (1). p-tnb519 has also been used in clinical trials to monitor patients on anti-amyloid therapy (2,3). Test performed by [employer] chemiluminescent enzyme immunoassay (CLEIA). Values obtained with different methods cannot be used interchangeably. The validated limit of quantification is 0.06 pg/mL. Assay detection limit is 0.03 pg/mL. Footnotes 1. Oral Toledo, et al. Diagnostic Accuracy of a Plasma Phosphorylated Tau 217 Immunoassay for Alzheimer Disease Pathology. BAM neurology (2023). 2. Oral Toledo, et al. Differential roles of A42/40, p-jxl241 and p-goo288 for Alzheimer's trial selection and disease monitoring. Nature medicine 28.12 (2021): 3991-9375. 3. Elza OLVERA, Brenda M, Sylwia SC, et al. Association of Donan[place]ab Treatment With Exploratory Plasma Biomarkers in Early Symptomatic Alzheimer Disease: A Secondary Analysis of the TRAILBLAZER-ALZ Randomized Clinical Trial . ABM Neurol. 2021;79(12):1743-8176. IMGEAP Reviewed date:05/28/2024 05:12:48 PM Interpretation: Performing Lab: Notes/Report: See Note [facility], a member of [employer] INDICATION: Diverticulosis TECHNIQUE: CT scan of the abdomen and pelvis obtained without intravenous contrast. Oral contrast administered. Scanner: [employer] 64 slice VCT Dose reduction technique: ASIR [...] the office of KATLYN CASTANEDA via the drchrono System on 05/21/2024 4:10 PM, Message ID [id number]. -------- FINAL REPORT -------- Dictated By: Nicole Mccollum Dictated Date: 05/21/2024 16:06 ET Assigned Physician: Nicole Mccollum Reviewed and Electronically Signed By: Nicole Mccollum Signed Date: 05/21/2024 16:10 ET Workstation ID: [id number] Transcribed By: Self Edit Transcribed Date: 05/21/2024 16:06 ET Eye Exam Reviewed date:02/17/2025 08:30:53 AM Interpretation: Performing Lab: Notes/Report: Eye Exam Reviewed date:02/17/2025 08:30:53 AM Interpretation: Performing Lab: Notes/Report: Mammo: Diagnostic Mammogram Left Reviewed date:02/17/2025 08:30:53 AM Interpretation: Performing Lab: Notes/Report: TISSUE EXAM Reviewed [...] 10% NB formalin fixed and paraffin embedded. Hemoglobin A1C Reviewed date:01/29/2025 02:04:09 PM Interpretation:6.2 Performing Lab: Notes/Report: 6.2 HbA1c 6.2 Pneumococcal Ab (23 Serotype )-[id number] Reviewed date:11/18/2024 06:41:51 PM Interpretation: Performing Lab:[facility], [address] [place] [address], [address], Phone - [phone], Director - PhDNeil Notes/Report: Pneumo Ab Type 1* 2.5 >1.3 [...] developed and its performance characteristics determined by [employer]. It has not been cleared or approved by the U.S. Food and Drug Administration. FLAG Interpretation: A = Abnormal, H = High, L = Low Comp. Metabolic Panel (14)-3 60560 Reviewed date:11/18/2024 06:41:51 PM Interpretation: Performing Lab:[facility], [address], [address], [place], Phone - [phone], Director - PhDNeil Notes/Report: Glucose 97 70-99 mg/dL BUN 10 [...] 0-40 IU/L ALT (SGPT) 17 0-32 IU/L Albumin/Creatinine Ratio,Uri ne-460566 Reviewed date:11/18/2024 06:41:51 PM Interpretation: Performing Lab:[facility], [address] [place] [address], [facility], [place], Phone - [phone], Director - PhDNemt Notes/Report: Creatinine, Urine 247.5 Not Estab. mg/dL Albumin, Urine 7.7 Not Estab. ug/mL Alb/Creat Ratio 3 0-29 mg/g creat Normal: 0 - 29 Moderately increased: 30 - 300 Severely increased: >300 Vitamin D, 38-Iatduuz-203432 Reviewed date:11/18/2024 06:41:51 PM Interpretation: Performing Lab:[facility], [address] [place] [address], [place], Phone - [phone], Director - PhDCenterville Notes/Report: Vitamin D, 25-Hydroxy 28.9 30.0-100.0 ng/mL Vitamin D deficiency has been defined by the [place] [employer] and an Endocrine Society practice guideline as a level of serum 25-OH vitamin D less than 20 ng/mL (1,2). The Endocrine Society went on to further define vitamin D insufficiency as a level between 21 and 29 ng/mL (2). 1. IOM ([place] [employer]). 2010. Dietary reference intakes for calcium and D. [place]: The National Academies Press. 2. Odilon MF, Adolfo NC, Pardeep HOPKINS, et al. Evaluation, treatment, and prevention of vitamin D deficiency: an Endocrine Society clinical practice guideline. JCEM. 2010; 96(7):1911-30. Prolactin-816471 Reviewed date:11/18/2024 06:41:51 PM Interpretation: Performing Lab:[facility], [address] [place] [address], [facility], [place], Phone - [phone], Director - PhDBCNeil Notes/Report: Prolactin 32.6 3.6-25.2 ng/mL Urinalysis, Complete-596342 Reviewed date:11/18/2024 06:41:51 PM Interpretation: Performing Lab:[facility], [address] [place] [address], [facility], [place], Phone - [phone], Director - PhDBCNeil Notes/Report: Specific [place] >=1.030 1.005-1.030 pH 5.5 5.0-7.5 Urine-Color Yellow [...] Calcium Oxalate N/A Bacteria Many None seen/Few Hemoglobin A1C Reviewed date:12/01/2024 02:51:41 PM Interpretation: Performing Lab: Notes/Report: HbA1c 6.1 Hemoglobin A1C Reviewed date:12/01/2024 02:51:12 PM Interpretation: Performing Lab: Notes/Report: HbA1c 6.2 Comp. Metabolic Panel (14)-3 75334 Reviewed date:06/28/2024 04:51:14 PM Interpretation: Performing Lab:[facility] [place], [address], [place], Phone - [phone], Director - Cooper Notes/Report: Glucose 82 70-99 mg/dL BUN 13 [...] ALT (SGPT) 26 0-32 IU/L Albumin/Creatinine Ratio,Uri ne-016299 Reviewed date:06/28/2024 04:51:14 PM Interpretation: Performing Lab:[facility], [address] [place] [address], Phone - [phone], Director - Grisely Notes/Report: Creatinine, Urine 152.7 Not Estab. mg/dL Albumin, Urine 3.5 Not Estab. ug/mL Alb/Creat Ratio 2 0-29 mg/g creat Normal: 0 - 29 Moderately increased: 30 - 300 Severely increased: >300 Vitamin D, 50-Ythqteq-353828 Reviewed date:06/28/2024 04:51:14 PM Interpretation: Performing Lab:[facility] [place], [address] [place] [address], Phone - [phone], Director - Cooper Notes/Report: Vitamin D, 25-Hydroxy 22.7 30.0-100.0 ng/mL Vitamin D deficiency has been defined by the [place] [employer] and an Endocrine Society practice guideline as a level of serum 25-OH vitamin D less than 20 ng/mL (1,2). The Endocrine Society went on to further define vitamin D insufficiency as a level between 21 and 29 ng/mL (2). 1. IOM ([place] [employer]). 2010. Dietary reference intakes for calcium and D. [place]: The National Academies Press. 2. Odilon MF, Adolfo NC, Pardeep HOPKINS, et al. Evaluation, treatment, and prevention of vitamin D deficiency: an Endocrine Society clinical practice guideline. JCEM. 2010; 96(7):1911-30. Prolactin-839475 Reviewed date:06/28/2024 04:51:14 PM Interpretation: Performing Lab:[facility], [address] [place] [address], Phone - [phone], Director - Cooper Notes/Report: Prolactin 13.0 3.6-25.2 ng/mL TSH-[id number] Reviewed date:06/28/2024 04:51:14 PM Interpretation: Performing Lab:[facility] [place], [address] [place] [address], Phone - [phone], Director - Grisely Notes/Report: TSH 1.690 0.450-4.500 uIU/mL Urinalysis, Complete-718813 Reviewed date:06/28/2024 04:51:14 PM Interpretation: Performing Lab:[facility] [place], [address] [facility], Phone - [phone], Director - Cooper Notes/Report: Specific [place] 1.023 1.005-1.030 pH 5.5 5.0-7.5 Urine-Color Yellow [...] 05:00:40 PM Interpretation: Performing Lab: Notes/Report: [facility] Lot: [id number] CT Abdomen Pelvis WO Cont Reviewed date:05/25/2024 11:19:56 AM Interpretation: Performing Lab: Notes/Report: Pneumococcal Ab (23 Serotype )-[id number] Reviewed date:05/28/2024 05:12:49 PM Interpretation: Performing Lab:[facility] [place], [address] [facility], [place], Phone - [phone], Director - Cooper Notes/Report: Pneumo Ab Type [...] developed and its performance characteristics determined by [employer]. It has not been cleared or approved by the U.S. Food and Drug Administration. FLAG Interpretation: A = Abnormal, H = High, L = Low Comp. Metabolic Panel (14)-3 37938 Reviewed date:05/28/2024 05:12:48 PM Interpretation: Performing Lab:[facility], [address] [facility], [place], Phone - [phone], Director - Cooper Notes/Report: Glucose 113 70-99 mg/dL BUN 12 [...] 0-40 IU/L ALT (SGPT) 24 0-32 IU/L B-Type Natriuretic Peptide-1 96181 Reviewed date:05/28/2024 05:12:48 PM Interpretation: Performing Lab:[facility] [place], [address] [place] [address], Phone - [phone], Director - MDJodry Notes/Report: B-Type Natriuretic Peptide 5.8 0.0-100.0 pg/mL Siemens ADVIA [place] r XP methodology CBC With Differential/Platel et-957011 Reviewed date:05/28/2024 05:12:48 PM Interpretation: Performing Lab:[facility] [place], [address] [place] [address], Phone - [phone], Director - MDJodry Notes/Report: WBC 9.4 3.4-10.8 x10E3/uL RBC 4.37 [...] % Immature Grans (Abs) 0.0 0.0-0.1 x10E3/uL Hemoglobin O9s-[id number] Reviewed date:05/28/2024 05:12:48 PM Interpretation: Performing Lab:[facility], [address] [place] [address], Phone - [phone], Director - MDKimberlydry Notes/Report: Hemoglobin A1c 6.5 4.8-5.6 % . Prediabetes: 5.7 - 6.4 Diabetes: >6.4 Glycemic control for adults with diabetes: <7.0 MR Conor GARCIA Reviewed date:05/28/2024 05:12:49 PM Interpretation: Performing Lab: Notes/Report: Echocardiogram Reviewed date:04/30/2024 04:32:20 PM Interpretation: Performing Lab: Notes/Report: Hemoglobin A1C Reviewed date:02/17/2025 08:30:52 AM Interpretation:6 Performing Lab: Notes/Report: 6 HbA1c 6.0 LP+Non-HDL Cholesterol-09985 5 (Not yet reviewed by provider) Interpretation: Performing Lab:[facility] [place], [address] [place] [address], [place], Phone - [phone], Director - MDLeey Notes/Report: Cholesterol, Total 155 100-199 mg/dL Triglycerides 199 0-149 mg/dL HDL Cholesterol 41 >39 mg/dL VLDL Cholesterol Shayan 34 5-40 mg/dL LDL Chol Calc (NIH) 80 0-99 mg/dL Non-HDL Cholesterol 114 0-129 mg/dL Comp. Metabolic Panel (14)-3 44591 (Not yet reviewed by provider) Interpretation: Performing Lab:[facility] [place], [address] [place] [address], Phone - [phone], Director - Grisely Notes/Report: Glucose 93 70-99 mg/dL BUN 11 6-24 mg/dL Creatinine 0.90 0.57-1.00 mg/dL eGFR 77 >59 mL/min/1.73 BUN/Creatinine Ratio 12 9-23 Sodium 137 134-144 mmol/L Potassium 4.1 3.5-5.2 mmol/L Chloride 104 96-106 mmol/L Carbon Dioxide, Total 20 20-29 mmol/L Calcium 8.8 8.7-10.2 mg/dL Protein, Total 6.8 6.0-8.5 g/dL Albumin 4.1 3.8-4.9 g/dL Globulin, Total 2.7 1.5-4.5 g/dL Bilirubin, Total 0.2 0.0-1.2 mg/dL Alkaline Phosphatase 104 49-135 IU/L AST (SGOT) 16 0-40 IU/L ALT (SGPT) 15 0-32 IU/L Albumin/Creatinine Ratio,Uri ne-604589 (Not yet reviewed by provider) Interpretation: Performing Lab:[address], Phone - [phone], Director - [facility] Notes/Report: Creatinine, Urine 228.5 Not Estab. mg/dL Albumin, Urine 10.7 Not Estab. ug/mL Alb/Creat Ratio 5 0-29 mg/g creat Normal: 0 - 29 Moderately increased: 30 - 300 Severely increased: >300 Vitamin D, 86-Spmgsbk-011898 (Not yet reviewed by provider) Interpretation: Performing Lab:[address], Phone - [phone], Director - [facility] Notes/Report: Vitamin D, 25-Hydroxy 29.5 30.0-100.0 ng/mL The Endocrine Society went on to further define vitamin D insufficiency as a level between 21 and 29 ng/mL (2). 1. IOM ([place] [employer]). 2010. Dietary reference intakes for calcium and D. [place]: The National Academies Press. 2. Odilon MF, Adolfo [place], Black-Merrill HOPKINS, et al. Evaluation, treatment, and prevention of vitamin D deficiency: an Endocrine Society clinical practice guideline. JCEM. 2010; 96(7):1911-30. Vitamin D deficiency has been defined by the [place] [employer] [place] and an Endocrine Society practice guideline as a level of serum 25-OH vitamin D less than 20 ng/mL (1,2). Prolactin-173493 (Not yet re viewed by provider) Interpretation: Performing Lab:[address], Phone - [phone], Director - [facility] Notes/Report: Prolactin 24.3 3.6-25.2 ng/mL Urinalysis, Complete-015568 (Not yet reviewed by provider) Interpretation: Performing Lab:[address], [place], Phone - [phone], [facility] Notes/Report: Specific [place] 1.023 1.005-1.030 pH 5.5 5.0-7.5 Urine-Color Yellow Yellow Appearance Clear Clear WBC Esterase Negative Negative Protein Trace Negative/Trace Glucose Negative Negative Ketones Negative Negative [...] None seen /lpf Bacteria Few None seen/Few Reason For Referral Reason Referral to [facility] Breast Specialist - Dr. Novak faxed Diagnosis 1 Nipple discharge (N6 4.52) Referral Organization [facility] Referring Provider First Name Marie Referring Provider Last Name Jackie Referring Provider Speciality Nurse Benjie agee Referred Provider Rosy Novak Referred Provider Specialty Oncology General Notes [facility] Katalina 08/2023 03:10:53 PM >faxed Referral Priority Routine [...] be completed and need BCBS ins referral, [facility] Katalina 05/13/2024 04:05:06 PM >faxed, [facility] Katalina 05/13/2024 04:08:43 PM >Ins Referral Reference#: [id number] Referral Priority Routine Referral Appointment Date 05/22/2024 [...] Sharma Referred Provider Specialty Urology General Notes [facility] 05/16 08:27:57 AM >faxed, Ins Referral will be needed, [facility] Katalina 06/24/2024 03:54:40 PM >Appt 07/03/24 at 11am, ASMKatalina MISTRY 06/29/2024 04:45:29 PM >Ins referral completed, Reference#: [id number] Referral Priority Routine Referral Appointment Date 08/10/2024 Reason faxed Diagnosis 1 Snoring (R06.83) Referral Organization [facility] Referring Provider First Name Katlyn Referring Provider Last Name Filemon Referring Provider Speciality Internal M edicine Referred Provider You Mckeon Referred Provider Specialty Ear, nose an d throat surgeon General Notes [facility] 09/13 10:12:24 AM >Faxed to multiple providers, [facility] 12/01/2024 08:31:31 AM >Patient to go to sleep medicine for increased snoring. New referral in. Referral Priority Routine Reason faxed Diagnosis 1 Snoring (R06.83) Referral Organization [facility] Referring Provider First Name Katlyn Referring Provider Last Name Filemon Referring Provider Speciality Internal M edicine Referred Provider Samuel Maravilla Referred Provider Specialty Sleep Medici ne General Notes [facility] 10/15 05:07:26 PM >faxed, [facility] 11/16/2024 10:49:34 AM >Booked in March 08, 2025 Referral Priority Routine Referral Appointment Date 03/08/2025 Medications Medication SIG (Take, Route, Frequency, Duration) Notes Start Date End Date Status Ibuprofen 600 MG 1 tablet with food o r milk as needed Orally Three times a day Active Budesonide-Formoterol Fumarate 80-4.5 MCG/ACT 2 Puffs Inhalation twice a day; Duration: 28 days 06/23/2024 06/01/2025 Active Riboflavin 400 MG 1 capsule Orally Onc e a day; Duration: 30 day(s) Active Gabapentin 300 MG 1 capsule Orally Onc e a day; Duration: 30 day(s) Active Bengay Active Propranolol HCl ER 60 MG Oral; Duration: 90 Days Active Magnesium 400 MG as directed Orally Active Estradiol 0.1 MG/24HR 1 patch to skin Transdermal Two times a Week; Duration: 30 day(s) Active Biotin 5000 MCG 1 capsule Orally Onc e a day; Duration: 30 day(s) Active Hyoscyamine Sulfate 0.125 MG TAKE 1 TABLET BY MOUTH EVERY 6 HOURS IF NEEDED FOR CRAMPING OR DIARRHEA TAKE BEFORE MEALS Oral; Duration: 30 Days Active Trospium Chloride 20 MG 1 tablet at bedt costa on an empty stomach Orally Once a day; Duration: 30 day(s) Active Mounjaro 10 MG/0.5ML 10 mg Subcutaneous Every 7 Days; Duration: 84 days 11/05/2024 01/18/2026 Active Tretinoin 0.01 % 1 application in the evening to face Externally Once a day Active Hair Skin & Nails Ac tive Polyeth Glyc-Propylene Glyc Active Icy Hot Lidocaine Plus Menthol 4-1 % 1 application as needed Externally Three times a day Active Fluticasone Propionate 50 MCG/ACT 1 spray in each nostril Nasally Once a day Active Senna 8.6 MG 2 tablets at bedtime as needed Orally Once a day; Duration: 30 day(s) Active Cabergoline 0.5 MG TAKE 0.5 TABLETS (0. 25 MG TOTAL) BY MOUTH 2 TIMES A WEEK. Oral; Duration: 28 Days Active Immunizations Vaccine Route Administration Date Status Comme nts *Influenza-Flublok Unknown 01/08/2024 Administered *Influenza-Flublok Unknown 01/09/2025 Administered *PREVNAR 20 IM Intramuscular 06/23/2024 Administered *Shingrix Unknown 11/18/2022 Administered *Shingrix Unknown 03/03/2023 Administered *Tdap Unknown 08/27/2014 Administered *Tdap Unknown 01/19/2025 Administered COVID COMIRNATY Pfizer Unknown 01/09/2025 Administered COVID Spikevax Moderna Unknown 02/01/2023 Administered COVID Spikevax Moderna Unknown 01/08/2024 Administered COVID-19 Moderna BiValent Booster Unknown 01/17/2022 Administered CLPKH-89-Hnlehjw Vaccine Unknown 05/27/2020 Administere d BOGAH-72-Kkrhucj Vaccine Unknown 06/24/2020 Administere d WLUBP-83-Mppzlvi Vaccine Unknown 02/28/2021 Administere d Hep A, adult Unknown 02/25/2018 Administered Glcpwdgyf-3816-03 Afluria-Single Unknown 02/05/2020 Administered Vmzyiixsc-7392-54 Afluria-Single Unknown 02/28/2021 Administered Rgzcerdtt-5415-41 Afluria-Single Unknown 01/17/2022 Administered Sovxvcvqj-7660-40 Afluria-Single Unknown 12/28/2022 Administered Meningococcal MCV4O (CVX 114) Unknown 02/25/2018 Administered menquadfi Unknown 02/15/2025 Administered MMR Unknown 04/22/2019 Administered MMR Unknown 05/27/2019 Administered Pneumococcal polysaccharide PCV 13 Unknown 04/20/2011 Administered Pneumococcal polysaccharide PCV 13 Unknown 02/25/2018 Administered RSV Unknown 01/09/2025 Administered Social History Tobacco Use: Social History Observation Description Date Details (start date - stop date) Never Smoker NA - NA AUDIT-C (Standard) Question Answer Notes Did you have a drink containing alcohol in the p ast year? No Points 0 Interpretation Negative Tobacco Control (Standard) Question Answer Notes Tobacco use: Nonsmoker Section Notes: Tobacco use: Does Not Smoke Tobacco use: Does Not Smoke Problems Problem Type SNOMED Code ICD Code Onset Dates Problem Status W/U Status Risk Notes Problem Diabetic renal disease (621445705) Type 2 diabetes mellitus with diabetic chronic kidney disease (E11.22) Active confirmed Problem Hyperprolactinemia (932030718) Hyperprolactinemia (E22.1) Active confirmed Problem Disorder of pituitary gland (392962313) Other disorders of pituitary gland (E23.6) Active confirmed Problem Vitamin D deficiency (48277498) Vitamin D deficiency, unspecified (E55.9) Active confirmed Problem Obesity due to excess calories (807708756) Other obesity due to excess calories (E66.09) Active confirmed Problem Essential tremor (087942974) Essential tremor (G25.0) Active confirmed Problem Chronic intractable migraine without aura (506561678149079) Chronic migraine without aura, intractable, without status migrainosus (G43.719) Active confirmed Problem Essential hypertension (81059626) Essential (primary) hypertension (I10) Active confirmed Problem Chronic kidney disease due to hypertension (273332726536397) Hypertensive chronic kidney disease with stage 1 through stage 4 chronic kidney disease, or unspecified chronic kidney disease (I12.9) Active confirmed Problem Allergic rhinitis (59005190) Allergic rhinitis, unspecified (J30.9) Active confirmed Problem Mild intermittent asthma (974477964) Mild intermittent asthma, uncomplicated (J45.20) Active confirmed Problem Diverticular disease of colon (370691661) Diverticulosis of large intestine without perforation or abscess without bleeding (K57.30) Active confirmed Problem Sciatica (24922713) Lumbago with sciatica, right side (M54.41) Active confirmed Problem Stricture of ureter (68467891) 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) Active confirmed Problem Chronic kidney disease stage 1 (608653209) Chronic kidney disease, stage 1 (N18.1) Active confirmed Problem Chronic kidney disease stage 2 (490694588) Chronic kidney disease, stage 2 (mild) (N18.2) Active confirmed Problem Amnesia (05331891) Other amnesia (R41.3) Active confirmed Problem Solitary pulmonary nodule (701545130) Solitary pulmonary nodule (R91.1) Active confirmed Problem Body mass index 30.00 to 34.99 (598148645338365) Body mass index [BMI] 32.0-32.9, adult (Z68.32) Active confirmed Problem Body mass index 30.00 to 34.99 (865819864557224) Body mass index [BMI] 33.0-33.9, adult (Z68.33) Active confirmed Problem Supraventricular tachycardia (disorder) (8137500) Other supraventricular tachycardia (I47.19) Active confirmed Problem Attention deficit hyperactivity disorder, predominantly inattentive type (disorder) (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) Attention and concentration deficit (R41.840) Inactive confirmed Vital Signs Heart Rate 121 /min 02/16/2025 Temperature 96.7 degrees Fahrenheit 02/16/2025 Blood pressure diastolic 70 mm Hg 02/16/2025 Oximetry 95 % 02/16/2025 Height 63 in 02/16/2025 Blood pressure systolic 114 mm Hg 02/16/2025 Weight 185.2 lbs 02/16/2025 BMI 32.8 kg/m2 02/16/2025 Procedures Procedure Date Ordered Date Performed Result Body Sit e HOLTER MONITOR, 7 DAYS, APPLICATION 03/19/2024 N/A COLONOSCOPY 05/27/2024 03/22/2021 N/A HOLTER MONITOR, 7 DAYS, INTERPRETATION 06/23/2024 N/A Encounters Encounter Location Date Provider Diagnosis Katlyn Castaneda MD [address] [id number] 03/19/2024 Marie Mejia Attention and concentration deficit R41.840 ; Prediabetes R73.03 ; Essential (primary) hypertension I10 ; Essential tremor G25.0 ; Nipple discharge N64.52 ; Chronic migraine without aura, intractable, without status migrainosus G43.719 ; Palpitations R00.2 and Other disorders of pituitary gland E23.6 Katlyn Castaneda MD [address] [id number] 04/29/2024 Katlyn Castaneda Acute upper respirat ory infection, unspecified J06.9 Katlyn Castaneda MD [address] [id number] 05/12/2024 Marie Mejia Encounter for genera l [...] 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 Katlyn Castaneda MD [address] [id number] 06/23/2024 Katlyn Castaneda Hypertensive chronic kidney disease [...] Encounter for immunization Z23 Katlyn Castaneda MD [address] [id number] 08/11/2024 Katlyn Castaneda Hypertensive chronic kidney disease [...] D deficiency, unspecified E55.9 Katlyn Castaneda MD [address] [id number] 11/05/2024 Katlyn Castaneda Type 2 diabetes chinyere [...] capsule, initial encounter S43.421A Katlyn Castaneda MD [address] [id number] 12/16/2024 Katlyn Castaneda Type 2 diabetes chinyere [...] Encounter for immunization Z23 Katlyn Castaneda MD [address] [id number] 02/16/2025 Katlyn Castaneda Type 2 diabetes chinyere itus [...] ; Vitamin D deficiency, unspecified E55.9 and Allergic rhinitis, unspecified J30.9 Katlyn Castaneda MD [address] [id number] 03/08/2024 Marie Mejia Vitamin D deficiency , unspecified E55.9 Katlyn Castaneda MD [address] [id number] 04/23/2024 Marie Mejia Attention and concentration deficit R41.840 Katlyn Castaneda MD [address] [id number] 04/28/2024 Marie Castaneda MD [address] [id number] 05/07/2024 Marie Castaneda MD [address] [id number] 05/12/2024 Marie Castaneda MD [address] [id number] 05/22/2024 Marie Castaneda MD [address] [id number] 05/28/2024 Katlyn Castaneda MD [address] [id number] 06/08/2024 Marie Castaneda MD [address] [id number] 07/23/2024 Katlyn Castaneda MD [address] [id number] 08/12/2024 Marie Castaneda MD PC [address] [place] [address] [id number] 09/29/2024 Katlyn Castaneda MD PC [address] [place] [address] [id number] 11/05/2024 Katlyn Castaneda MD PC [address] [place] [address] [id number] 11/11/2024 Katlyn Castaneda Snoring R06.83 Katlyn Castaneda MD PC [address] [facility] [address] [place] [address] [id number] 11/18/2024 Katlyn Castaneda MD PC [address] [place] [address] [id number] 12/01/2024 Katlyn Castaneda MD PC [address] [facility] [address] [place] [address] [id number] 02/16/2025 Katlyn Castaneda MD PC [address] [facility] [address] [place] [address] [id number] 03/01/2025 Katlyn Castaneda Other amnesia R41.3 Katlyn Castaneda MD PC [address] [facility] [address] [place] [address] [id number] 04/30/2024 Marie Castaneda MD PC [address] [facility] [address] [place] [address] [id number] 04/30/2024 Marie Castaneda MD PC [address] [facility] [address] [place] [address] [id number] 04/30/2024 Marie Castaneda MD PC [address] [facility] [address] [place] [address] [id number] 04/30/2024 Marie Castaneda MD PC [address] [facility] [address] [place] [address] [id number] 05/11/2024 Mariemarguerite Thapae Katlyn Castaneda MD PC [address] [facility] [address] [place] [address] [id number] 05/22/2024 Marie Mejia 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 Katyln Castaneda MD PC [address] [facility] [address] [place] [address] [id number] 05/25/2024 Marie Castaneda MD PC [address] [facility] [address] [place] [address] [id number] 05/27/2024 Marie Mejia Attention and concentration deficit R41.840 Katlyn Castaneda MD PC [address] [facility] [address] [place] [address] [id number] 06/24/2024 Marie Castaneda MD PC [address] [facility] [address] [place] [address] [id number] 08/12/2024 Marie Castaneda MD [address] [place] [address] [id number] 08/31/2024 Marie Castaneda MD [address] [place] [address] [id number] 09/04/2024 Katlyn Castaneda MD [address] [place] [address] [id number] 09/08/2024 Katlyn Castaneda MD [address] [place] [address] [id number] 09/21/2024 Katlyn Castaneda Type 2 diabetes chinyere itus with diabetic chronic kidney disease E11.22 Katlyn Castaneda MD [address] [place] [address] [id number] 09/22/2024 Katlyn Castaneda MD [address] [place] [address] [id number] 09/24/2024 Katlyn Castaneda MD [address] [place] [address] [id number] 09/24/2024 Katlyn Castaneda Snoring R06.83 Katlyn Castaneda MD [address] [place] [address] [id number] 09/25/2024 Katlyn Castaneda MD [address] [place] [address] [id number] 10/27/2024 Katlyn Castaneda MD [address] [place] [address] [id number] 12/11/2024 Katlyn Castaneda MD [address] [id number] 02/23/2025 Katlyn Castaneda Encounter for screen ing for respiratory tuberculosis Z11.1 Assessments Encounter Date Diagnosis (ICD Code) Assessment Notes Treatment Notes Treatment Clinical Notes Section Notes 03/08/2024 Vitamin D deficiency , unspecified (ICD-10 [...] the higher Vyvanse dose 05/12/2024 Encounter for [facility] adult medical examination without abnormal findings [...] to 7.5 mg after finishing current supply. 02/16/2025 Type 2 diabetes mellitus with diabetic chronic kidney disease (ICD-10 - E11.22) A1C glycohemoglobin improved to 6.0 today from 6.2 at last visit. Patient is taking Mounjaro and planning to increase dose to 10 mg for better diabetes control. Kidney function and blood pressure are stable, supporting diabetes management. - Increase Mounjaro to 10 mg for improved glycemic control. - Monitor A1C and glycohemoglobin levels. - Continue current diabetes management regimen. 02/23/2025 Encounter for screening for respiratory tuberculosis (ICD-10 - Z11.1) 03/01/2025 Other amnesia (ICD-1 0 - R41.3) 02/16/2025 Chronic kidney disease, stage 1 (ICD-10 - N18.1) Kidney function improved from stage 2 to stage 1. Creatinine and GFR reviewed and stable. Better diabetes and blood pressure control contributed to improvement. 02/16/2025 Hypertensive chronic kidney disease with stage 1 through stage 4 chronic kidney disease, or unspecified chronic kidney disease (ICD-10 - I12.9) Blood pressure is 114/70. Kidney creatinine and GFR improved to 90s. No microalbumin or protein in urine. - Continue current hypertension management. - Monitor blood pressure and kidney function. 12/16/2024 Chronic kidney disease, stage 1 (ICD-10 - N18.1) Kidney function improved from stage 2 to stage 1. Creatinine and GFR reviewed and stable. Better diabetes and blood pressure control contributed to improvement. 12/16/2024 Hypertensive chronic kidney disease with stage [...] to obtain pneumococcal antibodies for further evaluation. 03/19/2024 Essential (primary) hypertension (ICD-10 - I10) [...] if this can better manage tremor symptoms 08/11/2024 Mild intermittent asthma, uncomplicated (ICD-10 - [...] puffs twice a day, regardless of symptoms. 02/16/2025 Mild intermittent asthma, uncomplicated (ICD-10 - J45.20) Patient reports persistent cough even when asthma is not active. Uses budesonide inhaler twice daily and albuterol as needed. Symptoms improved with consistent inhaler use. - Continue budesonide inhaler twice daily. - Continue albuterol inhaler as needed. - Monitor for cough and asthma symptoms. 12/16/2024 Other supraventricular tachycardia (ICD-10 - I47.19) Stable with current medical therapy with propranolol 11/05/2024 Essential tremor (ICD-10 - G25.0) Stable with current medical therapy 02/16/2025 Other supraventricular tachycardia (ICD-10 - I47.19) Stable with current medical therapy with propranolol 06/23/2024 Essential tremor (ICD-10 - G25.0) Has been on propranolol for some time. She had persistent tachycardia and her propranolol was changed to a long-acting preparation 08/11/2024 Essential tremor (ICD-10 - G25.0) Stable at present. She continues an propranolol to help treat this. 03/19/2024 Nipple discharge (ICD-10 - N64.52) Patient with a history of non-bloody nipple discharge, worse from the left side. Patient has been followed by multiple breast specialist without any findings to explain this symptom. Most recent lab work was without significant findings or elevated prolactin levels. Would like patient evaluated by Dr. Novak at [facility] for further evaluation 05/12/2024 Nipple discharge (ICD-10 - N64.52) Patient with a history of non-bloody nipple discharge, worse from the left nipple. Patient is currently followed by [facility] and is scheduled for a [...] blood pressure readings in previous PCP offices. 03/19/2024 Chronic migraine without aura, intractable, without [...] Increase Mounjaro to further support weight loss. 02/16/2025 Other obesity due to excess calories (ICD-10 - E66.09) Weight remains stable at 185 lbs. Patient is considering phentermine but provider recommended Mounjaro for superior efficacy. Insurance coverage for weight loss medications is a concern. - Increase Mounjaro to 10 mg for weight loss. - Monitor weight and BMI. - Encourage physical activity as tolerated. 11/05/2024 Other supraventricular tachycardia (ICD-10 - I47.19) Stable with current medical therapy with propranolol 12/16/2024 Body mass index [BMI ] 33.0-33.9, adult (ICD-10 - Z68.33) Her BMI is elevated and recommend exercise for adjunct therapy for weight loss for goal of BMI less than 30 02/16/2025 Body mass index [BMI ] 33.0-33.9, adult (ICD-10 - Z68.33) Weight remains stable at 185 lbs. Patient is considering phentermine but provider recommended Mounjaro for superior efficacy. Insurance coverage for weight loss medications is a concern. - Increase Mounjaro to 10 mg for weight loss. - Monitor weight and BMI. - Encourage physical activity as tolerated. 06/23/2024 Other supraventricular tachycardia (ICD-10 - I47.19) [...] any new or worsening symptoms of concerns 05/12/2024 Diverticulosis of large intestine without perforation [...] gland given intermittent episodes of nipple discharge 08/11/2024 Attention and concentration deficit (ICD-10 - [...] try to increase dose and reevaluate situation 02/16/2025 Hyperprolactinemia (ICD-10 - E22.1) Patient continues to experience leakage. Prolactin dose is half a pill 3 times a week. Recent labs showed a slight increase in prolactin levels. - Continue current prolactin regimen. - Monitor prolactin levels and adjust dose if necessary. 12/16/2024 Hyperprolactinemia (ICD-10 - E22.1) Ongoing breast [...] - G25.0) Stable with current medical therapy 02/16/2025 Essential tremor (ICD-10 - G25.0) Propranolol is helping with tremor. Patient continues regular use of propranolol. - Continue propranolol for tremor management. 08/11/2024 Other obesity due to excess calories (ICD-10 - E66.09) Encourage diet and exercise 06/23/2024 Vitamin D deficiency , unspecified (ICD-10 - E55.9) Check level to verify that there is no deficiency. Goal would be level of 30+ and if possible 50+ 05/12/2024 Other disorders of pituitary gland (ICD-10 [...] occurs when she travels to warmer weather 06/23/2024 Encounter for immunization (ICD-10 - Z23) 08/11/2024 Body mass index [BMI ] 33.0-33.9, adult (ICD-10 - Z68.33) Encourage diet and exercise 02/16/2025 Vitamin D deficiency , unspecified (ICD-10 - E55.9) Vitamin D level was 28, aiming for at least 30, ideally 50. Patient may get more sun exposure in [place]. - Continue vitamin D supplementation. - Monitor vitamin D levels. 12/16/2024 Vitamin D deficiency , unspecified (ICD-10 [...] Administer Prevnar 21 pneumococcal vaccine when available. 02/16/2025 Allergic rhinitis, unspecified (ICD-10 - J30.9) Patient reports sneezing when exposed to perfume and cough after eating, possibly due to postnasal drip. Not currently using Flonase, advised to resume as needed. - Resume Flonase nasal spray as needed. - Monitor for allergy symptoms. - This is probably the reason for her occasional cough. Her asthma seems to be in control. 11/05/2024 Vitamin D deficiency , unspecified (ICD-10 [...] modifications to assist with lowering her BMI 05/12/2024 Mild intermittent asthma, uncomplicated (ICD-10 - [...] which may capture this finding as well) 05/12/2024 Vitamin D deficiency , unspecified (ICD-10 [...] syntax. Also labs were reviewed with patient. 02/16/2025 Other This note was created with a [...] MONITOR, 7 DAYS, INTERPRETATION 0 06/23/2024 Urinalysis, Complete-[id number] 12/16/2024 Urinalysis, Complete-[id number] 02/16/2025 Prolactin-[id number] 12/16/2024 Prolactin-[id number] 02/16/2025 Vitamin D, 57-Ubwpsex-[id number] 02/16/2025 Vitamin D, 12-Bhnvphi-[id number] 12/16/2024 Albumin/Creatinine Ratio,Urine-[id number] Albumin/Creatinine Ratio,Urine-[id number] Comp. Metabolic Panel [phone] Comp. Metabolic Panel [phone] LP+Non-HDL Cholesterol-[id number] 02/16/2025 Phosphorylated Tau 217 (pTau-217) 2024 Next Appt Details Provider Name:Katlyn Castaneda , 05/24/2025 08:45:00 AM, [address] [place] [address], [facility] [address], [place], [place], [id number], Insurance Providers Payer Name Payer Address Payer Phone Subscriber Number Group Number Insured Name Patient Relationship to Insured Coverage Start Date Coverage End Date BC[employer] OF [facility] [address] [place] [address] [id number] Sharonda Herring Self - patient is the insured Medical (General) History Medical History History ICD Code scoliosis diabetes in remission high blood pressure asthma left hand tremors adhd migraines diverticulitis Surgical History Surgery Date(Month/Year) gallbladder 2015 breast lift 2015 tummy tuck 2014 lasix 2021 lasix adjustment 2022 shoulder surgery bilateral blepharoplasty 2014 hysterectomy 2021 Hospitalization History Reason Date(Month/Year) Urgent care, due to Cold / Virus 2024-04
--- OUTSIDE RECORDS SUMMARY | 2025-03-08 08:45 | XMS_ITS | Encounter Summary ---
Author Organization [facility] Address [address] [place] [address] Phone Care Team Providers Care Substation Maintenance Technician Name Role Phone Lee José MD Primary Care Provider [phone] Lee José MD Unavailable [phone] Arsen Del Rio MD Unavailable [phone] Joyce Alejandra MD Unavailable [phone] Tanja Nava PA-C Unavailable [phone] Katlyn Colbert MD Primary Care Provider [phone] Encounter Details Date Type Department Care Team (Late st Contact Info) Description 05/24/2023 Procedure Pass [facility] [address] [place] [id number] Social History Tobacco Use Types Packs/Day Years Used Date Smoking Tobacco: Never Smokeless Tobacco: Never Alcohol Use Standard Drinks/Week Comments Never 0 (1 standard drink = 0.6 oz pure alcohol) never been a drinker not even socially Education Answer Date Recorded Are you interested [...] st Contact Info) Description 02/01/2025 Procedure Pass [facility] [address] [address] 02/01/2025 Procedure Pass [facility] [address] [place] [address] 02/12/2025 Procedure Pass [facility] [address] [place] [address] 02/12/2025 Procedure Pass [facility] [address] [place] [address] 07/26/2025 9:15 AM EDT Appointment [facility] [address] [place] [address] Tanja Nava PA-C [address] [facility] [address] [place] [address] [email or web address] 07/26/2025 9:30 AM EDT Appointment [facility] [address] [place] [address] Tanja Nava PA-C [address] [facility] [address] [place] [address] [email or web address] 08/03/2025 11:15 AM EDT Appointment [facility] [address] [place] [address] Tanja Nava PA-C [address], [facility] [address] [place] [address] [email or web address] 02/02/2026 11:15 AM EDT Appointment [facility] [address] [place] [address] Tanja Nava PA-C [address] [facility] [address] [place] [address] [email or web address] documented as of this encounter Visit Diagnoses Not on filedocumented in this encounter Care Teams Substation Maintenance Technician Relationship Specialty Start Date End Date Lee José MD [address] [place] [address] PCP - General Internal Medicine 10/20/13 12/16/24 Katlyn Colbert MD [address] [address] [email or web address] PCP - General Internal Medicine 12/17/24 Lee José MD [address] [place] [address] Historical LMR Provider 01/29/17 Arsen Del Rio MD [address] [facility] [address] [place] [address] [email or web address] Historical LMR Provider 01/29/17 [place] [address] [email or web address] Historical LMR Provider 01/29/17 Tanja Nava PA-C 75 [facility], Breast [facility], [facility] [address] [place] [address] [email or web address] Phys[facility] [employer] Manager 11/05/23 documented as of this encounter Additional Source Comments The information contained in this document represents components of the legal health record. It is not the complete legal health record.[facility]
--- OUTSIDE RECORDS SUMMARY | 2025-03-08 08:45 | XMS_ITS | Patient Health Record ---
Author Organization [facility] Address [address] [place] [address] Care Team Providers Care Machine Cloth Examiner Name Role Phone SADIE RUIZ Unavailable [phone] Allergies Allergen (clinical drug ingredient) Drug/Non Drug Allergy documented on EMR Reaction Allergy Type Onset Date Status Penicillin Unknown Drug Allergy Active Reason For Referral No Information Medications Medication SIG (Take, Route, Frequency, Duration) Notes Start Date End Date Status Wegovy 2.4 MG/0.75ML Solution Auto-injector 2.4 mg Subcutaneous once weekly; Duration: 30 days Not-Taking Ondansetron 4 MG Tablet Disintegrating TAKE 1 TABLET BY MOUTH ONCE NEEDED FOR NAUSEA AND VOMITING Oral; Duration: 20 Days Active Zepbound 7.5 MG/0.5ML Solution Auto-injector 7.5mg Subcutaneous weekly; Duration: 30 days Not-Taking Zepbound 5 MG/0.5ML Solution Auto-injector 5mg Subcutaneous Weekly; Duration: 30 days Not-Taking Wegovy 1 MG/0.5ML Solution Auto-injector 1mg Subcutaneous weekly; Duration: 30 days 03/02/2024 Active Magnesium 200 MG Tablet 2 tablets with a meal Orally Once a day Active Riboflavin 25 MG Tablet as directed Orally Active Wegovy 0.5 MG/0.5ML Solution Auto-injector Inject 0.5 mL Subcutaneous once weekly; Duration: 28 days 01/28/2024 Active OneTouch Ultra - Strip In Vitro; Duratio n: 50 Days Not-Taking Social History Tobacco Use: Social History Observation Description Date Details (start date - stop date) Never Smoker NA - NA Social History Drugs/Alcohol: Social Info Question Answer Notes Drugs Have you used drugs other than those for medical reasons in the past 12 months? No Tobacco Use: Social Info Question Answer Notes Tobacco Use/Smoking Are you a nonsmoker Additional Details Category Social Info Options Details Drugs/Alcohol: Do you smoke marijuana? De nies Do you drink alcohol? No Problems Problem Type SNOMED Code ICD Code Onset Dates Problem Status W/U Status Risk Notes Problem Infectious disease (69800595) Unspecified infectious disease (B99.9) Active confirmed Problem Anemia (795101886) Anemia, unspecified (D64.9) Active confirmed Problem Obesity due to excess calories (802266955) Other obesity due to excess calories (E66.09) Active confirmed Problem Attention deficit hyperactivity disorder (788517681) Attention-deficit hyperactivity disorder, unspecified type (F90.9) Active confirmed Problem Supraventricular tachycardia (1947352) Supraventricular tachycardia (I47.1) Active confirmed Problem Allergic rhinitis (55830697) Allergic rhinitis, unspecified (J30.9) Active confirmed Problem Exacerbation of asthma (293555837) Unspecified asthma with (acute) exacerbation (J45.901) Active confirmed Problem Asthma (980577437) Other asthma (J45.998) Active confirmed Problem Screening for malignant neoplasm of breast (885229467) Encounter for screening mammogram for malignant neoplasm of breast (Z12.31) Active confirmed Problem Essential hypertension (19217039) Essential hypertension (I10) Active confirmed Problem Diverticulitis (52289448) Diverticulitis (K57.92) Active confirmed Problem Lump in left breast (92165467446765139) Left breast lump (N63.20) Active confirmed Problem Cirrhosis - non-alcoholic (476044688) Cirrhosis of liver without ascites, unspecified hepatic cirrhosis type (K74.60) Active confirmed Problem Bronchitis (58318699) Bronchitis (J40) 016 Active confirmed Problem At high risk for breast cancer (751778790089591) At high risk for breast cancer (Z91.89) Active confirmed Problem Pulmonary nodule (087265977) Pulmonary nodule (R91.1) Active confirmed Problem Arthralgia of the pelvic region and thigh (147284300) Right hip pain (M25.551) Active confirmed Problem Type II diabetes mellitus without complication (954373060) Type 2 diabetes mellitus without complication, without long-term current use of insulin (E11.9) Active confirmed Problem Obesity (934801745) Obesity (BMI 30-39.9) (E66.9) Active confirmed Problem Dysmenorrhea (247335786) Dysmenorrhea (N94.6) Active confirmed Problem Essential tremor (765029646) Benign essential tremor (G25.0) Active confirmed Problem Tachycardia (0615077) Tachycardia (R00.0) Active confirmed Problem Overweight (574749916) Overweight (BMI 25.0-29.9) (E66.3) Active confirmed Problem Body mass index 30+ - obesity (991895181) Body mass index [BMI] 30.0-30.9, adult (Z68.30) Active confirmed Problem General examination of patient (563084907) Routine medical exam (Z00.00) Active confirmed Problem Post-discharge follow-up (800224266) Hospital discharge follow-up (Z09) Active confirmed Problem Bronchial asthma (697767838) Bronchial asthma (J45.909) Active confirmed Problem Menorrhagia (084604388) Menorrhagia (N92.0) Active confirmed Problem History of gastrointestinal disease (894083376) Hx of diverticulitis of colon (Z87.19) Active confirmed Problem Idiopathic kyphoscoliosis (disorder) (013426661) Scoliosis (and kyphoscoliosis), idiopathic (M41.20) Active confirmed Problem Migraine variant with headache (disorder) (923836107) Migraine headache (G43.909) Active confirmed Problem Counseling (947608107) Encounter for medication review and counseling (Z71.89) Active confirmed Problem Diverticular disease of colon (197805254) Colon, diverticulosis (K57.30) 022 Active confirmed Problem Tremor (24800322) Coarse tremors (G25.2) 021 Active confirmed Problem Sleep apnea (disorder) (29398815) Suspected sleep apnea (G47.30) 017 Active confirmed Problem Cough (87320821) 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 Active confirmed Problem History of excision of intestinal structure (233644281) History of laparoscopic cholecystectomy (Z90.49) 017 Active confirmed Problem Increased prolactin level (313623394) Elevated prolactin level (E22.9) 018 Active confirmed Problem Candidiasis of the esophagus (67872240) Esophageal moniliasis (B37.81) 019 Active confirmed Problem Backache (520005352) Mechanical back pain (M54.9) 023 Active confirmed Problem Weight loss advised (548418853) Weight loss advised (Z78.9) Active confirmed Encounters Encounter Location Date Provider Diagnosis [facility] [address] [address] 05/22/2024 SADIE RUIZ [facility] [address] [address] 05/22/2024 SADIE RUIZ Plan Of Treatment Pending Test Test Name Order Date Urine Culture and Sensitivity 04/29/2023 COMPLETE URINALYSIS 04/29/2023 Insurance Providers Payer Name Payer Address Payer Phone Subscriber Number Group Number Insured Name Patient Relationship to Insured Coverage Start Date Coverage End Date [facility] [address] [place] [address] [id number] GIRMA NAVARRO Self - patient is the insured Medical (General) History Medical History History ICD Code diabetes mellitus hypertension endometriosis fibroids diverticulosis choledocholithiasis cholelithiasis Surgical History Surgery Date(Month/Year) cholecystectomy breast augmentation/lift bladder surgery laser therapy hysterectomy
--- OUTSIDE RECORDS SUMMARY | 2025-03-08 08:45 | XMS_ITS | Patient Health Record ---
Author Organization [facility] Address [address] [place] [address] Support Name Relationship Address Phone GIRMA NAVARRO Guarantor Unknown [phone] Reason For Referral No Information Plan Of Treatment No Information
--- OUTSIDE RECORDS SUMMARY | 2025-03-08 08:45 | XMS_ITS | Encounter Summary ---
Author Organization [facility] Address [address] [facility] [address] [place] [address] Phone Care Team Providers Care Stained Glass Artist Name Role Phone Lee José MD Unavailable [phone] Arsen Del Rio MD Unavailable Joyce Alejandra MD Unavailable [phone] Tanja Nava PA-C Unavailable [phone] Aria Colbert MD Primary Care Provider [phone] Encounter Details Date Type Department Care Team (Latest Contact Info) Description 02/04/2025 Ancillary Orders [facility] [address] [facility] [address] [place] [address] Aria Colbert MD [address] [place] [phone] [email or web address] Abnormal finding on radiological examination of breast (Primary Dx) Social History Tobacco Use Types Packs/Day Years [...] high school, GED, job training, learning the Filipino language, technical skills, or developing parenting skills)? [...] st Contact Info) Description 02/01/2025 Procedure Pass [facility] [address] [address] 02/01/2025 Procedure Pass [facility] [address] [address] 02/12/2025 Procedure Pass [facility] [address] [address] 02/12/2025 Procedure Pass [facility] [address] [place] [address] 07/26/2025 9:15 AM EDT Appointment [facility] [address] [place] [phone] Tanja Nava PA-C [address], [facility], [facility] [address] [place] [address] [email or web address] 07/26/2025 9:30 AM EDT Appointment [facility] [address] [place] [address] Tanja Nava PA-C [address], [facility] [place] [address] [email or web address] 08/03/2025 11:15 AM EDT Appointment [facility] [address] [place] [address] Tanja Nava PA-C [address], [facility] [place] [address] [email or web address] 02/02/2026 11:15 AM EDT Appointment [facility] [place] [facility] [address] [facility] 2nd [place] [address] Tanja Nava PA-C [address], [facility] [place] [address] Julio [email or web address] documented as of this encounter Results * BI US BREAST LIMITED (LEFT) (02/11/2025 2:26 PM EDT) Anatomical Region Laterality Modality Breast Left, Breast Bilateral Left Ul trasound 02/11/2025 1:45 PM EDT Impressions 02/11/2025 3:47 PM EDT Probably benign findings on the left. Follow-up imaging is recommended with left diagnostic mammogram and ultrasound in 6 months. BI-RADS 3 PROBABLY BENIGN Short interval follow-up suggested Results and recommendations were communicated to the patient at time of examination. ATTESTATION: Gayatri Castañeda, as teaching physician have reviewed the images, if any, for this patient's exam, and if necessary, have edited the report originally created by Eder Bartlett. Narrative 02/11/2025 3:47 PM EDT BI MAMMOGRAM DIAGNOSTIC WITH TOMOSYNTHESIS WITH CAD (LEFT), BI US BREAST (LEFT) Additional patient information: Callback from screening. COMPARISON: Comparison is made with relevant prior imaging. Breast composition: The breasts are heterogeneously dense, which may obscure small masses. FINDINGS: Left Mammogram: Two circumscribed low density masses in the upper outer mid breast persist on additional imaging with spot compression views. Left Ultrasound: Targeted ultrasound was performed in the area of mammographic concern. At 1:00 2 cm from nipple, an oval circumscribed anechoic 1.0 x 0.5 x 0.7 cm benign cyst is seen. An adjacent 1.1 x 0.5 x 0.8 cm oval circumscribed hypoechoic parallel mass may represent a minimally complicated cyst. These findings likely correspond to the mammographic masses in the upper outer breast. Procedure Note Gayatri Hogan MD - 02/11/2025 BI MAMMOGRAM DIAGNOSTIC WITH TOMOSYNTHESIS WITH CAD (LEFT), BI US BREAST(LEFT) Additional patient information: Callback from screening. COMPARISON: Comparison is made with relevant prior imaging. Breast composition: The breasts are heterogeneously dense, which mayobscure small masses. FINDINGS: Left Mammogram: Two circumscribed low density masses in the upper outer mid breast persiston additional imaging with spot compression views. Left Ultrasound: Targeted ultrasound was performed in the area ofmammographic concern. At 1:00 2 cm from nipple, an oval circumscribedanechoic 1.0 x 0.5 x 0.7 cm benign cyst is seen. An adjacent 1.1 x 0.5 x0.8 cm oval circumscribed hypoechoic parallel mass may represent aminimally complicated cyst. These findings likely correspond to themammographic masses in the upper outer breast. IMPRESSION: Probably benign findings on the left. Follow-up imaging is recommendedwith left diagnostic mammogram and ultrasound in 6 months. BI-RADS 3 PROBABLY BENIGN Short interval follow-up suggested Results and recommendations were communicated to the patient at time ofexamination. ATTESTATION: Gayatri Castañeda, as teaching physician have reviewed theimages, if any, for this patient's exam, and if necessary, have edited thereport originally created by Eder Bartlett. us Aria Colbert MD IM US BREAST Final Result documented in this encounter Visit Diagnoses Diagnosis Abnormal finding on radiological examination of breast- Primary Abnormal finding on radiological examination of breast documented in this encounter Care Teams Stained Glass Artist Relationship Specialty Start Date End Date Aria Colbert MD [address] [place] [phone] [email or web address] PCP - General Internal Medicine 12/17/24 Lee José MD [address] [place] [address] Historical LMR Provider 01/29/17 Arsen Del Rio MD [address] [facility], [address] [place] [address] [email or web address] Historical LMR Provider 01/29/17 [place] [address] [email or web address] Historical LMR Provider 01/29/17 Tanja Nava PA-C [address] [place] [address], [facility] [place] [address] [email or web address] Physician Railway Signal Technician 11/05/23 documented as of this encounter Additional Source Comments The information contained in this document represents components of the legal health record. It is not the complete legal health record.[facility]
--- OUTSIDE RECORDS SUMMARY | 2025-03-08 08:45 | XMS_ITS | Clinical Summary ---
Author Organization [facility] [employer] [facility] Address [address] [address] Phone Care Team Providers Care Clinical Material Handler Name Role Phone Katlyn Colbert MD Primary Care Provider [phone] Allergies Active Allergy Reactions Criticality Noted Date Comments [place] Other 08/18/2021 Penicillin G Swelling 12/30/2017 Other reaction(s): SWELLING EYES,LIPS Medications albuterol 2.5 mg /3 mL (0.083 %) nebulizer solution Take 3 mL (2.5 mg total) by nebulization if needed for wheezing or shortness of breath. 8 Active ascorbic acid, vitamin C, 500 mg [...] by mouth 1 (one) time each day. 4 Active SUMAtriptan (IMITREX) 100 mg tablet 1 tablet as needed Orally TAKE AT ONSET OF MIGRAINE PRN 6 Active propranoloL (INDERAL) 60 mg tablet Take 1 tablet (60 mg total) by mouth 3 (three) times a day. 90 each 5 5 Active magnesium oxide 400 mg magnesium capsule TAKE 1 CAPSULE BY MOUTH EVERY DAY 90 capsule 1 5 Active Ozempic 0.25 mg or 0.5 mg (2 mg/3 mL) injection pen INJECT 0.5 MG UNDER THE SKIN EVERY 7 DAYS. 0.25 MG WEEKLY FOR 4 WEEKS THEN INCREASE TO 0.5 MG 5 Active bisacodyL (DULCOLAX) 5 mg EC tablet Take 2 tablets by mouth right before beginning bowel prep. See instructions provided by the office 2 tablet 5 Active dicyclomine (BENTYL) 10 mg capsuleIndicati ons:Irritable bowel syndrome, unspecified type Take 1 capsule (10 mg total) by mouth 3 (three) times a day. 270 each 3 5 11/04/19 26 Active estradioL (ESTRACE) 0.01 % (0.1 mg/gram) vaginal cream Insert 2 g into the vagina 1 (one) time each day. 5 Active hyoscyamine (ANASPAZ,LEVSIN ) 0.125 mg tabletIndicatio ns:Diarrhea, unspecified type TAKE 1 TABLET BY MOUTH EVERY 6 HOURS IF NEEDED FOR CRAMPING OR DIARRHEA TAKE BEFORE MEALS 360 tablet 1 5 Active Immunizations Immunization Administration Dates Next Due Moderna SARS-CoV-2 COVID-19, mRNA, LNP-S, preservative free 02/01/2023 Surgical History Surgery Date Site/Laterality Comments ENDOMETRIAL FULGURATION PROCEDURE:LAPAROSCOPIC ENDOMETRIOSIS FULGURATION INCONTINENCE SURGERY PROCEDURE:INCONTINENCE SURGERY BELPHAROPTOSIS REPAIR PROCEDURE:BELPHAROPTOSIS REPAIR OTHER SURGICAL HISTORY PROCEDURE:bells palsy botox OTHER SURGICAL HISTORY PROCEDURE:tummy tuck OTHER SURGICAL HISTORY PROCEDURE:breast lift SHOULDER SURGERY PROCEDURE:SHOULDER SURGERY OTHER SURGICAL HISTORY PROCEDURE: AK ANESTHESIA EYELID RECONSTRUCTIVE PROCEDURE; COMMENT: 12/30/12 BELT ABDOMINOPLASTY PROCEDURE: HISTORICAL TUMMY TUCK; COMMENT: 05/28/13 COLONOSCOPY Medical History Medical History Date Comments Seizures (CMS/HCC V24, CMS/[facility] V28) DX:Seizures (HCC) Asthma DX:Asthma Adhd DX:ADHD [...] Safety Answer Date Record ed Physical Abuse Unrecognized value 08/10/2024 Verbal Abuse Unrecognized value 08/10/2024 Comments No Sex and Gender Information [...] Description 05/13/2025 4:00 PM EST Office Visit [address] [place] [address] Toshia Lopez, YASMANY [address] [place] [address] Health Maintenance Due Date Last Done Comments Diabetes: Annual Foot Exam 1982 Diabetes: Annual Retina Eye Exam 1982 Cervical Cancer Screening: Pap Smear 1993 Hepatitis A Vaccines (2 of 2 - Risk 2-dose series) 08/25/2018 02/25/2018 Cholesterol Screening (Lipid Panel) 03/18/2022 HIV Screening 03/18/2022 Hepatitis C Screening 03/18/2022 Social Influencers of Health Screening 03/18/2022 RSV Immunization Adult Patients (1 - Risk 50-74 years 1-dose series) 2022 Diabetes: Annual Urine Albumin-Creatinine Ratio (uACR) 04/01/2024 Diabetes: Blood Sugar Control Test (HGBA1C) 04/01/2024 Depression Screening 04/15/2024 DTaP,Tdap,and Td Vaccines (2 - Td or Tdap) 08/27/2024 08/27/2014 COVID-19 Vaccine ( season) 2024 01/08/2024, 02/01/2023, 01/17/2022, Additional history exists Influenza Vaccine (#1) 2024 , 12/28/2022, 01/17/2022, Additional history exists Diabetes: Annual GFR (Glomerular Filtration Rate) 04/10/2025 04/10/2024 Hypertension/CHF/CAD Annual BMP Blood Test 04/10/2025 04/10/2024 Breast Cancer Screening 02/11/2027 02/12/20, 02/01/2025, 10/10/2023 Colorectal Cancer Screening: Colonoscopy 08/10/2034 08/10/2024, [...] Maintenance Results * COLONOSCOPY Anesthesia - MAC; [facility] ENDOSCOPY (08/10/2024 7:56 AM EDT) [...] pathology results. Narrative 08/10/2024 7:58 AM EDT [facility] GI Patient Name: Girma Navarro Procedure [...] retroflexion views. Procedure Code(s): --- Professional --- 13532, Colonoscopy, flexible; with removal of tumor(s), polyp(s), or other lesion(s) by snare technique Diagnosis Code(s): --- Professional --- D12.4, Benign neoplasm of descending colon D12.5, Benign neoplasm of sigmoid colon K57.32, Diverticulitis of large intestine without perforation or abscess without bleeding CPT copyright 2021 [employer]. All rights reserved. The codes documented in this report are preliminary and upon dry cure worker review may be revised to meet current compliance requirements. Quita Chowdary MD 08/10/2024 7:58:11 AM This report has been signed electronically.Quita Chowdary MD Number of Addenda: 0 Note Initiated On: 08/10/2024 7:35 AM Scope In: Scope Out: Endoscopy Department at [facility] - [address] [place] [phone] Procedure Note Quita Chowdary MD - 08/10/2024 [facility] Patient Name: Girma Navarro Procedure [...] retroflexion views. Procedure Code(s): --- Professional --- 778[address], Colonoscopy, flexible; with removal of tumor(s), polyp(s), or other lesion(s) by snare technique Diagnosis Code(s): --- Professional --- D12.4, Benign neoplasm of descending colon D12.5, Benign neoplasm of sigmoid colon K57.32, Diverticulitis of large intestine without perforation or abscess without bleeding CPT copyright 2020 [employer]. All rights reserved. The codes documented in this report are preliminary and upon dry cure worker reviewmay be revised to meet current compliance requirements. Quita Chowdary MD 08/10/2024 7:58:11 AM This report has been signed electronically.Quita Chowdary MD Number of Addenda: 0 Note Initiated On: 08/10/2024 7:35 AM Scope In: Scope Out: Endoscopy Department at [facility] - [address] [place] [phone] IMPRESSION: - The examined portion of the [...] colonoscopy for surveillance based on pathology results. Qiuta Chowdary MD GI~PROCEDURE ORDERABLES Final Result from Last 3 Months or Most Recently Relevant to Health Maintenance Insurance [facility] Care Teams Clinical Material Handler Relationship Specialty Start Date End Date Katlyn Colbert MD [address] [place] [phone] PCP - General Internal Medicine 08/10/24
--- OUTSIDE RECORDS SUMMARY | 2025-03-08 08:45 | XMS_ITS | Encounter Summary ---
Author Organization [facility] Address [address] [place] [address] Care Team Providers Care Bottom Finisher Name Role Phone Lee José MD Primary Care Provider [phone] Katlyn Colbert MD Primary Care Provider [phone] Brit Berry PsyD Unavailable [phone] Encounter Details Date Type Department Care Team (Late st Contact Info) Description 10/31/2023 Scanned Document [facility] [address] [place] [address] [address] [place] [address] Provider, Generic External Data Social History [...] as of this encounter Plan of Treatment Not on file documented as of this encounter Visit Diagnoses Not on filedocumented in this encounter Care Teams Bottom Finisher Relationship Specialty Start Date End Date Lee José MD [address] [facility] [address] [place] [address] PCP - General 09/24/23 06/21/24 Katlyn Colbert MD [address] [address] PCP - General 06/22/24 Brit Berry, [address] [facility] [address] [place] [address] Clinical Psychologist Neuropsychology 02/24/25 documented as of this encounter
--- OUTSIDE RECORDS SUMMARY | 2025-03-08 08:45 | XMS_ITS | Encounter Summary ---
Author Organization [facility] Address [address] [facility] [address] [place] [address] Phone Care Team Providers Care Support Services Specialist Name Role Phone eLe José MD Unavailable [phone] Arsen Del Rio MD Unavailable Joyce Alejandra MD Unavailable [phone] Tanja Nava PA-C Unavailable [phone] Katlyn Colbert MD Primary Care Provider [phone] Encounter Details Date Type Department Care Team (Late st Contact Info) Description 02/04/2025 Procedure Pass [facility] [address] [address] Social History Tobacco Use Types Packs/Day Years [...] high school, GED, job training, learning the French language, technical skills, or developing parenting skills)? [...] Upcoming Encounters Date Type Department Care Team ([facility] st Contact Info) Description 02/01/2025 Procedure Pass [facility] [address] [place] [address] 02/01/2025 Procedure Pass [facility] [address] [address] 02/12/2025 Procedure Pass [facility] [address] [address] 02/12/2025 Procedure Pass [facility] [address] [address] 07/26/2025 9:15 AM EDT Appointment [facility] [address] [place] [address] Tanja Nava PA-C [address] [facility], [place] [address] [place] [address] [email or web address] 07/26/2025 9:30 AM EDT Appointment [facility] [address] [address] Tanja Nava PA-C [address] [facility], [place] [address] [place] [address] [email or web address] 08/03/2025 11:15 AM EDT Appointment [facility] Rad[facility] [address] [place] [address] Tanja Nava PA-C [address] [facility], [place] [address] [place] [address] [email or web address] 02/02/2026 11:15 AM EDT Appointment [facility] [address] [place] [address] Tanja Nava PA-C [address] [facility], [place] [address] [place] [address] [email or web address] documented as of this encounter Visit Diagnoses Not on filedocumented in this encounter Care Teams Support Services Specialist Relationship Specialty Start Date End Date Katlyn Colbert MD [address] [address] [email or web address] PCP - General Internal Medicine 12/17/24 Lee José MD 40 [place] [address] Historical LMR Provider 01/29/17 Arsen Del Rio MD [address] [facility], [address] [place] [address] [email or web address] Historical LMR Provider 01/29/17 [place] [address] [email or web address] Historical LMR Provider 01/29/17 Tanja Nava PA-C [address] [facility], [place] [address] [place] [address] [email or web address] Physician Automobile Damage Field Appraiser 11/05/23 documented as of this encounter Additional Source Comments The information contained in this document represents components of the legal health record. It is not the complete legal health record.[facility]
--- OUTSIDE RECORDS SUMMARY | 2025-03-08 08:45 | XMS_ITS | Encounter Summary ---
Author Organization [facility] Address [address] [place] [address] Care Team Providers Care Alpine Patroller Name Role Phone Katlyn Colbert MD Primary Care Provider [phone] Brit Berry PsyD Unavailable [phone] Encounter Details Date Type Department Care Team (Late st Contact Info) Description 11/27/2024 Scanned Document [facility] [address] [place] [phone] Zuleyka Rodney MD [address] [address] Social History Tobacco Use Types Packs/Day Years [...] on filedocumented in this encounter Care Teams Alpine Patroller Relationship Specialty Start Date End Date Katlyn Colbert MD [address] [address] PCP - General 06/22/24 Brit Berry PsyD [address] [phone] Clinical Psychologist Neuropsychology 02/24/25 documented as of this encounter
--- OUTSIDE RECORDS SUMMARY | 2025-03-08 08:45 | XMS_ITS | Clinical Summary ---
Author Organization [facility] Address [address] [place] [address] Care Team Providers Care Broadcast Operations Engineer Name Role Phone Lee José MD Primary Care Provider [phone] Allergies Active Allergy Reactions Criticality Noted Date [...] TIMES A DAY for 60 0 Active Atwood-3 Fatty Acids (Fish Oil) 1000 MG CAPS [...] age to complete this topic Care Teams Broadcast Operations Engineer Relationship Specialty Start Date End Date Lee José MD PCP - General Internal Medicine 03/28/23
--- OUTSIDE RECORDS SUMMARY | 2025-03-08 08:45 | XMS_ITS | Encounter Summary ---
Author Organization [facility] Address [address] [place] [address] Care Team Providers Care Medical Technologist Blood Bank Name Role Phone Lee José MD Primary Care Provider [phone] Katlyn Colbert MD Primary Care Provider [phone] Brit Berry PsyD Unavailable [phone] Encounter Details Date Type Department Care Team (Late st Contact Info) Description 10/31/2023 Scanned Document [facility] [address] [place] [address] [address] [place] [address] Provider, Generic External Data Social [...] on filedocumented in this encounter Care Teams Medical Technologist Blood Bank Relationship Specialty Start Date End Date Lee José MD 185 [facility] [address] [place] [address] PCP - General 09/24/23 06/21/24 Katlyn Colbert MD [address] [address] PCP - General 06/22/24 Brit Berry, Ko 1260 Aryan Barlow [facility] [address] [place] [address] Clinical Psychologist Neuropsychology 02/24/25 documented as of this encounter
--- OUTSIDE RECORDS SUMMARY | 2025-03-08 08:45 | XMS_ITS | Clinical Summary ---
Author Organization [facility] Address [address] [place] [address] Care Team Providers Care Civil Engineering Drafter Name Role Phone Katlyn Colbert MD Primary Care Provider [phone] Brit Berry PsyD Unavailable [phone] Allergies Active Allergy Reactions Criticality Noted Date Comments Naproxen Other (See Comments),Nausea And Vomiting,GI Intolerance/Nausea/Vomit ing Low 05/24/2023 unknown Penicillin G Swelling Medium 12/30/2017 Other reaction(s): SWELLING EYES,LIPS Medications * This document contains information received from the source organization and may not represent a complete record from that organization. Riboflavin 100 MG Cap Take 100 mg [...] mg total) by mouth nightly. 08/04/2023 Active Family History Medical History Relation Name Comments [...] Mass Index - - Plan of Treatment Health Maintenance Due Date Last Done Comments Hepatitis C Virus Screening 1972 HIV Screening 1985 DTaP/Tdap/Td Vaccines (1 - Tdap) 11/02/1991 Hepatitis B Vaccines (1 of 3 - 19+ 3-dose series) 11/02/1991 Pap Smear (Ages 21-65) 1993 Pneumococcal Vaccines 50+ (1 of 1 - PCV) 2022 RSV Vaccine 50 years and old er and Patients (1 - Risk 50-74 years 1-dose series) 2022 Zoster (Shingles) Vaccine (1 of 2) 2022 Influenza Vaccine 11/13/2024 01/08/2024, , 01/17/2022, Additional history exists Mammogram 02/11/2027 02/11/2025 Colonoscopy 08/10/2034 08/10/2024 COVID-19 Vaccine Completed 01/08/2024, , 02/28/2021, Additional history exists Insurance [facility] HMO Care Teams Civil Engineering Drafter Relationship Specialty Start Date End Date Katlyn Colbert MD [address] [address] PCP - General 06/22/24 Brit Berry, Ko 1260 [facility] [address] [place] [address] Clinical Psychologist Neuropsychology 02/24/25
--- OUTSIDE RECORDS SUMMARY | 2025-03-08 08:45 | XMS_ITS | Encounter Summary ---
Author Organization [facility] Address [address] [facility] [address] [place] [address] Phone Care Team Providers Care Dial Screw Assembler Name Role Phone Lee José MD Unavailable [phone] Arsen Del Rio MD Unavailable Joyce Alejandra MD Unavailable [phone] Tanja Nava PA-C Unavailable [phone] Aria Colbert MD Primary Care Provider [phone] Encounter Details Date Type Department Care Team (Latest Contact Info) Description 02/04/2025 Ancillary Orders [facility] [address] [facility] 2nd [place] [address] Aria Colbert MD [address] [place] [address] Abnormal finding on radiological examination of breast [...] high school, GED, job training, learning the Serbian language, technical skills, or developing parenting skills)? [...] st Contact Info) Description 02/01/2025 Procedure Pass [facility] [address] [address] 02/01/2025 Procedure Pass [facility] [address] [address] 02/12/2025 Procedure Pass [facility] [address] [address] 02/12/2025 Procedure Pass [facility] [address] [place] [address] 07/26/2025 9:15 AM EDT Appointment [facility] [address] [place] [address] Tanja Nava PA-C [address] [facility], [place] [address] [place] [address] [email or web address] 07/26/2025 9:30 AM EDT Appointment [facility] [address] [place] [address] Tanja Nava PA-C [address] [facility], [place] [address] [place] [address] [email or web address] 08/03/2025 11:15 AM EDT Appointment [facility] [address] [place] [address] Tanja Nava PA-C [address] [facility]tr, [place] [address] [place] [address] [email or web address] 02/02/2026 11:15 AM EDT Appointment [facility] [address] [facility] 2nd [place] [address] Tanja Nava PA-C [address] [facility], Breast Ctr, [place] [address] [place] [address] Julio [email or web address] documented as of this encounter Results * BI MAMMOGRAM DIAGNOSTIC WITH TOMOSYNTHESIS WITH CAD (LEFT) (02/11/2025 1:32 PM EDT) Anatomical Region Laterality Modality Breast Left Left Mammography 02/11/2025 1:45 PM EDT Impressions 02/11/2025 3:47 [...] edited thereport originally created by Eder Bartlett. Aria Colbert MD IMG MG EXAMS Final Result documented in this encounter Visit Diagnoses Diagnosis Abnormal finding on radiological examination of breast- Primary Abnormal finding on radiological examination of breast documented in this encounter Care Teams Dial Screw Assembler Relationship Specialty Start Date End Date Aria Colbert MD [address] [place] [address] [email or web address] PCP - General Internal Medicine 12/17/24 Lee José MD [address] [place] [address] Historical LMR Provider 01/29/17 Arsen Del Rio MD 22 [facility], [address] [place] [address] [email or web address] Historical LMR Provider 01/29/17 [place] [address] [email or web address] Historical LMR Provider 01/29/17 Tanja Nava PA-C [address] [place] [address], Breast Ctr, [place] [address] [place] [address] [email or web address] Physician Ice Cream Server 11/05/23 documented as of this encounter Additional Source Comments The information contained in this document represents components of the legal health record. It is not the complete legal health record.[facility]
--- OUTSIDE RECORDS SUMMARY | 2025-03-08 08:45 | XMS_ITS | Clinical Summary ---
Author Organization [facility] Address [address] [place] [address] Care Team Providers Care Machine Grinder Name Role Phone Katlyn Colbert Primary Care Provider [phone] Allergies Active Allergy Reactions Criticality Noted Date Comments Cat Dander Choking High 04/10/2024 Hazelnut Itching 05/24/2023 Naproxen Nausea And Vomiting,Other (see comments),Vomiting Low 05/24/2023 unknown not allergic Penicillin G Swelling High 12/30/2017 Other reaction(s): SWELLING EYES,LIPS Medications albuterol (PROAIR HFA,VENTOLIN HFA) 90 mcg inhaler Inhale 2 puffs by mouth. 12/26/19 24 Active albuterol 2.5 mg/3 mL (0.083%) nebulizer solution Inhale 5 mg by mouth. 12/10/19 24 Active ascorbic acid, vitamin C, 500 mg capsule Take 1 tablet by mouth once a day. 12/26/19 24 Active biotin 10 mg tablet Take 1 tablet by mouth once a day. 12/26/19 24 Active budesonide (PULMICORT) 0.25 mg/2 mL nebulizer suspension Inhale 1 Units by mouth. 12/10/19 24 Active cholecalcifero l (VITAMIN D3) 2,000 unit capsule SMARTSI Capsule(s) By Mouth Daily 03/08/20 24 Active codeine-guaiFE Nesin (CHERATUSSIN AC) 20-200 mg/10 mL liquid Active gabapentin (NEURONTIN) 300 mg capsule 02/02/20 24 Active magnesium oxide 400 mg magnesium capsule SMARTSI Capsule(s) By Mouth Daily Active omega-3 fatty acids 1,000 mg capsule 1 capsule. Active riboflavin, vitamin B2, 400 mg tablet Take 400 mg by mouth daily. 09/23/19 24 Active trospium (SANCTURA) 20 mg tablet SMARTSI Tablet(s) By Mouth Daily 08/04/19 24 Active blood glucose diagnostic (freestyle) lancet 28 gauge Check Blood sugar before meals and at bedtime 4 times daily 100 each 5 06/16/19 25 Active FreeStyle Lite Meter meterIndicatio ns:Type 2 diabetes mellitus without complication, with long-term current use of insulin Check blood sugar 1 each 06/18/19 25 Active Freestyle Lite test stripsIndicati ons:Type 2 diabetes mellitus without complication, with long-term current use of insulin Use to test 1-2 times daily. 100 strip 5 06/18/19 Active Mounjaro 7.5 mg/0.5 mL pen injector Inject 10 mg under the skin every 7 days. 02/14/20 Active cabergoline (DOSTINEX) 0.5 mg tablet Take 1 tablet (0.5 mg total) by mouth 2 times a week. 8 tablet 3 02/19/20 026 Active metFORMIN ER (GLUCOPHAGE XR) 500 mg tablet Take 2 tablets (1,000 mg total) by mouth daily with breakfast. 180 tablet 3 02/18/20 Active propranolol LA (INDERAL LA) 80 mg capsule Take 1 capsule (80 mg total) by mouth once a day. 90 capsule 1 02/18/20 Active baclofen (LIORESAL) 5 mg tablet SMARTSI Tablet(s) By Mouth Daily PRN 03/02/20 025 Discontinued benzonatate (TESSALON) 200 mg capsule TAKE 1 CAPSULE BY MOUTH THREE TIMES A DAY FOR 7 DAYS NEEDED FOR COUGH 12/10/19 025 Discontinued lisdexamfetami ne (VYVANSE) 30 mg capsule SMARTSI Capsule(s) By Mouth Every Morning 03/02/20 025 Discontinued methylPREDNISo lone (MEDROL DOSEPACK) 4 mg tablet PLEASE SEE ATTACHED FOR DETAILED DIRECTIONS 12/10/19 025 Discontinued Ozempic 0.25 mg or 0.5 mg (2 mg/3 mL)Indications :Type 2 diabetes mellitus without complication, with long-term current use of insulin INJECT 0.5 MG UNDER THE SKIN EVERY 7 DAYS. 0.25 MG WEEKLY FOR 4 WEEKS THEN INCREASE TO 0.5 MG 3 mL 1 08/14/19 025 Discontinued cabergoline (DOSTINEX) 0.5 mg tablet TAKE 0.5 TABLETS (0.25 MG TOTAL) BY MOUTH 2 TIMES A WEEK. 4 tablet 1 10/13/19 025 Discontinued propranolol LA (INDERAL LA) 60 mg capsule TAKE 1 CAPSULE (60 MG TOTAL) BY MOUTH EVERY DAY 90 capsule 1 01/01/20 025 Discontinued Active Problems Problem Noted Date Diagnosed Date Breast cancer screening, high risk patient 10/13 Hyperprolactinemia 10/13/2024 Family history of breast cancer 10/13/2024 Obesity 10/13/2024 Encounters Date Type Department Care Team Description 02/17/2025 8:00 AM EST Follow-Up [facility] [address] [place] [address] Lathe Winder: Ryan Cho MD Type 2 diabetes mellitus without complication, with long-term current use of insulin (Primary Dx); Nipple discharge; Family history of breast cancer 12/31/2024 Refill [facility] [address] [place] [address] Lathe Winder: Ryan Cho MD from Last 3 Months [...] Sign Reading Time Taken Comments Blood Pressure 122/84 02/17/2025 8:07 AM EST Pulse 114 02/17/2025 8:07 AM EST Temperature 36.7 C (98.1 F) 10/13/2024 1:00 PM EDT Respiratory Rate - - Oxygen Saturation 97% 10/13/2024 1:00 PM EDT Inhaled Oxygen Concentration - - Weight 80.3 kg (177 lb 0.5 oz) 02/17/2025 8:07 A M EST Height 161 cm (5' 3.39 ) 02/17/2025 8:07 AM EST Body Mass Index 30.98 02/17/2025 8:07 AM EST Plan of Treatment Upcoming Encounters Date Type Department Care Team (Late st Contact Info) Description 05/26/2025 8:00 AM EST Follow-Up [facility] [address] [place] [address] Lathe Winder: Pastora Smith NP [address] [place] [address] 11/24/2025 8:20 AM EDT Follow-Up [facility] [address] [place] [address] Lathe Winder: Ryan Cho MD [address] [place] [address] Health Maintenance Due Date Last Done Comments Cologuard 1972 FOBT / Fit Test 1972 HIV Screening 1972 Hemoglobin A1C 1972 Hepatitis C Screening 1972 Sigmoidoscopy 1972 Ophthalmology Exam 1982 Urine Microalbumin 1982 Alcohol/Substance Use Screening 04/15/2024 Depression Screening and Follow-Up 04/15/2024 Social Drivers of Health Jenna ual Screening 04/15/2024 Basic Metabolic Panel 04/10/2025 04/10/2024 Mammogram 02/11/2027 02/11/2025, 01/15, 02/11/2025, Additional history exists Colon Cancer Screening 08/10/2034 Colonoscopy 08/10/2034 08/10/2024 DTaP,Tdap,and Td Vaccines (3 - Td or Tdap) 01/19/2035 01/19/2025, 08/27/2014 Hepatitis B Vaccines Completed 10/28/2019, 05/27/2019, 04/22/2019, Additional history exists Zoster Vaccines Completed 03/03/2023, 09/2022, 06/24/2019, Additional history exists Pneumococcal Vaccine: 50+ Years Completed 06/23/2024, 02/25/2018, 04/20/2011 COVID-19 Vaccine Completed 01/09/2025, , 02/01/2023, Additional history exists Influenza Vaccine Completed 01/09/2025, , 12/28/2022, Additional history exists Procedures * Due to [place] [employer] law, this organization might not be sharing negative HIV tests. Procedure Name Priority Date/Time Associated Diagnosis Comments COMPREHENSIVE METABOLIC PANEL STAT 04/10/2024 2:54 PM EST Family history of breast cancer Nipple discharge HM MAMMOGRAPHY, BILATERAL 02/05/2024 from Last 3 Months or Most Recently Relevant to Health Maintenance Results * Due to [place] [employer] law, this organization might not be sharing [...] - 5.2 g/dL 04/10/2024 3:47 PM EST [facility] Bilirubin, Total 0.2 0.2 - 1.2 mg/dL 04/10/2024 3:47 PM EST [facility] Alkaline Phosphatase 104 35 - 129 U/L 04/10/2024 3:47 PM EST [facility] AST 19 10 - 40 U/L 04/10/2024 3:47 PM EST [facility] ALT 14 10 - 40 U/L 04/10/2024 3:47 PM EST [facility] BUN 10 7 - 23 mg/dL 04/10/2024 3:47 PM EST [facility] eGFR 68 >=60 mL/min/1. 73m2 04/10/2024 3:47 PM EST [facility] Comment:The estimated glomer ular filtration rate (eGFR) is calculated using a new formula developed by the NKF-ASN task force to eliminate race-based correction factors. The new formula uses serum/plasma creatinine, age, and gender to determine eGFR. A value below 60mls/min might indicate kidney disease and will be flagged. For additional information, see Frank et al, Am J Kidney Dis. 2021;79(2):268- 288, A Unifying Approach for GFR estimation: Recommendations of the NKF-ASN Task Force on Reassessing the Inclusion of Race in Diagnosing Kidney Disease . Globulin, Total 3.3 2.1 - 4.2 g/dL 04/10/2024 3:47 PM EST [facility] A/G Ratio 1.3(L) 1.5 - 3.0 04/10/2024 3:47 PM EST [facility] Blood Structure of peripheral vein / Unknown Venipuncture / Unknown 04/10/2024 2:54 PM EST 04/10/2024 3:11 PM EST us Sade Meraz MOBILE DEVICE DEVELOPER LAB BLOOD ORDERABLES Final Result [facility] [address] [place] [address], from Last 3 Months or Most Recently Relevant to Health Maintenance Insurance [facility] HMO/POS Care Teams Machine Grinder Relationship Specialty Start Date End Date Katlyn Colbert 299 [facility] [address] [facility]ARD[facility]OLOGY [place] [address] PCP - General Internal Medicine 03/20/24
--- OUTSIDE RECORDS SUMMARY | 2025-03-08 08:46 | XMS_ITS | Encounter Summary ---
Author Organization [facility] Address [address] [facility] [address] [place] [address] Phone Care Team Providers Care Custom Leather Products Maker Name Role Phone Lee José MD Primary Care Provider [phone] Lee José MD Unavailable [phone] Arsen Del Rio MD Unavailable [phone] Joyce Alejandra MD Unavailable [phone] Tanja Nava PA-C Unavailable [phone] Katlyn Colbert MD Primary Care Provider [phone] Encounter Details Date Type Department Care Team (Late st Contact Info) Description 10/23/2024 Transcribe Orders [facility] Radiology [address] [place] [address] Lee José MD [address] [place], [place] [id number] Social History Tobacco Use Types Packs/Day Years [...] high school, GED, job training, learning the Guinean language, technical skills, or developing parenting skills)? [...] 12/12/2023 Are you denied basic needs s [facility] as food, clothing, or medical care? [...] st Contact Info) Description 02/01/2025 Procedure Pass [facility] Radiology [address] [address] 02/01/2025 Procedure Pass [facility] [address] [address] 02/12/2025 Procedure Pass [facility] [address] [address] 02/12/2025 Procedure Pass [facility] [address] [address] 07/26/2025 9:15 AM EDT Appointment [facility] [address] [place] [phone] Tanja Nava PA-C [address] [facility], [place] [address] [place] [address] [email or web address] 07/26/2025 9:30 AM EDT Appointment [facility] [address] [place] [address] Tanja Nava PA-C [address] [facility], [place] 2 [place] [address] [email or web address] 08/03/2025 11:15 AM EDT Appointment [facility] Radiology [address] [place] [address] Tanja Nava PA-C [address] [facility], [place] 2 [place] [address] [email or web address] 02/02/2026 11:15 AM EDT Appointment [facility] [address] [facility] 2[facility] [place] [address] Tanja Nava PA-C [address] [facility], [place] 2 Surgical Oncology [place], [place] [email or web address] documented as of this encounter Visit Diagnoses Not on filedocumented in this encounter Care Teams Custom Leather Products Maker Relationship Specialty Start Date End Date Lee José MD [address] [place] [address] PCP - General Internal Medicine 10/20/13 12/16/24 Katlyn Colbert MD [address] [address] [email or web address] PCP - General Internal Medicine 12/17/24 Lee José MD [address] [place] [address] Historical LMR Provider 01/29/17 Arsen Del Rio MD [address] [place] [address], [address] [place] [address] [email or web address] Historical LMR Provider 01/29/17 [place] [address] [email or web address] Historical LMR Provider 01/29/17 Tanja Nava PA-C [address] [facility] C[facility], [place] 2 Surgical Oncology [place], [place] [email or web address] Physician Director Women 11/05/23 documented as of this encounter Additional Source Comments The information contained in this document represents components of the legal health record. It is not the complete legal health record.[facility]
--- OUTSIDE RECORDS SUMMARY | 2025-03-08 08:46 | XMS_ITS | Clinical Summary ---
Author Organization [facility] Address [address] [address] Phone Care Team Providers Care Police Crime Scene Technician Name Role Phone Lee José MD Unavailable [phone] Arsen Del Rio MD Unavailable [phone] Joyce Alejandra MD Unavailable Tanja Nava PA-C Unavailable Aria Colbert MD Primary Care Provider [phone] Allergies Active Allergy Reactions Criticality Noted Date [...] the lungs as needed for wheezing. Active biotin 10 mg Tab 1 tablet Orally Once a day for 30 day(s) Active Encounters Date Type Department Care Team Description 02/12/2025 Orders Only [facility] Breast Center Surgery [address] [address] [place] [address] Tanja Nava PA-C Abnormal findings on diagnostic imaging of breast (Primary Dx) 02/11/2025 12:41 PM EDT - 02/11/2025 11:59 PM EDT Hospital Encounter [facility] [address] [address] Aria Colbert MD Discharge Disposition: Home or Self Care 02/11/2025 12:40 PM EDT Hospital Encounter [facility] [address] [address] Aria Colbert MD Discharge Disposition: Home or Self Care 02/05/2025 Telephone [facility] [address] [address] Tanja Nava PA-C 02/04/2025 Procedure Pass [facility] [address] [address] 02/04/2025 Telephone [facility] Breast Center Surgery [address] [place] [address] Tanja Nava PA-C 02/04/2025 Ancillary Orders [facility] [address] [place] [address] Aria Colbert MD Abnormal finding on radiological examination of breast (Primary Dx) 02/04/2025 Ancillary Orders [facility] [address] [address] Aria Colbert MD Abnormal finding on radiological examination of breast (Primary Dx) 02/01/2025 11:00 AM EDT Office Visit [facility] Breast Center Surgery [address] [place] [address] Tanja Nava PA-C Family history of breast cancer (Primary Dx); Breast cancer screening by mammogram; Breast cancer screening, high risk patient; Bilateral nipple discharge 02/01/2025 10:00 AM EDT - 02/01/2025 11:59 PM EDT Hospital Encounter [facility] [address] [address] Tanja Nava PA-C Discharge Disposition: Home or Self Care 01/29/2025 Telephone [facility] Breast Center Surgery [address] [address] [place] [address] Tanja Nava PA-C 12/18/2024 Telephone [facility] [address] [address] [place] [address] Lakshmi Larry 12/17/2024 Telephone [facility] [address] [address] Tanja Nava PA-C 05/24/2023 Procedure Pass [facility] [address] [address] from Last 3 Months Family History Medical [...] high school, GED, job training, learning the Hungarian language, technical skills, or developing parenting skills)? [...] your housing situation today? I have taina webster 11/10/2023 How many times have you move [...] - Inhaled Oxygen Concentration - - Weight 82.6 kg (182 lb) 02/01/2025 11:05 AM EDT Height 162.6 cm (5' 4 ) 02/01/2025 11:05 AM EDT Body Mass Index 31.24 02/01/2025 11:05 AM EDT Plan of Treatment Upcoming Encounters Date Type Department Care Team (Late st Contact Info) Description 02/01/2025 Procedure Pass [facility] Radiology [address] [place] [address] 02/01/2025 Procedure Pass [facility] [address] [place] [address] 02/12/2025 Procedure Pass [facility] [address] [place] [address] 02/12/2025 Procedure Pass [facility] [address] [place] [address] 07/26/2025 9:15 AM EDT Appointment [facility] [address] [place] [address] Tanja Nava PA-C [address] [facility] Ctr, [place] 2 [place] [address] [email or web address] 07/26/2025 9:30 AM EDT Appointment [facility] [address] [place] [address] Tanja Nava PA-C [address] [facility] C[facility], [place] 2 [place] [address] [email or web address] 08/03/2025 11:15 AM EDT Appointment [facility] Radiology [address] [place] [address] Tanja Nava PA-C [address] [facility], [place] 2 [place] [address] [email or web address] 02/02/2026 11:15 AM EDT Appointment [facility] [address] [place] 2nd [place] [address] Tanja Nava PA-C [address] [facility], [place] 2 [place] [address] [email or web address] Health Maintenance Due Date Last Done Comments CREATININE LEVEL 1972 LIPID PANEL 1972 DEPRESSION SCREENING 1984 HEPATITIS C SCREENING 1990 HIV ONE-TIME SCREENING (18-65 YEARS) 1990 PAP SMEAR 1993 SCREENING FOR DIABETES 11/02/2007 COLOGUARD 2017 COLONOSCOPY 2017 COLORECTAL CANCER SCREENING 2017 FIT TEST 2017 FOBT 2017 SIGMOIDOSCOPY 2017 VIRTUAL COLONOSCOPY 2017 MAMMOGRAM 02/01/2027 02/01/2025, 02/0 12/2024, 02/05/2024, Additional history exists Adult Td,Tdap Booster 01/19/2035 01/19/2025, 015 HEPATITIS A VACCINES Aged Out 02/25/2018 No long er eligible based on patient's age to complete this topic MENINGOCOCCAL VACCINES (ACWY) Aged Out 02/25/2018 No longer eligible based on patient's age to complete this topic ZOSTER VACCINES Completed 03/03/2023, 11/18/2022 SMOKING STATUS SCREENING (Once After 26 Yrs) Completed 10/10/2023 PNEUMOCOCCAL VACCINES (50+ years) Completed 06/23/2024, 02/25/2018, 04/20/2011 COVID-19 VACCINE Completed 01/09/2025, , 02/01/2023, Additional history exists INFLUENZA VACCINE Completed 01/09/2025, , 12/28/2022, Additional history exists RSV VACCINE Completed 01/09/2025 HIB VACCINES Aged Out No longer eligi ble based on patient's age to complete this topic MENINGOCOCCAL VACCINES (B) Aged Out N o longer eligible based on patient's age to complete this topic Medical Devices Not on file Procedures Procedure Name Priority Date/Time Associated Diagnosis Comments BI US BREAST LIMITED (LEFT) Routine 02/11/2025 2:26 PM EDT Abnormal finding on radiological examination of breast BI MAMMOGRAM DIAGNOSTIC WITH TOMOSYNTHESIS WITH CAD (LEFT) Routine 02/11/2025 1:32 PM EDT Abnormal finding on radiological examination of breast BI MAMMOGRAM SCREENING WITH TOMOSYNTHESIS WITH CAD (BILATERAL) Routine 02/01/2025 10:38 AM EDT Breast cancer screening by mammogram from Last 3 Months Results * BI US BREAST LIMITED (LEFT) [...] created by Eder Bartlett. Aria Colbert MD [facility] US BREAST Final Result * BI MAMMOGRAM DIAGNOSTIC WITH TOMOSYNTHESIS WITH [...] to the patient at time ofexamination. ATTESTATION: I, Ona Haver, as teaching physician have reviewed theimages, if any, for this patient's exam, and if necessary, have edited thereport originally created by Eder Bartlett. Aria Colbert MD IMG MG EXAMS Final Result * (ABNORMAL) BI MAMMOGRAM SCREENING WITH TOMOSYNTHESIS WITH CAD (BILATERAL) (02/01/2025 10:38 AM EDT) Anatomical Region Laterality Modality Breast Left, Breast Right, Breast Bilateral Bila teral Mammography 02/02/2025 9:32 AM EDT Impressions 02/04/2025 11:25 AM EDT 1. Two masses in the left breast for which additional imaging is recommended with diagnostic mammogram and targeted ultrasound. 2. No mammographic evidence of malignancy in the right breast. BI-RADS 0 INCOMPLETE Needs additional imaging evaluation The patient will be notified of the results and recommendations. The mammography department will contact the patient to arrange for the additional imaging. ATTESTATION: Gayatri Castañeda, as teaching physician have reviewed the images, if any, for this patient's exam, and if necessary, have edited the report originally created by Marni Conley. Narrative 02/04/2025 11:25 AM EDT BI MAMMOGRAM SCREENING WITH TOMOSYNTHESIS WITH CAD (BILATERAL) Additional patient information: Screening. COMPARISON: Comparison is made with relevant prior imaging. Breast composition: The breasts are heterogeneously dense, which may obscure small masses. FINDINGS: Right No abnormal masses, suspicious calcifications, or other significant findings are identified mammographically in the right breast. Left Two masses are present in the upper outer left breast at middle depth. Procedure Note Gayatri Hogan MD - 02/04/2025 BI MAMMOGRAM SCREENING WITH TOMOSYNTHESIS WITH CAD (BILATERAL) Additional patient information: Screening. COMPARISON: Comparison is made with relevant prior imaging. Breast composition: The breasts are heterogeneously dense, which mayobscure small masses. FINDINGS: Right No abnormal masses, suspicious calcifications, or other significantfindings are identified mammographically in the right breast. Left Two masses are present in the upper outer left breast at middle depth. IMPRESSION: 1. Two masses in the left breast for which additional imaging isrecommended with diagnostic mammogram and targeted ultrasound. 2. No mammographic evidence of malignancy in the right breast. BI-RADS 0 INCOMPLETE Needs additional imaging evaluation The patient will be notified of the results and recommendations. Themammography department will contact the patient to arrange for theadditional imaging. ATTESTATION: Gayatri Castañeda, as teaching physician have reviewed theimages, if any, for this patient's exam, and if necessary, have edited thereport originally created by Marni Conley. Tanja Nava PA-C IMG MG EXAMS Final Result from Last 3 Months Insurance [facility] Care Teams Police Crime Scene Technician Relationship Specialty Start Date End Date Aria Colbert MD [address] [address] [email or web address] PCP - General Internal Medicine 12/17/24 Lee José MD [address] [place] [address] Historical LMR Provider 01/29/17 Arsen Del Rio MD [address] [place] [address], [facility] [address] [place] [address] [email or web address] Historical LMR Provider 01/29/17 [place] [address] [email or web address] Historical LMR Provider 01/29/17 Tanja Nava PA-C [address] [facility], Breast Ctr, [place] 2 [place] [address] [email or web address] Physician Glue Mounter Operator 11/05/23 Additional Source Comments The information contained in this document represents components of the legal health record. It is not the complete legal health record.[facility]
== END 2025-03-08 08:53 | disposition home or self-care (01) ==
LOC: HO.HSM 08:31
PROVIDERS: PCP Nurse Practitioner Family; Visit Provider Registered Nurse
DX: G25.0 Essential tremor (principal); F98.8 Other specified behavioral and emotional disorders with onset usually occurring in childhood and adolescence; R06.83 Snoring
CPT/HCPCS: 99213